=== PATIENT | male | born 1945 | race Caucasian/White ===

== ENCOUNTER 2017-06-20 10:43 | Day surgery (SDC) | payer OTHER ==
[~2017-06-20] VITALS: Ht 172.7 cm; Wt 96.3 kg
[~2017-06-20 10:43] MED LIST: ASPI81TA28 PO; B-COCAP21 PO; CALC667C PO; CEFAZOLIN 1000MG IV PUSH 5 ML IV SCH; CHOL1000 PO; CRD200 PO; D5W AND 1/4NSS 1,000 ML IV SCH; DOCU-94 PO; LPT40 PO; METO25TA56 PO; NTRGSL/4 SL; PLV75 PO; PROSTATE COMPLETE PO
[2017-06-20 12:16] VITALS: BP 164/91; PULSE 86; TEMP 36.8; O2SAT 100; Ht 172.7 cm; Wt 96.3 kg
--- NOTE | 2017-06-20 12:37 | History and Physical ---
History & Physical Date of Service Jun 20, 2017. History & Physical CC: Malfunctioning left arm av fistula HPI: Mr. Dennis had a left upper arm fistula created in the past. He is having trouble with runs. A fistulogram was recommended. He denies any significant complaints at this time including headaches, fevers, chills, dizziness, chest pain, shortness of breath, abdominal pain, nausea, vomiting, diarrhea, constipation, dysuria, hematuria, rest pain, claudication, nonhealing wounds or ulcers or other complaints. His allergies include no known allergies. His home medications are reconciled in the chart and include the following: Acetaminophen, amiodarone, artificial tears eye drops, aspirin, atorvastatin, cholecalciferol, clopidogrel, docusate sodium, metoprolol tartrate, Nephrocaps, [place] 5/325, PhosLo Gel Caps 667 mg oral capsule and tramadol 50 mg oral tablet. His past medical history is positive for hypertension, type 2 diabetes mellitus , end stage renal disease, coronary artery disease and carotid artery stenosis. His surgical history is positive for umbilical hernia repair, carotid stent in 2002, cardiac catheterizations x2, coronary artery bypass graft x4 in 1997, coronary artery bypass graft x3 in 1987, and carotid endarterectomy in 1991. His family history is positive for coronary artery disease, diabetes and hypertension in both of his parents. His social history is negative for tobacco, alcohol or drug use. 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 His review of systems is negative for fatigue, fevers, sweats, weight loss, exercise intolerance, abnormal moles or rashes, vision changes or photophobia, ear pain, sinus problems or sore throat, cough, shortness of breath, hemoptysis or wheezing, chest pain, palpitations or syncope. He admits occasional edema of his bilateral lower extremities but this is not chronic. He denies abdominal pain, nausea, vomiting, diarrhea, constipation, muscle weakness, headaches, dizziness, numbness or seizures. On physical exam, his vital signs today are as follows: Blood pressure of 110/ 60 in the left arm, 110/66 in the right arm, heart rate is 68, oxygenation 97% on room air. The patient is 69 inches tall and weighs 214 pounds. Constitutional: In general, the patient is a chronically ill-appearing elderly male in no acute distress. He ambulates slowly, but without assistance and is active, alert and oriented x4 with normal recent and remote memory. His head is normocephalic and atraumatic. His eyes are EOMI. His ENMT exam demonstrates no hearing loss, rhinorrhea or pharyngeal erythema. His neck is supple, nontender with midline trachea without masses or crepitus. Lung exam demonstrates no dyspnea, they were clear to auscultation bilaterally. Cardiovascular exam demonstrates a nondisplaced apical impulse with a regular rate and rhythm with a 2/6 systolic ejection murmur noticed. Peripheral pulses are full and equal in all extremities unless otherwise noted, specifically they are normal in his carotid, brachial, radial and femoral pulses. His bilateral posterior tibial and dorsalis pedis pulses are +2. He does not have a significant bruit in his carotid, abdominal or femoral area. His abdomen is soft, nontender with normoactive bowel sounds in all 4 quadrants without guarding or rebound. There is no flank or CVA tenderness and I am unable to appreciate any pulsatile mass. His musculoskeletal exam demonstrates normal tone and strength for age. His bilateral upper extremities demonstrate no cyanosis, edema, clubbing, varicosities or ulcers with a thrill present in the left arm fistula. The patient's bilateral lower extremities do demonstrate +1 pitting edema and some discoloration consistent with chronic venous insufficiency. There are no ulcerations, mottling, cyanosis or gangrene noted. Neurologically, he has grossly intact cranial nerves and grossly intact sensation. ASSESSMENT AN PLAN: Imp: End-stage renal disease on hemodialysis. Malfunctioning left arm fistula Plan: Patient is admitted for a fistulogram with possible intervention. I have discussed the risks options and benefits of the procedure with the patient. The patient understands the risks options and benefits and agrees to the procedure.
--- NOTE | 2017-06-20 12:38 | Procedure Note ---
Pre-Mod Sedation Assessment General Date of Moderate Sedation: Jun 20, 2017. Vital Signs: Vital Signs Past 12 Hours Date Time Temp Pulse Resp B/P (MAP) Pulse Ox O2 Delivery O2 Flow Rate FiO2 06/20/17 12:16 36.8 86 18 164/91 (115) 100 Room Air Pre-Sedation Airway Assessment Oral Cavity: Dentures Short Thick Neck: Yes Hx of Sleep Apnea: No Smoking Status: Never Smoker Mallampati Classification: Class I ASA Classification: Class III Notes The planned sedation has been discussed with the patient and consent obtained. I have identified the patient, determined the appropriateness of sedation and have assessed the patient immediately prior to the procedure. All medicine(s) and interventions are by my order.
[2017-06-20] MEDS ORDERED: CEFAZOLIN 2000MG IV PUSH 10 ML IV SCH (12:52)
[2017-06-20] MEDS ORDERED: FENTANYL CITRATE INJ 50 MCG/1 ML 2 ML VIAL ONE (13:38)
[2017-06-20] MEDS ORDERED: MIDAZOLAM HCL 1 MG/ML 2ML VIAL ONE (13:38)
[2017-06-20 13:47] VITALS: BP 164/91; PULSE 86; TEMP 36.8; O2SAT 100
--- NOTE | 2017-06-20 14:20 | [facility] Operative Report ---
Operative Report Operative Date Jun 20, 2017. Pre-Operative Diagnosis Malfunctioning Fistula Post-Operative Diagnosis None Procedure(s) Performed Fistulogram Surgeon Dr. Lauren Bat Carrier Surgeon(s) None Estimated Blood Loss 0 Findings no stenosis seen Specimens None Anesthesia Local Complication(s) None Indications This is 72-year-old gentleman left arm left upper arm AV fistula using the cephalic vein. They are having problems at dialysis with a running of the fistula. A fistulogram was recommended with possible intervention. I have discussed the risks options and benefits of the procedure with the patient. The patient understands the risks options and benefits and agrees to the procedure. Description of Procedure The patient was taken to the angiogram suite and placed in the supine position. The left arm was then prepped and draped in a sterile manner. Local anesthetic was administered and a percutaneous puncture was then made of the proximal portion of the left arm antecubital cephalic vein AV fistula using micropuncture technique. Micropuncture wire and sheath were then inserted. A fistulogram was then performed. The fistulogram showed a widely patent fistula with no evidence stenosis throughout the upper arm. Central veins were also widely patent. There are 2 large branches coming off the fistula proximally prior to the puncture sites. No intervention was needed of to the fistula at this time. The sheath was then pulled and pressure was applied. Adequate hemostasis was obtained. The patient left the angiogram suite in good condition and tolerated the procedure well. I attest to the content of the Intraoperative Record and any orders documented therein. Any exceptions are noted below.
--- NOTE | 2017-06-20 14:22 | Discharge Instructions ---
Discharge Instructions Date of Service Jun 20, 2017. Visit Reason for Visit: End Stage Renal Disease, Malfunctioning Fistula Discharge Discharge Diagnosis / Problem: Malfunctioning fistula Discharge Goals Goal(s): Diagnostic testing Activity Recommendations Activity Limitations: resume your previous activity Anesthesia . Post Anesthesia Instructions: If you have had General Anesthesia or IV Sedation: * Do not drive today. * Resume driving when surgeon permits. * Do not make important decisions or sign legal documents today. * Call surgeon for: 1. Temperature elevations greater than 101 degrees F. 2. Uncontrollable pain. 3. Excessive bleeding. 4. Persistent nausea and vomiting. 5. Medication intolerance (nausea, vomiting or rash). * For nausea and vomiting use only clear liquids such as: tea, soda, bouillon until nausea subsides, then gradually increase diet as tolerated. * If you have any concerns or questions, call your surgeon's office. If physician is unavailable and it is an emergency, call 911 or go to the nearest emergency room. . Instructions / Follow-Up Instructions / Follow-Up Call [phone] with any questions or concerns. SPECIAL CARE INSTRUCTIONS: Medications: * Continue to take your medications as directed. If you have been given a prescription for Plavix, please fill it immediately and take as directed. Incision Care: * Your puncture site may have some bruising and minor swelling for about one week. * You will have a small dressing covering your puncture site. You may remove the dressing after 24 hours and shower. You may let the warm soapy water run over it, but be sure to dry the puncture site well and keep it dry. * DO NOT IMMERSE THE INCISION IN A TUB/POOL/etc. UNTIL HEALED. * Puncture sites should be kept covered with a band-aid until it begins to heal. Restrictions: * Depending on whether you leg or arm was punctured to access the arteries, you will be required to lay flat, hold your arm still, or both, for about 4 hours after the procedure to prevent bleeding. * Limit your activity for the first 48 hours. You may walk and go up and down steps. Avoid excessive bending or movement at the puncture site. Possible Complications: * Excessive Swelling - after blood flow is improved you may notice increased swelling in the lower legs. This is a normal response. This usually depends on the amount of blockages in the leg, how long they have been there prior to your procedure and how much blood flow was restored. Elevating your legs will help to improve this. Please notify our office ([phone] ) if the swelling does not go away after lying in bed overnight. * Infection/Drainage/Bleeding - Drainage or bleeding from the puncture site should be minimal. If you have excessive bleeding or drainage, call our office ([phone]) right away. * Pain - You may experience some mild pain or soreness at your puncture site. If your pain does not improve, please contact our office ([phone]). Call your doctor and seek emergent treatment if you develop: * Temperature above 101 degrees * Any fever or chills * Any redness or purulent drainage from the puncture site * Any new dusky/blue colored toes or feet with coolness or sharp or aching pain. SKIN IRRITATION: * You may experience some redness and/or swelling in the area where radiation was administered. If any skin irritation occurs, please contact your family physician. FOLLOW UP VISIT: Keep any scheduled doctor appointments. Diet Recommendations Recommended Home Diet: resume previous diet Procedures Procedures Performed: Fistulogram Pending Studies Studies pending at discharge: no Medical Emergencies . Who to Call and When: Medical Emergencies: If at any time you feel your situation is an emergency, please call 911 immediately. . Non-Emergent Contact Non-Emergency issues call your: Surgeon . . "Provider Documentation" section prepared by Dhruv Lauren. .
[2017-06-20 14:25] VITALS: BP 159/64; PULSE 83; TEMP 37.2; O2SAT 96
[2017-06-20] MEDS ORDERED: OPTIRAY 300 IV ONE (14:25)
[2017-06-20] MEDS ORDERED: LIDOCAINE HCL 1% 20 ML VIAL INJ ONE (14:25)
[2017-06-20 14:55] VITALS: BP 125/52; PULSE 82; TEMP 36.8; O2SAT 97
== END 2017-06-20 15:25 | disposition home or self-care (01) ==
LOC: C.ACU 10:43
PROVIDERS: ATTEND Surgery Vascular Surgery
DX: T82.898A Other specified complication of vascular prosthetic devices, implants and grafts, initial encounter (principal); Y84.8 Other medical procedures as the cause of abnormal reaction of the patient, or of later complication, without mention of misadventure at the time of the procedure; N18.6 End stage renal disease; Z99.2 Dependence on renal dialysis; Z98.890 Other specified postprocedural states; Z79.899 Other long term (current) drug therapy; Z79.82 Long term (current) use of aspirin; E11.9 Type 2 diabetes mellitus without complications; I25.10 Atherosclerotic heart disease of native coronary artery without angina pectoris; Z82.49 Family history of ischemic heart disease and other diseases of the circulatory system; Z83.3 Family history of diabetes mellitus

== ENCOUNTER 2018-03-06 14:42 | Inpatient (IN) | payer OTHER ==
[~2018-03-06] VITALS: Ht 172.7 cm; Wt 102.3 kg
[~2018-03-06 14:42] MED LIST changes: -CEFAZOLIN 1000MG IV PUSH 5 ML IV SCH; -D5W AND 1/4NSS 1,000 ML IV SCH
[2018-03-06] MEDS ORDERED: CALC667C PO (15:32)
[2018-03-06] MEDS ORDERED: HYDR-4383 PO (15:32)
[2018-03-06] MEDS ORDERED: POLY335019 PO (15:32)
--- NOTE | 2018-03-06 15:45 | EMERGENCY ROOM VISIT NOTE ---
History Report prepared by Jan: Gwendolyn Nieto Under the Supervision of: Dr. No Winkler D.O. First contact with patient: 15:03 Chief Complaint: CHEST PAIN Stated Complaint: CHEST PAIN/RAPID AFIB Nursing Triage Summary: pt arrives via ALS from home per ALS patient reports chest pain with radiation down arm pt states it initially started at the grocery store and then patient decided he was going to cut the grass today pt reports over a 3 hours time span he took 4 nitro upon EMS arrival they gave him a nitro spray, 4 baby aspirin and 50ML IV bolus pt reports HX of cardiac surgery with stent placement pt also reports HX of dialysis 3 times a day with hypotensive episodes History of Present Illness The patient is a 72 year old male who presents to the Emergency Room with 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 He notes he was walking into the [employer] grocery store when he suddenly got SOB. He went home and felt worse, but he mowed some grass and still felt worse. He then took 2 nitro at 1230 which he states helped a little, but his chest pain came back. At 1330, he took 2 more nitro but he still had chest pain, back pain, lightheadedness, and tingling and numbness so he called the ambulance. He states his chest pain radiates down to his arms and legs. The patient notes his chest pain is currently resolved after receiving nitro in the ED. He reports that his episodes are usually brought on through exercise however this is worse than his prior episodes. His clinical staff anesthesiologist is Dr. Laird but the patient notes he has not seen him in years. He currently takes Plavix and aspirin and has a past history of triple bypass, quadruple bypass, 6 hearts stents, and is on dialysis. Pt states no current symptoms. 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 A total of 10 systems reviewed and were otherwise negative. Past Medical & Surgical Medical Problems: (1) A-fib (2) AC MYOCRD INFRCT,TRUE PSTERIR WALL INFRCT,INIT EPI (3) CHF (congestive heart failure) (4) Coronary artery disease (5) DIAB [place] WO COMPL, TYPE II OR UNSPEC TYPE, NOT UNCNTRLD (6) Diabetes mellitus type 2 in obese (7) ESRD (end stage renal disease) on dialysis (8) Heart disease (9) Hyperkalemia (10) Hyperlipidemia (11) Hypertension (12) Osteomyelitis of lumbar vertebra (13) Post percutaneous transluminal coronary angioplasty (14) Sepsis (15) Syncope Surgical Problems: (1) H/O hernia repair (2) Hx of CABG (3) Hx of CABG (4) S/P PTCA (percutaneous transluminal coronary angioplasty) Family History Cancer Diabetes mellitus Gallbladder disease Heart disease Hypertension Kidney disease Lung disease Social History Smoking Status: Never Smoker Alcohol Use: occasionally Drug Use: none Marital Status: Housing Status: lives with family Occupation Status: retired Current/Historical Medications Scheduled Amiodarone HCl (Amiodarone HCl), 200 MG PO BID Aspirin (Aspirin Ec), 81 MG PO QAM Atorvastatin (Lipitor), 80 MG PO HS B-Complex W/ C & Folic Acid ([place] Caps), 1 CAP PO QPM Calcium Acetate (Phosphate Bin (Phoslo 667 Mg), 667 MG PO TIDM Calcium Acetate (Phosphate Bin (Phoslo 667 Mg), 1 CAP PO HS Cholecalciferol (Vitamin D3), 1,000 INTER.UNIT PO QAM Clindamycin HCl (Clindamycin HCl), 300 MG PO TID Clopidogrel Bisulfate (Clopidogrel), 75 MG PO QAM Metoprolol Tartrate (Lopressor), 25 MG PO TID Polyethylene Glycol 3350 (Miralax), 17 GM PO DIRECTED [Prostate Complete], 1 TAB PO QAM Scheduled PRN Docusate Sodium (Colace), 100 MG PO UD PRN for Constipation Hydrocodone/Acetaminophen ([place] 10/325 Tab), 1 TAB PO DIRECTED PRN for Pain Nitroglycerin (Nitrostat), 0.4 MG SL UD PRN for Chest Pain Allergies Coded Allergies: No Known Allergies (Verified , 03/06/18) Physical Exam Vital Signs Date Time Temp Pulse Resp B/P (MAP) Pulse Ox O2 Delivery O2 Flow Rate FiO2 03/06/18 18:02 79 20 128/57 99 Room Air 03/06/18 18:02 75 03/06/18 17:32 77 21 127/63 99 Room Air 03/06/18 17:01 86 23 125/73 97 Room Air 03/06/18 16:31 78 23 112/59 97 Room Air 03/06/18 16:00 90 20 107/38 98 Room Air 03/06/18 15:30 88 20 101/62 96 Room Air 03/06/18 15:15 88 18 105/41 99 Room Air 03/06/18 15:08 91 03/06/18 14:53 97 Room Air 03/06/18 14:53 36.8 92 18 97/66 97 Room Air Physical Exam GENERAL: alert, well appearing, well nourished, no distress, non-toxic EYE EXAM: normal conjunctiva, PERRL and EOM's grossly intact OROPHARYNX: no exudate, no erythema, lips, buccal mucosa, and tongue normal and mucous membranes are moist NECK: supple, no nuchal rigidity, no adenopathy, non-tender LUNGS: Clear to auscultation. Normal chest wall mechanics HEART: no murmurs, S1 normal and S2 normal ABDOMEN: abdomen soft, non-tender, normo-active bowel sounds, no masses, no rebound or guarding. BACK: Back is symmetrical on inspection and there is no deformity, no midline tenderness, no CVA tenderness. SKIN: no rashes and no bruising UPPER EXTREMITIES: upper extremities are grossly normal. LOWER EXTREMITIES: Mild 1+ chronic LUE edema. Fistula LUE NEURO EXAM: Normal sensorium, cranial nerves II-XII grossly intact, normal speech, no gross weakness of arms, no gross weakness of legs. Medical Decision & Procedures ER Provider Diagnostic Interpretation: Radiology results have been interpreted by the radiologist and reviewed by me. CHEST ONE VIEW PORTABLE CLINICAL HISTORY: Atypical chest pain COMPARISON STUDY: March 18, 2016 FINDINGS: The heart is enlarged. There are postsurgical changes of a midline sternotomy. The right-sided central venous catheter has been removed. There is mild central vascular prominence without evidence for overt failure. There is no focal pulmonary consolidation.[ IMPRESSION: Cardiomegaly and mild central vascular prominence. No evidence of focal pulmonary consolidation Electronically signed by: Mina Chan M.D. 03/06/2018 4:18 PM Laboratory Results Test 03/06/18 17:20 Immature Granulocyte % (Auto) 1.4 % White Blood Count 9.45 K/uL (4.8-10.8) Red Blood Count 3.57 M/uL (4.7-6.1) Hemoglobin 11.5 g/dL (14.0-18.0) Hematocrit 34.6 % (42-52) Mean Corpuscular Volume 96.9 fL (80-100) Mean Corpuscular Hemoglobin 32.2 pg (25-34) Mean Corpuscular Hemoglobin Concent 33.2 g/dl (32-36) Platelet Count 178 K/uL (130-400) Mean Platelet Volume 10.2 fL (7.4-10.4) Neutrophils (%) (Auto) 67.2 % Lymphocytes (%) (Auto) 12.1 % Monocytes (%) (Auto) 18.4 % Eosinophils (%) (Auto) 0.6 % Basophils (%) (Auto) 0.3 % Neutrophils # (Auto) 6.35 K/uL (1.4-6.5) Lymphocytes # (Auto) 1.14 K/uL (1.2-3.4) Monocytes # (Auto) 1.74 K/uL (0.11-0.59) Eosinophils # (Auto) 0.06 K/uL (0-0.5) Basophils # (Auto) 0.03 K/uL (0-0.2) Immature Granulocyte # (Auto) 0.13 K/uL (0.00-0.02) Prothrombin Time 10.4 SECONDS (9.0-12.0) Prothromb Time International Ratio 1.0 (0.9-1.1) Phosphorus Level 4.0 mg/dl (2.5-4.9) Magnesium Level 2.7 mg/dl (1.8-2.4) Total Bilirubin 0.4 mg/dl (0.2-1) Aspartate Amino Transf (AST/SGOT) 26 U/L (15-37) Alanine Aminotransferase (ALT/SGPT) 26 U/L (12-78) Alkaline Phosphatase 160 U/L (45-117) Pro-B-Type Natriuretic Peptide 8468 pg/ml (0-900) Total Protein 7.4 gm/dl (6.4-8.2) Albumin 3.6 gm/dl (3.4-5.0) Globulin 3.8 gm/dl (2.5-4.0) Albumin/Globulin Ratio 0.9 (0.9-2) Laboratory results per my review. ECG Per My Interpretation Indication: chest pain Rate (beats per minute): 100 Rhythm: atrial fibrillation Findings: no acute ischemic change, other (possbile RBBB) Comparison ECG Date: 03/20/16 Change: no significant change ED Course 153: The patient was evaluated in room A12. A complete history and physical exam was performed. 1801: I checked on the patient at this time and recommended he be further evaluated in the ED. HR 90's. No current symptoms. 1822: I reviewed the patient's case with Birgit Cook. He will evaluate the patient for further management. Medical Decision Differential diagnosis: Etiologies such as cardiac ischemia, aortic dissection, pulmonary embolism, pneumonia, pneumothorax, musculoskeletal, infections, pericarditis, myocarditis , esophageal rupture, gastrointestinal, as well as others were entertained. Pt without any recurrent symptoms here. HR initially very fast for EMS but seemed to improved with pain control and resolution. By my evaluation initially , HR in low 100's. No recurrence of any symptoms during observation in the ER. Initial trop negative. Pt with hx of CKD on HD and due tomorrow. Pt with significant cardiac history. Verbalized understanding of all results and was agreeable with plan. I do not suspect PE or vascular etiology. I do not suspect occult infectious etiology. No other symptoms to suggest GI etiology of pain and no hx of significant GERD per pt report. Pt hasn't been to his clinical staff anesthesiologist in several years. Given pt's risk and noncompliance discussed with him additional evaluation and treatment by hospitalist and possibly cardiology and pt in agreement. Medication Reconcilliation Current Medication List: was personally reviewed by me Blood Pressure Screening Patient's blood pressure: Low blood pressure Blood pressure disposition: Referred to PCP Consults Time Called: 1809 Consulting Physician: Birgit Cook Returned Call: 1822 I reviewed the patient's case with Birgit Cook. He will evaluate the patient for further management. Impression Primary Impression: Chest pain Additional Impressions: Dyspnea on exertion Chronic kidney disease Afib Scribe Attestation The scribe's documentation has been prepared under my direction and personally reviewed by me in its entirety. I confirm that the note above accurately reflects all work, treatment, procedures, and medical decision making performed by me. Departure Information Dispostion Being Evaluated By Hospitalist (Birgit Cook) Prescriptions Metoprolol Tartrate (LOPRESSOR) 25 Mg Tab 25 MG PO TID for 30 Days, #90 TAB 2 Refills Prov: Chung Pena MD 03/09/18 Amiodarone HCl (Amiodarone HCl) 200 Mg Tab 200 MG PO BID for 30 Days, #60 TAB 1 Refill Prov: Chung Pena MD 03/09/18 Clindamycin HCl (Clindamycin HCl) 150 Mg Cap 300 MG PO TID for 30 Days Prov: Chung Pena MD 03/09/18 Referrals Rl Mendoza M.D. (PCP) Patient Instructions [facility] Problem Qualifiers
--- NOTE | 2018-03-06 16:19 | DIAGNOSTIC IMAGING REPORT ---
CHEST ONE VIEW PORTABLE CLINICAL HISTORY: Atypical chest pain COMPARISON STUDY: March 18, 2016 FINDINGS: The heart is enlarged. There are postsurgical changes of a midline sternotomy. The right-sided central venous catheter has been removed. There is mild central vascular prominence without evidence for overt failure. There is no focal pulmonary consolidation.[ IMPRESSION: Cardiomegaly and mild central vascular prominence. No evidence of focal pulmonary consolidation Electronically signed by: Mina Chan M.D. 03/06/2018 4:18 PM Dictated Date/Time: 03/06/2018 4:17 PM
[2018-03-06 17:30] LABS: BASO % 0.3 %; BASO ABS # 0.03 K/uL (0-0.2); EOS % 0.6 %; EOS ABS # 0.06 K/uL (0-0.5); HEMATOCRIT 34.6 % (42-52); HEMOGLOBIN 11.5 g/dL (14.0-18.0); IG# 0.13 K/uL (0.00-0.02); LYMPH % 12.1 %; LYMPH ABS # 1.14 K/uL (1.2-3.4); MEAN CELL VOLUME 96.9 fL (80-100); MEAN CORPUSCULAR HEMOGLOBIN 32.2 pg (25-34); MEAN CORPUSCULAR HGB CONC 33.2 g/dl (32-36); MEAN PLATELET VOLUME 10.2 fL (7.4-10.4); MONO % 18.4 %; MONO ABS # 1.74 K/uL (0.11-0.59); NEUT % 67.2 %; NEUT ABS # 6.35 K/uL (1.4-6.5); PLATELET COUNT 178 K/uL (130-400); RED CELL DISTRIBUTION WIDTH SD 49.4 fL (36.4-46.3); WHITE BLOOD COUNT 9.45 K/uL (4.8-10.8)
[2018-03-06 18:00] LABS: ALBUMIN 3.6 gm/dl (3.4-5.0); CALCIUM 8.5 mg/dl (8.5-10.1); CREATININE 6.21 mg/dl (0.60-1.40); POTASSIUM 5.1 mmol/L (3.5-5.1); TOTAL PROTEIN 7.4 gm/dl (6.4-8.2)
[2018-03-06] MEDS ORDERED: ONDANSETRON INJ 2 MG/ML 2 ML VIAL IV PRN (19:30)
[2018-03-06] MEDS ORDERED: NITROGLYCERIN 0.4 MG SL PER TAB CHARGE SL PRN ×2 (19:30→19:45)
--- NOTE | 2018-03-06 19:41 | History and Physical ---
History & Physical Date & Time of Service: Mar 06, 2018 at 19:33 Chief Complaint: Chest Pain/Rapid Afib Primary Care Physician: Rl Mendoza M.D. History of Present Illness Source: patient, family, clinic records, hospital records This is a 72 year old male with a past medical history of CAD s/p CABG x7 and stenting x6, hx. of atrial fibrillation, ESRD on HD - presents with some chest pain. States that he was working outside in the heat and after exerting himself and sweating, he developed some chest pain. En route, he was noted to be in A. Fib with RVR and was given some medications for rate control and fluids which helped and he felt better. On arrival, he had no chest pain. Denies any shortness of breath or palpitations. He is unsure of why he is not on any anticoagulation, but states he had bleeding from fistula site in the past. Past Medical/Surgical History Medical Problems: (1) A-fib (2) AC MYOCRD INFRCT,TRUE PSTERIR WALL INFRCT,INIT EPI (3) Acute renal failure (4) Bacteremia (5) Cellulitis of right lower extremity (6) CHF (congestive heart failure) (7) Coronary artery disease (8) DIAB L[place]ETTA WO COMPL, TYPE II OR UNSPEC TYPE, NOT UNCNTRLD (9) Diabetes mellitus type 2 in obese (10) Elevated troponin (11) ESRD (end stage renal disease) on dialysis (12) Heart disease (13) Hyperkalemia (14) Hyperlipidemia (15) Hypertension (16) Hyponatremia (17) Leukocytosis (18) Lower back pain (19) Lumbar back pain (20) Osteomyelitis of lumbar vertebra (21) Post percutaneous transluminal coronary angioplasty (22) Sepsis (23) Staphylococcus aureus sepsis (24) Syncope (25) Weakness Surgical Problems: (1) H/O hernia repair (2) Hx of CABG (3) Hx of CABG (4) S/P PTCA (percutaneous transluminal coronary angioplasty) Family History Cancer Diabetes mellitus Gallbladder disease Heart disease Hypertension Kidney disease Lung disease Social History Smoking Status: Never Smoker Drug Use: none Marital Status: Housing status: lives alone Occupational Status: retired Immunizations History of Influenza Vaccine: No History of Tetanus Vaccine?: Unknown History of Pneumococcal: No History of Hepatitis B Vaccine: Unknown Allergies Coded Allergies: No Known Allergies (Verified , 03/06/18) Home Medications Scheduled Amiodarone HCl (Amiodarone HCl), 200 MG PO QAM Aspirin (Aspirin Ec), 81 MG PO QAM Atorvastatin (Lipitor), 80 MG PO HS B-Complex W/ C & Folic Acid ([place] Caps), 1 CAP PO QPM Calcium Acetate (Phosphate Bin (Phoslo 667 Mg), 667 MG PO TIDM Calcium Acetate (Phosphate Bin (Phoslo 667 Mg), 1 CAP PO HS Cholecalciferol (Vitamin D3), 1,000 INTER.UNIT PO QAM Clopidogrel Bisulfate (Clopidogrel), 75 MG PO QAM Metoprolol Tartrate (Lopressor) (Lopressor), 12.5 MG PO BID Polyethylene Glycol 3350 (Miralax), 17 GM PO DIRECTED [Prostate Complete], 1 TAB PO QAM Scheduled PRN Docusate Sodium (Colace), 100 MG PO UD PRN for Constipation Hydrocodone/Acetaminophen ([place] 10/325 Tab), 1 TAB PO DIRECTED PRN for Pain Nitroglycerin (Nitrostat), 0.4 MG SL UD PRN for Chest Pain Review of Systems Constitutional: No fever, No chills Respiratory: + dyspnea on exertion, No cough, No sputum, No wheezing, No shortness of breath, No dyspnea at rest, No hemoptysis Cardiovascular: + chest pain, No orthopnea, No edema, No palpitations Abdomen: No pain, No nausea, No vomiting, No diarrhea, No constipation, No GI bleeding Musculoskeletal: No joint pain, No muscle pain Genitourinary - Male: No dysuria (decreased urination due to end stage renal disease) Neurologic: No weakness, No numbness/tingling, No vertigo, No balance problems Psychiatric: No depression symptoms, No anxiety, No insomnia Endocrine: No fatigue Hematologic / Lymphatic: No abnormal bleeding/bruising Integumentary: No rash Allergic / Immunologic: No environmental allergies, No seasonal allergies Physical Exam Vital Signs Date Time Temp Pulse Resp B/P (MAP) Pulse Ox O2 Delivery O2 Flow Rate FiO2 03/06/18 18:02 79 20 128/57 99 Room Air 03/06/18 18:02 75 03/06/18 17:32 77 21 127/63 99 Room Air 03/06/18 17:01 86 23 125/73 97 Room Air 03/06/18 16:31 78 23 112/59 97 Room Air 03/06/18 16:00 90 20 107/38 98 Room Air 03/06/18 15:30 88 20 101/62 96 Room Air 03/06/18 15:15 88 18 105/41 99 Room Air 03/06/18 15:08 91 03/06/18 14:53 97 Room Air 03/06/18 14:53 36.8 92 18 97/66 97 Room Air General Appearance: no apparent distress Head: normocephalic, atraumatic Eyes: normal inspection ENT: hearing grossly normal Neck: supple Respiratory/Chest: chest non-tender, lungs clear, normal breath sounds, no respiratory distress, no accessory muscle use Cardiovascular: no edema, no gallop, no JVD, no murmur, normal peripheral pulses, + irregularly irregular Abdomen/GI: normal bowel sounds, non tender, soft Back: normal inspection, no CVA tenderness, no muscle spasm, normal range of motion Extremities/Musculoskelatal: normal inspection, no calf tenderness, normal capillary refill, no pedal edema, normal range of motion, + pertinent finding (+ fistula - L arm) 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1 % Monocytes (%) (Auto) 18.4 % Eosinophils (%) (Auto) 0.6 % Basophils (%) (Auto) 0.3 % Neutrophils # (Auto) 6.35 1.4-6.5 K/uL Lymphocytes # (Auto) 1.14 1.2-3.4 K/uL Monocytes # (Auto) 1.74 0.11-0.59 K/uL Eosinophils # (Auto) 0.06 0-0.5 K/uL Basophils # (Auto) 0.03 0-0.2 K/uL RDW Standard Deviation 49.4 36.4-46.3 fL RDW Coefficient of Variation 14.0 11.5-14.5 % Immature Granulocyte % (Auto) 1.4 % Immature Granulocyte # (Auto) 0.13 0.00-0.02 K/uL Prothrombin Time 10.4 9.0-12.0 SECONDS Prothromb Time International Ratio 1.0 0.9-1.1 Sodium Level 132 136-145 mmol/L Potassium Level 5.1 3.5-5.1 mmol/L Chloride Level 97 98-107 mmol/L Carbon Dioxide Level 24 21-32 mmol/L Anion Gap 11.0 3-11 mmol/L Blood Urea Nitrogen 31 7-18 mg/dl Creatinine 6.21 0.60-1.40 mg/dl Est Creatinine Clear Calc Drug Dose 12.1 ml/min Estimated GFR () 9.4 Estimated GFR (Non- 8.1 BUN/Creatinine Ratio 5.1 10-20 Random Glucose 165 70-99 mg/dl Calcium Level 8.5 8.5-10.1 mg/dl Phosphorus Level 4.0 2.5-4.9 mg/dl Magnesium Level 2.7 1.8-2.4 mg/dl Total Bilirubin 0.4 0.2-1 mg/dl Aspartate Amino Transf (AST/SGOT) 26 15-37 U/L Alanine Aminotransferase (ALT/SGPT) 26 12-78 U/L Alkaline Phosphatase 160 45-117 U/L Troponin I 0.029 0-0.045 ng/ml Pro-B-Type Natriuretic Peptide 8468 0-900 pg/ml Total Protein 7.4 6.4-8.2 gm/dl Albumin 3.6 3.4-5.0 gm/dl Globulin 3.8 2.5-4.0 gm/dl Albumin/Globulin Ratio 0.9 0.9-2 Diagnostic Radiology CHEST ONE VIEW PORTABLE CLINICAL HISTORY: Atypical chest pain COMPARISON STUDY: March 18, 2016 FINDINGS: The heart is enlarged. There are postsurgical changes of a midline sternotomy. The right-sided central venous catheter has been removed. There is mild central vascular prominence without evidence for overt failure. There is no focal pulmonary consolidation.[ IMPRESSION: Cardiomegaly and mild central vascular prominence. No evidence of focal pulmonary consolidation EKG Atrial fibrillation Right bundle branch block Abnormal ECG Impression Assessment and Plan This is a 72 year old male with a past medical history of CAD s/p CABG x7 and stenting x6, hx. of atrial fibrillation, ESRD on HD -- - presents with some chest pain. Chest Pain, r/o ACS Significant CAD - hx. of CABG and stenting - states his pain has improved with better heart rate control - plan to observe in tele, trend cardiac enzymes - echo ordered - EKG in AM - cardiology consulted - will continue aspirin, Plavix, b-steve, and statin A. Fib - had some high HRs prior to arrival - now down in the 70s - continue b-steve - continue amiodarone - cardiology consulted - no anticoagulation - possibly due to previous fistula bleeding ESRD - nephrology consulted - dialysis -- DVT ppx - subq heparin FULL CODE Resuscitation Status VTE Prophylaxis Will order VTE Prophylaxis: Yes
[2018-03-06] MEDS ORDERED: HYDROCODONE/ACETAMI 10/325 TAB PO PRN (19:45)
[2018-03-06] MEDS ORDERED: DOCUSATE SODIUM 100 MG CAP PO PRN (19:45)
[2018-03-06] MEDS ORDERED: IV FLUIDS COMPLETED PRN (19:45)
[2018-03-06 20:04] VITALS: O2SAT 97
[2018-03-06] MEDS: METOPROLOL TARTRATE 25 MG TAB PO SCH (21:00)
[2018-03-06] MEDS ORDERED: HEPARIN SOD 5000 UNIT/0.5 ML CARP SQ SCH (21:00)
[2018-03-06] MEDS ORDERED: POLYETHYLENE (MIRALAX) 17 GM PACK PO PRN (21:15)
[2018-03-06 21:54] VITALS: Ht 172.7 cm; Wt 102.3 kg
[2018-03-06 22:30] VITALS: BP 84/39; PULSE 78; TEMP 36.8; O2SAT 96
[2018-03-06] MEDS: ATORVASTATIN 40 MG TAB PO SCH (22:43)
[2018-03-06] MEDS: NEPHROCAPS PO SCH (22:43)
[2018-03-06] MEDS: CALCIUM ACETATE 667MG GELCAP PO SCH (22:43)
[2018-03-07] VITALS (19 sets, daily range): BP systolic 77–123; BP diastolic 43–75; PULSE 73–86; TEMP 36.5–37.2; O2SAT 94–97
[2018-03-07] MEDS: CALCIUM ACETATE 667MG GELCAP PO SCH ×4 (08:16→21:00)
[2018-03-07] MEDS: AMIODARONE 200 MG TAB PO SCH (09:12)
[2018-03-07] MEDS: CLOPIDOGREL BISULFATE 75 MG TAB PO SCH (09:12)
[2018-03-07] MEDS: ASPIRIN 81 MG ECTAB PO SCH (09:12)
[2018-03-07] MEDS: CHOLECALCIFEROL 1000 INTER.UNIT TAB PO SCH (09:13)
[2018-03-07] MEDS ORDERED: HEPARIN IV LOW DOSE NO BOLUS SCH (09:15)
[2018-03-07] MEDS ORDERED: METOPROLOL TARTRATE 1 MG/ML VIAL IV PRN (09:15)
[2018-03-07 09:42] LABS: HEMATOCRIT 32.2 % (42-52); HEMOGLOBIN 10.9 g/dL (14.0-18.0); MEAN CELL VOLUME 96.1 fL (80-100); MEAN CORPUSCULAR HEMOGLOBIN 32.5 pg (25-34); MEAN CORPUSCULAR HGB CONC 33.9 g/dl (32-36); MEAN PLATELET VOLUME 9.7 fL (7.4-10.4); PLATELET COUNT 164 K/uL (130-400); RED CELL DISTRIBUTION WIDTH CV 14.2 % (11.5-14.5); RED CELL DISTRIBUTION WIDTH SD 50.2 fL (36.4-46.3)
--- NOTE | 2018-03-07 10:17 | Cardiology Consultation ---
Cardiology Consultation Date of Consultation: Mar 07, 2018 Requesting Physician: Patrice Attending Feeder Operator: Rosamaria (Rl Laird PA-C) History of Present Illness Mr. Dennis is a markedly complex 72-year-old male who is being seen at the request of Dr. Ibrahim. Reason for consultation is chest pain, rule out acute coronary syndrome. Mr. Dennis has not been seen by cardiology since July 2016. He has felt poorly for quite some time. He notes increased heart rates observed particularly during dialysis, reporting a heart rate up to 137 bpm on Saturday. morning he drove to the [employer] a little after 6 AM. While walking in to the store he developed chest pain, pain in the neck, back, and arms, and considerably lightheadedness that required him to stop and rest for approximately 10 minutes. He eventually made his way to a motorized cart and was able to get his groceries and check out. He notes unloading the groceries in his truck however he was physically exhausted and unable to take the cart back to the store so he asked the attendant for assistance. He notes sitting and resting in the truck until his head cleared and eventually driving home where he proceeded to put the groceries away. Shortly thereafter he decided to mow grass on a zero turn tractor. In the heat he began he developed worsening symptoms and decided to put the tractor away, go inside and rest however he continued to feel poorly and then summoned 911. Throughout the above course the patient took multiple sublingual nitroglycerin tablets with reported transient improvement in angina symptoms. EKG in the emergency room revealed atrial fibrillation with a right bundle branch block. Ventricular rate was 100 bpm. I do not see that he was given any rate lowering therapies in the emergency room. he was subsequently admitted by Dr. Ibrahim who has requested this consultation. The patient continues to have angina type symptoms. Review of his continuous mortgage operations manager revealed atrial fibrillation with a rapid ventricular response with intermittent periods of wide complex tachycardia that is concerning for ventricular tachycardia though may be atrial fibrillation with aberrant conduction given baseline right bundle branch block. It should be noted that the patient had similar presentation to the above back in 2011. At that time he was evaluated by Dr. Ellington. Documentation shows difficulty achieving adequate heart rate control and difficulty controlling angina, subsequently undergoing direct current cardioversion. The patient was heparinized at that time and eventually prescribed Coumadin anticoagulation. I believe the patient discontinued Coumadin back in 2013 due to hematuria as well as excessive bleeding during dialysis. (Rl Laird PA-C) Past Medical/Surgical History Problem List: Severe premature ASCVD Status post CABG x 3 in 1987 Status post CABG x 4 in 1997 Status post October 14, 2008 PCI of the left main and left circumflex with 4 bare metal stents Status post January 2009 true posterior wall OK status post PCI with 2 bare metal stents to the left main &~proximal LCX. History of paroxysmal, very poorly tolerated, atrial fibrillation with resultant NSTEMI Hospitalization in August 2015 with acute on chronic kidney injury as well as right lower extremity cellulitis, non-ST segment elevation myocardial infarction. Non-ST segment elevation myocardial infarction was treated medically at that time. Bilateral carotid occlusive disease s/p left carotid endarterectomy in 1999 and right carotid stenting in July 2010 Hypertension Hyperlipidemia Type 2 diabetes mellitus End-stage renal disease on hemodialysis via left upper extremity fistula on Mondays, Wednesdays, and Fridays. Hemodialysis is under the direction of Dr. Wilson. Osteomyelitis of lumbar vertebra Obesity. Umbilical hernia repair Cataract extraction (Rl Laird PA-C) Family History Cancer Diabetes mellitus Gallbladder disease Heart disease Hypertension Kidney disease Lung disease Father at 84 and had CAD as well as DM. Mother at 73 and also had CAD s/p CABG x 3 as well as severe diabetes mellitus requiring amputations. Sister with DM. Older brother with DM. Younger brother with Maranda Gehrig's disease. Father and brother with prostate cancer (Rl Laird PA-C) Cancer Diabetes mellitus Gallbladder disease Heart disease Hypertension Kidney disease Lung disease (Yury Blank DO) Social History Nonsmoker. Rare social alcohol only. Denies illegal drug use. . Three children. 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 Smoking Status: Never Smoker Drug Use: none Marital Status: Housing Status: lives alone Occupation: retired (Rl Laird PA-C) Review Of Systems Complete review of system is otherwise as stated above, negative, noncontributory. (Rl Laird PA-C) Allergies Coded Allergies: No Known Allergies (Verified , 03/06/18) Medications Reported Home Medications Medications Dose Route/Sig Max Daily Dose Days Date Category Dose Instructions Phoslo 667 Mg (Calcium Acetate (Phosphate Bin) 667 Mg Cap 1 Cap PO HS 03/06/18 Reported Miralax (Polyethylene Glycol 3350) 1 Pow Pow 17 Gm PO DIRECTED 03/06/18 Reported [place] 10/325 Tab (Acetaminophen/Hydrocodone Bitart) 1 Tab Tab 1 Tab PO DIRECTED PRN 03/06/18 Reported Aspirin Ec (Aspirin) 81 Mg Tab 81 Mg PO QAM 12/13/15 Reported Clopidogrel (Clopidogrel Bisulfate) 75 Mg Tab 75 Mg PO QAM 12/13/15 Reported Phoslo 667 Mg (Calcium Acetate (Phosphate Bin) 667 Mg Cap 667 Mg PO TIDM 12/13/15 Reported Lipitor (Atorvastatin Calcium) 40 Mg Tab 80 Mg PO HS 12/13/15 Reported Amiodarone HCl 200 Mg Tab 200 Mg PO QAM 12/13/15 Reported Nitrostat (Nitroglycerin) 0.4 Mg Tab 0.4 Mg SL UD PRN 12/13/[address] ONE TABLET UNDER THE TONGUE EVERY 5 MINUTES FOR UP TO 3 DOSES IF NEEDED FOR CHEST PAIN. Vitamin D3 (Cholecalciferol) 1,000 Unit Tab 1,000 Inter.unit PO QAM 11/15/15 Reported [place] Caps (B-Complex W/ C & Folic Acid) 1 Cap Cap 1 Cap PO QPM 11/15/15 Reported [Prostate Complete] 1 Tab PO QAM 11/15/15 Reported Lopressor (Metoprolol Tartrate) 25 Mg Tab 12.5 Mg PO BID 11/15/15 Reported Colace (Docusate Sodium) 100 Mg Cap 100 Mg PO UD PRN 11/15/15 Reported (Rl Laird PA-C) Physical Exam Vital Signs (Last 8hrs): Last 8 Hrs Date Time Temp Pulse Resp B/P (MAP) Pulse Ox O2 Delivery O2 Flow Rate FiO2 03/07/18 07:02 36.8 79 18 120/75 (90) 95 Room Air 03/07/18 04:53 36.5 78 18 120/73 (89) 96 Room Air General: NAD. HEENT: Normocephalic. PER. Conjunctiva pink. Sclera pale. Neck: Bilateral carotid bruits. Left carotid endarterectomy scar. +JVD. Heart: Irregularly irregular around 130 bpm. Grade II/ systolic ejection murmur in the outflow tract. Lungs: Clear. Abdomen: Surgical scar, umbilical hernia. +BS. Soft. Nontender. No masses or organomegaly. Extremities: 1+ edema. No clubbing. No cyanosis. Chronic stasis changes. No evidence of cellulitis. Chronic varocosities, left greater than right. LUE fistula. Neuro: No focal deficits. Psychiatric: Normal affect. (Rl Laird PA-C) Data Last 24 Hours Test 03/06/18 17:20 03/07/18 01:16 03/07/18 09:16 White Blood Count 9.45 K/uL 6.20 K/uL Red Blood Count 3.57 M/uL 3.35 M/uL Hemoglobin 11.5 g/dL 10.9 g/dL Hematocrit 34.6 % 32.2 % Mean Corpuscular Volume 96.9 fL 96.1 fL Mean Corpuscular Hemoglobin 32.2 pg 32.5 pg Mean Corpuscular Hemoglobin Concent 33.2 g/dl 33.9 g/dl Platelet Count 178 K/uL 164 K/uL Mean Platelet Volume 10.2 fL 9.7 fL Neutrophils (%) (Auto) 67.2 % Lymphocytes (%) (Auto) 12.1 % Monocytes (%) (Auto) 18.4 % Eosinophils (%) (Auto) 0.6 % Basophils (%) (Auto) 0.3 % Neutrophils # (Auto) 6.35 K/uL Lymphocytes # (Auto) 1.14 K/uL Monocytes # (Auto) 1.74 K/uL Eosinophils # (Auto) 0.06 K/uL Basophils # (Auto) 0.03 K/uL RDW Standard Deviation 49.4 fL 50.2 fL RDW Coefficient of Variation 14.0 % 14.2 % Immature Granulocyte % (Auto) 1.4 % Immature Granulocyte # (Auto) 0.13 K/uL Prothrombin Time 10.4 SECONDS Prothromb Time International Ratio 1.0 Sodium Level 132 mmol/L Potassium Level 5.1 mmol/L Chloride Level 97 mmol/L Carbon Dioxide Level 24 mmol/L Anion Gap 11.0 mmol/L Blood Urea Nitrogen 31 mg/dl Creatinine 6.21 mg/dl Est Creatinine Clear Calc Drug Dose 12.1 ml/min Estimated GFR () 9.4 Estimated GFR (Non- 8.1 BUN/Creatinine Ratio 5.1 Random Glucose 165 mg/dl Calcium Level 8.5 mg/dl Phosphorus Level 4.0 mg/dl Magnesium Level 2.7 mg/dl Total Bilirubin 0.4 mg/dl Aspartate Amino Transf (AST/SGOT) 26 U/L Alanine Aminotransferase (ALT/SGPT) 26 U/L Alkaline Phosphatase 160 U/L Troponin I 0.029 ng/ml 0.050 ng/ml Pro-B-Type Natriuretic Peptide 8468 pg/ml Total Protein 7.4 gm/dl Albumin 3.6 gm/dl Globulin 3.8 gm/dl Albumin/Globulin Ratio 0.9 Admission chest x-ray showed cardiomegaly with mild central vascular prominence. There was no evidence of focal pulmonary consolidation per radiological interpretation. Initial EKG is as described above. EKG this morning reveals atrial fibrillation/flutter with a rate of 77 bpm. Right bundle branch block. Lateral T-wave changes suggestive of ischemia. Continuous telemetry monitoring is as detailed above. No periods of sinus observed. No significant bradycardia or pauses. Resting echocardiography is currently pending interpretation. (Rl Laird PA-C) Assessment & Plan Markedly complex 72-year-old male admitted with significant symptoms of chest pain/pressure consistent with angina, found to be in recurrent atrial fibrillation with a rapid ventricular response resulting in non-ST segment elevation myocardial infarction. History suggests prolonged duration of atrial fibrillation in a patient who is not anticoagulated due to past hematuria, bleeding during dialysis, and his personal preference. Options discussed with patient and daughter who was present for part of the consultation. Initial goals at this time will be to provide rate control and aid symptoms. Will increase beta-steve therapy, utilizing IV Lopressor as well as increasing oral Lopressor from 12.5 mg twice per day to 25 mg 3 times per day as blood pressure permits. Subcutaneous heparin will be discontinued with patient agreeing, at least in the short-term, to anticoagulation. IV heparin initiated via weight-based protocol. TSH requested given atrial fibrillation and chronic amiodarone usage. LFTs noted to be okay on presentation. Consideration may need to be made for transesophageal echocardiographic guided direct-current cardioversion. Further recommendations pending the above, ongoing hospitalization, evaluation by Dr. Blank. (Rl Laird PA-C) CARDIOLOGY ATTENDING ADDENDUM: The patient was seen and personally examined. Agree with Rl Laird PA-C's findings and plans as documented above. Very complex patient. Agree with planned management. (Yury Blank, DO)
[2018-03-07] MEDS: METOPROLOL TARTRATE 25 MG TAB PO SCH ×3 (10:25→21:00)
[2018-03-07 10:28] LABS: CALCIUM 8.8 mg/dl (8.5-10.1); CREATININE 6.85 mg/dl (0.60-1.40); POTASSIUM 4.9 mmol/L (3.5-5.1)
--- NOTE | 2018-03-07 11:19 | NEPHROLOGY CONSULTATION ---
DATE OF CONSULTATION: 03/07/2018 NEPHROLOGY CONSULTATION NOTE REASON FOR CONSULT: Dialysis. Patient admitted with AFib, chest pain. HISTORY OF PRESENT ILLNESS: Patient is a 72-year-old male who has been on chronic maintenance hemodialysis for the last 2-1/2 years. He also has extensive cardiac problem. He presented to the hospital yesterday with acute onset of chest pressure, chest pain, palpitations and shortness of breath. He was noted to have atrial fibrillation with rapid ventricular response with intermittent periods of wide complex tachycardia. Patient has known coronary artery disease. At this time, his cardiac enzymes are slightly positive. He gets dialysis Saturday, Saturday, Saturday through an AV fistula and is very compliant with dialysis. At this time, he is symptom free. The palpitation, chest pain and chest pressure he had yesterday have all resolved. PHYSICAL EXAMINATION: VITAL SIGNS: Blood pressure 120/75, 95% on room air, pulse is 79, temperature 36.8. HEENT: Mucous membrane moist. NECK: Supple. No jugular venous distention. CHEST: Bilateral decreased breath sounds, occasional crackles. CARDIOVASCULAR: S1 and S2, regular. ABDOMEN: Soft, nontender, obese. EXTREMITIES: Show trace to 1+ edema. LABORATORY AND IMAGING: Sodium 132, potassium 5.1, BUN 31, creatinine 6.21. Troponin I mildly positive 0.050, proBNP 8468. Hemoglobin 10.9, WBC count 6.2, platelet count 164. Chest x-ray shows cardiomegaly and mild central vascular prominence. No evidence of consolidation. ASSESSMENT AND PLAN: A 72-year-old male with a known extensive cardiac problem as well as end-stage renal disease on chronic hemodialysis Saturday, Saturday, Saturday. He admitted with acute angina symptoms as well as palpitation with atrial fibrillation and rapid ventricular response. 1. End-stage renal disease. Today is his dialysis day and we will do him today. We will do him for 3 hours, take about 2-2.5 kilo off, do him on 2k bath. Hemoglobin seems reasonable and does not need Procrit. 2. Acute cardiac symptoms. Defer to cardiology. However, good to see that he is symptom free at this time.
[2018-03-07] MEDS: HEPARIN 25,000 UNIT/500ML D5W 500 ML IV SCH ×2 (11:51→19:09)
--- NOTE | 2018-03-07 17:07 | Anesthesiology Progress Note ---
Anesthesia Progress Note Date of Service Mar 07, 2018. Progress Notes Called about Mr Dennis for possible KULDEEP cardioversion in the near future. He was admitted with a fib and vent rates in the 130's, having angina symptoms. Rate better controlled today and he seems to be better symptomatically. Echo showed EF 55%, no significant valve disease. Patient is also on dialysis, which was to be done today. If it is felt that he needs to be cardioverted due to his symptoms, I do not see anything that would prevent us from doing the sedation for the procedure. It is probably not ideal to do him Saturday if he hasn't been dialyzed since Saturday but it could be done; or if he could be done the day after his dialysis this might be best.
[2018-03-07 18:38] LABS: PTT PATIENT 39.6 SECONDS (21.0-31.0)
[2018-03-07] MEDS ORDERED: HEPARIN IV BOLUS 4,500 UNIT in SYRINGE 0 ML IV ONE (19:00)
[2018-03-07] MEDS: ATORVASTATIN 40 MG TAB PO SCH (21:00)
[2018-03-07] MEDS: NEPHROCAPS PO SCH (21:00)
--- NOTE | 2018-03-07 21:35 | Progress Note ---
Medicine Progress Note Date & Time of Visit: Mar 07, 2018 at 21:33. Subjective Resting in bed, watching TV, comfortable States he feels improved today No dyspnea, no chest pain Denies any symptoms Objective Last 8 Hrs Date Time Temp Pulse Resp B/P (MAP) Pulse Ox O2 Delivery O2 Flow Rate FiO2 03/07/18 20:28 Room Air 03/07/18 19:38 36.9 79 18 95/54 (68) 97 Room Air 03/07/18 16:18 36.7 80 117/53 (74) 03/07/18 16:15 79 120/65 03/07/18 16:00 Room Air 03/07/18 16:00 79 100/61 03/07/18 15:45 79 114/58 03/07/18 15:30 79 119/64 03/07/18 15:15 81 110/56 03/07/18 15:00 79 123/62 03/07/18 14:45 79 117/59 03/07/18 14:30 79 120/59 03/07/18 14:15 77 109/54 03/07/18 14:00 85 107/44 03/07/18 13:45 77 77/47 03/07/18 13:35 77 121/54 Physical Exam: General-oriented 3, not in distress, speaking sentences with history of muscle use Head- atraumatic Eyes- PERRL, EOMI, anicteric ENT- oropharynx clear Neck- supple, no JVD, no adenopathy, no thyromegaly; carotids +2/2, no bruits appreciated Lungs- clear to auscultation bilaterally Heart-normal with irregularly irregular rhythm Abdomen- normal bowel sounds, soft, nontender Extremities- no pretibial edema, no calf tenderness Neuro- alert, oriented x 3; no gross focal neurologic deficits Skin- warm & dry Laboratory Results: Last 24 Hours Test 03/07/18 01:16 03/07/18 09:16 03/07/18 13:34 03/07/18 18:07 Troponin I 0.050 ng/ml 0.040 ng/ml 0.037 ng/ml White Blood Count 6.20 K/uL Red Blood Count 3.35 M/uL Hemoglobin 10.9 g/dL Hematocrit 32.2 % Mean Corpuscular Volume 96.1 fL Mean Corpuscular Hemoglobin 32.5 pg Mean Corpuscular Hemoglobin Concent 33.9 g/dl RDW Standard Deviation 50.2 fL RDW Coefficient of Variation 14.2 % Platelet Count 164 K/uL Mean Platelet Volume 9.7 fL Sodium Level 133 mmol/L Potassium Level 4.9 mmol/L Chloride Level 96 mmol/L Carbon Dioxide Level 26 mmol/L Anion Gap 11.0 mmol/L Blood Urea Nitrogen 40 mg/dl Creatinine 6.85 mg/dl Est Creatinine Clear Calc Drug Dose 10.8 ml/min Estimated GFR () 8.4 Estimated GFR (Non- 7.2 BUN/Creatinine Ratio 5.8 Random Glucose 184 mg/dl Calcium Level 8.8 mg/dl Triglycerides Level 76 mg/dl Cholesterol Level 122 mg/dl HDL Cholesterol 56 mg/dl LDL Cholesterol, Calculated 51 mg/dl VLDL Cholesterol, Calculated 15 mg/dl Cholesterol/HDL Ratio 2.2 Thyroid Stimulating Hormone (TSH) 1.510 uIu/ml Hepatitis B Surface Antigen NEG Hepatitis B Surface Antibody NEG Activated Partial Thromboplast Time 39.6 SECONDS Partial Thromboplastin Ratio 1.5 Test 03/07/18 19:38 Troponin I 0.038 ng/ml Assessment & Plan This is a 72 year old male with a past medical history of CAD s/p CABG x7 and stenting x6, hx. of atrial fibrillation, ESRD on HD - presents with some chest pain. Chest Pain, r/o ACS Significant CAD - hx. of CABG and stenting Chest pain-free 1 episode of mild troponin elevation Cardiology consulted - will continue aspirin, Plavix, b-steve, and statin A. Fib Metoprolol increased Heparin drip started - continue amiodarone - cardiology consulted - no anticoagulation - possibly due to previous fistula bleeding ESRD - nephrology consulted - dialysis DVT ppx - subq heparin FULL CODE Resuscitation Status VTE Prophylaxis Will order VTE Prophylaxis: Yes Current Inpatient Medications: Current Inpatient Medications Medications (Trade) Dose Ordered Sig/Norma Route Start Time Stop Time Status Last Admin Dose Admin Ondansetron HCl (Zofran Inj) 4 mg Q6H PRN IV 03/06/18 19:30 04/05/18 19:29 Amiodarone HCl (Cordarone Tab) 200 mg QAM PO 03/07/18 09:00 04/06/18 08:59 03/07/18 09:12 200 MG Aspirin (Ecotrin Tab) 81 mg QAM PO 03/07/18 09:00 04/06/18 08:59 03/07/18 09:12 81 MG Atorvastatin Calcium (Lipitor Tab) 80 mg HS PO 03/06/18 21:00 04/05/18 20:59 03/07/18 21:00 80 MG Vitamin B Complex/ Vit C/Folic Acid (Nephrocaps) 1 cap QPM PO 03/06/18 21:00 04/05/18 20:59 03/07/18 21:00 1 CAP Calcium Acetate (Phoslo Cap) 667 mg HS PO 03/06/18 21:00 04/05/18 20:59 03/07/18 21:00 667 MG Calcium Acetate (Phoslo Cap) 667 mg TIDM PO 03/07/18 08:00 04/06/18 07:59 03/07/18 17:17 667 MG Cholecalciferol (Vitamin D Tab) 1,000 inter.unit QAM PO 03/07/18 09:00 04/06/18 08:59 03/07/18 09:13 1,000 INTER.UNIT Clopidogrel Bisulfate (plAVix TAB) 75 mg QAM PO 03/07/18 09:00 04/06/18 08:59 03/07/18 09:12 75 MG Docusate Sodium (coLACE CAP) 100 mg DAILY PRN PO 03/06/18 19:45 04/05/18 19:44 Acetaminophen/ Hydrocodone Bitart ([place] 10/325 Tab) 1 tab Q4 PRN PO 03/06/18 19:45 03/20/18 19:44 Nitroglycerin (Nitrostat Tab) 0.4 mg UD PRN SL 03/06/18 19:45 04/05/18 19:44 Polyethylene (Miralax Powder Packet) 17 gm DAILY PRN PO 03/06/18 21:15 04/05/18 21:14 Miscellaneous (Iv Fluids Completed) 1 ea PRN PRN N/A 03/06/18 19:45 03/06/19 19:44 Metoprolol Tartrate (Lopressor Tab) 25 mg TID PO 03/07/18 14:00 04/05/18 20:59 Metoprolol Tartrate (Lopressor Iv) 5 mg Q4 PRN IV 03/07/18 09:15 04/06/18 09:14 Heparin Sodium/ Dextrose 500 ml @ 22 mls/hr [id number] IV 03/07/18 11:00 04/06/18 10:59 03/07/18 19:09 22 MLS/HR
[2018-03-08 02:20] LABS: PTT PATIENT 99.6 SECONDS (21.0-31.0)
[2018-03-08 04:35] VITALS: BP 113/64; PULSE 78; TEMP 36.7; O2SAT 95
[2018-03-08] MEDS: HEPARIN 25,000 UNIT/500ML D5W 500 ML IV SCH ×2 (04:53→14:32)
[2018-03-08] MEDS: CALCIUM ACETATE 667MG GELCAP PO SCH ×4 (08:20→20:39)
[2018-03-08] MEDS: ASPIRIN 81 MG ECTAB PO SCH (08:23)
[2018-03-08 08:24] VITALS: BP 116/66; PULSE 92; TEMP 37; O2SAT 94
[2018-03-08] MEDS: AMIODARONE 200 MG TAB PO SCH ×2 (08:29→20:38)
[2018-03-08] MEDS: METOPROLOL TARTRATE 25 MG TAB PO SCH ×3 (08:29→20:39)
[2018-03-08] MEDS: CHOLECALCIFEROL 1000 INTER.UNIT TAB PO SCH (08:30)
[2018-03-08] MEDS: CLOPIDOGREL BISULFATE 75 MG TAB PO SCH (08:30)
[2018-03-08] MEDS: CLINDAMYCIN HCL 150 MG CAP PO SCH ×3 (09:03→20:39)
[2018-03-08 10:04] LABS: PTT PATIENT 63.2 SECONDS (21.0-31.0)
[2018-03-08 11:56] VITALS: BP 119/69; PULSE 71; TEMP 36.8; O2SAT 98
--- NOTE | 2018-03-08 12:26 | Progress Note ---
Medicine Progress Note Date & Time of Visit: Mar 08, 2018 at 12:18. Subjective having lunch, comfortable earlier today, patient reported having central chest discomfort- mild pressure while washing up in the bathroom, went back to bed and discomfort resolved- lasted about 5 minutes no other associated symptoms has been having episodes of A fib this morning at the time of my exam, chest pain free, no dyspnea or other symptoms Objective Last 8 Hrs Date Time Temp Pulse Resp B/P (MAP) Pulse Ox O2 Delivery O2 Flow Rate FiO2 03/08/18 11:56 36.8 71 18 119/69 (86) 98 Room Air 03/08/18 08:24 37.0 92 18 116/66 (83) 94 Room Air 03/08/18 08:00 Room Air 03/08/18 04:35 36.7 78 18 113/64 (80) 95 Room Air Physical Exam: General-oriented 3, not in distress, speaking sentences with history of muscle use Head- atraumatic Eyes- anicteric Neck- supple, no JVD Lungs- clear breath sounds bilaterally Heart- normal rate, regular rhythm Abdomen- normal bowel sounds, soft, nontender Extremities- no pretibial edema, no calf tenderness Neuro- alert, oriented x 3; no gross focal neurologic deficits Skin- warm & dry Laboratory Results: Last 24 Hours Test 03/07/18 13:34 03/07/18 18:07 03/07/18 19:38 03/08/18 01:30 Troponin I 0.037 ng/ml 0.038 ng/ml Activated Partial Thromboplast Time 39.6 SECONDS 99.6 SECONDS Partial Thromboplastin Ratio 1.5 3.8 Test 03/08/18 09:36 Activated Partial Thromboplast Time 63.2 SECONDS Partial Thromboplastin Ratio 2.4 Assessment & Plan This is a 72 year old male with a past medical history of CAD s/p CABG x7 and stenting x6, hx. of atrial fibrillation, ESRD on HD -- - presents with some chest pain. Chest Pain, r/o ACS Significant CAD - hx. of CABG and stenting - had an episode of mild chest pain this morning 1 episode of mild troponin elevation - EKG essentially unchanged from yesterday - currently on heparin drip for a fib - continue aspirin, Plavix, b-steve, and statin A. Fib Metoprolol increased, Amiodarone now BID Heparin drip started - NSR today with episodes of a fib - cardiology consulted - not on anticoagulation in the past due to previous fistula bleeding ESRD - nephrology consulted - dialysis M-W-F DVT ppx - heparin drip FULL CODE Resuscitation Status VTE Prophylaxis Will order VTE Prophylaxis: Yes Current Inpatient Medications: Current Inpatient Medications Medications (Trade) Dose Ordered Sig/Norma Route Start Time Stop Time Status Last Admin Dose Admin Ondansetron HCl (Zofran Inj) 4 mg Q6H PRN IV 03/06/18 19:30 04/05/18 19:29 Aspirin (Ecotrin Tab) 81 mg QAM PO 03/07/18 09:00 04/06/18 08:59 03/08/18 08:23 81 MG Atorvastatin Calcium (Lipitor Tab) 80 mg HS PO 03/06/18 21:00 04/05/18 20:59 03/07/18 21:00 80 MG Vitamin B Complex/ Vit C/Folic Acid (Nephrocaps) 1 cap QPM PO 03/06/18 21:00 04/05/18 20:59 03/07/18 21:00 1 CAP Calcium Acetate (Phoslo Cap) 667 mg HS PO 03/06/18 21:00 04/05/18 20:59 03/07/18 21:00 667 MG Calcium Acetate (Phoslo Cap) 667 mg TIDM PO 03/07/18 08:00 04/06/18 07:59 03/08/18 08:20 667 MG Cholecalciferol (Vitamin D Tab) 1,000 inter.unit QAM PO 03/07/18 09:00 04/06/18 08:59 03/08/18 08:30 1,000 INTER.UNIT Clopidogrel Bisulfate (plAVix TAB) 75 mg QAM PO 03/07/18 09:00 04/06/18 08:59 03/08/18 08:30 75 MG Docusate Sodium (coLACE CAP) 100 mg DAILY PRN PO 03/06/18 19:45 04/05/18 19:44 Acetaminophen/ Hydrocodone Bitart ([place] 10/325 Tab) 1 tab Q4 PRN PO 03/06/18 19:45 03/20/18 19:44 Nitroglycerin (Nitrostat Tab) 0.4 mg UD PRN SL 03/06/18 19:45 04/05/18 19:44 Polyethylene (Miralax Powder Packet) 17 gm DAILY PRN PO 03/06/18 21:15 04/05/18 21:14 Miscellaneous (Iv Fluids Completed) 1 ea PRN PRN N/A 03/06/18 19:45 03/06/19 19:44 Metoprolol Tartrate (Lopressor Tab) 25 mg TID PO 03/07/18 14:00 04/05/18 20:59 03/08/18 08:29 25 MG Metoprolol Tartrate (Lopressor Iv) 5 mg Q4 PRN IV 03/07/18 09:15 04/06/18 09:14 Heparin Sodium/ Dextrose 500 ml @ 19 mls/hr Q24H IV 03/07/18 11:00 04/06/18 10:59 03/08/18 04:53 19 MLS/HR Clindamycin HCl (Cleocin Cap) 300 mg TID PO 03/08/18 09:00 03/18/18 08:59 03/08/18 09:03 300 MG Amiodarone HCl (Cordarone Tab) 200 mg BID PO 03/08/18 21:00 04/06/18 20:59
[2018-03-08 15:48] VITALS: BP 128/69; PULSE 72; TEMP 36.8; O2SAT 96
--- NOTE | 2018-03-08 16:45 | Cardiology Follow-Up ---
Subjective General Date of Service: Mar 08, 2018. Chief Complaint: Follow-up chest pain, atrial fibrillation Pt evaluation today including: conversation w/ patient, conversation w/ family , physical exam History of Present Illness The patient is a 72 year old male seen in cardiology follow-up. Patient is comfortable sitting in bed. He has 3 family members at his bedside visiting him. He is in good humor. He denies any chest discomfort or palpitations at rest, but did note some degree of shortness of breath when he was ambulated to the bathroom recently. Telemetry reveals interval conversion from atrial fibrillation to sinus rhythm with right bundle branch block and long first-degree AV block. This remained in sinus rhythm last night, and thus far today on 03/08/18 with the exception of a few very brief runs of atrial fibrillation versus frequent complex ectopy. Allergies Coded Allergies: No Known Allergies (Verified , 03/06/18) Social History Smoking Status: Never Smoker Hx Tobacco Use In Past Year?: No Hx Alcohol Use - Type And Amou: No Hx Substance Use - Type And Am: No Problem List Medical Problems: (1) Acute renal failure Status: Acute (2) Afib Status: Acute (3) Bacteremia Status: Acute (4) Cellulitis of right lower extremity Status: Acute (5) Chest pain Status: Acute (6) Chronic kidney disease Status: Acute (7) Dyspnea on exertion Status: Acute (8) Elevated troponin Status: Acute (9) Hyponatremia Status: Acute (10) Leukocytosis Status: Acute (11) Lower back pain Status: Acute (12) Lumbar back pain Status: Acute (13) Staphylococcus aureus sepsis Status: Acute (14) Weakness Status: Acute Physical Exam Vital Signs Last Vital Signs Documentation Date Time Temp Pulse Resp B/P (MAP) Pulse Ox O2 Delivery O2 Flow Rate FiO2 03/08/18 15:48 36.8 72 18 128/69 (88) 96 03/08/18 11:56 Room Air Physical Exam Neck: supple Lungs: Auscultation: no wheezing, no rales/crackles, no rhonchi Cardiovascular: Heart Auscultation: RRR, no murmurs, no rubs Abdomen: Inspection & Palpation: soft, non-distended Extremities: pertinent finding (There is ecchymosis over his forearms, no significant lower extremity edema) Neurologic: Gait & Station: pertinent finding (No focal deficits) Assessment and Plan Assessment and Plan Echocardiogram performed this admission 03/07/18: Mild concentric left ventricular hypertrophy. The septum is dyskinetic perhaps due to conduction delay, postoperative state, or ischemia/scar. Left ventricular systolic function is normal. Qualitative left ventricular ejection fraction is 55%. The valves were not well visualized however no significant regurgitation or stenosis is present on Doppler evaluation. Compared to prior echocardiogram, the septal wall motion abnormality is unchanged. Impression: 72-year-old male 1. Recurrent atrial fibrillation, now back in sinus rhythm -Underlying right bundle branch block, first-degree AV block 2. Presented with symptoms of chest discomfort mild troponin I elevation, perhaps type II non-STEMI due to supply demand mismatch Discussion/recommendations: Patient's complex underlying coronary heart disease is well described in his cardiology consultation dated 03/07/18 including 2 CABG operations, including 1997 and 1987. He has also had multiple percutaneous coronary interventions. The patient had been placed on anticoagulation with heparin as it was of concern that he was in recurrent atrial fibrillation may require direct-current cardioversion. In the meantime he has converted back to sinus rhythm and his ventricular ectopy has improved. At this time I have increased his amiodarone dose to 200 mg twice daily. Although the corrected QT interval is long, this must be interpreted with taking his right bundle branch block into account, and therefore I believe it is stable and amiodarone treatment will be continued. Continue unfractionated heparin for now. He previously not been anticoagulated on a chronic basis due to past bleeding complications. He is already on clopidogrel and aspirin. Looking forward, the guidelines are somewhat controversial regarding the use of chronic anticoagulation and dialysis patients for stroke prophylaxis in the setting of paroxysmal atrial fibrillation. Typically it is felt that there is a definite benefit toward favoring anticoagulation the patient has had past stroke, or has a mechanical aortic valve or mitral stenosis, this patient does have high risk features of course, but also has high bleeding risk, and he is maintained on dual antiplatelet therapy already due to his chronic coronary heart disease. I am going to continue his unfractionated heparin for now, but if she remains in sinus rhythm I will likely consider discontinuation of heparin without transitioning to an oral anticoagulant. Continue current dose of metoprolol tartrate 25 mg 3 times daily. Laboratory Results Last 24 Hours Test 03/07/18 18:07 03/07/18 19:38 03/08/18 01:30 03/08/18 09:36 Activated Partial Thromboplast Time 39.6 SECONDS 99.6 SECONDS 63.2 SECONDS Partial Thromboplastin Ratio 1.5 3.8 2.4 Troponin I 0.038 ng/ml
[2018-03-08 19:15] VITALS: BP_SYST 111; BP_SYST 78; BP_DIAS 52; BP_DIAS 56; PULSE 60; TEMP 36.7; O2SAT 93
[2018-03-08] MEDS: ATORVASTATIN 40 MG TAB PO SCH (20:39)
[2018-03-08] MEDS: NEPHROCAPS PO SCH (20:39)
[2018-03-08 23:07] VITALS: BP 102/54; PULSE 73; TEMP 36.7; O2SAT 97
[2018-03-09 04:20] VITALS: BP 121/66; PULSE 73; TEMP 36.8; O2SAT 94
[2018-03-09 07:14] VITALS: BP 119/64; PULSE 73; TEMP 36.9; O2SAT 94
[2018-03-09 07:19] LABS: HEMATOCRIT 31.3 % (42-52); HEMOGLOBIN 10.6 g/dL (14.0-18.0); MEAN CELL VOLUME 95.4 fL (80-100); MEAN CORPUSCULAR HEMOGLOBIN 32.3 pg (25-34); MEAN CORPUSCULAR HGB CONC 33.9 g/dl (32-36); MEAN PLATELET VOLUME 10.1 fL (7.4-10.4); PLATELET COUNT 172 K/uL (130-400); RED CELL DISTRIBUTION WIDTH CV 14.2 % (11.5-14.5); RED CELL DISTRIBUTION WIDTH SD 49.5 fL (36.4-46.3); WHITE BLOOD COUNT 8.48 K/uL (4.8-10.8)
[2018-03-09 07:23] LABS: PTT PATIENT 57.6 SECONDS (21.0-31.0)
[2018-03-09] MEDS: AMIODARONE 200 MG TAB PO SCH (08:02)
[2018-03-09] MEDS: CLOPIDOGREL BISULFATE 75 MG TAB PO SCH (08:03)
[2018-03-09] MEDS: CHOLECALCIFEROL 1000 INTER.UNIT TAB PO SCH (08:03)
[2018-03-09] MEDS: ASPIRIN 81 MG ECTAB PO SCH (08:03)
[2018-03-09] MEDS: CALCIUM ACETATE 667MG GELCAP PO SCH ×2 (08:03→11:59)
[2018-03-09] MEDS: METOPROLOL TARTRATE 25 MG TAB PO SCH (08:03)
[2018-03-09] MEDS: CLINDAMYCIN HCL 150 MG CAP PO SCH (08:04)
[2018-03-09 09:46] LABS: CALCIUM 8.7 mg/dl (8.5-10.1); CREATININE 7.2 mg/dl (0.60-1.40); POTASSIUM 4.6 mmol/L (3.5-5.1)
--- NOTE | 2018-03-09 10:06 | Cardiology Follow-Up ---
Subjective General Date of Service: Mar 09, 2018. Chief Complaint: Follow-up chest pain, atrial fibrillation Pt evaluation today including: conversation w/ patient, physical exam History of Present Illness The patient is a 72 year old male seen in cardiology follow-up. Patient is feeling well. He is very satisfied with how he feels walking to the bathroom. He remains on a heparin infusion. Overnight and so far today, telemetry reveals stable sinus rhythm with long first-degree AV block and chronic right bundle branch block pattern. Allergies Coded Allergies: No Known Allergies (Verified , 03/06/18) Social History Smoking Status: Never Smoker Hx Tobacco Use In Past Year?: No Hx Alcohol Use - Type And Amou: No Hx Substance Use - Type And Am: No Problem List Medical Problems: (1) Acute renal failure Status: Acute (2) Afib Status: Acute (3) Bacteremia Status: Acute (4) Cellulitis of right lower extremity Status: Acute (5) Chest pain Status: Acute (6) Chronic kidney disease Status: Acute (7) Dyspnea on exertion Status: Acute (8) Elevated troponin Status: Acute (9) Hyponatremia Status: Acute (10) Leukocytosis Status: Acute (11) Lower back pain Status: Acute (12) Lumbar back pain Status: Acute (13) Staphylococcus aureus sepsis Status: Acute (14) Weakness Status: Acute Physical Exam Vital Signs Last Vital Signs Documentation Date Time Temp Pulse Resp B/P (MAP) Pulse Ox O2 Delivery O2 Flow Rate FiO2 03/09/18 07:14 36.9 73 18 119/64 (82) 94 Room Air Physical Exam Neck: supple Lungs: Auscultation: no wheezing, no rales/crackles, no rhonchi Cardiovascular: Heart Auscultation: RRR, no murmurs, no rubs Abdomen: Inspection & Palpation: soft, non-distended Extremities: pertinent finding (There is ecchymosis over his forearms, no significant lower extremity edema) Neurologic: Gait & Station: pertinent finding (No focal deficits) Assessment and Plan Assessment and Plan Echocardiogram performed this admission 03/07/18: Mild concentric left ventricular hypertrophy. The septum is dyskinetic perhaps due to conduction delay, postoperative state, or ischemia/scar. Left ventricular systolic function is normal. Qualitative left ventricular ejection fraction is 55%. The valves were not well visualized however no significant regurgitation or stenosis is present on Doppler evaluation. Compared to prior echocardiogram, the septal wall motion abnormality is unchanged. Impression: 72-year-old male 1. Recurrent atrial fibrillation, now back in sinus rhythm -Underlying right bundle branch block, first-degree AV block 2. Presented with symptoms of chest discomfort mild troponin I elevation, perhaps type II non-STEMI due to supply demand mismatch Discussion/recommendations: Patient's complex underlying coronary heart disease is well described in his cardiology consultation dated 03/07/18 including 2 CABG operations, including 1997 and 1987. He has also had multiple percutaneous coronary interventions. He previously not been anticoagulated on a chronic basis due to past bleeding complications. He is already on clopidogrel and aspirin. The guidelines are somewhat controversial regarding the use of chronic anticoagulation in dialysis patients for stroke prophylaxis in the setting of paroxysmal atrial fibrillation. Typically it is felt that there is a definite benefit toward favoring anticoagulation the patient has had past stroke, or has a mechanical aortic valve or mitral stenosis.This patient does have high risk features of course, but also has high bleeding risk, and he is maintained on dual antiplatelet therapy already due to his chronic coronary heart disease. At present, I recommend discharge on aspirin and clopidogrel without oral anticoagulation. The patient's home metoprolol dose to 12.5 mg twice daily has been increased to 25 mg 3 times daily which he is tolerated well in the hospital. The patient's prior to hospital dose of amiodarone 200 mg daily has been increased to 100 mg twice daily. He is on Zofran. His QT interval is prolonged however his white right bundle branch block must be taken into account when interpreting EKG. Present, I think that the amiodarone is clinically necessary and is our best option.The patient's TSH and liver function tests were stable this admission. The patient typically holds his blood pressure medications prior to his Saturday dialysis sessions. The patient was counseled that of course his amiodarone would not alter his blood pressure and therefore he should make sure that he takes his amiodarone 200 mg 2 times per day every day without a change in pattern, irregardless of whether or not it is a dialysis today. I confirmed to him that he can certainly take his amiodarone in the morning before dialysis session. I would recommend that this is outlined well for him in his discharge instructions. As long as the patient is able to continue ambulating without recurrence of symptoms this morning. I anticipate discharge by the early afternoon today. I have placed a telephone encounter in his outpatient [facility] chart to request cardiology follow-up within approximately 2 weeks. Laboratory Results Last 24 Hours Test 03/09/18 06:45 03/09/18 07:58 03/09/18 08:48 White Blood Count 8.48 K/uL Red Blood Count 3.28 M/uL Hemoglobin 10.6 g/dL Hematocrit 31.3 % Mean Corpuscular Volume 95.4 fL Mean Corpuscular Hemoglobin 32.3 pg Mean Corpuscular Hemoglobin Concent 33.9 g/dl RDW Standard Deviation 49.5 fL RDW Coefficient of Variation 14.2 % Platelet Count 172 K/uL Mean Platelet Volume 10.1 fL Activated Partial Thromboplast Time 57.6 SECONDS Partial Thromboplastin Ratio 2.2 Sodium Level 128 mmol/L Potassium Level 4.6 mmol/L Chloride Level 92 mmol/L Carbon Dioxide Level 25 mmol/L Anion Gap 11.0 mmol/L Blood Urea Nitrogen 52 mg/dl Creatinine 7.20 mg/dl Est Creatinine Clear Calc Drug Dose 10.4 ml/min Estimated GFR () 7.9 Estimated GFR (Non- 6.8 BUN/Creatinine Ratio 7.2 Random Glucose 217 mg/dl Calcium Level 8.7 mg/dl
[2018-03-09 12:40] VITALS: BP 119/64; PULSE 73; TEMP 36.9; O2SAT 94
[2018-03-09] MEDS ORDERED: LPR25 PO (12:50)
[2018-03-09] MEDS ORDERED: CRD200 PO (12:50)
[2018-03-09] MEDS ORDERED: CLC150 PO (12:50)
--- NOTE | 2018-03-09 12:58 | Discharge Instructions ---
Discharge Instructions Date of Service Mar 09, 2018. Admission Reason for Admission: Chest Pain Discharge Discharge Diagnosis / Problem: CHEST PAIN, atrial fibrillation Discharge Goals Goal(s): Diagnostic testing, Therapeutic intervention Activity Recommendations Activity Limitations: as noted below (No heavy exertion until reevaluated by primary care physician and [employer] [facility]) Lifting Limitations: until after follow-up appointment Exercise/Sports Limitations: until after follow-up appointment Driving or Machine Use: No driving OR machine use . Instructions / Follow-Up Instructions / Follow-Up Please refer to your new medication list and follow instructions carefully. Call primary care physician or return to the ER immediately if with recurrence of symptoms. Follow-up with Dr. Brown, associate of Dr. Mendoza, on March 10:45 AM. Hemodialysis as scheduled. 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 Current Hospital Diet Patient's current hospital diet: Renal Diet, AHA Diet (Heart Healthy) Discharge Diet Recommended Diet: AHA Diet (Heart Healthy), Renal Diet Procedures Procedures Performed: Echocardiogram Pending Studies Studies pending at discharge: no Laboratory Results Lipid Panel Test 03/07/18 09:16 Range/Units Triglycerides Level 76 0-150 mg/dl Cholesterol Level 122 0-200 mg/dl HDL Cholesterol 56 mg/dl Cholesterol/HDL Ratio 2.2 LDL Cholesterol, Calculated 51 mg/dl Medical Emergencies . Who to Call and When: Medical Emergencies: If at any time you feel your situation is an emergency, please call 911 immediately. . Non-Emergent Contact Non-Emergency issues call your: Primary Care Provider, Breakfast Manager Call Non-Emergent contact if: you have a fever, your pain is not controlled, your pain is worsening, your pain is unusual for you, you have any medication questions . . "Provider Documentation" section prepared by Chung Pena. .
--- NOTE | 2018-03-09 15:56 | Progress Note ---
Medicine Progress Note Date & Time of Visit: Mar 09, 2018 at 15:45. Subjective seen resting in bed, comfortable states he feels better overall no recurrence of chest pain denies dyspnea, dizziness, palpitations no other symptoms states he is ready and would like to be discharged today Objective Last 8 Hrs Date Time Temp Pulse Resp B/P (MAP) Pulse Ox O2 Delivery O2 Flow Rate FiO2 03/09/18 12:40 36.9 73 18 94 Room Air 03/09/18 08:00 Room Air Physical Exam: General-oriented 3, not in distress, speaking sentences with history of muscle use Head- atraumatic Eyes- anicteric Neck- supple, no JVD Lungs- clear breath sounds bilaterally Heart- normal rate, regular rhythm Abdomen- normal bowel sounds, soft, nontender Extremities- no pretibial edema, no calf tenderness Neuro- alert, oriented x 3; no gross focal neurologic deficits Skin- warm & dry Laboratory Results: Last 24 Hours Test 03/09/18 06:45 03/09/18 08:48 White Blood Count 8.48 K/uL Red Blood Count 3.28 M/uL Hemoglobin 10.6 g/dL Hematocrit 31.3 % Mean Corpuscular Volume 95.4 fL Mean Corpuscular Hemoglobin 32.3 pg Mean Corpuscular Hemoglobin Concent 33.9 g/dl RDW Standard Deviation 49.5 fL RDW Coefficient of Variation 14.2 % Platelet Count 172 K/uL Mean Platelet Volume 10.1 fL Activated Partial Thromboplast Time 57.6 SECONDS Partial Thromboplastin Ratio 2.2 Sodium Level 128 mmol/L Potassium Level 4.6 mmol/L Chloride Level 92 mmol/L Carbon Dioxide Level 25 mmol/L Anion Gap 11.0 mmol/L Blood Urea Nitrogen 52 mg/dl Creatinine 7.20 mg/dl Est Creatinine Clear Calc Drug Dose 10.4 ml/min Estimated GFR () 7.9 Estimated GFR (Non- 6.8 BUN/Creatinine Ratio 7.2 Random Glucose 217 mg/dl Calcium Level 8.7 mg/dl Assessment & Plan This is a 72 year old male with a past medical history of CAD s/p CABG x7 and stenting x6, hx. of atrial fibrillation, ESRD on HD -- - presents with some chest pain. Chest Pain, ACS ruled out Significant CAD - hx. of CABG and stenting 1 episode of mild troponin elevation EKG no signs of acute ischemia - Second Floor Operator Dr. Blank/Maritza consulted - placed on heparin drip for a fib - recommend to continue aspirin, Plavix, b-steve, and statin A. Fib in RVR Metoprolol increased to 25mg TID and, Amiodarone 200mg BID Heparin drip started remained in normal sinus rhythm with episodes of a fib Dr. Salas not recommending anticoagulation at this time ff up with Cardiology in 2 weeks ESRD - nephrology consulted - dialysis -W- Disposition d/c to home ff up with PCP Dr. Brown 03/13/18 ff up with Cardio in 2 weeks
--- NOTE | 2018-03-09 15:58 | Discharge Summary ---
Discharge Summary Date of Service Mar 09, 2018. Discharge Summary Admission Date: Mar 07, 2018 at 10:37 Discharge Date: Mar 09, 2018 Discharge Disposition: Home Principal Diagnosis: Chest Pain, ACS ruled out; Significant CAD Secondary Diagnoses/Problems: Please refer to hospital course below. Procedures: Echocardiogram Consultations: Acute Care Physician, Log Loader Pending Studies/Follow-Up: Please refer to hospital course below. Medication Reconciliation New Medications: Amiodarone HCl (Amiodarone HCl) 200 Mg Tab 200 MG PO BID for 30 Days, #60 TAB 1 Refill Clindamycin HCl (Clindamycin HCl) 150 Mg Cap 300 MG PO TID for 30 Days Metoprolol Tartrate (Lopressor) 25 Mg Tab 25 MG PO TID for 30 Days, #90 TAB 2 Refills Continued Medications: Aspirin (Aspirin Ec) 81 Mg Tab 81 MG PO QAM Atorvastatin (Lipitor) 40 Mg Tab 80 MG PO HS B-Complex W/ C & Folic Acid (Raheel Caps) 1 Cap Cap 1 CAP PO QPM Calcium Acetate (Phosphate Bin (Phoslo 667 Mg) 667 Mg Cap 667 MG PO TIDM Calcium Acetate (Phosphate Bin (Phoslo 667 Mg) 667 Mg Cap 1 CAP PO HS, CAP Cholecalciferol (Vitamin D3) 1,000 Unit Tab 1000 INTER.UNIT PO QAM, TAB Clopidogrel Bisulfate (Clopidogrel) 75 Mg Tab 75 MG PO QAM Docusate Sodium (Colace) 100 Mg Cap 100 MG PO UD PRN for Constipation, CAP Hydrocodone/Acetaminophen ([place] 10/325 Tab) 1 Tab Tab 1 TAB PO DIRECTED PRN for Pain, TAB Nitroglycerin (Nitrostat) 0.4 Mg Tab 0.4 MG SL UD PRN for Chest Pain PLACE ONE TABLET UNDER THE TONGUE EVERY 5 MINUTES FOR UP TO 3 DOSES IF NEEDED FOR CHEST PAIN. Polyethylene Glycol 3350 (Miralax) 1 Pow Pow 17 GM PO DIRECTED, #527 GM [Prostate Complete] () 1 TAB PO QAM Discontinued Medications: Amiodarone HCl (Amiodarone HCl) 200 Mg Tab 200 MG PO QAM Metoprolol Tartrate (Lopressor) (Lopressor) 25 Mg Tab 12.5 MG PO BID, TAB Admission Information HPI (per Admitting provider): This is a 72 year old male with a past medical history of CAD s/p CABG x7 and stenting x6, hx. of atrial fibrillation, ESRD on HD - presents with some chest pain. States that he was working outside in the heat and after exerting himself and sweating, he developed some chest pain. En route, he was noted to be in A. Fib with RVR and was given some medications for rate control and fluids which helped and he felt better. On arrival, he had no chest pain. Denies any shortness of breath or palpitations. He is unsure of why he is not on any anticoagulation, but states he had bleeding from fistula site in the past. Physical Exam (per Admitting): General Appearance: no apparent distress Head: normocephalic, atraumatic Eyes: normal inspection ENT: hearing grossly normal Neck: supple Respiratory/Chest: chest non-tender, lungs clear, normal breath sounds, no respiratory distress, no accessory muscle use Cardiovascular: no edema, no gallop, no JVD, no murmur, normal peripheral pulses, + irregularly irregular Abdomen/GI: normal bowel sounds, non tender, soft Back: normal inspection, no CVA tenderness, no muscle spasm, normal range of motion Extremities/Musculoskelatal: normal inspection, no calf tenderness, normal capillary refill, no pedal edema, normal range of motion, + pertinent finding (+ fistula - L arm) Neurologic/Psych: apron cleaner II-XII nml as tested, no motor/sensory deficits, alert , normal mood/affect, normal reflexes, oriented x 3 Skin: normal color Lymphatic: no adenopathy Hospital Course This is a 72 year old male with a past medical history of CAD s/p CABG x7 and stenting x6, hx. of atrial fibrillation, ESRD on HD - presents with some chest pain. Chest Pain, ACS ruled out Significant CAD Hx. of CABG and stenting 1 episode of mild troponin elevation EKG no signs of acute ischemia - Acute Care Physician Dr. Blank/Maritza consulted - placed on heparin drip for a fib - recommend to continue aspirin, Plavix, b-steve, and statin A. Fib in RVR Metoprolol increased to 25mg TID and, Amiodarone 200mg BID Heparin drip started remained in normal sinus rhythm with episodes of a fib Dr. Salas not recommending anticoagulation at this time ff up with Cardiology in 2 weeks ESRD - nephrology consulted - dialysis - Disposition d/c to home ff up with PCP Dr. Brown 03/13/18 ff up with Cardio in 2 weeks Total time spent on discharge = This includes examination of the patient, discharge planning, medication reconciliation, and communication with other providers. Discharge Instructions Discharge Instructions Date of Service Mar 09, 2018. Admission Reason for Admission: Chest Pain Discharge Discharge Diagnosis / Problem: CHEST PAIN, atrial fibrillation Discharge Goals Goal(s): Diagnostic testing, Therapeutic intervention Activity Recommendations Activity Limitations: as noted below (No heavy exertion until reevaluated by primary care physician and atmospheric scientist) Lifting Limitations: until after follow-up appointment Exercise/Sports Limitations: until after follow-up appointment Driving or Machine Use: No driving OR machine use . Instructions / Follow-Up Instructions / Follow-Up Please refer to your new medication list and follow instructions carefully. Call primary care physician or return to the ER immediately if with recurrence of symptoms. Follow-up with Dr. Brown, associate of Dr. Mendoza, on March 10:45 AM. Hemodialysis as scheduled. Follow-up with your atmospheric scientist in 2 weeks. Current Hospital Diet Patient's current hospital diet: Renal Diet, AHA Diet (Heart Healthy) Discharge Diet Recommended Diet: AHA Diet (Heart Healthy), Renal Diet Procedures Procedures Performed: Echocardiogram Pending Studies Studies pending at discharge: no Laboratory Results Lipid Panel Test 03/07/18 09:16 Range/Units Triglycerides Level 76 0-150 mg/dl Cholesterol Level 122 0-200 mg/dl HDL Cholesterol 56 mg/dl Cholesterol/HDL Ratio 2.2 LDL Cholesterol, Calculated 51 mg/dl Medical Emergencies . Who to Call and When: Medical Emergencies: If at any time you feel your situation is an emergency, please call 911 immediately. . Non-Emergent Contact Non-Emergency issues call your: Primary Care Provider, Acute Care Physician Call Non-Emergent contact if: you have a fever, your pain is not controlled, your pain is worsening, your pain is unusual for you, you have any medication questions . . "Provider Documentation" section prepared by Chung Pena. .
[2018-03-10] MEDS ORDERED: PROPOFOL IV EMULSION 10 MG/ML 20 ML VIAL ONE (06:50)
--- NOTE | 2018-03-11 15:03 | ECHOCARDIOGRAM REPORT ---
*NOTICE TO RECEIVING REPUBLICAN AGENCY This information is strictly Confidential and protected under [place] law. [place] law prohibits you from making any further disclosure of this information unless further disclosure is expressly permitted by the written consent of the person to whom it pertains or is authorized by law. A general authorization for the release of medical or other information is not sufficient for this purpose. Hospital accepts no responsibility if the information is made available to any other person, INCLUDING THE PATIENT. Interpretation Summary * Name: DM BECERRIL Study Date: 03/07/2018 07:11 AM BP: 120/73 mmHg * Patient Location: [facility]\S\[id number] HR: 78 * : 1945 (M/d/yyyy) Gender: Male Height: 68 in * Age: 72 yrs Ethnicity: [place] Weight: 226 lb * Ordering Physician: Vinh Ibrahim * Performed By: Amanda Desir RDCS * * Reason For Study: CHEST PAIN * BSA: 2.2 m2 * The study was technically difficult. * The study was technically limited. * -- Conclusions -- * There is mild concentric left ventricular hypertrophy. * The septum is dyskinetic, perhaps due to conduction delay, post operative state, or ischemia/ scar. * Left ventricular systolic function is normal. * The qualitative LV ejection fraction =55% * The valves were not well visualized, however, no significant regurgitation or stenosis is present on Doppler evaluaiton. Procedure Details * A complete two-dimensional transthoracic echocardiogram was performed (2D, M-mode, Doppler and color flow Doppler). * There were technical limitations due to patient'sbody habitus * A contrast injection of Definity was performed to improve assessment of LV function. * Contrast was injected into an intravenous site in the right arm. * One vial of Definity ultrasound contrast was diluted in normal saline to a total volume of 10 ml. A total of '2.5' ml of solution was administered during imaging. * Lot # [id number] of Definity utilized for procedure. * Expiration date 02/27. Left Ventricle * The left ventricle is normal in size. * There is mild concentric left ventricular hypertrophy. * Left ventricular systolic function is normal. * The qualitative LV ejection fraction =55% * The septum is dyskinetic, perhaps due to conduction delay, post operative state, or ischemia/ scar. Right Ventricle * The right ventricle is normal size. * The right ventricular systolic function is normal as assessed by tricuspid annular plane systolic excursion (TAPSE) (normal >1.5 cm). Atria * The left atrial size is normal. * Right atrial size is normal. * There is no evidence of atrial septal defect, but resolution does not allow assessment for a patent foramen ovale. Mitral Valve * The mitral valve is not well visualized. * There is no mitral valve stenosis. * Significant mitral regurgitation is absent. Tricuspid Valve * The tricuspid valve is not well visualized. * There is no tricuspid stenosis. * Significant tricuspid regurgitation is absent. Aortic Valve * The aortic valve is trileaflet. * Aortic stenosis is absent. * There is no significant aortic regurgitation. Pulmonic Valve * The pulmonary valve is not well seen, but the Doppler examination is normal without significant regurgitation or stenosis. Great Vessels * The aortic root and proximal ascending aorta are normal sized. Pericardium/Pleural * There is no pericardial effusion. Great Vessels * Normal inferior vena cava diameter and respiratory variation suggests normal central venous pressure. Left Ventricular Diastolic Function * The LV diastolic function is abnormal. MMode 2D Measurements and Calculations IVSd 1.2 cm IVSs 1.5 cm LVIDd 5.1 cm LVIDs 3.6 cm LVPWd 1.0 cm LVPWs 1.6 cm IVS/LVPW 1.2 FS 30.1 % EDV(Teich) 126.2 ml ESV(Teich) 54.2 ml EF(Teich) 57.1 % EDV(cubed) 136.0 ml ESV(cubed) 46.4 ml EF(cubed) 65.9 % % IVS thick 23.7 % % LVPW thick 57.5 % LV mass(C)d 220.2 grams LV mass(C)dI 102.3 grams/m\S\2 LV mass(C)s 210.8 grams LV mass(C)sI 97.9 grams/m\S\2 SV(Teich) 72.0 ml SI(Teich) 33.5 ml/m\S\2 SV(cubed) 89.6 ml SI(cubed) 41.6 ml/m\S\2 ACS 1.4 cm asc Aorta Diam 2.5 cm LVOT diam 1.7 cm LVOT area 2.4 cm\S\2 LVAd ap4 26.3 cm\S\2 LVLd ap4 7.8 cm EDV(MOD-sp4) 75.4 ml EDV(sp4-el) 75.3 ml LVAs ap4 15.6 cm\S\2 LVLs ap4 6.6 cm ESV(MOD-sp4) 31.1 ml ESV(sp4-el) 31.2 ml EF(MOD-sp4) 58.7 % EF(sp4-el) 58.6 % LVAd ap2 24.2 cm\S\2 LVLd ap2 8.1 cm EDV(MOD-sp2) 57.7 ml EDV(sp2-el) 61.2 ml LVAs ap2 14.6 cm\S\2 LVLs ap2 7.0 cm ESV(MOD-sp2) 24.9 ml ESV(sp2-el) 25.7 ml EF(MOD-sp2) 56.8 % EF(sp2-el) 58.0 % LVLd %diff 3.4 % EDV(MOD-bp) 66.8 ml LVLs %diff 5.2 % ESV(MOD-bp) 28.5 ml EF(MOD-bp) 57.3 % SV(MOD-sp4) 44.3 ml SI(MOD-sp4) 20.6 ml/m\S\2 SV(MOD-sp2) 32.8 ml SI(MOD-sp2) 15.2 ml/m\S\2 SV(MOD-bp) 38.3 ml SI(MOD-bp) 17.8 ml/m\S\2 SV(sp4-el) 44.2 ml SI(sp4-el) 20.5 ml/m\S\2 SV(sp2-el) 35.5 ml SI(sp2-el) 16.5 ml/m\S\2 Doppler Measurements and Calculations MV E max froylan 121.4 cm/sec MV dec time 0.28 sec Ao V2 max 125.5 cm/sec Ao max PG 6.3 mmHg Ao max PG (full) 4.9 mmHg MARCIA(V,A) 1.1 cm\S\2 MARCIA(V,D) 1.1 cm\S\2 LV V1 max PG 1.4 mmHg LV V1 max 59.8 cm/sec MR max froylan 235.5 cm/sec MR max PG 22.2 mmHg PA V2 max 43.1 cm/sec PA max PG 0.74 mmHg TR max froylan 167.5 cm/sec
== END 2018-03-09 13:42 | disposition home health service (06) | DRG 302 ==
LOC: EDBD 14:42 → C.EDA 14:43 → C.MED 19:30 → ENRESERV 19:45 → EDBEDREQ 19:57 → OBSVTOIN 03-07 10:37
PROVIDERS: ADMIT Family Medicine; ATTEND Internal Medicine
DX: I25.119 Atherosclerotic heart disease of native coronary artery with unspecified angina pectoris (principal); N18.6 End stage renal disease; I12.0 Hypertensive chronic kidney disease with stage 5 chronic kidney disease or end stage renal disease; R06.00 Dyspnea, unspecified; R00.0 Tachycardia, unspecified; I48.91 Unspecified atrial fibrillation; I45.10 Unspecified right bundle-branch block; I44.0 Atrioventricular block, first degree; R79.89 Other specified abnormal findings of blood chemistry; E11.22 Type 2 diabetes mellitus with diabetic chronic kidney disease; E78.5 Hyperlipidemia, unspecified; I25.2 Old myocardial infarction; E66.9 Obesity, unspecified; Z68.34 Body mass index [BMI] 34.0-34.9, adult; Z99.2 Dependence on renal dialysis; Z95.1 Presence of aortocoronary bypass graft; Z95.5 Presence of coronary angioplasty implant and graft; Z86.2 Personal history of diseases of the blood and blood-forming organs and certain disorders involving the immune mechanism; Z79.82 Long term (current) use of aspirin; Z79.02 Long term (current) use of antithrombotics/antiplatelets; Z79.899 Other long term (current) drug therapy

== ENCOUNTER 2018-04-03 09:14 | Inpatient (IN) | payer OTHER ==
[2018-04-03] VITALS (33 sets, daily range): BP systolic 58–116; BP diastolic 34–79; PULSE 41–93; TEMP 36.4–37.1; O2SAT 85–100; Ht 172.7 cm; Wt 99.5 kg
[~2018-04-03] VITALS: Ht 172.7 cm; Wt 99.5 kg
[~2018-04-03 09:14] MED LIST changes: +CLC150 PO; +FENTANYL CITRATE INJ 50 MCG/1 ML 2 ML VIAL ONE; +HEPARIN SOD (PORCINE) 1000 UNIT/ML 10 ML VIAL ONE; +HYDR-4383 PO; +LPR25 PO; -METO25TA56 PO; +MIDAZOLAM HCL 1 MG/ML 2ML VIAL ONE; +NITROGLYCERIN/D5W 100MCG/ML 20ML SYR ONE; +NiCARDipine HCL INJ 2.5 MG/ML 10 ML AMP ONE; +POLY335019 PO
--- NOTE | 2018-04-03 09:33 | EMERGENCY ROOM VISIT NOTE ---
History First contact with patient: 09:15 Chief Complaint: HEART ALERT Stated Complaint: CARDIAC ALERT Nursing Triage Summary: ST elevation History of Present Illness The patient is a 72 year old male who presents to the Emergency Room with complaints of chest pain. Patient alerted for possible heart attack by EMS prior to arrival. Patient called EMS with complaints of centralized chest pain and numbness in his arms which was consistent with prior heart attack. Patient is a dialysis patient, was dialyzed yesterday, denies any issues or problems during dialysis. Patient does have a history of hyperkalemia. Patient states blood pressures at home this morning were very very low according to his home monitor and he actually called her home nurse. He did take 1 nitro at home with some relief of his pain, however after approximately 45 minutes pain started coming back and he called 911. Patient denies any other recent illness. States 1 of his blood pressure medications was recently changed. States metoprolol is now 25 mg twice daily. Patient states he does not take his morning blood pressure medication due to his low blood pressure readings. Patient does have a history of prior CABG 3, and a total of 6 stents. Patient denies any recent trauma or illness. Review of Systems See HPI for pertinent positives & negatives. A total of 10 systems reviewed and were otherwise negative. Past Medical/Surgical History Medical Problems: (1) CAD (coronary artery disease) (2) DM type 2 (diabetes mellitus, type 2) (3) ESRD (end stage renal disease) on dialysis (4) History of right common carotid artery stent placement (5) Hyperkalemia (6) Hyperlipidemia (7) Hypertension (8) Osteomyelitis of lumbar vertebra (9) Paroxysmal atrial fibrillation (10) Ventricular tachycardia Surgical Problems: (1) H/O umbilical hernia repair (2) History of left-sided carotid endarterectomy (3) S/P CABG x 3 (4) S/P CABG x 4 Family History Cancer Diabetes mellitus Gallbladder disease Heart disease Hypertension Kidney disease Lung disease Social History Smoking Status: Unknown if Ever Smoked Alcohol Use: occasionally Drug Use: none Marital Status: Housing Status: lives with family Occupation Status: retired Current/Historical Medications Scheduled Amiodarone Hcl (Cordarone), 200 MG PO BID Aspirin (Aspirin Ec), 81 MG PO QAM Atorvastatin (Lipitor), 40 MG PO DAILY B-Complex W/ C & Folic Acid (Rabun Caps), 1 CAP PO QPM Calcium Acetate (Phoslo 667 Mg), 1 CAP PO TIDM Cholecalciferol (Vitamin D3), 1,000 INTER.UNIT PO QAM Clindamycin HCl (Clindamycin HCl), 300 MG PO TID Clopidogrel Bisulfate (Clopidogrel), 75 MG PO QAM Metoprolol Tartrate (Lopressor), 25 MG PO BID Misc Natural Products (Prostate Health), 1 CAP PO DAILY Scheduled PRN Docusate Sodium (Colace), 100 MG PO UD PRN for Constipation Nitroglycerin (Nitrostat), 0.4 MG SL UD PRN for Chest Pain Polyethylene Glycol 3350 (Miralax), 17 GM PO DAILY PRN for Constipation Physical Exam Vital Signs Date Time Temp Pulse Resp B/P (MAP) Pulse Ox O2 Delivery O2 Flow Rate FiO2 04/03/18 10:50 84 20 89/54 92 Room Air 04/03/18 10:43 87 04/03/18 10:35 86 14 94/64 92 Room Air 04/03/18 10:30 86 10 94/69 92 04/03/18 10:25 94 24 83/55 93 Room Air 04/03/18 10:20 95 19 99/70 92 Room Air 04/03/18 10:15 102 21 86/53 92 Room Air 04/03/18 10:15 92 Room Air 04/03/18 10:10 114 20 104/71 90 04/03/18 10:05 122 17 80/62 97 Room Air 04/03/18 10:05 132 17 104/71 90 Room Air 04/03/18 10:00 118 20 112/70 96 04/03/18 09:55 122 95/49 94 Room Air 04/03/18 09:50 130 116/78 92 Room Air 04/03/18 09:46 126 22 85/56 96 Room Air 04/03/18 09:41 129 107/58 96 Room Air 04/03/18 09:34 120 18 90/43 96 Room Air 04/03/18 09:29 123 15 88/75 95 Room Air 04/03/18 09:28 122 17 60/ 96 Room Air 04/03/18 09:21 122 04/03/18 09:18 98 Room Air 04/03/18 09:18 121 24 97 Room Air 04/03/18 09:18 99 Room Air Physical Exam GENERAL: alert, well appearing, well nourished, no distress, non-toxic EYE EXAM: normal conjunctiva, PERRL and EOM's grossly intact OROPHARYNX: no exudate, no erythema, lips, buccal mucosa, and tongue normal and mucous membranes are moist NECK: supple, no nuchal rigidity, no adenopathy, non-tender LUNGS: Clear to auscultation. Normal chest wall mechanics, diminished breath sounds bilaterally, no wheezes, rhonchi, rales HEART: no murmurs, S1 normal and S2 normal, well-healed vertical midline incision over the sternum consistent with prior CABG ABDOMEN: abdomen soft, non-tender, normo-active bowel sounds, no masses, no rebound or guarding. BACK: Back is symmetrical on inspection and there is no deformity, no midline tenderness, no CVA tenderness. SKIN: no rashes and no bruising UPPER EXTREMITIES: upper extremities are grossly normal. Proximal left upper extremity fistula, positive thrill and bruit. Normal bilateral radial pulses. LOWER EXTREMITIES: 3+ lower extremity pitting edema which patient states is his baseline, does not feel they are worse than his usual NEURO EXAM: Normal sensorium, cranial nerves II-XII grossly intact, normal speech, no gross weakness of arms, no gross weakness of legs. Gross sensation intact. Medical Decision & Procedures ER Provider Diagnostic Interpretation: CHEST ONE VIEW PORTABLE CLINICAL HISTORY: Chest pain. Heart alert. COMPARISON STUDY: Chest radiograph March 06, 2018. FINDINGS: Lung volumes are diminished. There are median sternotomy wires and clips from bypass grafting. Moderate cardiomegaly is noted. Mild interstitial prominence is noted. There is no consolidation to suggest pneumonia. IMPRESSION: 1. Pulmonary vascular congestion with possible mild pulmonary edema. 2. Moderate cardiomegaly. Electronically signed by: Lemuel Herbert M.D. 04/03/2018 9:36 AM Dictated Date/Time: 04/03/2018 9:35 AM Laboratory Results 04/03/18 09:24 Test 04/03/18 09:24 04/03/18 09:27 04/03/18 09:59 Red Blood Count 3.80 M/uL (4.7-6.1) Mean Corpuscular Volume 98.9 fL (80-100) Mean Corpuscular Hemoglobin 32.6 pg (25-34) Mean Corpuscular Hemoglobin Concent 33.0 g/dl (32-36) RDW Standard Deviation 53.3 fL (36.4-46.3) RDW Coefficient of Variation 14.8 % (11.5-14.5) Mean Platelet Volume 10.3 fL (7.4-10.4) Magnesium Level 2.9 mg/dl (1.8-2.4) Total Creatine Kinase 66 U/L (39-308) Bedside Hemoglobin 12.9 g/dl (14.0-18.0) Bedside Hematocrit 38 % (42-52) Bedside Sodium 133 mEq/L (135-144) Bedside Potassium 6.3 mEq/L (3.3-5.0) Bedside Chloride 94 mEq/L (101-112) Bedside Total CO2 30 mEq/l (24-31) Bedside Blood Urea Nitrogen 30 mg/dl (7-18) Bedside Creatinine 6.0 mg/dl (0.6-1.3) Bedside Glucose (other) 155 mg/dl (70-99) Bedside Ionized Calcium (Kristyn) 1.06 mmol/l (1.12-1.32) Prothrombin Time 10.7 SECONDS (9.0-12.0) Prothromb Time International Ratio 1.0 (0.9-1.1) Activated Partial Thromboplast Time 24.2 SECONDS (21.0-31.0) Partial Thromboplastin Ratio 0.9 Medications Administered Medications (Trade) Dose Ordered Sig/Norma Route Start Time Stop Time Status Last Admin Dose Admin Sodium Bicarbonate (Sodium Bicarbonate 8.4% Inj) 50 ml STK-MED ONCE IV 04/03/18 09:35 04/03/18 09:36 DC 04/03/18 09:35 50 ML Calcium Chloride (Calcium Chloride 10%) 1,000 mg STK-MED ONCE .ROUTE 04/03/18 09:35 04/03/18 09:36 DC 04/03/18 09:35 1,000 MG Amiodarone HCL/ Dextrose (Nexterone / D5w) 150 mg STK-MED ONCE .ROUTE 04/03/18 09:48 04/03/18 09:49 DC 04/03/18 09:48 150 MG Ondansetron HCl (Zofran Inj) 4 mg STK-MED ONCE .ROUTE 04/03/18 09:50 04/03/18 09:51 DC 04/03/18 09:50 4 MG Insulin Human Regular (novoLIN-R U-100 PER UNIT) 10 units STK-MED ONCE .ROUTE 04/03/18 10:01 04/03/18 10:02 DC 04/03/18 10:01 10 UNITS Dextrose (Dextrose 50% 50ML Syringe) 50 ml STK-MED ONCE .ROUTE 04/03/18 10:02 04/03/18 10:03 DC 04/03/18 10:02 50 ML Amiodarone HCL/ Dextrose (Nexterone / D5w) 360 mg STK-MED ONCE .ROUTE 04/03/18 10:12 04/03/18 10:13 DC 04/03/18 10:12 360 MG Amiodarone HCL/ Dextrose 200 ml @ 33.3 mls/hr Q6H1M IV 04/03/18 10:30 04/03/18 16:29 DC 04/03/18 11:57 33.3 MLS/HR ED Course 0927: Dr. Keen, cardiology, at bedside to evaluate the patient. 0935: Dr. Torres now bedside as well, discussing case with Dr. Keen. Patient given calcium chloride and 1 amp of bicarb as a precaution given hyperkalemia noted on i-STAT of 6.3. Patient still awake and talking, systolic blood pressure of 97, well-appearing. Complains of chest pain as 2 out of 10. 0955: Discussed the case with Dr. Keen. Patient will not be taken to the cardiac Stone Operator at this time. He has called Dr. Suazo who will take over for patient's cardiology care at this time. They feel patients abnormal EKG most likely secondary to dysrhythmia and hyperkalemia combined. 1000: Discussed with Dr. Suazo at bedside. 1035: Case discussed with Ian Grant. Medical Decision The patient's history was concerning for chest pain. Differential diagnosis: Etiologies such as cardiac ischemia, aortic dissection, pulmonary embolism, pneumonia, pneumothorax, musculoskeletal, infections, pericarditis, myocarditis , esophageal rupture, gastrointestinal, as well as others were entertained. Initial report and prehospital EKG concerning for code heart which was called. Upon arrival in the emergency room patient well-appearing, hemo-dynamically stable, chest pain down to 2/10. Patient with significant prior cardiac history and stated the symptoms felt similar to his prior MO. Dr. Keen initially at bedside and evaluating comparing prehospital and ER EKGs to prior interviewing patient's significant cardiac history. He then contacted Dr. Torres to come down and help evaluate the patient and the abnormal EKG rhythm seen. Patient with variable tachycardia while here in the appearance of a possible wide complex QRS versus ST segment changes. Hyperkalemia was noted on i-STAT. Treatment started as agreed upon by cardiology. Initial thought was that perhaps patient's tachycardia was related to him not taking his usual medications this morning which include metoprolol and amiodarone due to his home finding of low blood pressure. Patient then stated he has had an elevated heart rate previously. They then also contacted Dr. Suazo given the patient' s primary roof cement and paint maker helper is Dr. Wilson. It was eventually determined that patient had an underlying dysrhythmia, most likely ventricular as well as superimposed hyperkalemia which seem to account for the EKG changes. Dr. Keen informing the patient would not be going to the Stone Operator emergently at this time but they were going to medically treat. Dr. Suazo requested the patient be placed in the ICU and the barrel polisher was contacted. I also contacted nephrology given patient's history and hyperkalemia which he has chronically. They will make arrangements for short-term inpatient hemodialysis. Patient with slightly low blood pressures here, however he stated these were normal for him and that his blood pressure has been low chronically likely secondary to dialysis. Pressures in the emergency room were better than patient's reported home blood pressure readings. I do not suspect occult bacteremia/sepsis, I do not suspect dissection or leaking aneurysm. Patient here awake and talking, appearing well perfused, mentating appropriately throughout. Due to concerns of her blood pressure, additional pain medications and nitroglycerin were avoided. Patient is already taking aspirin and Plavix, no additional anticoagulation was added. Patient kept aware of all results and was agreeable with plan. Medication Reconcilliation Current Medication List: was personally reviewed by me Blood Pressure Screening Patient's blood pressure: Low blood pressure Consults Time Called: 1000 Consulting Physician: Dr. Alcaraz Returned Call: [phone] Discussed pt's presentation and current treatment. Will evaluate in the ICU. Additional Consults: Time Called: 1000 Consulted Physician: Dr. wilson Returned Call: [phone] Additional Comments: Discussed with Dr. Wilson, they will plan on dialysis today. No additional orders at this time in the ER. Impression Primary Impression: Chest pain Additional Impressions: Hyperkalemia Abnormal EKG Chronic kidney disease Dysrhythmia Critical Care I have personally spent greater than 45 minutes of critical care time in the direct management of this patient. This includes bedside care, interpretation of diagnostic studies, and testing, discussion with consultants, patient, and family members, and other required patient management activities. This 45 minutes is in excess of all separately billable procedures. Departure Information Prescriptions Metoprolol Tartrate (LOPRESSOR) 25 Mg Tab 25 MG PO BID for 30 Days, #60 TAB 2 Refills Prov: Mary Patel .IRVING 04/03/18 Referrals Rl Mendoza M.D. (PCP) Patient Instructions My [facility] Problem Qualifiers Primary Impression: Chest pain Chest pain type: unspecified Qualified Codes: R07.9 - Chest pain, unspecified Additional Impressions: Chronic kidney disease Chronic kidney disease stage: on chronic dialysis Qualified Codes: N18.6 - End stage renal disease; Z99.2 - Dependence on renal dialysis Dysrhythmia Arrhythmia type: unspecified cardiac arrhythmia Qualified Codes: I49.9 - Cardiac arrhythmia, unspecified
[2018-04-03] MEDS ORDERED: SODIUM BICARB 8.4% INJ 50 MEQ/50 ML SYR IV ONE (09:35)
[2018-04-03] MEDS ORDERED: CALCIUM CHLORIDE 10% 10 ML SYR ONE (09:35)
[2018-04-03 09:37] LABS: HEMATOCRIT 37.6 % (42-52); HEMOGLOBIN 12.4 g/dL (14.0-18.0); MEAN CELL VOLUME 98.9 fL (80-100); MEAN CORPUSCULAR HEMOGLOBIN 32.6 pg (25-34); MEAN PLATELET VOLUME 10.3 fL (7.4-10.4); PLATELET COUNT 174 K/uL (130-400); RED CELL DISTRIBUTION WIDTH CV 14.8 % (11.5-14.5); RED CELL DISTRIBUTION WIDTH SD 53.3 fL (36.4-46.3); WHITE BLOOD COUNT 8.99 K/uL (4.8-10.8)
--- NOTE | 2018-04-03 09:38 | DIAGNOSTIC IMAGING REPORT ---
CHEST ONE VIEW PORTABLE CLINICAL HISTORY: Chest pain. Heart alert. COMPARISON STUDY: Chest radiograph March 06, 2018. FINDINGS: Lung volumes are diminished. There are median sternotomy wires and clips from bypass grafting. Moderate cardiomegaly is noted. Mild interstitial prominence is noted. There is no consolidation to suggest pneumonia. IMPRESSION: 1. Pulmonary vascular congestion with possible mild pulmonary edema. 2. Moderate cardiomegaly. Electronically signed by: Lemuel Herbert M.D. 04/03/2018 9:36 AM Dictated Date/Time: 04/03/2018 9:35 AM
[2018-04-03] MEDS ORDERED: ADENOSINE IV SOLN 3 MG/ML 2 ML VIAL ONE (09:39)
[2018-04-03 09:41] LABS: ISTAT IONIZED CALCIUM 1.06 mmol/l (1.12-1.32); ISTAT POTASSIUM 6.3 mEq/L (3.3-5.0)
[2018-04-03] MEDS ORDERED: AMIODARONE 150MG / 100ML D5W ONE (09:48)
[2018-04-03] MEDS ORDERED: ONDANSETRON INJ 2 MG/ML 2 ML VIAL ONE (09:50)
[2018-04-03] MEDS ORDERED: CHLO-244 PO (10:00)
[2018-04-03] MEDS ORDERED: AMIODARONE IV BOLUS / DRIP IV STA (10:00)
[2018-04-03] MEDS ORDERED: DEXTROSE 50% 50 ML SYR IV ONE (10:00)
[2018-04-03] MEDS ORDERED: MISCCAP63 PO (10:00)
[2018-04-03] MEDS ORDERED: [UNRECOGNIZED DRUG - OTHER] IV ONE (10:00)
[2018-04-03] MEDS ORDERED: NovoLIN-R INSULIN PER UNIT CHARGE ONE (10:01)
[2018-04-03] MEDS ORDERED: AMIO200T4 PO (10:01)
[2018-04-03] MEDS ORDERED: DEXTROSE 50% 50 ML SYR ONE (10:02)
[2018-04-03 10:09] LABS: BLOOD UREA NITROGEN 28 mg/dl (7-18); CALCIUM 9.4 mg/dl (8.5-10.1); CARBON DIOXIDE 30 mmol/L (21-32); CREATININE 6.38 mg/dl (0.60-1.40); GLUCOSE 157 mg/dl (70-99); SODIUM 131 mmol/L (136-145)
[2018-04-03] MEDS ORDERED: AMIODARONE 360MG / 200ML D5W ONE (10:12)
[2018-04-03 10:24] LABS: PTT PATIENT 24.2 SECONDS (21.0-31.0)
[2018-04-03] MEDS ORDERED: 0.2 MICRON FILTER SET 1 EA IV SCH (10:30)
[2018-04-03] MEDS ORDERED: AMIODARONE / D5W 200 ML IV SCH ×2 (10:30→16:31)
[2018-04-03] MEDS ORDERED: HEPARIN SOD (PORCINE) 1000 UNIT/ML 10 ML VIAL IV ONE (10:45)
[2018-04-03] MEDS ORDERED: ICU PROTOCOL FOR HYPERGLYCEMIA PRN (11:00)
[2018-04-03] MEDS ORDERED: CALC667C4 PO (11:30)
[2018-04-03] MEDS ORDERED: ATOR-24 PO (11:30)
[2018-04-03] MEDS ORDERED: LPR25 PO (11:30)
--- NOTE | 2018-04-03 12:49 | CARDIOLOGY CONSULTATION ---
DATE OF CONSULTATION: 04/03/2018 CONSULTATION REQUESTED BY: Dr. Winkler REASON FOR CONSULTATION: Wide complex tachycardia in the setting of chest pain. HISTORY OF PRESENT ILLNESS: Mr. Dennis is a very pleasant and very cardiovascularly complex 72-year-old gentleman who presented to [facility] in the a.m. of 04/03/2018 with a complaint of chest discomfort. The patient states he went to bed in his normal state of health yesterday after undergoing a full dialysis treatment that day, but then woke up at approximately 3 in the morning not feeling well. He states that he was having some slight chest discomfort along with the sensation of nausea and fatigue. He did try taking some sublingual nitroglycerin, which helped transiently and he also notes that it seemed like his heart rate was increasing. When he checked his pulse, he states his heart rate is very fast, so things progressed to the point where he is feeling significantly not well this morning and finally called 911. When ventilated rib fitter arrived, they found a wide complex tachycardia and he was urgently transported to [facility]. Upon arrival, a heart alert was initially called. The patient was seen immediately at the bedside by the dairy and food laboratory assistant team. I was called to evaluate him as well and came to the bedside. The patient was in a wide complex tachycardia, which appeared to be ventricular tachycardia. He is having bursts of narrow complex rhythm, which appeared to be sinus and with sinus rhythm, there was not any significant ST segment abnormalities, so decided to treat the patient for ventricular tachycardia. He was also found to be hyperkalemic and appropriate treatment was given as well for insulin with insulin, glucose, calcium gluconate, and bicarbonate. With the initiation of amiodarone, the patient became completely symptom free and no longer had any chest discomfort or nausea. PAST SURGICAL HISTORY: 1. Coronary artery bypass grafting surgery x3 in 1987, unknown grafts. 2. Coronary artery bypass grafting surgery x4 in 1997. 3. PCI to the left main and circumflex with 4 bare-metal stents 10/2008. 4. Repeated bare-metal stent placement to the left main and circumflex, 01/2009. 5. Carotid endarterectomy. 6. Right-sided carotid stent. MEDICAL ILLNESSES: 1. Complex coronary artery disease. 2. Diastolic dysfunction with normal LV systolic function. 3. History of poorly tolerated paroxysmal atrial fibrillation. 4. Carotid occlusive disease. 5. Hypertension. 6. Diabetes. 7. Hyperlipidemia. 8. End-stage renal disease with left upper extremity fistula undergoing dialysis Saturday, Saturday, Fridays. 9. Anemia of chronic disease. 10. History of MRSA bacteremia. FAMILY HISTORY: Noncontributory. SOCIAL HISTORY: The patient denies any alcohol, tobacco, or recreational drug use. REVIEW OF SYSTEMS: As per HPI, all other review of systems reviewed and negative at this time. ALLERGIES: No known drug allergies. MEDICATIONS AN OUTPATIENT: 1. Amiodarone 200 mg b.i.d. 2. Metoprolol succinate 25 mg b.i.d. 3. Plavix 75 mg daily. 4. Aspirin 81 mg daily. 5. Atorvastatin 40 mg daily. PHYSICAL EXAMINATION: VITAL SIGNS: Temperature is afebrile, pulse of 132, respiratory rate 12, blood pressure 99/70. GENERAL: Awake, alert, oriented x3 in no acute distress, mildly nauseous at times. HEENT: Normocephalic, atraumatic. Pupils equal, round, reactive to light and accommodation. Extraocular muscles intact. Anicteric sclerae. Moist mucous membranes. NECK: Bilateral carotid bruits. No rubs. CARDIOVASCULAR: Regular, but tachycardic. Unable to appreciate any murmurs, rubs, or gallops. PULMONARY: Scattered rhonchi, but otherwise clear. No rales or wheezing. ABDOMEN: Bowel sounds x4, soft. No rebound, guarding, or tenderness. No organomegaly. EXTREMITIES: No clubbing, cyanosis or edema. +1 pedal pulses bilaterally. SKIN: Warm and dry. TEST RESULTS: A 12-lead EKG performed in the Emergency Department independently reviewed at this time appears to show a wide complex tachycardia, likely ventricular tachycardia. LABORATORY STUDIES OF SIGNIFICANCE: Sodium 133, potassium 6.3, BUN 30, creatinine of 6. INR is pending at this time. IMPRESSION: 1. Stable ventricular tachycardia. 2. Hyperkalemia. 3. Complex coronary artery disease. 4. End-stage renal disease, on hemodialysis. 5. Paroxysmal atrial fibrillation, deemed not a Coumadin candidate with a history of life-threatening bleeding complications. RECOMMENDATIONS: It is my pleasure to see Mr. Dennis emergently in the Emergency Room. At this time, the patient has already received potassium correcting medications and he will be started on amiodarone bolus and load with the hope of breaking his tachycardia and restoring normal sinus rhythm. He will be followed very closely in intensive care unit. He will be rebolused as necessary. Consideration may also be given to IV beta-steve based on his response to the amiodarone. Once he is stabilized, we will resume his outpatient oral medications, obtain an echocardiogram and possibly an ischemic evaluation as well depending on his clinical course, but again for now, the patient will be admitted to the intensive care unit. H[place]
[2018-04-03] MEDS ORDERED: DOCUSATE SODIUM 100 MG CAP PO PRN (13:00)
[2018-04-03] MEDS: HEPARIN SOD (PORCINE) 1000 UNIT/ML 10 ML VIAL IV SCH ×3 (13:00→16:10)
[2018-04-03] MEDS ORDERED: POLYETHYLENE (MIRALAX) 17 GM PACK PO PRN (13:00)
--- NOTE | 2018-04-03 13:37 | History and Physical ---
History & Physical Date & Time of Service: Apr 03, 2018 ~ 1030 Chief Complaint: Chest pain Primary Care Physician: Rl Mendoza M.D. History of Present Illness 72-year-old male who presents the ED with a chief complaint of chest pain. Patient reports that around 3:00 this morning, he was drinking his coffee when he had an onset of midsternal chest pain with associated palpitations and nausea. Patient rates the pain a number 6 out of 10 at its worse. He also had associated bilateral arm numbness and tingling. He called 911 and was transported to the ED for further evaluation. When EMS arrived, he was found to be in a wide complex tachycardia with a somewhat stable BP and he was awake and alert. Patient reports he has chronic issues with hypotension associated with dialysis. His metoprolol was recently decreased due to this. Otherwise he reports he has been feeling well recently. He denies abdominal pain, vomiting, diarrhea. No fevers or chills. Of note, patient underwent a normal dialysis treatment yesterday. In the ED, patient was found to be in a stable wide-complex ventricular tachycardia. A heart alert was called and patient was evaluated at the bedside by Dr. Keen with interventional cardiology as well as Dr. Suazo. He was also found to be having short bursts of a narrow complex rhythm without acute ST abnormalities so therefore he was not taken to the Mri Supervisor at this time. He was also found to be hyperkalemic with potassium of 6.3. Hyperkalemia was treated with insulin, D50, calcium, and sodium bicarbonate. He was also given an amiodarone bolus and started on a drip. Patient has subsequently converted to atrial fibrillation. Past Medical/Surgical History Medical Problems: (1) CAD (coronary artery disease) Permanent Comment: Per cardiology note: S/P CABG x 3 in 1987 S/P CABG x 4 in 1997 S/P October 14, 2008 PCI of the left main and left circumflex with 4 bare metal stents S/P January 2009 true posterior wall ND s/p PCI with 2 bare metal stents to the left main & proximal LCX. Status: Chronic (2) DM type 2 (diabetes mellitus, type 2) Status: Chronic (3) ESRD (end stage renal disease) on dialysis Status: Chronic (4) History of right common carotid artery stent placement Status: Chronic (5) Hyperlipidemia Status: Chronic (6) Hypertension Status: Chronic (7) Osteomyelitis of lumbar vertebra Status: Chronic (8) Paroxysmal atrial fibrillation Status: Chronic Surgical Problems: (1) H/O umbilical hernia repair Status: Chronic (2) History of left-sided carotid endarterectomy Status: Chronic (3) S/P CABG x 3 Permanent Comment: 1987 Status: Chronic (4) S/P CABG x 4 Permanent Comment: 1997 Status: Chronic Family History Diabetes mellitus MOTHER FH: pancreatic cancer FATHER FH: prostate cancer FATHER BROTHER Social History Smoking Status: Never Smoker Alcohol Use: none Immunizations History of Influenza Vaccine: Yes Influenza Vaccine Date: May 10, 2017 History of Tetanus Vaccine?: Yes Tetanus Immunization Date: Mar 27, 2018 History of Pneumococcal: Yes Pneumococcal Date: December 13, 2016 Allergies Coded Allergies: No Known Allergies (Verified , 04/03/18) Home Medications Scheduled Amiodarone Hcl (Cordarone), 200 MG PO BID Aspirin (Aspirin Ec), 81 MG PO QAM Atorvastatin (Lipitor), 40 MG PO DAILY B-Complex W/ C & Folic Acid ([place] Caps), 1 CAP PO QPM Calcium Acetate (Phoslo 667 Mg), 1 CAP PO TIDM Cholecalciferol (Vitamin D3), 1,000 INTER.UNIT PO QAM Clindamycin HCl (Clindamycin HCl), 300 MG PO TID Clopidogrel Bisulfate (Clopidogrel), 75 MG PO QAM Metoprolol Tartrate (Lopressor), 25 MG PO BID Misc Natural Products (Prostate Health), 1 CAP PO DAILY Scheduled PRN Docusate Sodium (Colace), 100 MG PO UD PRN for Constipation Nitroglycerin (Nitrostat), 0.4 MG SL UD PRN for Chest Pain Polyethylene Glycol 3350 (Miralax), 17 GM PO DAILY PRN for Constipation Review of Systems ROS per HPI, all other systems reviewed and negative Physical Exam Vital Signs Date Time Temp Pulse Resp B/P (MAP) Pulse Ox O2 Delivery O2 Flow Rate FiO2 04/03/18 12:00 95 Room Air 04/03/18 12:00 36.6 86 16 97/34 (55) 95 Room Air 04/03/18 11:48 86 16 /53 (36) 97 04/03/18 11:45 93 15 63/47 (52) 94 04/03/18 11:36 92 15 90/56 (67) 95 Room Air 04/03/18 11:17 37.2 04/03/18 11:10 86 26 89/58 97 Room Air 04/03/18 11:06 86 16 82/43 97 Room Air 04/03/18 11:00 96 20 119/35 95 Room Air 04/03/18 10:50 84 20 89/54 92 Room Air 04/03/18 10:43 87 04/03/18 10:35 86 14 94/64 92 Room Air 04/03/18 10:30 86 10 94/69 92 04/03/18 10:25 94 24 83/55 93 Room Air 04/03/18 10:20 95 19 99/70 92 Room Air 04/03/18 10:15 102 21 86/53 92 Room Air 04/03/18 10:15 92 Room Air 04/03/18 10:10 114 20 104/71 90 04/03/18 10:05 122 17 80/62 97 Room Air 04/03/18 10:05 132 17 104/71 90 Room Air 04/03/18 10:00 118 20 112/70 96 04/03/18 09:55 122 95/49 94 Room Air 04/03/18 09:50 130 116/78 92 Room Air 04/03/18 09:46 126 22 85/56 96 Room Air 04/03/18 09:41 129 107/58 96 Room Air 04/03/18 09:34 120 18 90/43 96 Room Air 04/03/18 09:29 123 15 88/75 95 Room Air 04/03/18 09:28 122 17 60/ 96 Room Air 04/03/18 09:21 122 04/03/18 09:18 98 Room Air 04/03/18 09:18 121 24 97 Room Air 04/03/18 09:18 99 Room Air General Appearance: WD/WN, no apparent distress Head: normocephalic, atraumatic Eyes: normal inspection, EOMI, sclerae normal ENT: hearing grossly normal, + pertinent finding (Mucous membranes moist) Neck: supple, no JVD, trachea midline Respiratory/Chest: no respiratory distress, + decreased breath sounds Cardiovascular: normal peripheral pulses, + irregularly irregular (Rate controlled), + pertinent finding (+2 pitting edema BLE) Abdomen/GI: normal bowel sounds, non tender, soft, no organomegaly Extremities/Musculoskelatal: normal inspection, no calf tenderness, normal capillary refill Neurologic/Psych: no motor/sensory deficits, alert, normal mood/affect, oriented x 3 Skin: warm/dry, + pertinent finding (Chronic venous changes BLE) Diagnostics Laboratory Results Results Past 24 Hours Test 04/03/18 09:24 04/03/18 09:27 04/03/18 09:59 04/03/18 10:59 Range/Units White Blood Count 8.99 4.8-10.8 K/uL Red Blood Count 3.80 4.7-6.1 M/uL Hemoglobin 12.4 14.0-18.0 g/dL Hematocrit 37.6 42-52 % Mean Corpuscular Volume 98.9 80-100 fL Mean Corpuscular Hemoglobin 32.6 25-34 pg Mean Corpuscular Hemoglobin Concent 33.0 32-36 g/dl RDW Standard Deviation 53.3 36.4-46.3 fL RDW Coefficient of Variation 14.8 11.5-14.5 % Platelet Count 174 130-400 K/uL Mean Platelet Volume 10.3 7.4-10.4 fL Sodium Level 131 136-145 mmol/L Potassium Level 6.0 3.5-5.1 mmol/L Chloride Level 96 98-107 mmol/L Carbon Dioxide Level 30 21-32 mmol/L Anion Gap 5.0 16.0 16-25 mmol/L Blood Urea Nitrogen 28 7-18 mg/dl Creatinine 6.38 0.60-1.40 mg/dl Estimated GFR () 9.1 Estimated GFR (Non- 7.9 BUN/Creatinine Ratio 4.3 10-20 Random Glucose 157 70-99 mg/dl Calcium Level 9.4 8.5-10.1 mg/dl Magnesium Level 2.9 1.8-2.4 mg/dl Total Creatine Kinase 66 39-308 U/L Troponin I 0.027 0-0.045 ng/ml Bedside Hemoglobin 12.9 14.0-18.0 g/dl Bedside Hematocrit 38 42-52 % Bedside Sodium 133 135-144 mEq/L Bedside Potassium 6.3 3.3-5.0 mEq/L Bedside Chloride 94 101-112 mEq/L Bedside Total CO2 30 24-31 mEq/l Bedside Blood Urea Nitrogen 30 7-18 mg/dl Bedside Creatinine 6.0 0.6-1.3 mg/dl Bedside Glucose (other) 155 70-99 mg/dl Bedside Ionized Calcium (Kristyn) 1.06 1.12-1.32 mmol/l Prothrombin Time 10.7 9.0-12.0 SECONDS Prothromb Time International Ratio 1.0 0.9-1.1 Activated Partial Thromboplast Time 24.2 21.0-31.0 SECONDS Partial Thromboplastin Ratio 0.9 Bedside Glucose 213 70-99 mg/dl Test 04/03/18 11:22 04/03/18 11:42 04/03/18 12:27 04/03/18 12:53 Range/Units Bedside Glucose 159 70-99 mg/dl Microbiology Results 04/03/18 MRSA DNA Surveillance Screen, [place] Batch Pending Diagnostic Radiology CXR IMPRESSION: 1. Pulmonary vascular congestion with possible mild pulmonary edema. 2. Moderate cardiomegaly. Impression Assessment and Plan STABLE WIDE-COMPLEX VENTRICULAR TACHYCARDIA ATRIAL FIBRILLATION HISTORY OF COMPLEX CAD -Admit to ICU -Patient presenting from home with reports of chest pain, found to be in a stable wide-complex ventricular tachycardia -Heart alert was initially called and patient was evaluated at the bedside by Dr. Keen of interventional cardiology; patient was found to be having short bursts of narrow complex tachycardia without acute ST changes so therefore patient was not taken to the Mri Supervisor -Patient was also found to be hyperkalemic with potassium of 6.3 and received sodium bicarb, IV insulin, D5, and calcium; will recheck potassium level now -Patient was also evaluated by Dr. Suazo at the bedside who ordered amiodarone bolus and drip, patient subsequently converted to atrial fibrillation -Patient with history of paroxysmal atrial fibrillation, on metoprolol and amiodarone at home; not anticoagulated secondary to bleeding complications in the past -Initial troponin negative, will continue to cycle cardiac enzymes -Continue aspirin and Plavix -Check resting echocardiogram -Case discussed with Dr. Suazo -Case discussed with Leland Pretty PA-C ESRD ON DIALYSIS -Nephrology consult -Continue routine renal medications -On dialysis Saturday at home; received a full treatment yesterday DM TYPE II -Hgb A1c 6.9 05/2017 -Currently not on therapy -ICU hypoglycemic protocol HISTORY OF LUMBAR OSTEOMYELITIS -On chronic clindamycin, will continue DVT PROPHYLAXIS -SQ heparin CODE STATUS -Patient is a full code as per my discussion with him. DISPOSITION -In my clinical judgment this beneficiary meets acute admission criteria, established by [facility], that includes being hospitalized through two midnights. Attending addendum: The patient was seen and examined in ICU Admitted with the episodes of weakness, dizziness, chest pain with numbness involving left upper extremity Noted to to be due to controlled V. tach Was evaluated by auto parts salesperson and administered intravenous amiodarone Reverted to his baseline rhythm and denies any symptoms during the examination On examination Hemodynamically stable in ICU Chest-decreased breath sounds both sites but no significant wheezing and/or crackles Heart-irregular Abdomen-soft, benign, nontende Extremities-trace to 1+ edema bilaterally SENIOR UI UX DESIGNER-alert, awake and oriented 3 Admission labs, EKG and imaging studies reviewed Agree with assessment and plan as outlined above Cardiology and nephrology services consulted Dr. Ag Taylor Advanced Directives Existing Living Will: Yes Existing Power of Claim Processing Specialist: Yes Resuscitation Status VTE Prophylaxis Will order VTE Prophylaxis: Yes
[2018-04-03 14:20] LABS: CALCIUM 9.8 mg/dl (8.5-10.1); CREATININE 6.65 mg/dl (0.60-1.40); POTASSIUM 5.6 mmol/L (3.5-5.1)
--- NOTE | 2018-04-03 14:25 | Critical Care Consultation ---
Critical Care Consultation Date of Consultation: Apr 03, 2018. Attending Physician: Pinky Taylor M.D. Reason for Consultation: ICU evaluation and management History of Present Illness Patient is a 72-year-old man with complex cardiac history and end-stage renal disease on chronic hemodialysis who presented to the emergency room this morning after developing chest pain at home at approximately 3 AM today. Sublingual nitrogen helped some with pain waxed and waned and he began to notice a racing heart rate and he called 911. childhood development teacher found him to be in a wide complex tachycardia and took him to the emergency department. He was promptly evaluated by cardiology who felt that he was in ventricular tachycardia and he was treated with amiodarone and reverted to a narrow complex tachycardia, felt to be atrial fibrillation. He was also found to be significantly hyperkalemic with potassium of 6.3 despite having had dialysis yesterday. He admits to some dietary indiscretion recently. Hyperkalemia was treated with insulin glucose calcium and bicarbonate. Nephrology consultation has been requested for consideration of additional dialysis today. Presently he is feeling better and has had complete resolution of his chest pain and denies dyspnea. Past Medical/Surgical History CABG in 1987 with subsequent redo CABG in 1997 and subsequent PCI to left main and circumflex in 2008 Cerebrovascular disease with previous carotid endarterectomy and right-sided carotid stent History of diastolic dysfunction History of PAF Hypertension Diabetes Hyperlipidemia End-stage renal disease on Saturday via left arm AV fistula Family History Diabetes mellitus MOTHER FH: pancreatic cancer FATHER FH: prostate cancer FATHER BROTHER Social History Smoking Status: Never Smoker Alcohol Use: none Housing Status: lives with family Allergies Coded Allergies: No Known Allergies (Verified , 04/03/18) Home Medications Scheduled Amiodarone Hcl (Cordarone), 200 MG PO BID Aspirin (Aspirin Ec), 81 MG PO QAM Atorvastatin (Lipitor), 40 MG PO DAILY B-Complex W/ C & Folic Acid ([place] Caps), 1 CAP PO QPM Calcium Acetate (Phoslo 667 Mg), 1 CAP PO TIDM Cholecalciferol (Vitamin D3), 1,000 INTER.UNIT PO QAM Clindamycin HCl (Clindamycin HCl), 300 MG PO TID Clopidogrel Bisulfate (Clopidogrel), 75 MG PO QAM Metoprolol Tartrate (Lopressor), 25 MG PO BID [place] Natural Products (Prostate Health), 1 CAP PO DAILY Scheduled PRN Docusate Sodium (Colace), 100 MG PO UD PRN for Constipation Nitroglycerin (Nitrostat), 0.4 MG SL UD PRN for Chest Pain Polyethylene Glycol 3350 (Miralax), 17 GM PO DAILY PRN for Constipation Current Inpatient Medications Current Inpatient Medications Medications (Trade) Dose Ordered Sig/Norma Route Start Time Stop Time Status Last Admin Dose Admin Amiodarone HCL/ Dextrose 200 ml @ 33.3 mls/hr Q6H1M IV 04/03/18 10:30 04/03/18 16:30 04/03/18 11:57 33.3 MLS/HR Amiodarone HCL/ Dextrose 200 ml @ 16.7 mls/hr [id number] IV 04/03/18 16:31 05/03/18 16:30 Miscellaneous Information (Icu Protocol For Hyperglycemia) 1 ea PRN PRN N/A 04/03/18 11:00 04/05/18 10:59 Aspirin (Ecotrin Tab) 81 mg QAM PO 04/04/18 09:00 05/04/18 08:59 Vitamin B Complex/ Vit C/Folic Acid (Nephrocaps) 1 cap QPM PO 04/03/18 21:00 05/03/18 20:59 Calcium Acetate (Phoslo Cap) 667 mg TIDM PO 04/03/18 16:30 05/03/18 16:29 Cholecalciferol (Vitamin D Tab) 1,000 inter.unit QAM PO 04/04/18 09:00 05/04/18 08:59 Clindamycin HCl (Cleocin Cap) 300 mg TID PO 04/03/18 14:00 05/03/18 13:59 Clopidogrel Bisulfate (plAVix TAB) 75 mg QAM PO 04/04/18 09:00 05/04/18 08:59 Docusate Sodium (coLACE CAP) 100 mg UD PRN PO 04/03/18 13:00 05/03/18 12:59 Polyethylene (Miralax Powder Packet) 17 gm DAILY PRN PO 04/03/18 13:00 05/03/18 12:59 Heparin Sodium (Porcine) (Heparin Sq 5000 Unit/0.5ml) 5,000 unit Q8 SQ 04/03/18 14:00 05/03/18 13:59 Review of Systems Constitutional: No fever, No chills Eyes: No worsening of vision Respiratory: No cough, No sputum Cardiovascular: No chest pain Physical Exam Date Time Temp Pulse Resp B/P (MAP) Pulse Ox O2 Delivery O2 Flow Rate FiO2 04/03/18 12:00 95 Room Air 04/03/18 12:00 36.6 86 16 97/34 (55) 95 Room Air 04/03/18 11:48 86 16 /53 (36) 97 04/03/18 11:45 93 15 63/47 (52) 94 04/03/18 11:36 92 15 90/56 (67) 95 Room Air 04/03/18 11:17 37.2 04/03/18 11:10 86 26 89/58 97 Room Air 04/03/18 11:06 86 16 82/43 97 Room Air 04/03/18 11:00 96 20 119/35 95 Room Air 04/03/18 10:50 84 20 89/54 92 Room Air 04/03/18 10:43 87 04/03/18 10:35 86 14 94/64 92 Room Air 04/03/18 10:30 86 10 94/69 92 04/03/18 10:25 94 24 83/55 93 Room Air 04/03/18 10:20 95 19 99/70 92 Room Air 04/03/18 10:15 102 21 86/53 92 Room Air 04/03/18 10:15 92 Room Air 04/03/18 10:10 114 20 104/71 90 04/03/18 10:05 122 17 80/62 97 Room Air 04/03/18 10:05 132 17 104/71 90 Room Air 04/03/18 10:00 118 20 112/70 96 04/03/18 09:55 122 95/49 94 Room Air 04/03/18 09:50 130 116/78 92 Room Air 04/03/18 09:46 126 22 85/56 96 Room Air 04/03/18 09:41 129 107/58 96 Room Air 04/03/18 09:34 120 18 90/43 96 Room Air 04/03/18 09:29 123 15 88/75 95 Room Air 04/03/18 09:28 122 17 60/ 96 Room Air 04/03/18 09:21 122 04/03/18 09:18 98 Room Air 04/03/18 09:18 121 24 97 Room Air 04/03/18 09:18 99 Room Air General Appearance: WD/WN, no apparent distress Head: normocephalic Eyes: PERRLA, sclerae normal Neck: no tenderness, supple Respiratory: breath sounds normal, clear to auscultation Cardiovasular: regular rate/rhythm, no M/G/R Abdomen: non tender, no rebound Upper Extremities: no edema, no deformity Neuro: alert, oriented x 3 Laboratory Results Last 24 Hours Test 04/03/18 09:24 04/03/18 09:27 04/03/18 09:59 04/03/18 10:59 White Blood Count 8.99 K/uL Red Blood Count 3.80 M/uL Hemoglobin 12.4 g/dL Hematocrit 37.6 % Mean Corpuscular Volume 98.9 fL Mean Corpuscular Hemoglobin 32.6 pg Mean Corpuscular Hemoglobin Concent 33.0 g/dl RDW Standard Deviation 53.3 fL RDW Coefficient of Variation 14.8 % Platelet Count 174 K/uL Mean Platelet Volume 10.3 fL Sodium Level 131 mmol/L Potassium Level 6.0 mmol/L Chloride Level 96 mmol/L Carbon Dioxide Level 30 mmol/L Anion Gap 5.0 mmol/L 16.0 mmol/L Blood Urea Nitrogen 28 mg/dl Creatinine 6.38 mg/dl Estimated GFR () 9.1 Estimated GFR (Non- 7.9 BUN/Creatinine Ratio 4.3 Random Glucose 157 mg/dl Calcium Level 9.4 mg/dl Magnesium Level 2.9 mg/dl Total Creatine Kinase 66 U/L Troponin I 0.027 ng/ml Bedside Hemoglobin 12.9 g/dl Bedside Hematocrit 38 % Bedside Sodium 133 mEq/L Bedside Potassium 6.3 mEq/L Bedside Chloride 94 mEq/L Bedside Total CO2 30 mEq/l Bedside Blood Urea Nitrogen 30 mg/dl Bedside Creatinine 6.0 mg/dl Bedside Glucose (other) 155 mg/dl Bedside Ionized Calcium (Kristyn) 1.06 mmol/l Prothrombin Time 10.7 SECONDS Prothromb Time International Ratio 1.0 Activated Partial Thromboplast Time 24.2 SECONDS Partial Thromboplastin Ratio 0.9 Bedside Glucose 213 mg/dl Test 04/03/18 12:27 04/03/18 13:23 Bedside Glucose 159 mg/dl Assessment & Plan (1) Ventricular tachycardia Stable, now resolved with amiodarone. Cardiology following (2) Paroxysmal atrial fibrillation Duration unknown. Patient felt not to be a Coumadin candidate due to previous history of life-threatening bleeding. Cardiology recommends rate control with beta-steve (3) CAD (coronary artery disease) Cardiology feels no current indication for cardiac catheterization (4) ESRD (end stage renal disease) on dialysis Patient currently has severe hyperkalemia. Await cardiology evaluation
[2018-04-03] MEDS: CLINDAMYCIN HCL 150 MG CAP PO SCH ×3 (14:29→20:12)
[2018-04-03] MEDS: CALCIUM ACETATE 667MG GELCAP PO SCH (14:36)
[2018-04-03] MEDS: HEPARIN SOD 5000 UNIT/0.5 ML CARP SQ SCH ×2 (14:37→21:18)
[2018-04-03] MEDS: LIDOCAINE/PRILOCAINE 2.5% EA CRM EXT SCH (15:15)
--- NOTE | 2018-04-03 15:56 | ECHOCARDIOGRAM REPORT ---
*NOTICE TO RECEIVING REPUBLICAN AGENCY This information is strictly Confidential and protected under [place] law. [place] law prohibits you from making any further disclosure of this information unless further disclosure is expressly permitted by the written consent of the person to whom it pertains or is authorized by law. A general authorization for the release of medical or other information is not sufficient for this purpose. Hospital accepts no responsibility if the information is made available to any other person, INCLUDING THE PATIENT. Interpretation Summary * Name: DM BECERRIL Study Date: 04/03/2018 01:09 PM BP: 108/78 mmHg * Patient Location: .[facility]\S\E106\S\1 HR: 82 * : 1945 (M/d/yyyy) Gender: Male Height: 68 in * Age: 72 yrs Ethnicity: CA Weight: 231 lb * Ordering Physician: Mary Patel * Referring Physician: Self, Referred * Performed By: Cecile Mednez RCS * * Reason For Study: CHEST PAIN * BSA: 2.2 m2 * -- Conclusions -- * No significant change compared to previous study of 03/07/18. * Normal LV chamber size and wall thickness. * Normal LV systolic function, EF 55-60%. Dyskinetic septal wall motion consistent with post-operative state. * Poorly visualized valvular structures without significant stenosis or regurgitation by Doppler. Procedure Details * A complete two-dimensional transthoracic echocardiogram was performed (2D, M-mode, Doppler and color flow Doppler). * The study was technically difficult. * A contrast injection of Definity was performed to improve assessment of LV function. * Contrast was injected into an intravenous site in the right arm. * One vial of Definity ultrasound contrast was diluted in normal saline to a total volume of 10 ml. A total of '4' ml of solution was administered during imaging. * Lot # [id number] of Definity utilized for procedure. * Expiration date FEB 27. * The attending nurse who injected the contrast agent was ANN MARIE NAVARRETE, RN. Left Ventricle * The left ventricle is normal in size. * There is normal left ventricular wall thickness. * Left ventricular systolic function is normal. * Ejection Fraction = 55-60%. * Septal motion is consistent with post-operative state. Right Ventricle * The right ventricle is not well visualized. Atria * The left atrium is not well visualized. * Right atrium not well visualized. Mitral Valve * The mitral valve is not well visualized. * There is no mitral valve stenosis. * There is no mitral regurgitation noted. Tricuspid Valve * The tricuspid valve is not well visualized. * There is no tricuspid stenosis. * No tricuspid regurgitation. Aortic Valve * The aortic valve is not well visualized. * No hemodynamically significant valvular aortic stenosis. * There is no significant aortic regurgitation. Pulmonic Valve * The pulmonary valve is not well seen, but the Doppler examination is normal without significant regurgitation or stenosis. Great Vessels * The aortic root is not well visualized. Pericardium/Pleural * There is no pericardial effusion. MMode 2D Measurements and Calculations IVSd 0.99 cm IVSs 1.4 cm LVIDd 4.2 cm LVIDs 3.1 cm LVPWd 1.2 cm LVPWs 1.7 cm IVS/LVPW 0.80 FS 26.4 % EDV(Teich) 76.7 ml ESV(Teich) 36.7 ml EF(Teich) 52.1 % EDV(cubed) 71.9 ml ESV(cubed) 28.7 ml EF(cubed) 60.1 % % IVS thick 37.1 % % LVPW thick 34.6 % LV mass(C)d 159.0 grams LV mass(C)dI 73.2 grams/m\S\2 LV mass(C)s 166.0 grams LV mass(C)sI 76.4 grams/m\S\2 SV(Teich) 40.0 ml SI(Teich) 18.4 ml/m\S\2 SV(cubed) 43.2 ml SI(cubed) 19.9 ml/m\S\2 LVOT diam 1.7 cm LVOT area 2.4 cm\S\2
--- NOTE | 2018-04-03 17:22 | Nephrology Consultation ---
Nephrology Consultation Date of Consultation: Apr 03, 2018. Attending Physician: Dr Taylor Requesting Physician: Dr Taylor Reason for Consultation: ESRD on HD History of Present Illness 72 year old male admitted to ICU today after presenting with for evaluation of nausea, malaise, chest pain and tachycardia and found to have stable wide complex ventricular tachycardia w/ paroxysmal a fib. He had a full HD tx yesterday and is generally adherent w/ treatments. His last K as outpt at dialysis was from 03/03 w/ value 5.5; he generally runs 5.5-6.0 despite warnings about dietary indiscretions in particular. He as admitted here late last month w/ chest pain and RVR >> his beta steve was increased at that time. He has had more symptomatic hypotension since then; this has been a challenge b/c he is chronically volume overloaded. Cardiology recently adjusted betablocker so the he did not take it on am of HD, though the pt gives a discrepant history here, stating he had recently realized he was taking 50 mg po tid metoprolol which was changed in the past week. In the ER late this AM, he received calcium chloride, 10units IV insulin, and sodium bicarbonate. After evaluating pt chart/hx, I arranged for urgent dialysis today. Amiodarone was infused in the ER and his v tach w/ HR in 130s rapidly settled to HR in 70s. He has no N, sob, or chest discomfort at time of my evaluation. at the time of my eval in icu, amio infusion is off. he does acknowledge dietary indiscretions. Past Medical/Surgical History Medical Problems: (1) Acute renal failure Status: Acute (2) Afib Status: Acute (3) Bacteremia Status: Acute (4) Cellulitis of right lower extremity Status: Acute (5) Chest pain Status: Acute (6) Chronic kidney disease Status: Acute (7) Dyspnea on exertion Status: Acute (8) Elevated troponin Status: Acute (9) Hyponatremia Status: Acute (10) Leukocytosis Status: Acute (11) Lower back pain Status: Acute (12) Lumbar back pain Status: Acute (13) Staphylococcus aureus sepsis Status: Acute (14) Weakness Status: Acute -severe premature cad s/p 3V CABG 1987, 4V CABG 1997, stents 2008 and january -48 hr admission here late February 2018 for chest pain, afib w/ RVR -paroxysmal a fib poorly tolerated w/ hx of nstemi -esrd on mwf HD under my care at [facility] -BL occlusive carotid disease s/p L CEA 1999, R stenting 2009 -DM -HTN -HL -lumbar spina osteomyelitis Family History Diabetes mellitus MOTHER FH: pancreatic cancer FATHER FH: prostate cancer FATHER BROTHER Social History Smoking Status: Never Smoker Alcohol Use: occasionally Housing Status: lives with family Allergies Coded Allergies: No Known Allergies (Verified , 04/03/18) Medications Current Inpatient Medications Medications (Trade) Dose Ordered Sig/Norma Route Start Time Stop Time Status Last Admin Dose Admin Miscellaneous Information (Icu Protocol For Hyperglycemia) 1 ea PRN PRN N/A 04/03/18 11:00 04/05/18 10:59 Aspirin (Ecotrin Tab) 81 mg QAM PO 04/04/18 09:00 05/04/18 08:59 Vitamin B Complex/ Vit C/Folic Acid (Nephrocaps) 1 cap QPM PO 04/03/18 21:00 05/03/18 20:59 Calcium Acetate (Phoslo Cap) 667 mg TIDM PO 04/03/18 16:30 05/03/18 16:29 04/03/18 14:36 667 MG Cholecalciferol (Vitamin D Tab) 1,000 inter.unit QAM PO 04/04/18 09:00 05/04/18 08:59 Clindamycin HCl (Cleocin Cap) 300 mg TID PO 04/03/18 14:00 05/03/18 13:59 04/03/18 14:29 300 MG Clopidogrel Bisulfate (plAVix TAB) 75 mg QAM PO 04/04/18 09:00 05/04/18 08:59 Docusate Sodium (coLACE CAP) 100 mg UD PRN PO 04/03/18 13:00 05/03/18 12:59 Polyethylene (Miralax Powder Packet) 17 gm DAILY PRN PO 04/03/18 13:00 05/03/18 12:59 Heparin Sodium (Porcine) (Heparin Sq 5000 Unit/0.5ml) 5,000 unit Q8 SQ 04/03/18 14:00 05/03/18 13:59 04/03/18 14:37 5,000 UNIT Lidocaine/ Prilocaine (Emla 2.5% Crm) 1 ea MoWeFr EXT 04/03/18 15:45 05/03/18 15:44 Amiodarone HCl (Cordarone Tab) 200 mg BID PO 04/03/18 21:00 05/03/18 20:59 Home Meds and Scripts Medications Dose Route/Sig Max Daily Dose Days Date Category Dose Instructions Lipitor (Atorvastatin Calcium) 40 Mg Tab 40 Mg PO DAILY 04/03/18 Reported Phoslo 667 Mg (Calcium Acetate) 667 Mg Cap 1 Cap PO TIDM 04/03/18 Reported Lopressor (Metoprolol Tartrate) 25 Mg Tab 25 Mg PO BID 30 04/03/18 Rx Cordarone (Amiodarone Hcl) 200 Mg Tab 200 Mg PO BID 04/03/18 Reported Prostate Health ([place]) 1 Cap Cap 1 Cap PO DAILY 04/03/18 Reported Clindamycin HCl 150 Mg Cap 300 Mg PO TID 30 03/09/18 Rx Miralax (Polyethylene Glycol 3350) 1 Pow Pow 17 Gm PO DAILY PRN 03/06/18 Reported Aspirin Ec (Aspirin) 81 Mg Tab 81 Mg PO QAM 12/13/15 Reported Clopidogrel (Clopidogrel Bisulfate) 75 Mg Tab 75 Mg PO QAM 12/13/15 Reported Nitrostat (Nitroglycerin) 0.4 Mg Tab 0.4 Mg SL UD PRN 12/13/[address] ONE TABLET UNDER THE TONGUE EVERY 5 MINUTES FOR UP TO 3 DOSES IF NEEDED FOR CHEST PAIN. Vitamin D3 (Cholecalciferol) 1,000 Unit Tab 1,000 Inter.unit PO QAM 11/15/15 Reported Raheel Caps (B-Complex W/ C & Folic Acid) 1 Cap Cap 1 Cap PO QPM 11/15/15 Reported Colace (Docusate Sodium) 100 Mg Cap 100 Mg PO UD PRN 11/15/15 Reported Review of Systems Constitutional: + weakness, + fatigue, No chills Eyes: No worsening of vision ENT: No hearing loss Respiratory: No cough, No shortness of breath Cardiac: + chest pain, + edema Abdomen: + see HPI, No pain, No nausea, No vomiting, No diarrhea, No constipation Musculoskeletal: No joint pain, No muscle pain Male : + problem reported (no change in chronic voiding habits) Neuro: No memory loss, No numbness/tingling Psych: No depression symptoms, No anxiety Heme: No abnormal bleeding/bruising Endo: No fatigue Skin: No rash Physical Exam Date Time Temp Pulse Resp B/P (MAP) Pulse Ox O2 Delivery O2 Flow Rate FiO2 04/03/18 14:00 87 15 108/78 (88) 95 Room Air 04/03/18 13:00 41 19 87/63 (71) 93 Room Air 04/03/18 12:00 95 Room Air 04/03/18 12:00 36.6 86 16 97/34 (55) 95 Room Air 04/03/18 11:48 86 16 /53 (36) 97 04/03/18 11:45 93 15 63/47 (52) 94 04/03/18 11:36 92 15 90/56 (67) 95 Room Air 04/03/18 11:17 37.2 04/03/18 11:10 86 26 89/58 97 Room Air 04/03/18 11:06 86 16 82/43 97 Room Air 04/03/18 11:00 96 20 119/35 95 Room Air 04/03/18 10:50 84 20 89/54 92 Room Air 04/03/18 10:43 87 04/03/18 10:35 86 14 94/64 92 Room Air 04/03/18 10:30 86 10 94/69 92 04/03/18 10:25 94 24 83/55 93 Room Air 04/03/18 10:20 95 19 99/70 92 Room Air 04/03/18 10:15 102 21 86/53 92 Room Air 04/03/18 10:15 92 Room Air 04/03/18 10:10 114 20 104/71 90 04/03/18 10:05 122 17 80/62 97 Room Air 04/03/18 10:05 132 17 104/71 90 Room Air 04/03/18 10:00 118 20 112/70 96 04/03/18 09:55 122 95/49 94 Room Air 04/03/18 09:50 130 116/78 92 Room Air 04/03/18 09:46 126 22 85/56 96 Room Air 04/03/18 09:41 129 107/58 96 Room Air 04/03/18 09:34 120 18 90/43 96 Room Air 04/03/18 09:29 123 15 88/75 95 Room Air 04/03/18 09:28 122 17 60/ 96 Room Air 04/03/18 09:21 122 04/03/18 09:18 98 Room Air 04/03/18 09:18 121 24 97 Room Air 04/03/18 09:18 99 Room Air 24-Hour Column 04/04/18 08:00 Intake Total 81 ml Output Total 0 ml Balance 81 ml General Appearance: WD/WN, no apparent distress, + obese, + pertinent finding ( on RA) Eyes: EOMI ENT: normal ENT inspection Neck: supple Respiratory/Chest: no respiratory distress, + decreased breath sounds, + rhonchi Cardiovascular: regular rate, rhythm, + pertinent finding (2-+ BLE edema) Abdomen: normal bowel sounds, non tender, soft (no jeffery) Extremities: + pedal edema, + swelling, + pertinent finding (LUE AVF + T/b) Neurologic/Psych: alert, normal mood/affect, oriented x 3 Diagnostics Last 24 Hours Test 04/03/18 09:24 04/03/18 09:27 04/03/18 09:59 04/03/18 10:59 White Blood Count 8.99 K/uL Red Blood Count 3.80 M/uL Hemoglobin 12.4 g/dL Hematocrit 37.6 % Mean Corpuscular Volume 98.9 fL Mean Corpuscular Hemoglobin 32.6 pg Mean Corpuscular Hemoglobin Concent 33.0 g/dl RDW Standard Deviation 53.3 fL RDW Coefficient of Variation 14.8 % Platelet Count 174 K/uL Mean Platelet Volume 10.3 fL Sodium Level 131 mmol/L Potassium Level 6.0 mmol/L Chloride Level 96 mmol/L Carbon Dioxide Level 30 mmol/L Anion Gap 5.0 mmol/L 16.0 mmol/L Blood Urea Nitrogen 28 mg/dl Creatinine 6.38 mg/dl Estimated GFR () 9.1 Estimated GFR (Non- 7.9 BUN/Creatinine Ratio 4.3 Random Glucose 157 mg/dl Calcium Level 9.4 mg/dl Magnesium Level 2.9 mg/dl Total Creatine Kinase 66 U/L Troponin I 0.027 ng/ml Bedside Hemoglobin 12.9 g/dl Bedside Hematocrit 38 % Bedside Sodium 133 mEq/L Bedside Potassium 6.3 mEq/L Bedside Chloride 94 mEq/L Bedside Total CO2 30 mEq/l Bedside Blood Urea Nitrogen 30 mg/dl Bedside Creatinine 6.0 mg/dl Bedside Glucose (other) 155 mg/dl Bedside Ionized Calcium (Kristyn) 1.06 mmol/l Prothrombin Time 10.7 SECONDS Prothromb Time International Ratio 1.0 Activated Partial Thromboplast Time 24.2 SECONDS Partial Thromboplastin Ratio 0.9 Bedside Glucose 213 mg/dl Test 04/03/18 12:27 04/03/18 13:23 Bedside Glucose 159 mg/dl Sodium Level 132 mmol/L Potassium Level 5.6 mmol/L Chloride Level 95 mmol/L Carbon Dioxide Level 31 mmol/L Anion Gap 6.0 mmol/L Blood Urea Nitrogen 30 mg/dl Creatinine 6.65 mg/dl Est Creatinine Clear Calc Drug Dose 11.4 ml/min Estimated GFR () 8.7 Estimated GFR (Non- 7.5 BUN/Creatinine Ratio 4.6 Random Glucose 155 mg/dl Calcium Level 9.8 mg/dl Troponin I 0.028 ng/ml Hepatitis B Surface Antigen NEG Diagnostic Radiology: cxr 1. Pulmonary vascular congestion with possible mild pulmonary edema. 2. Moderate cardiomegaly. EKG: per line installer repairer review wide complex tachycardia Assessment & Plan 72 y/o M w/ severe CAD, pAFib, hypotension, chronic volume overload, ESRD on HD admitted today with K 6.3 and wide complex tachycardia which has responded to amiodarone therapy. HD today urgent to lower K / treat hyperkalemia definitively w/ no UF d/t bp, HR / arrhythmias today. Eval for HD again in am to help better manage volume status -- likely to need it at that time -ordered 1.2 L fluid limit -continue icu monitoring -albumin prn sbp < 80 in hd -will consider patiromer -ensure nephrocaps given hs -continue outpt binders -anemia status acceptable currently Appreciate consult; will follow with you.
--- NOTE | 2018-04-03 17:26 | Dialysis Progress Note ---
Nephrology Dialysis Note Date of Service: Apr 03, 2018. Subjective seen on HD; tolerating tx; no chest pain or sob; stable chronic edema Objective Date Time Temp Pulse Resp B/P (MAP) Pulse Ox O2 Delivery O2 Flow Rate FiO2 04/03/18 17:00 70 104/55 04/03/18 16:45 69 93/43 04/03/18 16:30 68 101/40 04/03/18 16:13 87 101/37 04/03/18 16:02 37.1 74 96/55 (69) 04/03/18 16:00 36.5 85 19 96/55 (69) 95 Room Air 04/03/18 15:00 83 14 90/43 (59) 95 Room Air 04/03/18 14:00 87 15 108/78 (88) 95 Room Air 04/03/18 13:00 41 19 87/63 (71) 93 Room Air 04/03/18 12:00 95 Room Air 04/03/18 12:00 36.6 86 16 97/34 (55) 95 Room Air 04/03/18 11:48 86 16 /53 (36) 97 04/03/18 11:45 93 15 63/47 (52) 94 04/03/18 11:36 92 15 90/56 (67) 95 Room Air 04/03/18 11:17 37.2 04/03/18 11:10 86 26 89/58 97 Room Air 04/03/18 11:06 86 16 82/43 97 Room Air 04/03/18 11:00 96 20 119/35 95 Room Air 04/03/18 10:50 84 20 89/54 92 Room Air 04/03/18 10:43 87 04/03/18 10:35 86 14 94/64 92 Room Air 04/03/18 10:30 86 10 94/69 92 04/03/18 10:25 94 24 83/55 93 Room Air 04/03/18 10:20 95 19 99/70 92 Room Air 04/03/18 10:15 102 21 86/53 92 Room Air 04/03/18 10:15 92 Room Air 04/03/18 10:10 114 20 104/71 90 04/03/18 10:05 122 17 80/62 97 Room Air 04/03/18 10:05 132 17 104/71 90 Room Air 04/03/18 10:00 118 20 112/70 96 04/03/18 09:55 122 95/49 94 Room Air 04/03/18 09:50 130 116/78 92 Room Air 04/03/18 09:46 126 22 85/56 96 Room Air 04/03/18 09:41 129 107/58 96 Room Air 04/03/18 09:34 120 18 90/43 96 Room Air 04/03/18 09:29 123 15 88/75 95 Room Air 04/03/18 09:28 122 17 60/ 96 Room Air 04/03/18 09:21 122 04/03/18 09:18 98 Room Air 04/03/18 09:18 121 24 97 Room Air 04/03/18 09:18 99 Room Air Physical Exam: General Appearance: WD/WN, no apparent distress, + obese, + pertinent finding ( on RA, A& 0 x 3) Eyes: EOMI ENT: normal ENT inspection Neck: supple Respiratory/Chest: no respiratory distress, + decreased breath sounds, + rhonchi Cardiovascular: regular rate, rhythm, + pertinent finding (2-+ BLE edema) Abdomen: normal bowel sounds, non tender, soft (no jeffery) Extremities: + pedal edema, + swelling 2+ ble, + pertinent finding (LUE AVF + T /b) Neurologic/Psych: piper, fluent speech Current Inpatient Medications Medications (Trade) Dose Ordered Sig/Norma Route Start Time Stop Time Status Last Admin Dose Admin Miscellaneous Information (Icu Protocol For Hyperglycemia) 1 ea PRN PRN N/A 04/03/18 11:00 04/05/18 10:59 Aspirin (Ecotrin Tab) 81 mg QAM PO 04/04/18 09:00 05/04/18 08:59 Vitamin B Complex/ Vit C/Folic Acid (Nephrocaps) 1 cap QPM PO 04/03/18 21:00 05/03/18 20:59 Calcium Acetate (Phoslo Cap) 667 mg TIDM PO 04/03/18 16:30 05/03/18 16:29 04/03/18 14:36 667 MG Cholecalciferol (Vitamin D Tab) 1,000 inter.unit QAM PO 04/04/18 09:00 05/04/18 08:59 Clindamycin HCl (Cleocin Cap) 300 mg TID PO 04/03/18 14:00 05/03/18 13:59 04/03/18 14:29 300 MG Clopidogrel Bisulfate (plAVix TAB) 75 mg QAM PO 04/04/18 09:00 05/04/18 08:59 Docusate Sodium (coLACE CAP) 100 mg UD PRN PO 04/03/18 13:00 05/03/18 12:59 Polyethylene (Miralax Powder Packet) 17 gm DAILY PRN PO 04/03/18 13:00 05/03/18 12:59 Heparin Sodium (Porcine) (Heparin Sq 5000 Unit/0.5ml) 5,000 unit Q8 SQ 04/03/18 14:00 05/03/18 13:59 04/03/18 14:37 5,000 UNIT Lidocaine/ Prilocaine (Emla 2.5% Crm) 1 ea MoWeFr EXT 04/03/18 15:45 05/03/18 15:44 Amiodarone HCl (Cordarone Tab) 200 mg BID PO 04/03/18 21:00 05/03/18 20:59 Last 24 Hours Test 04/03/18 09:24 04/03/18 09:27 04/03/18 09:59 04/03/18 10:59 White Blood Count 8.99 K/uL Red Blood Count 3.80 M/uL Hemoglobin 12.4 g/dL Hematocrit 37.6 % Mean Corpuscular Volume 98.9 fL Mean Corpuscular Hemoglobin 32.6 pg Mean Corpuscular Hemoglobin Concent 33.0 g/dl RDW Standard Deviation 53.3 fL RDW Coefficient of Variation 14.8 % Platelet Count 174 K/uL Mean Platelet Volume 10.3 fL Sodium Level 131 mmol/L Potassium Level 6.0 mmol/L Chloride Level 96 mmol/L Carbon Dioxide Level 30 mmol/L Anion Gap 5.0 mmol/L 16.0 mmol/L Blood Urea Nitrogen 28 mg/dl Creatinine 6.38 mg/dl Estimated GFR () 9.1 Estimated GFR (Non- 7.9 BUN/Creatinine Ratio 4.3 Random Glucose 157 mg/dl Calcium Level 9.4 mg/dl Magnesium Level 2.9 mg/dl Total Creatine Kinase 66 U/L Troponin I 0.027 ng/ml Bedside Hemoglobin 12.9 g/dl Bedside Hematocrit 38 % Bedside Sodium 133 mEq/L Bedside Potassium 6.3 mEq/L Bedside Chloride 94 mEq/L Bedside Total CO2 30 mEq/l Bedside Blood Urea Nitrogen 30 mg/dl Bedside Creatinine 6.0 mg/dl Bedside Glucose (other) 155 mg/dl Bedside Ionized Calcium (Kristyn) 1.06 mmol/l Prothrombin Time 10.7 SECONDS Prothromb Time International Ratio 1.0 Activated Partial Thromboplast Time 24.2 SECONDS Partial Thromboplastin Ratio 0.9 Bedside Glucose 213 mg/dl Test 04/03/18 12:27 04/03/18 13:23 04/03/18 16:45 Bedside Glucose 159 mg/dl 105 mg/dl Sodium Level 132 mmol/L Potassium Level 5.6 mmol/L Chloride Level 95 mmol/L Carbon Dioxide Level 31 mmol/L Anion Gap 6.0 mmol/L Blood Urea Nitrogen 30 mg/dl Creatinine 6.65 mg/dl Est Creatinine Clear Calc Drug Dose 11.4 ml/min Estimated GFR () 8.7 Estimated GFR (Non- 7.5 BUN/Creatinine Ratio 4.6 Random Glucose 155 mg/dl Calcium Level 9.8 mg/dl Troponin I 0.028 ng/ml Hepatitis B Surface Antigen NEG Date/Time Source Procedure Growth Status 04/03/18 11:45 Nasal MRSA DNA Surveillance Screen - Final Specimen Negative for MRSA by DNA Probe Complete Assessment & Plan 72 y/o M w/ severe CAD, pAFib, hypotension, chronic volume overload, ESRD on HD admitted today with K 6.3 and wide complex tachycardia which has responded to amiodarone therapy. Getting emergent dialysis to manage K and tolerating so far HD today urgent to lower K / treat hyperkalemia definitively w/ no UF d/t bp, HR / arrhythmias today. Plan for HD again in am to help better manage volume status -ordered 1.2 L fluid limit -continue icu monitoring -albumin prn sbp < 80 in hd -will consider patiromer -agree that nephrocaps given hs -continue outpt binders -anemia status acceptable currently Appreciate consult; will follow with you.
[2018-04-03] MEDS: AMIODARONE 200 MG TAB PO SCH (19:52)
[2018-04-03] MEDS: NEPHROCAPS PO SCH (19:52)
[2018-04-04] VITALS (33 sets, daily range): BP systolic 59–110; BP diastolic 26–95; PULSE 45–118; TEMP 36.4–37; O2SAT 91–99
[2018-04-04 04:39] LABS: HEMATOCRIT 35.1 % (42-52); HEMOGLOBIN 11.3 g/dL (14.0-18.0); MEAN CORPUSCULAR HEMOGLOBIN 31.6 pg (25-34); MEAN CORPUSCULAR HGB CONC 32.2 g/dl (32-36); MEAN PLATELET VOLUME 10.3 fL (7.4-10.4); PLATELET COUNT 154 K/uL (130-400); RED CELL DISTRIBUTION WIDTH CV 14.9 % (11.5-14.5); RED CELL DISTRIBUTION WIDTH SD 53.7 fL (36.4-46.3); WHITE BLOOD COUNT 6.87 K/uL (4.8-10.8)
[2018-04-04 05:11] LABS: CALCIUM 8.5 mg/dl (8.5-10.1); CREATININE 5.14 mg/dl (0.60-1.40); PHOSPHORUS 3.2 mg/dl (2.5-4.9); POTASSIUM 5.4 mmol/L (3.5-5.1)
[2018-04-04] MEDS: HEPARIN SOD 5000 UNIT/0.5 ML CARP SQ SCH ×3 (06:34→21:29)
[2018-04-04] MEDS: CALCIUM ACETATE 667MG GELCAP PO SCH ×3 (07:19→16:43)
[2018-04-04] MEDS ORDERED: HEPARIN SOD (PORCINE) 1000 UNIT/ML 10 ML VIAL IV SCH (08:00)
[2018-04-04] MEDS ORDERED: ALBUMIN HUMAN 25% 12.5 GM/50 ML VIAL IV ONE (08:00)
[2018-04-04] MEDS: LIDOCAINE/PRILOCAINE 2.5% EA CRM EXT SCH (08:07)
[2018-04-04] MEDS: AMIODARONE 200 MG TAB PO SCH ×2 (08:47→20:22)
[2018-04-04] MEDS ORDERED: ATORVASTATIN 20 MG TAB PO SCH (09:00)
[2018-04-04] MEDS ORDERED: METOPROLOL SUCC 25MG EXT REL TAB PO ONE (09:03)
[2018-04-04] MEDS ORDERED: DILTIAZEM HCL 30 MG TAB PO ONE (09:15)
--- NOTE | 2018-04-04 09:18 | Cardiology Follow-Up ---
Subjective Subjective Date of Service: Apr 04, 2018. Pt evaluation today including: conversation w/ patient, physical exam, chart review, lab review, review of studies, review of inpatient medication list Additional Details: Pt seen and examined on HD, states that he feels well. No recurrence of chest discomfort. Denies sob, palpitations, lightheadedness or dizziness. Pt concerned about length of HD treatment today. Tele reviewed: atrial fibrillation with rvr while on HD, no recurrence of ventricular tachycardia Problem List Medical Problems: (1) Acute renal failure Status: Acute (2) Afib Status: Acute (3) Bacteremia Status: Acute (4) Cellulitis of right lower extremity Status: Acute (5) Chest pain Status: Acute (6) Chronic kidney disease Status: Acute (7) Dyspnea on exertion Status: Acute (8) Elevated troponin Status: Acute (9) Hyponatremia Status: Acute (10) Leukocytosis Status: Acute (11) Lower back pain Status: Acute (12) Lumbar back pain Status: Acute (13) Staphylococcus aureus sepsis Status: Acute (14) Weakness Status: Acute Review of Systems Constitutional: + weakness, + fatigue, No chills Eyes: No worsening of vision Respiratory: No cough, No shortness of breath Cardiac: + chest pain, + edema Musculoskeletal: No joint pain, No muscle pain Male : + problem reported (no change in chronic voiding habits) Neurologic: No memory loss, No numbness/tingling Psychiatric: No depression symptoms, No anxiety Heme: No abnormal bleeding/bruising Endo: No fatigue Objective Vital Signs Last Vital Signs Documentation Date Time Temp Pulse Resp B/P (MAP) Pulse Ox O2 Delivery O2 Flow Rate FiO2 04/04/18 04:01 36.5 98 18 108/95 (99) 93 Room Air Physical Exam: General Appearance: WD/WN, no apparent distress Eyes: bilateral eyes normal inspection, bilateral eyes PERRL, bilateral eyes EOMI ENT: normal ENT inspection, hearing grossly normal, pharynx normal Neck: supple, no adenopathy, thyroid normal, no JVD, no carotid bruits, trachea midline Respiratory/Chest: chest non-tender, normal breath sounds, no respiratory distress, no accessory muscle use, + rhonchi Cardiovascular: no JVD, no murmur, + irregularly irregular Abdomen: normal bowel sounds, non tender, soft, no organomegaly Extremities: no calf tenderness, + swelling Neurologic/Psychiatric: manager internet II-XII nml as tested, no motor/sensory deficits, alert, normal mood/affect, oriented x 3 Skin: normal color, warm/dry, no rash Lymphatic: no adenopathy Assessment and Plan 1. Ventricular tachycardia symptomatic with chest discomfort but tolerated well hemodynamically patient converted to afib amio gtt d/c'ed last PM for concern of converted afib (concern was to convert to sinus with unknown duration and possible LYNDSEY thrombus) amio level pending, will help to determine dose going forward episode was monomorphic will ask EP to evaluate for further treatment: EPS vs. ICD placement 2. PAF was in sinus at most recent outpatient visit 03/21 deemed not an anticoagulation candidate given hx of life threatening hemorrhage previously unknown duration, likely a few days based on symptoms concern would be for LYNDSEY thrombus rates now elevated chronic hypotension, beta steve currently on hold with need for recurrent HD will give a trial of cardizem after HD for rate control ideally would prefer beta steve with v-tach but limited by hypotension 3. CAD stable no new wall motion abnormalities on echo and preserved LV systolic function cont aspirin beta steve currently held due to hypotension especially with HD cont to monitor in ICU
[2018-04-04] MEDS: HEPARIN SOD (PORCINE) 1000 UNIT/ML 10 ML VIAL IV SCH ×2 (10:00→11:00)
[2018-04-04] MEDS ORDERED: NURSING VERBAL MED ORDER ONE (11:00)
[2018-04-04] MEDS: ALBUMIN HUMAN 25% 12.5 GM/50 ML VIAL IV PRN (11:26)
--- NOTE | 2018-04-04 11:57 | Cardiology Consultation ---
Cardiology Consultation Date of Consultation: Apr 04, 2018. Requesting Physician: Dr. Suazo Reason for Consultation: WCT Pt evaluation today including: conversation w/ patient, physical exam, lab review, review of studies, conversation w/ men's custom hair piece consultant, review of inpatient medication list History of Present Illness This is a 72-year-old gentleman with a history of end-stage renal disease on dialysis, as well as known coronary artery disease with bypass surgery in 1987, 1997 and subsequent interventions in 2008. He also has cerebrovascular disease. He has diabetes, hypertension, hyperlipidemia. He presented to [facility] emergency room on April 03, 2018 with chest discomfort. He has noticed that his heart rate had been increasing and he noted that his heart rate was quite fast that day. In the emergency room he was found to have a wide-complex tachycardia but he was also hyperkalemic and somewhat hypotensive. He was treated with medications to reduce his hyperkalemia and he was also given intravenous amiodarone. His wide complex tachycardia for the most part resolved though there were intermittent episodes subsequently. He has an underlying atrial arrhythmia, this was identified March 06, 2018 when he presented with chest discomfort. He was hospitalized until March 09 2018 and his rhythm was felt to be sinus rhythm alternating with paroxysmal atrial fibrillation. Review of the electrocardiograms from that admission I believe show a regular atrial tachycardia at about 140-150 bpm with variable AV conduction, sometimes 2-1 giving the appearance of sinus rhythm and at other times variable conduction giving the appearance of atrial fibrillation. His current atrial rhythm appears to be the same. He has not been on anticoagulation. His wide-complex tachycardia is at a rate of about 120 bpm and has a right bundle branch block superior axis morphology suggesting a left ventricular focus. The tachycardia was monomorphic and typically nonsustained although would restart frequently and was present for long periods of time. Following admission he has been feeling much better, his cardiac enzymes were negative for ischemia Today at the time of my evaluation he is undergoing hemodialysis, he is having no chest discomfort, no shortness of breath and remains unaware of his heart rhythm. Past Medical/Surgical History (1) S/P CABG x 3 (2) S/P CABG x 4 (3) History of left-sided carotid endarterectomy (4) DM type 2 (diabetes mellitus, type 2) (5) CAD (coronary artery disease) (6) ESRD (end stage renal disease) on dialysis Family History Diabetes mellitus MOTHER FH: pancreatic cancer FATHER FH: prostate cancer FATHER BROTHER Social History Smoking Status: Never Smoker History of Alcohol Use: No Review of Systems Constitutional: No fever, No weight loss, No weakness Respiratory: No cough, No shortness of breath Cardiac: + chest pain, + edema Abdomen: No pain, No nausea, No vomiting, No diarrhea, No GI bleeding Male : No urinary frequency, No nocturia more than once/night, No slowing stream, No sexual dysfunction Neurologic: No paralysis, No weakness, No numbness/tingling, No balance problems Heme: No abnormal bleeding/bruising, No clotting problems Endo: No fatigue Skin: No problem reported All Other Systems: Reviewed and Negative Allergies Coded Allergies: No Known Allergies (Verified , 04/03/18) Medications Current Inpatient Medications Medications (Trade) Dose Ordered Sig/Norma Route Start Time Stop Time Status Last Admin Dose Admin Miscellaneous Information (Icu Protocol For Hyperglycemia) 1 ea PRN PRN N/A 04/03/18 11:00 04/05/18 10:59 Aspirin (Ecotrin Tab) 81 mg QAM PO 04/04/18 09:00 05/04/18 08:59 Vitamin B Complex/ Vit C/Folic Acid (Nephrocaps) 1 cap QPM PO 04/03/18 21:00 05/03/18 20:59 04/03/18 19:52 1 CAP Calcium Acetate (Phoslo Cap) 667 mg TIDM PO 04/03/18 16:30 05/03/18 16:29 04/04/18 07:19 667 MG Cholecalciferol (Vitamin D Tab) 1,000 inter.unit QAM PO 04/04/18 09:00 05/04/18 08:59 Clindamycin HCl (Cleocin Cap) 300 mg TID PO 04/03/18 14:00 05/03/18 13:59 04/03/18 14:29 300 MG Clopidogrel Bisulfate (plAVix TAB) 75 mg QAM PO 04/04/18 09:00 05/04/18 08:59 Docusate Sodium (coLACE CAP) 100 mg UD PRN PO 04/03/18 13:00 05/03/18 12:59 Polyethylene (Miralax Powder Packet) 17 gm DAILY PRN PO 04/03/18 13:00 05/03/18 12:59 Heparin Sodium (Porcine) (Heparin Sq 5000 Unit/0.5ml) 5,000 unit Q8 SQ 04/03/18 14:00 05/03/18 13:59 04/04/18 06:34 5,000 UNIT Lidocaine/ Prilocaine (Emla 2.5% Crm) 1 ea MoWeFr EXT 04/03/18 15:45 05/03/18 15:44 04/04/18 08:07 1 EA Amiodarone HCl (Cordarone Tab) 200 mg BID PO 04/03/18 21:00 05/03/18 20:59 04/04/18 08:47 200 MG Albumin Human (Albumin 25%) 12.5 gm UD PRN IV 04/04/18 11:15 04/07/18 11:14 Physical Exam Vital Signs Past 12 Hours Date Time Temp Pulse Resp B/P (MAP) Pulse Ox O2 Delivery O2 Flow Rate FiO2 04/04/18 10:30 76 74/45 04/04/18 10:15 75 104/51 04/04/18 10:00 75 18 98/45 (62) 93 04/04/18 10:00 79 98/45 04/04/18 09:45 96 110/33 04/04/18 09:30 85 92/53 04/04/18 09:15 90 104/47 04/04/18 09:00 36.9 103 103/52 (69) 04/04/18 09:00 118 18 103/85 (91) 94 04/04/18 08:00 94 26 59/39 (46) Room Air 04/04/18 08:00 Room Air 04/04/18 07:00 36.5 45 13 98/47 (64) 95 Room Air 04/04/18 04:01 36.5 98 18 108/95 (99) 93 Room Air 04/04/18 03:00 82 17 98/48 (65) 91 Room Air 04/04/18 02:23 69 22 86/57 (67) 94 Room Air 04/04/18 01:00 74 27 80/58 (65) 91 Room Air 04/04/18 00:00 93 Room Air 04/04/18 00:00 36.5 71 17 97/65 (76) 94 Room Air Constitutional: General Apperance: heathly-appearing Level of Distress: NAD Psychiatric: Mental Status: active & alert Head: normocephalic Eyes: EOM: EOMI ENMT: normal ENT inspection, hearing grossly normal Neck: supple, no masses Lungs: Respiratory effort: no dyspnea, good air movement Auscultation: breath sounds normal, no wheezing Cardiovascular: Heart Auscultation: no rubs, no gallops, irregular rate rhythm Peripheral Pulses: Bruits: none appreciated Abdomen: Bowel Sounds: normal Inspection & Palpation: soft, no tenderness, guarding & rebound, no masses Musculoskeletal: normal strength (5/5 throughout) Extremities: no edema Neurologic: Cranial Nerves: grossly intact Sensation: grossly intact Data Laboratory Results: Last 24 Hours Test 04/03/18 12:27 04/03/18 13:23 04/03/18 16:45 04/03/18 19:54 Bedside Glucose 159 mg/dl 105 mg/dl 144 mg/dl Sodium Level 132 mmol/L Potassium Level 5.6 mmol/L Chloride Level 95 mmol/L Carbon Dioxide Level 31 mmol/L Anion Gap 6.0 mmol/L Blood Urea Nitrogen 30 mg/dl Creatinine 6.65 mg/dl Est Creatinine Clear Calc Drug Dose 11.4 ml/min Estimated GFR () 8.7 Estimated GFR (Non- 7.5 BUN/Creatinine Ratio 4.6 Random Glucose 155 mg/dl Calcium Level 9.8 mg/dl Troponin I 0.028 ng/ml Hepatitis B Surface Antigen NEG Test 04/03/18 21:45 04/04/18 03:59 04/04/18 07:05 04/04/18 10:41 Troponin I 0.032 ng/ml White Blood Count 6.87 K/uL Red Blood Count 3.58 M/uL Hemoglobin 11.3 g/dL Hematocrit 35.1 % Mean Corpuscular Volume 98.0 fL Mean Corpuscular Hemoglobin 31.6 pg Mean Corpuscular Hemoglobin Concent 32.2 g/dl RDW Standard Deviation 53.7 fL RDW Coefficient of Variation 14.9 % Platelet Count 154 K/uL Mean Platelet Volume 10.3 fL Sodium Level 133 mmol/L Potassium Level 5.4 mmol/L Chloride Level 94 mmol/L Carbon Dioxide Level 29 mmol/L Anion Gap 9.0 mmol/L Blood Urea Nitrogen 21 mg/dl Creatinine 5.14 mg/dl Est Creatinine Clear Calc Drug Dose 14.8 ml/min Estimated GFR () 11.8 Estimated GFR (Non- 10.2 BUN/Creatinine Ratio 4.1 Random Glucose 117 mg/dl Calcium Level 8.5 mg/dl Phosphorus Level 3.2 mg/dl Magnesium Level 2.4 mg/dl Bedside Glucose 128 mg/dl 147 mg/dl Assessment & Plan 1. Atrial arrhythmia: As noted in the HPI he presented in February 2018 with chest pain and a rapid heart rate that was felt to be paroxysmal atrial fibrillation. On review of available records however this appears to be an atrial tachycardia at a rate of about 140-150 bpm with variable AV conduction, sometimes 2-1 giving the appearance of sinus rhythm. I believe he is in the same rhythm now. That may have contributed to his chest discomfort, he does not have palpitations but is aware sometimes that his heart rate is rapid. It may be reasonable to consider converting this rhythm to sinus, he is not anticoagulated but I do not see convincing evidence of atrial fibrillation and therefore he may not be at high risk of a stroke. It might be prudent to consider KULDEEP guided cardioversion however. If this becomes recurrent and problematic ablation of the slow atrial rhythm like this is often quite successful. He probably will need to remain on amiodarone. 2. Wide-complex tachycardia: His wide complex tachycardia appears to be ventricular in origin. The rate is different enough from his atrial tachycardia that it does not seem to be due to one-to-one conduction of his atrial arrhythmia with aberrancy. I think it is a ventricular rate, it is however slow enough that he is for the most part not terribly symptomatic with it. I do not know that he has a lot of it either but we do not know the frequency other than this admission. This admission he was hyperkalemic which may certainly have contributed to this arrhythmia. It is certainly conceivably he has had at other times and not been aware of it since he does not really feel it. It is at a rate which would be difficult to separate from supraventricular conduction, even sinus. One option would be to consider loop recorder implantation, I do not think a loop recorder could differentiate his current atrial arrhythmia with intermittent rapid conduction versus this wide- complex tachycardia so may not be worthwhile as long as he remains in this atrial arrhythmia. If his atrial arrhythmia were converted and he remained in sinus for some period of time the loop recorder may be a reasonable option. Specific treatment of his ventricular tachycardia might require ablation, with a slow relatively asymptomatic and probably not very frequent ventricular arrhythmia this may not be indicated. An amiodarone level is pending, I would make sure that he has therapeutic levels of amiodarone for this and his atrial arrhythmia. That probably will be back until next week. Thank you for allowing me to participate in his care.
[2018-04-04] MEDS: CHOLECALCIFEROL 1000 INTER.UNIT TAB PO SCH (12:41)
[2018-04-04] MEDS: CLOPIDOGREL BISULFATE 75 MG TAB PO SCH (12:41)
[2018-04-04] MEDS: ASPIRIN 81 MG ECTAB PO SCH (12:42)
[2018-04-04] MEDS: CLINDAMYCIN HCL 150 MG CAP PO SCH ×3 (12:42→20:22)
--- NOTE | 2018-04-04 16:05 | Progress Note ---
Internal Med Progress Note Date of Service: Apr 04, 2018. Provider Documentation: SUBJECTIVE: The patient was seen and examined in ICU He was admitted yesterday with them possible slow ventricular tachycardia with them chest discomfort He received IV amiodarone and he is rhythm is at baseline now Denies any symptoms since admission and has been feeling a lot better Continues to have dialysis in ICU OBJECTIVE: Vital Signs-as noted below Exam: General-no apparent distress at rest Eyes-normal ENT-normal Neck-supple Lungs-decreased breath sounds bilaterally, no wheezing and/or crackles Heart-regular, 2/6 systolic murmur over precordium Abdomen-benign, soft, nontender, no organomegaly, bowel sounds present Extremities-trace edema bilaterally Neuro-alert, awake and oriented 3 No focal sensory and/or motor deficit Lab data as noted below. Her labs and imaging studies and monitor reviewed ASSESSMENT & PLAN: STABLE WIDE-COMPLEX VENTRICULAR TACHYCARDIA ATRIAL FIBRILLATION/Atrial Tachycardia HISTORY OF COMPLEX CAD -Patient presenting from home with reports of chest pain, found to be in a stable wide-complex ventricular tachycardia -Heart alert was initially called and patient was evaluated at the bedside by Dr. Keen of interventional cardiology; -Patient was found to be having short bursts of narrow complex tachycardia without acute ST changes so therefore patient was not taken to the [facility] -Patient was also found to be hyperkalemic with potassium of 6.3 and received sodium bicarb, IV insulin, D5, and calcium; will recheck potassium level now -Patient was also evaluated by Dr. Suazo at the bedside who ordered amiodarone bolus and drip, patient subsequently converted to atrial fibrillation /Atrial Tachycardia -Patient with history of paroxysmal atrial fibrillation/Atrial Tachycardia, -Not anticoagulated secondary to bleeding complications in the past -Initial troponin and Sets are negative for any ACS -ECHO::No significant change compared to previous study of 03/07/18. * Normal LV chamber size and wall thickness. * Normal LV systolic function, EF 55-60%. Dyskinetic septal wall motion consistent with post-operative state. * Poorly visualized valvular structures without significant stenosis or regurgitation by Doppler. -Continue aspirin and Plavix -Appreciate Cardiology and solution specialist evaluation -Plan to start CCB and continue Amiodarone -Check Amiodarone level -Possible KULDEEP but no plan for EP studies now( as per solution specialist) ESRD ON DIALYSIS -Nephrology consult -Continue routine renal medications -On dialysis Saturday at home; received a full treatment yesterday DM TYPE II -Hgb A1c 6.9 05/2017 -Currently not on therapy -ICU hypoglycemic protocol HISTORY OF LUMBAR OSTEOMYELITIS -On chronic clindamycin, will continue DVT PROPHYLAXIS -SQ heparin CODE STATUS -Patient is a full code as per my discussion with him. DISPOSITION Can be transferred to Tele Awaited Vital Signs: Date Time Temp Pulse Resp B/P (MAP) Pulse Ox O2 Delivery O2 Flow Rate FiO2 04/04/18 15:00 79 15 85/59 (68) 95 Room Air 04/04/18 14:00 74 14 83/43 (56) 97 Room Air 04/04/18 13:00 84 18 90/45 (60) Room Air 04/04/18 12:40 36.4 82 85/43 (57) 04/04/18 12:00 76 15 87/52 (64) 99 Room Air 04/04/18 12:00 76 87/52 04/04/18 11:45 82 81/42 04/04/18 11:30 72 85/43 04/04/18 11:15 72 70/42 04/04/18 11:00 72 74/38 04/04/18 11:00 72 17 74/38 (50) 96 Room Air 04/04/18 10:45 79 68/48 04/04/18 10:30 76 74/45 04/04/18 10:15 75 104/51 04/04/18 10:00 75 18 98/45 (62) 93 04/04/18 10:00 79 98/45 04/04/18 09:45 96 110/33 04/04/18 09:30 85 92/53 04/04/18 09:15 90 104/47 04/04/18 09:00 36.9 103 103/52 (69) 04/04/18 09:00 118 18 103/85 (91) 94 04/04/18 08:00 Room Air 04/04/18 08:00 94 26 59/39 (46) Room Air 04/04/18 08:00 Room Air 04/04/18 07:00 36.5 45 13 98/47 (64) 95 Room Air 04/04/18 04:01 36.5 98 18 108/95 (99) 93 Room Air 04/04/18 03:00 82 17 98/48 (65) 91 Room Air 04/04/18 02:23 69 22 86/57 (67) 94 Room Air 04/04/18 01:00 74 27 80/58 (65) 91 Room Air 04/04/18 00:00 93 Room Air 04/04/18 00:00 36.5 71 17 97/65 (76) 94 Room Air 04/03/18 23:01 75 15 86/50 (62) 85 Room Air 04/03/18 22:15 70 15 98/53 (68) 91 Room Air 04/03/18 22:00 70 19 79/56 (64) 92 Room Air 04/03/18 21:30 70 17 89/49 (62) 92 Room Air 04/03/18 21:00 70 13 78/45 (56) 93 Room Air 04/03/18 20:00 36.4 70 17 97/38 (57) 94 Room Air 04/03/18 20:00 Room Air 04/03/18 19:30 73 19 86/43 (57) 94 Room Air 04/03/18 19:00 71 20 71/35 (47) 100 Room Air 04/03/18 18:48 37.1 71 88/37 (54) 18 18:33 72 83/34 18 18:30 73 58/41 18 18:20 72 90/79 18 18:15 73 87/45 18 18:00 73 87/45 18 18:00 73 17 87/45 (59) 100 Room Air 04/03/18 17:45 85 90/41 18 17:35 76 116/48 18 17:30 87 79/43 18 17:22 70 107/46 18 17:15 72 81/39 18 17:00 70 104/55 18 17:00 70 15 104/55 (71) 98 Room Air 18 16:45 69 93/43 18 16:30 68 101/40 8/18 16:13 87 101/37 18 16:02 37.1 74 96/55 (69) 18 16:00 36.5 85 19 96/55 (69) 95 Room Air Lab Results: Results Past 24 Hours Test 04/03/18 16:45 04/03/18 19:54 04/03/18 21:45 04/04/18 03:59 Range/Units Bedside Glucose 105 144 70-99 mg/dl Troponin I 0.032 0-0.045 ng/ml White Blood Count 6.87 4.8-10.8 K/uL Red Blood Count 3.58 4.7-6.1 M/uL Hemoglobin 11.3 14.0-18.0 g/dL Hematocrit 35.1 42-52 % Mean Corpuscular Volume 98.0 80-100 fL Mean Corpuscular Hemoglobin 31.6 25-34 pg Mean Corpuscular Hemoglobin Concent 32.2 32-36 g/dl RDW Standard Deviation 53.7 36.4-46.3 fL RDW Coefficient of Variation 14.9 11.5-14.5 % Platelet Count 154 130-400 K/uL Mean Platelet Volume 10.3 7.4-10.4 fL Sodium Level 133 136-145 mmol/L Potassium Level 5.4 3.5-5.1 mmol/L Chloride Level 94 98-107 mmol/L Carbon Dioxide Level 29 21-32 mmol/L Anion Gap 9.0 3-11 mmol/L Blood Urea Nitrogen 21 7-18 mg/dl Creatinine 5.14 0.60-1.40 mg/dl Est Creatinine Clear Calc Drug Dose 14.8 ml/min Estimated GFR () 11.8 Estimated GFR (Non- 10.2 BUN/Creatinine Ratio 4.1 10-20 Random Glucose 117 70-99 mg/dl Calcium Level 8.5 8.5-10.1 mg/dl Phosphorus Level 3.2 2.5-4.9 mg/dl Magnesium Level 2.4 1.8-2.4 mg/dl Test 04/04/18 07:05 04/04/18 10:41 Range/Units Bedside Glucose 128 147 70-99 mg/dl
--- NOTE | 2018-04-04 17:26 | Nephrology Progress Note ---
Nephrology Progress Note Date of Service: Apr 04, 2018. Subjective c/o poor sleep d/t being in hospital; no chest pain or sob; stable chronic edema ; heart rhythm remains controlled; seen on rounds this am at 0720 approx Objective Date Time Temp Pulse Resp B/P (MAP) Pulse Ox O2 Delivery O2 Flow Rate FiO2 04/04/18 16:00 36.9 72 22 80/47 (58) 96 Room Air 04/04/18 15:00 79 15 85/59 (68) 95 Room Air 04/04/18 14:00 74 14 83/43 (56) 97 Room Air 04/04/18 13:00 84 18 90/45 (60) Room Air 04/04/18 12:40 36.4 82 85/43 (57) 04/04/18 12:00 76 15 87/52 (64) 99 Room Air 04/04/18 12:00 76 87/52 04/04/18 11:45 82 81/42 04/04/18 11:30 72 85/43 04/04/18 11:15 72 70/42 04/04/18 11:00 72 74/38 04/04/18 11:00 72 17 74/38 (50) 96 Room Air 04/04/18 10:45 79 68/48 04/04/18 10:30 76 74/45 04/04/18 10:15 75 104/51 04/04/18 10:00 75 18 98/45 (62) 93 04/04/18 10:00 79 98/45 04/04/18 09:45 96 110/33 04/04/18 09:30 85 92/53 04/04/18 09:15 90 104/47 04/04/18 09:00 36.9 103 103/52 (69) 04/04/18 09:00 118 18 103/85 (91) 94 04/04/18 08:00 Room Air 04/04/18 08:00 94 26 59/39 (46) Room Air 04/04/18 08:00 Room Air 04/04/18 07:00 36.5 45 13 98/47 (64) 95 Room Air 04/04/18 04:01 36.5 98 18 108/95 (99) 93 Room Air 04/04/18 03:00 82 17 98/48 (65) 91 Room Air 04/04/18 02:23 69 22 86/57 (67) 94 Room Air 04/04/18 01:00 74 27 80/58 (65) 91 Room Air 04/04/18 00:00 93 Room Air 04/04/18 00:00 36.5 71 17 97/65 (76) 94 Room Air 04/03/18 23:01 75 15 86/50 (62) 85 Room Air 04/03/18 22:15 70 15 98/53 (68) 91 Room Air 04/03/18 22:00 70 19 79/56 (64) 92 Room Air 04/03/18 21:30 70 17 89/49 (62) 92 Room Air 04/03/18 21:00 70 13 78/45 (56) 93 Room Air 04/03/18 20:00 36.4 70 17 97/38 (57) 94 Room Air 04/03/18 20:00 Room Air 04/03/18 19:30 73 19 86/43 (57) 94 Room Air 04/03/18 19:00 71 20 71/35 (47) 100 Room Air 04/03/18 18:48 37.1 71 88/37 (54) 04/03/18 18:33 72 83/34 04/03/18 18:30 73 58/41 04/03/18 18:20 72 90/79 04/03/18 18:15 73 87/45 04/03/18 18:00 73 87/45 04/03/18 18:00 73 17 87/45 (59) 100 Room Air 04/03/18 17:45 85 90/41 04/03/18 17:35 76 116/48 04/03/18 17:30 87 79/43 Physical Exam: General Appearance: WD/WN, no apparent distress, + obese, + pertinent finding ( on RA, A& 0 x 3) Eyes: EOMI ENT: normal ENT inspection Neck: supple Respiratory/Chest: no respiratory distress, + decreased breath sounds, + rhonchi Cardiovascular: regular rate, rhythm, + pertinent finding (2-+ BLE edema) Abdomen: normal bowel sounds, non tender, soft (no jeffery) Extremities: + pedal edema, + swelling 2+ ble, + pertinent finding (LUE AVF + T /b) Neurologic/Psych: piper, fluent speech Current Inpatient Medications Medications (Trade) Dose Ordered Sig/Norma Route Start Time Stop Time Status Last Admin Dose Admin Miscellaneous Information (Icu Protocol For Hyperglycemia) 1 ea PRN PRN N/A 04/03/18 11:00 04/05/18 10:59 Aspirin (Ecotrin Tab) 81 mg QAM PO 04/04/18 09:00 05/04/18 08:59 04/04/18 12:42 81 MG Vitamin B Complex/ Vit C/Folic Acid (Nephrocaps) 1 cap QPM PO 04/03/18 21:00 05/03/18 20:59 04/03/18 19:52 1 CAP Calcium Acetate (Phoslo Cap) 667 mg TIDM PO 04/03/18 16:30 05/03/18 16:29 04/04/18 16:43 667 MG Cholecalciferol (Vitamin D Tab) 1,000 inter.unit QAM PO 04/04/18 09:00 05/04/18 08:59 04/04/18 12:41 1,000 INTER.UNIT Clindamycin HCl (Cleocin Cap) 300 mg TID PO 04/03/18 14:00 05/03/18 13:59 04/04/18 14:02 300 MG Clopidogrel Bisulfate (plAVix TAB) 75 mg QAM PO 04/04/18 09:00 05/04/18 08:59 04/04/18 12:41 75 MG Docusate Sodium (coLACE CAP) 100 mg UD PRN PO 04/03/18 13:00 05/03/18 12:59 Polyethylene (Miralax Powder Packet) 17 gm DAILY PRN PO 04/03/18 13:00 05/03/18 12:59 Heparin Sodium (Porcine) (Heparin Sq 5000 Unit/0.5ml) 5,000 unit Q8 SQ 04/03/18 14:00 05/03/18 13:59 04/04/18 14:04 5,000 UNIT Lidocaine/ Prilocaine (Emla 2.5% Crm) 1 ea MoWeFr EXT 04/03/18 15:45 05/03/18 15:44 04/04/18 08:07 1 EA Amiodarone HCl (Cordarone Tab) 200 mg BID PO 04/03/18 21:00 05/03/18 20:59 04/04/18 08:47 200 MG Albumin Human (Albumin 25%) 12.5 gm UD PRN IV 04/04/18 11:15 04/07/18 11:14 04/04/18 11:26 12.5 GM Last 24 Hours Test 04/03/18 19:54 04/03/18 21:45 04/04/18 03:59 04/04/18 07:05 Bedside Glucose 144 mg/dl 128 mg/dl Troponin I 0.032 ng/ml White Blood Count 6.87 K/uL Red Blood Count 3.58 M/uL Hemoglobin 11.3 g/dL Hematocrit 35.1 % Mean Corpuscular Volume 98.0 fL Mean Corpuscular Hemoglobin 31.6 pg Mean Corpuscular Hemoglobin Concent 32.2 g/dl RDW Standard Deviation 53.7 fL RDW Coefficient of Variation 14.9 % Platelet Count 154 K/uL Mean Platelet Volume 10.3 fL Sodium Level 133 mmol/L Potassium Level 5.4 mmol/L Chloride Level 94 mmol/L Carbon Dioxide Level 29 mmol/L Anion Gap 9.0 mmol/L Blood Urea Nitrogen 21 mg/dl Creatinine 5.14 mg/dl Est Creatinine Clear Calc Drug Dose 14.8 ml/min Estimated GFR () 11.8 Estimated GFR (Non- 10.2 BUN/Creatinine Ratio 4.1 Random Glucose 117 mg/dl Calcium Level 8.5 mg/dl Phosphorus Level 3.2 mg/dl Magnesium Level 2.4 mg/dl Test 04/04/18 10:41 04/04/18 16:30 Bedside Glucose 147 mg/dl 129 mg/dl Assessment & Plan 72 y/o M w/ severe CAD, pAFib, hypotension, chronic volume overload, ESRD on HD admitted 04/03 with K 6.3 and wide complex tachycardia which has responded to amiodarone therapy. He had emergent HD on admission to manage K. HD today per routine; will attempt 1L uf w/ albumin to maintain bp Plan for HD again in am to help better manage volume status -ordered 1.2 L fluid limit -albumin prn sbp < 80 in hd -will consider patiromer -continue outpt binders and hs nephrocaps -anemia status acceptable currently Appreciate consult; will follow with you.
[2018-04-04] MEDS: NEPHROCAPS PO SCH (20:23)
[2018-04-04] MEDS ORDERED: METOPROLOL SUCC 25MG EXT REL TAB PO SCH (21:00)
[2018-04-05] VITALS (22 sets, daily range): BP systolic 80–135; BP diastolic 32–95; PULSE 46–102; TEMP 36.5–37.1; O2SAT 92–94
[2018-04-05] MEDS: HEPARIN SOD 5000 UNIT/0.5 ML CARP SQ SCH ×3 (05:58→21:00)
[2018-04-05] MEDS ORDERED: HEPARIN SOD (PORCINE) 1000 UNIT/ML 10 ML VIAL IV SCH (08:00)
[2018-04-05] MEDS ORDERED: ALBUMIN HUMAN 25% 12.5 GM/50 ML VIAL IV PRN (08:00)
[2018-04-05] MEDS: CALCIUM ACETATE 667MG GELCAP PO SCH ×3 (08:17→19:35)
[2018-04-05] MEDS: CLINDAMYCIN HCL 150 MG CAP PO SCH ×3 (08:18→21:00)
[2018-04-05] MEDS: CLOPIDOGREL BISULFATE 75 MG TAB PO SCH (08:18)
[2018-04-05] MEDS: ASPIRIN 81 MG ECTAB PO SCH (08:18)
[2018-04-05] MEDS: AMIODARONE 200 MG TAB PO SCH ×3 (08:18→21:00)
[2018-04-05] MEDS: CHOLECALCIFEROL 1000 INTER.UNIT TAB PO SCH (08:18)
--- NOTE | 2018-04-05 08:30 | Cardiology Follow-Up ---
Subjective Subjective Date of Service: Apr 05, 2018. Pt evaluation today including: conversation w/ patient, physical exam, chart review, lab review, review of studies, review of inpatient medication list Additional Details: The patient had an uneventful night. Review of his telemetry indicates that he is in a rate controlled atrial fibrillation with a bundle branch block. I believe the patient is also intermittently in sinus rhythm. He has had no additional monomorphic wide complex tachycardia for over 24 hours. His potassium has been corrected with dialysis. I am sure the combination of correcting his potassium with the addition of amiodarone has improved his arrhythmias. Problem List Medical Problems: (1) Acute renal failure Status: Acute (2) Afib Status: Acute (3) Bacteremia Status: Acute (4) Cellulitis of right lower extremity Status: Acute (5) Chest pain Status: Acute (6) Chronic kidney disease Status: Acute (7) Dyspnea on exertion Status: Acute (8) Elevated troponin Status: Acute (9) Hyponatremia Status: Acute (10) Leukocytosis Status: Acute (11) Lower back pain Status: Acute (12) Lumbar back pain Status: Acute (13) Staphylococcus aureus sepsis Status: Acute (14) Weakness Status: Acute Review of Systems Constitutional: No fever, No weight loss, No weakness Eyes: No worsening of vision Respiratory: No cough, No shortness of breath Cardiac: + chest pain, + edema Abdomen: No pain, No nausea, No vomiting, No diarrhea, No GI bleeding Musculoskeletal: No joint pain, No muscle pain Male : No urinary frequency, No nocturia more than once/night, No slowing stream, No sexual dysfunction Neurologic: No paralysis, No weakness, No numbness/tingling, No balance problems Psychiatric: No depression symptoms, No anxiety Heme: No abnormal bleeding/bruising, No clotting problems Endo: No fatigue Skin: No problem reported Objective Vital Signs Last Vital Signs Documentation Date Time Temp Pulse Resp B/P (MAP) Pulse Ox O2 Delivery O2 Flow Rate FiO2 04/05/18 06:58 37.0 92 17 135/95 (108) 92 Room Air Physical Exam: General Appearance: WD/WN, no apparent distress Eyes: bilateral eyes normal inspection, bilateral eyes PERRL, bilateral eyes EOMI ENT: normal ENT inspection, hearing grossly normal, pharynx normal Neck: supple, no adenopathy, thyroid normal, no JVD, no carotid bruits, trachea midline Respiratory/Chest: chest non-tender, normal breath sounds, no respiratory distress, no accessory muscle use, + rhonchi Cardiovascular: no JVD, no murmur, + irregularly irregular Abdomen: normal bowel sounds, non tender, soft, no organomegaly Extremities: no calf tenderness, + swelling Neurologic/Psychiatric: 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 Acute on chronic renal failure 2. Hyperkalemia 3. Hemodialysis patient 4. Wide complex tachycardia due to hyperkalemia 5. Paroxysmal atrial fibrillation Recommendations: As outlined above the patient's arrhythmias have improved with the treatment of his acute renal failure and hyperkalemia. I would continue the amiodarone at 200 mg twice daily. As stated above I believe that he is intermittently in sinus rhythm and hopefully with continued correction of his renal failure with dialysis and amiodarone he will maintain sinus mechanism. He is not a candidate for long-term anticoagulation. Addendum: The patient is having wide complex tachycardia with rates of 110-130 bpm. I believe that this is most likely atrial fibrillation with aberrancy as the patient is tolerating it well and the QRS morphology is the same. I would recommend increasing his amiodarone to 400 mg twice daily and continue the patient on telemetry. Medications: Current Inpatient Medications Medications (Trade) Dose Ordered Sig/Norma Route Start Time Stop Time Status Last Admin Dose Admin Miscellaneous Information (Icu Protocol For Hyperglycemia) 1 ea PRN PRN N/A 04/03/18 11:00 04/05/18 10:59 Aspirin (Ecotrin Tab) 81 mg QAM PO 04/04/18 09:00 05/04/18 08:59 04/05/18 08:18 81 MG Vitamin B Complex/ Vit C/Folic Acid (Nephrocaps) 1 cap QPM PO 04/03/18 21:00 05/03/18 20:59 04/04/18 20:23 1 CAP Calcium Acetate (Phoslo Cap) 667 mg TIDM PO 04/03/18 16:30 05/03/18 16:29 04/05/18 08:17 667 MG Cholecalciferol (Vitamin D Tab) 1,000 inter.unit QAM PO 04/04/18 09:00 05/04/18 08:59 04/05/18 08:18 1,000 INTER.UNIT Clindamycin HCl (Cleocin Cap) 300 mg TID PO 04/03/18 14:00 05/03/18 13:59 04/05/18 08:18 300 MG Clopidogrel Bisulfate (plAVix TAB) 75 mg QAM PO 04/04/18 09:00 05/04/18 08:59 04/05/18 08:18 75 MG Docusate Sodium (coLACE CAP) 100 mg UD PRN PO 04/03/18 13:00 05/03/18 12:59 Polyethylene (Miralax Powder Packet) 17 gm DAILY PRN PO 04/03/18 13:00 05/03/18 12:59 Heparin Sodium (Porcine) (Heparin Sq 5000 Unit/0.5ml) 5,000 unit Q8 SQ 04/03/18 14:00 05/03/18 13:59 04/05/18 05:58 5,000 UNIT Lidocaine/ Prilocaine (Emla 2.5% Crm) 1 ea MoWeFr EXT 04/03/18 15:45 05/03/18 15:44 04/04/18 08:07 1 EA Amiodarone HCl (Cordarone Tab) 200 mg BID PO 04/03/18 21:00 05/03/18 20:59 04/05/18 08:18 200 MG Albumin Human (Albumin 25%) 12.5 gm UD PRN IV 04/04/18 11:15 04/07/18 11:14 04/04/18 11:26 12.5 GM Heparin Sodium (Porcine) (Heparin Iv Bolus) 1,000 unit ONE IV 04/05/18 08:00 04/05/18 16:00 Heparin Sodium (Porcine) (Heparin Iv Bolus) 400 unit Q1H IV 04/05/18 08:00 04/05/18 10:01 Albumin Human (Albumin 25%) 12.5 gm UD PRN IV 04/05/18 08:00 04/05/18 18:00 Lab Results: Last 24 Hours Test 04/04/18 10:41 04/04/18 16:30 04/05/18 07:32 Bedside Glucose 147 mg/dl 129 mg/dl 186 mg/dl
[2018-04-05] MEDS ORDERED: AMIODARONE 360MG / 200ML D5W ONE (09:11)
[2018-04-05 09:53] LABS: BASO % 0.2 %; BASO ABS # 0.01 K/uL (0-0.2); EOS % 1.1 %; EOS ABS # 0.07 K/uL (0-0.5); HEMATOCRIT 33.1 % (42-52); HEMOGLOBIN 10.9 g/dL (14.0-18.0); IG# 0.12 K/uL (0.00-0.02); LYMPH % 16.1 %; LYMPH ABS # 1.06 K/uL (1.2-3.4); MEAN CELL VOLUME 97.6 fL (80-100); MEAN CORPUSCULAR HEMOGLOBIN 32.2 pg (25-34); MEAN CORPUSCULAR HGB CONC 32.9 g/dl (32-36); MEAN PLATELET VOLUME 10.6 fL (7.4-10.4); MONO ABS # 0.92 K/uL (0.11-0.59); NEUT % 66.8 %; PLATELET COUNT 143 K/uL (130-400); RED CELL DISTRIBUTION WIDTH CV 14.9 % (11.5-14.5); RED CELL DISTRIBUTION WIDTH SD 52.8 fL (36.4-46.3); WHITE BLOOD COUNT 6.58 K/uL (4.8-10.8)
[2018-04-05 10:36] LABS: CALCIUM 8.7 mg/dl (8.5-10.1); CREATININE 5.07 mg/dl (0.60-1.40); POTASSIUM 4.7 mmol/L (3.5-5.1)
--- NOTE | 2018-04-05 10:53 | Progress Note ---
Internal Med Progress Note Date of Service: Apr 05, 2018. Provider Documentation: SUBJECTIVE: The patient was seen and examined in ICU He was admitted yesterday with them possible slow ventricular tachycardia with them chest discomfort He received IV amiodarone and he is rhythm is at baseline now Denies any symptoms since admission and has been feeling a lot better Continues to have dialysis in ICU 04/05: Denies any symptoms at rest Has had weakness and felt unwell while in chair this morning Noted to have wide complex VT at around 120-1 30/min Denies any chest pain associated with it OBJECTIVE: Vital Signs-as noted below Exam: General-no apparent distress at rest Eyes-normal ENT-normal Neck-supple Lungs-decreased breath sounds bilaterally, no wheezing and/or crackles Heart-regular, 2/6 systolic murmur over precordium Abdomen-benign, soft, nontender, no organomegaly, bowel sounds present Extremities-trace edema bilaterally Neuro-alert, awake and oriented 3 No focal sensory and/or motor deficit Lab data as noted below. Her labs and imaging studies and monitor reviewed ASSESSMENT & PLAN: STABLE WIDE-COMPLEX VENTRICULAR TACHYCARDIA----recurrent ATRIAL FIBRILLATION/Atrial Tachycardia HISTORY OF COMPLEX CAD -Patient presenting from home with reports of chest pain, found to be in a stable wide-complex ventricular tachycardia -Heart alert was initially called and patient was evaluated at the bedside by Dr. Keen of interventional cardiology; -Patient was found to be having short bursts of narrow complex tachycardia without acute ST changes so therefore patient was not taken to the [facility] -Patient was also found to be hyperkalemic with potassium of 6.3 and received sodium bicarb, IV insulin, D5, and calcium; will recheck potassium level now -Patient was also evaluated by Dr. Suazo at the bedside who ordered amiodarone bolus and drip, patient subsequently converted to atrial fibrillation /Atrial Tachycardia -Patient with history of paroxysmal atrial fibrillation/Atrial Tachycardia, -Not anticoagulated secondary to bleeding complications in the past -Initial troponin and Sets are negative for any ACS -ECHO::No significant change compared to previous study of 03/07/18. * Normal LV chamber size and wall thickness. * Normal LV systolic function, EF 55-60%. Dyskinetic septal wall motion consistent with post-operative state. * Poorly visualized valvular structures without significant stenosis or regurgitation by Doppler. -Continue aspirin and Plavix -Appreciate Cardiology and regional telecommunications specialist evaluation -Plan to start CCB and continue Amiodarone -Check Amiodarone level-we will take a few days to come back -Possible KULDEEP but no plan for EP studies now( as per regional telecommunications specialist) -Amiodarone has been increased to 400 mg twice daily- 04/05 -We will observe him in telemetry unit for now ESRD ON DIALYSIS -Nephrology consult -Continue routine renal medications -On dialysis Saturday at home; received a full treatment yesterday -Continue dialysis DM TYPE II -Hgb A1c 6.9 05/2017 -Currently not on therapy -ICU hypoglycemic protocol HISTORY OF LUMBAR OSTEOMYELITIS -On chronic clindamycin, will continue DVT PROPHYLAXIS -SQ heparin CODE STATUS -Patient is a full code as per my discussion with him. DISPOSITION We will take a few days before the heart rate is controlled Vital Signs: Date Time Temp Pulse Resp B/P (MAP) Pulse Ox O2 Delivery O2 Flow Rate FiO2 04/05/18 09:10 80/ (26) 04/05/18 06:58 37.0 92 17 135/95 (108) 92 Room Air 04/05/18 02:58 36.9 87 18 107/71 (83) 94 Room Air 04/04/18 23:59 95 Room Air 04/04/18 23:10 37.0 92 17 108/59 (75) 95 Room Air 04/04/18 21:57 36.6 91 12 98 04/04/18 20:05 89 20 97/29 (51) 04/04/18 20:00 94 Room Air 04/04/18 20:00 99 17 04/04/18 19:00 36.6 77 14 88/45 (59) 04/04/18 18:00 82 16 93/42 (59) 94 04/04/18 17:00 84 19 04/04/18 16:00 36.9 72 22 80/47 (58) 96 Room Air 04/04/18 15:00 79 15 85/59 (68) 95 Room Air 04/04/18 14:00 74 14 83/43 (56) 97 Room Air 04/04/18 13:00 84 18 90/45 (60) Room Air 04/04/18 12:40 36.4 82 85/43 (57) 04/04/18 12:00 76 15 87/52 (64) 99 Room Air 04/04/18 12:00 76 87/52 04/04/18 11:45 82 81/42 04/04/18 11:30 72 85/43 04/04/18 11:15 72 70/42 04/04/18 11:00 72 74/38 04/04/18 11:00 72 17 74/38 (50) 96 Room Air Lab Results: Results Past 24 Hours Test 04/04/18 16:30 04/05/18 07:32 04/05/18 09:35 Range/Units Bedside Glucose 129 186 70-99 mg/dl White Blood Count 6.58 4.8-10.8 K/uL Red Blood Count 3.39 4.7-6.1 M/uL Hemoglobin 10.9 14.0-18.0 g/dL Hematocrit 33.1 42-52 % Mean Corpuscular Volume 97.6 80-100 fL Mean Corpuscular Hemoglobin 32.2 25-34 pg Mean Corpuscular Hemoglobin Concent 32.9 32-36 g/dl Platelet Count 143 130-400 K/uL Mean Platelet Volume 10.6 7.4-10.4 fL Neutrophils (%) (Auto) 66.8 % Lymphocytes (%) (Auto) 16.1 % Monocytes (%) (Auto) 14.0 % Eosinophils (%) (Auto) 1.1 % Basophils (%) (Auto) 0.2 % Neutrophils # (Auto) 4.40 1.4-6.5 K/uL Lymphocytes # (Auto) 1.06 1.2-3.4 K/uL Monocytes # (Auto) 0.92 0.11-0.59 K/uL Eosinophils # (Auto) 0.07 0-0.5 K/uL Basophils # (Auto) 0.01 0-0.2 K/uL RDW Standard Deviation 52.8 36.4-46.3 fL RDW Coefficient of Variation 14.9 11.5-14.5 % Immature Granulocyte % (Auto) 1.8 % Immature Granulocyte # (Auto) 0.12 0.00-0.02 K/uL Sodium Level 130 136-145 mmol/L Potassium Level 4.7 3.5-5.1 mmol/L Chloride Level 93 98-107 mmol/L Carbon Dioxide Level 26 21-32 mmol/L Anion Gap 11.0 3-11 mmol/L Blood Urea Nitrogen 27 7-18 mg/dl Creatinine 5.07 0.60-1.40 mg/dl Est Creatinine Clear Calc Drug Dose 14.8 ml/min Estimated GFR () 12.0 Estimated GFR (Non- 10.4 BUN/Creatinine Ratio 5.3 10-20 Random Glucose 219 70-99 mg/dl Calcium Level 8.7 8.5-10.1 mg/dl Magnesium Level 2.3 1.8-2.4 mg/dl Chemistry Specimen Hemolysis
--- NOTE | 2018-04-05 12:05 | Progress Note ---
Progress Note Date of Service Apr 05, 2018. Progress Note The patient early this morning developed wide-complex tachycardia which we believe is ventricular in origin. During that time he did feel uncomfortable, became diaphoretic and was hypotensive. The patient was able to mentate. The patient eventually converted back to his atrial rhythm with aberrancy. I spoke with Dr. Argueta by phone who has seen this patient from the EP service. Not much room to work with due to the patient's chronic low blood pressure. His potassium is still slightly elevated and he will receive dialysis today with the hope of decreasing his potassium further. We have increased his amiodarone to 400 mg p.o. twice daily. If the patient continues to have unstable arrhythmias then we could consider adding mexiletine. Hopefully he will stabilize. Ultimately however, he may have to be transferred to [facility] [place] of [place]lative therapy.
--- NOTE | 2018-04-05 13:05 | Nephrology Progress Note ---
Nephrology Progress Note Date of Service: Apr 05, 2018. Subjective no chest pain or sob; stable chronic edema; heart rhythm/rate did cause concern again while pt up to bathroom-wide complex V tach recurred w/ lower bp, diaphoresis, discomfort>> amiodarone increased Objective Date Time Temp Pulse Resp B/P (MAP) Pulse Ox O2 Delivery O2 Flow Rate FiO2 04/05/18 11:24 36.7 46 17 112/64 (80) 92 Room Air 04/05/18 09:10 80/ (26) 04/05/18 08:00 Room Air 04/05/18 06:58 37.0 92 17 135/95 (108) 92 Room Air 04/05/18 02:58 36.9 87 18 107/71 (83) 94 Room Air 04/04/18 23:59 95 Room Air 04/04/18 23:10 37.0 92 17 108/59 (75) 95 Room Air 04/04/18 21:57 36.6 91 12 98 04/04/18 20:05 89 20 97/29 (51) 04/04/18 20:00 94 Room Air 04/04/18 20:00 99 17 04/04/18 19:00 36.6 77 14 88/45 (59) 04/04/18 18:00 82 16 93/42 (59) 94 04/04/18 17:00 84 19 04/04/18 16:00 36.9 72 22 80/47 (58) 96 Room Air 04/04/18 15:00 79 15 85/59 (68) 95 Room Air 04/04/18 14:00 74 14 83/43 (56) 97 Room Air Physical Exam: General Appearance: WD/WN, no apparent distress, + obese, + pertinent finding ( on RA, A& 0 x 3) Eyes: EOMI ENT: normal ENT inspection Neck: supple Respiratory/Chest: no respiratory distress, + decreased breath sounds, + rhonchi Cardiovascular: irregular rate, rhythm, + pertinent finding (2-+ BLE edema) Abdomen: normal bowel sounds, non tender, soft (no jeffery) Extremities: + pedal edema, + swelling 2+ ble, + pertinent finding (LUE AVF + T /b) Neurologic/Psych: piper, fluent speech Current Inpatient Medications Medications (Trade) Dose Ordered Sig/Norma Route Start Time Stop Time Status Last Admin Dose Admin Aspirin (Ecotrin Tab) 81 mg QAM PO 04/04/18 09:00 05/04/18 08:59 04/05/18 08:18 81 MG Vitamin B Complex/ Vit C/Folic Acid (Nephrocaps) 1 cap QPM PO 04/03/18 21:00 05/03/18 20:59 04/04/18 20:23 1 CAP Calcium Acetate (Phoslo Cap) 667 mg TIDM PO 04/03/18 16:30 05/03/18 16:29 04/05/18 11:17 667 MG Cholecalciferol (Vitamin D Tab) 1,000 inter.unit QAM PO 04/04/18 09:00 05/04/18 08:59 04/05/18 08:18 1,000 INTER.UNIT Clindamycin HCl (Cleocin Cap) 300 mg TID PO 04/03/18 14:00 05/03/18 13:59 04/05/18 08:18 300 MG Clopidogrel Bisulfate (plAVix TAB) 75 mg QAM PO 04/04/18 09:00 05/04/18 08:59 04/05/18 08:18 75 MG Docusate Sodium (coLACE CAP) 100 mg UD PRN PO 04/03/18 13:00 05/03/18 12:59 Polyethylene (Miralax Powder Packet) 17 gm DAILY PRN PO 04/03/18 13:00 05/03/18 12:59 Heparin Sodium (Porcine) (Heparin Sq 5000 Unit/0.5ml) 5,000 unit Q8 SQ 04/03/18 14:00 05/03/18 13:59 04/05/18 05:58 5,000 UNIT Lidocaine/ Prilocaine (Emla 2.5% Crm) 1 ea MoWeFr EXT 04/03/18 15:45 05/03/18 15:44 04/04/18 08:07 1 EA Albumin Human (Albumin 25%) 12.5 gm UD PRN IV 04/04/18 11:15 04/07/18 11:14 04/04/18 11:26 12.5 GM Heparin Sodium (Porcine) (Heparin Iv Bolus) 1,000 unit ONE IV 04/05/18 08:00 04/05/18 16:00 Albumin Human (Albumin 25%) 12.5 gm UD PRN IV 04/05/18 08:00 04/05/18 18:00 Amiodarone HCl (Cordarone Tab) 400 mg BID PO 04/05/18 09:00 05/03/18 20:59 04/05/18 11:18 200 MG Last 24 Hours Test 04/04/18 16:30 04/05/18 07:32 04/05/18 09:35 Bedside Glucose 129 mg/dl 186 mg/dl White Blood Count 6.58 K/uL Red Blood Count 3.39 M/uL Hemoglobin 10.9 g/dL Hematocrit 33.1 % Mean Corpuscular Volume 97.6 fL Mean Corpuscular Hemoglobin 32.2 pg Mean Corpuscular Hemoglobin Concent 32.9 g/dl Platelet Count 143 K/uL Mean Platelet Volume 10.6 fL Neutrophils (%) (Auto) 66.8 % Lymphocytes (%) (Auto) 16.1 % Monocytes (%) (Auto) 14.0 % Eosinophils (%) (Auto) 1.1 % Basophils (%) (Auto) 0.2 % Neutrophils # (Auto) 4.40 K/uL Lymphocytes # (Auto) 1.06 K/uL Monocytes # (Auto) 0.92 K/uL Eosinophils # (Auto) 0.07 K/uL Basophils # (Auto) 0.01 K/uL RDW Standard Deviation 52.8 fL RDW Coefficient of Variation 14.9 % Immature Granulocyte % (Auto) 1.8 % Immature Granulocyte # (Auto) 0.12 K/uL Sodium Level 130 mmol/L Potassium Level 4.7 mmol/L Chloride Level 93 mmol/L Carbon Dioxide Level 26 mmol/L Anion Gap 11.0 mmol/L Blood Urea Nitrogen 27 mg/dl Creatinine 5.07 mg/dl Est Creatinine Clear Calc Drug Dose 14.8 ml/min Estimated GFR () 12.0 Estimated GFR (Non- 10.4 BUN/Creatinine Ratio 5.3 Random Glucose 219 mg/dl Calcium Level 8.7 mg/dl Magnesium Level 2.3 mg/dl Chemistry Specimen Hemolysis Assessment & Plan 72 y/o M w/ severe CAD, pAFib, hypotension, chronic volume overload, ESRD on HD admitted 04/03 with K 6.3 and wide complex tachycardia which has responded to amiodarone therapy but recurred on am of 04/05 w/ some sx. He had emergent HD on admission to manage K. HD again today per routine; will attempt 1L uf w/ albumin to maintain bp >> to improve volume status and maintain eukalemia -cont 1.2 L fluid limit -albumin prn sbp < 80 in hd -continue outpt binders and hs nephrocaps -anemia status acceptable currently -cont close cardiology f/u Appreciate consult; will follow with you. care coordinated w/ dr rouse
[2018-04-05] MEDS: HEPARIN SOD (PORCINE) 1000 UNIT/ML 10 ML VIAL IV SCH ×3 (15:35→17:05)
[2018-04-05] MEDS: ALBUMIN HUMAN 25% 12.5 GM/50 ML VIAL IV PRN (17:17)
[2018-04-05] MEDS: NEPHROCAPS PO SCH (20:59)
[2018-04-06] VITALS (9 sets, daily range): BP systolic 96–135; BP diastolic 55–78; PULSE 46–97; TEMP 36.6–37.3; O2SAT 93–96
[2018-04-06] MEDS: HEPARIN SOD 5000 UNIT/0.5 ML CARP SQ SCH ×3 (06:26→21:58)
[2018-04-06 06:39] LABS: BASO % 0.3 %; BASO ABS # 0.02 K/uL (0-0.2); EOS % 1.7 %; EOS ABS # 0.12 K/uL (0-0.5); HEMATOCRIT 33.9 % (42-52); HEMOGLOBIN 11.2 g/dL (14.0-18.0); IG# 0.13 K/uL (0.00-0.02); LYMPH % 19.6 %; LYMPH ABS # 1.42 K/uL (1.2-3.4); MEAN CELL VOLUME 96.9 fL (80-100); MEAN PLATELET VOLUME 11.4 fL (7.4-10.4); MONO % 19.7 %; MONO ABS # 1.43 K/uL (0.11-0.59); NEUT % 56.9 %; NEUT ABS # 4.14 K/uL (1.4-6.5); PLATELET COUNT 118 K/uL (130-400); RED CELL DISTRIBUTION WIDTH CV 14.8 % (11.5-14.5); RED CELL DISTRIBUTION WIDTH SD 52.1 fL (36.4-46.3); WHITE BLOOD COUNT 7.26 K/uL (4.8-10.8)
[2018-04-06 07:15] LABS: CALCIUM 8.4 mg/dl (8.5-10.1); CREATININE 4.38 mg/dl (0.60-1.40); PHOSPHORUS 2.7 mg/dl (2.5-4.9); POTASSIUM 4.6 mmol/L (3.5-5.1)
[2018-04-06] MEDS: CHOLECALCIFEROL 1000 INTER.UNIT TAB PO SCH (08:14)
[2018-04-06] MEDS: CALCIUM ACETATE 667MG GELCAP PO SCH ×3 (08:15→16:55)
[2018-04-06] MEDS: CLINDAMYCIN HCL 150 MG CAP PO SCH ×3 (08:15→19:51)
[2018-04-06] MEDS: CLOPIDOGREL BISULFATE 75 MG TAB PO SCH (08:15)
[2018-04-06] MEDS: AMIODARONE 200 MG TAB PO SCH ×2 (08:15→19:52)
[2018-04-06] MEDS: ASPIRIN 81 MG ECTAB PO SCH (08:16)
--- NOTE | 2018-04-06 08:24 | Cardiology Follow-Up ---
Subjective Subjective Date of Service: Apr 06, 2018. Pt evaluation today including: conversation w/ patient, conversation w/ family , physical exam, chart review, lab review, review of studies, review of inpatient medication list Additional Details: The patient had an uneventful night following dialysis yesterday his potassium is now 4.7. He has had no additional wide complex arrhythmias that would suggest V. tach. It appears that he is in a persistent atrial fibrillation with apparent conduction. His blood pressure has also improved. Problem List Medical Problems: (1) Acute renal failure Status: Acute (2) Afib Status: Acute (3) Bacteremia Status: Acute (4) Cellulitis of right lower extremity Status: Acute (5) Chest pain Status: Acute (6) Chronic kidney disease Status: Acute (7) Dyspnea on exertion Status: Acute (8) Elevated troponin Status: Acute (9) Hyponatremia Status: Acute (10) Leukocytosis Status: Acute (11) Lower back pain Status: Acute (12) Lumbar back pain Status: Acute (13) Staphylococcus aureus sepsis Status: Acute (14) Weakness Status: Acute Review of Systems Constitutional: No fever, No weight loss, No weakness Eyes: No worsening of vision Respiratory: No cough, No shortness of breath Cardiac: + chest pain, + edema Abdomen: No pain, No nausea, No vomiting, No diarrhea, No GI bleeding Musculoskeletal: No joint pain, No muscle pain Male : No urinary frequency, No nocturia more than once/night, No slowing stream, No sexual dysfunction Neurologic: No paralysis, No weakness, No numbness/tingling, No balance problems Psychiatric: No depression symptoms, No anxiety Heme: No abnormal bleeding/bruising, No clotting problems Endo: No fatigue Skin: No problem reported Objective Vital Signs Last Vital Signs Documentation Date Time Temp Pulse Resp B/P (MAP) Pulse Ox O2 Delivery O2 Flow Rate FiO2 04/06/18 07:04 36.8 91 19 106/55 (72) 93 Room Air Physical Exam: General Appearance: WD/WN, no apparent distress Eyes: bilateral eyes normal inspection, bilateral eyes PERRL, bilateral eyes EOMI ENT: normal ENT inspection, hearing grossly normal, pharynx normal Neck: supple, no adenopathy, thyroid normal, no JVD, no carotid bruits, trachea midline Respiratory/Chest: chest non-tender, normal breath sounds, no respiratory distress, no accessory muscle use, + rhonchi Cardiovascular: no JVD, no murmur, + irregularly irregular Abdomen: normal bowel sounds, non tender, soft, no organomegaly Extremities: no calf tenderness, + swelling 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 Acute on chronic renal failure 2. Hyperkalemia 3. Hemodialysis patient 4. Wide complex tachycardia due to hyperkalemia 5. Persistent atrial fibrillation Recommendations: We will continue the amiodarone at 400 mg twice daily for now. Continue to monitor his heart rhythm today. I am hopeful now that his potassium is corrected that we will see less ventricular arrhythmias. Medications: Current Inpatient Medications Medications (Trade) Dose Ordered Sig/Norma Route Start Time Stop Time Status Last Admin Dose Admin Aspirin (Ecotrin Tab) 81 mg QAM PO 04/04/18 09:00 05/04/18 08:59 04/06/18 08:16 81 MG Vitamin B Complex/ Vit C/Folic Acid (Nephrocaps) 1 cap QPM PO 04/03/18 21:00 05/03/18 20:59 04/05/18 20:59 1 CAP Calcium Acetate (Phoslo Cap) 667 mg TIDM PO 04/03/18 16:30 05/03/18 16:29 04/06/18 08:15 667 MG Cholecalciferol (Vitamin D Tab) 1,000 inter.unit QAM PO 04/04/18 09:00 05/04/18 08:59 04/06/18 08:14 1,000 INTER.UNIT Clindamycin HCl (Cleocin Cap) 300 mg TID PO 04/03/18 14:00 05/03/18 13:59 04/06/18 08:15 300 MG Clopidogrel Bisulfate (plAVix TAB) 75 mg QAM PO 04/04/18 09:00 05/04/18 08:59 04/06/18 08:15 75 MG Docusate Sodium (coLACE CAP) 100 mg UD PRN PO 04/03/18 13:00 05/03/18 12:59 Polyethylene (Miralax Powder Packet) 17 gm DAILY PRN PO 04/03/18 13:00 05/03/18 12:59 Heparin Sodium (Porcine) (Heparin Sq 5000 Unit/0.5ml) 5,000 unit Q8 SQ 04/03/18 14:00 05/03/18 13:59 04/06/18 06:26 5,000 UNIT Lidocaine/ Prilocaine (Emla 2.5% Crm) 1 ea MoWeFr EXT 04/03/18 15:45 05/03/18 15:44 04/04/18 08:07 1 EA Albumin Human (Albumin 25%) 12.5 gm UD PRN IV 04/04/18 11:15 04/07/18 11:14 04/05/18 17:17 12.5 GM Amiodarone HCl (Cordarone Tab) 400 mg BID PO 04/05/18 09:00 05/03/18 20:59 04/06/18 08:15 400 MG Lab Results: Last 24 Hours Test 04/05/18 09:35 04/06/18 06:05 White Blood Count 6.58 K/uL 7.26 K/uL Red Blood Count 3.39 M/uL 3.50 M/uL Hemoglobin 10.9 g/dL 11.2 g/dL Hematocrit 33.1 % 33.9 % Mean Corpuscular Volume 97.6 fL 96.9 fL Mean Corpuscular Hemoglobin 32.2 pg 32.0 pg Mean Corpuscular Hemoglobin Concent 32.9 g/dl 33.0 g/dl Platelet Count 143 K/uL 118 K/uL Mean Platelet Volume 10.6 fL 11.4 fL Neutrophils (%) (Auto) 66.8 % 56.9 % Lymphocytes (%) (Auto) 16.1 % 19.6 % Monocytes (%) (Auto) 14.0 % 19.7 % Eosinophils (%) (Auto) 1.1 % 1.7 % Basophils (%) (Auto) 0.2 % 0.3 % Neutrophils # (Auto) 4.40 K/uL 4.14 K/uL Lymphocytes # (Auto) 1.06 K/uL 1.42 K/uL Monocytes # (Auto) 0.92 K/uL 1.43 K/uL Eosinophils # (Auto) 0.07 K/uL 0.12 K/uL Basophils # (Auto) 0.01 K/uL 0.02 K/uL RDW Standard Deviation 52.8 fL 52.1 fL RDW Coefficient of Variation 14.9 % 14.8 % Immature Granulocyte % (Auto) 1.8 % 1.8 % Immature Granulocyte # (Auto) 0.12 K/uL 0.13 K/uL Sodium Level 130 mmol/L 131 mmol/L Potassium Level 4.7 mmol/L 4.6 mmol/L Chloride Level 93 mmol/L 94 mmol/L Carbon Dioxide Level 26 mmol/L 27 mmol/L Anion Gap 11.0 mmol/L 10.0 mmol/L Blood Urea Nitrogen 27 mg/dl 21 mg/dl Creatinine 5.07 mg/dl 4.38 mg/dl Est Creatinine Clear Calc Drug Dose 14.8 ml/min 17.0 ml/min Estimated GFR () 12.0 14.3 Estimated GFR (Non- 10.4 12.4 BUN/Creatinine Ratio 5.3 4.7 Random Glucose 219 mg/dl 130 mg/dl Calcium Level 8.7 mg/dl 8.4 mg/dl Magnesium Level 2.3 mg/dl 2.4 mg/dl Chemistry Specimen Hemolysis Phosphorus Level 2.7 mg/dl
--- NOTE | 2018-04-06 10:46 | Progress Note ---
Internal Med Progress Note Date of Service: Apr 06, 2018. Provider Documentation: SUBJECTIVE: The patient was seen and examined in ICU He was admitted yesterday with them possible slow ventricular tachycardia with them chest discomfort He received IV amiodarone and he is rhythm is at baseline now Denies any symptoms since admission and has been feeling a lot better Continues to have dialysis in ICU 04/05: Denies any symptoms at rest Has had weakness and felt unwell while in chair this morning Noted to have wide complex VT at around 120-1 30/min Denies any chest pain associated with it 04/06: The patient was seen and examined in telemetry unit He did not have any more symptoms of V. tach The monitor did not show any recurrence of V. tach Heart rate seems to be under control Denies any symptoms as of today We will get PT OT evaluation and probable discharge tomorrow OBJECTIVE: Vital Signs-as noted below Exam: General-no apparent distress at rest Eyes-normal ENT-normal Neck-supple Lungs-decreased breath sounds bilaterally, no wheezing and/or crackles Heart-regular, 2/6 systolic murmur over precordium Abdomen-benign, soft, nontender, no organomegaly, bowel sounds present Extremities-trace edema bilaterally Neuro-alert, awake and oriented 3 No focal sensory and/or motor deficit Lab data as noted below. Her labs and imaging studies and monitor reviewed ASSESSMENT & PLAN: STABLE WIDE-COMPLEX VENTRICULAR TACHYCARDIA----recurrent ATRIAL FIBRILLATION/Atrial Tachycardia HISTORY OF COMPLEX CAD -Patient presenting from home with reports of chest pain, found to be in a stable wide-complex ventricular tachycardia -Heart alert was initially called and patient was evaluated at the bedside by Dr. Keen of interventional cardiology; -Patient was found to be having short bursts of narrow complex tachycardia without acute ST changes so therefore patient was not taken to the [facility] [employer] -Patient was also found to be hyperkalemic with potassium of 6.3 and received sodium bicarb, IV insulin, D5, and calcium; will recheck potassium level now -Patient was also evaluated by Dr. Suazo at the bedside who ordered amiodarone bolus and drip, patient subsequently converted to atrial fibrillation /Atrial Tachycardia -Patient with history of paroxysmal atrial fibrillation/Atrial Tachycardia, -Not anticoagulated secondary to bleeding complications in the past -Initial troponin and Sets are negative for any ACS -ECHO::No significant change compared to previous study of 03/07/18. * Normal LV chamber size and wall thickness. * Normal LV systolic function, EF 55-60%. Dyskinetic septal wall motion consistent with post-operative state. * Poorly visualized valvular structures without significant stenosis or regurgitation by Doppler. -Continue aspirin and Plavix -Appreciate Cardiology and email deployment specialist evaluation -Plan to start CCB and continue Amiodarone -Check Amiodarone level-we will take a few days to come back -Possible KULDEEP but no plan for EP studies now( as per email deployment specialist) -Amiodarone has been increased to 400 mg twice daily- 04/05 -We will observe him in telemetry unit for now -No more attack of V. tach and the patient remains asymptomatic -We will continue amiodarone for now and likely discharged tomorrow ESRD ON DIALYSIS -Nephrology consult -Continue routine renal medications -On dialysis Saturday at home; received a full treatment yesterday -We will have dialysis tomorrow as an outpatient -The patient prefers to have dialysis in outpatient to avoid difficult placement of line DM TYPE II -Hgb A1c 6.9 05/2017 -Currently not on therapy -ICU hypoglycemic protocol HISTORY OF LUMBAR OSTEOMYELITIS -On chronic clindamycin, will continue DVT PROPHYLAXIS -SQ heparin CODE STATUS -Patient is a full code as per my discussion with him. DISPOSITION Discharge tomorrow Vital Signs: Date Time Temp Pulse Resp B/P (MAP) Pulse Ox O2 Delivery O2 Flow Rate FiO2 04/06/18 07:04 36.8 91 19 106/55 (72) 93 Room Air 04/06/18 06:45 97 135/78 (97) 04/06/18 03:26 37.0 92 20 106/71 (83) 94 Room Air 04/06/18 00:01 Room Air 04/05/18 23:35 37.1 93 20 121/73 (89) 93 Room Air 04/05/18 19:40 36.8 86 18 134/65 (88) 93 Room Air 04/05/18 18:33 36.8 66 110/49 (69) 04/05/18 18:05 72 102/44 04/05/18 17:50 71 94/32 04/05/18 17:35 75 94/48 04/05/18 17:20 75 103/45 04/05/18 17:05 76 92/41 04/05/18 17:00 Room Air 04/05/18 16:50 69 91/34 04/05/18 16:35 75 93/36 04/05/18 16:19 65 87/34 04/05/18 16:05 72 108/36 04/05/18 15:50 69 99/51 04/05/18 15:35 74 85/45 04/05/18 15:20 73 97/42 04/05/18 15:05 90 86/36 04/05/18 14:50 90 93/41 04/05/18 14:20 36.5 102 122/36 (64) 04/05/18 11:24 36.7 46 17 112/64 (80) 92 Room Air Lab Results: Results Past 24 Hours Test 04/06/18 06:05 Range/Units White Blood Count 7.26 4.8-10.8 K/uL Red Blood Count 3.50 4.7-6.1 M/uL Hemoglobin 11.2 14.0-18.0 g/dL Hematocrit 33.9 42-52 % Mean Corpuscular Volume 96.9 80-100 fL Mean Corpuscular Hemoglobin 32.0 25-34 pg Mean Corpuscular Hemoglobin Concent 33.0 32-36 g/dl Platelet Count 118 130-400 K/uL Mean Platelet Volume 11.4 7.4-10.4 fL Neutrophils (%) (Auto) 56.9 % Lymphocytes (%) (Auto) 19.6 % Monocytes (%) (Auto) 19.7 % Eosinophils (%) (Auto) 1.7 % Basophils (%) (Auto) 0.3 % Neutrophils # (Auto) 4.14 1.4-6.5 K/uL Lymphocytes # (Auto) 1.42 1.2-3.4 K/uL Monocytes # (Auto) 1.43 0.11-0.59 K/uL Eosinophils # (Auto) 0.12 0-0.5 K/uL Basophils # (Auto) 0.02 0-0.2 K/uL RDW Standard Deviation 52.1 36.4-46.3 fL RDW Coefficient of Variation 14.8 11.5-14.5 % Immature Granulocyte % (Auto) 1.8 % Immature Granulocyte # (Auto) 0.13 0.00-0.02 K/uL Sodium Level 131 136-145 mmol/L Potassium Level 4.6 3.5-5.1 mmol/L Chloride Level 94 98-107 mmol/L Carbon Dioxide Level 27 21-32 mmol/L Anion Gap 10.0 3-11 mmol/L Blood Urea Nitrogen 21 7-18 mg/dl Creatinine 4.38 0.60-1.40 mg/dl Est Creatinine Clear Calc Drug Dose 17.0 ml/min Estimated GFR () 14.3 Estimated GFR (Non- 12.4 BUN/Creatinine Ratio 4.7 10-20 Random Glucose 130 70-99 mg/dl Calcium Level 8.4 8.5-10.1 mg/dl Phosphorus Level 2.7 2.5-4.9 mg/dl Magnesium Level 2.4 1.8-2.4 mg/dl Chemistry Specimen Hemolysis
[2018-04-06] MEDS: NEPHROCAPS PO SCH (19:51)
[2018-04-07] VITALS (20 sets, daily range): BP systolic 93–126; BP diastolic 40–84; PULSE 67–89; TEMP 36.3–36.8; O2SAT 94–98
[2018-04-07] MEDS: HEPARIN SOD 5000 UNIT/0.5 ML CARP SQ SCH ×3 (05:36→21:42)
[2018-04-07] MEDS: CLINDAMYCIN HCL 150 MG CAP PO SCH ×3 (07:23→19:27)
[2018-04-07] MEDS: ASPIRIN 81 MG ECTAB PO SCH (07:23)
[2018-04-07] MEDS: CLOPIDOGREL BISULFATE 75 MG TAB PO SCH (07:23)
[2018-04-07] MEDS: CHOLECALCIFEROL 1000 INTER.UNIT TAB PO SCH (07:23)
[2018-04-07] MEDS: CALCIUM ACETATE 667MG GELCAP PO SCH ×3 (07:23→17:10)
[2018-04-07 07:37] LABS: CALCIUM 8.5 mg/dl (8.5-10.1); CREATININE 6.19 mg/dl (0.60-1.40); POTASSIUM 4.5 mmol/L (3.5-5.1)
[2018-04-07] MEDS: AMIODARONE 200 MG TAB PO SCH ×2 (07:52→19:27)
[2018-04-07] MEDS ORDERED: METOPROLOL TARTRATE 25 MG TAB PO STA (10:05)
--- NOTE | 2018-04-07 10:18 | Cardiology Follow-Up ---
Subjective Subjective Date of Service: Apr 07, 2018. Additional Details: The patient wants to leave the hospital today. He is not satisfied with the dialysis he receives here. He wants to go to his outpatient facility. Unfortunately he still has high heart rates especially with minimal activities such as walking around his room. I would like to start him on metoprolol today and keep him on a monitor additional 24 hours while we titrate her beta- steve. He has had low blood pressures before in the past. Problem List Medical Problems: (1) Acute renal failure Status: Acute (2) Afib Status: Acute (3) Bacteremia Status: Acute (4) Cellulitis of right lower extremity Status: Acute (5) Chest pain Status: Acute (6) Chronic kidney disease Status: Acute (7) Dyspnea on exertion Status: Acute (8) Elevated troponin Status: Acute (9) Hyponatremia Status: Acute (10) Leukocytosis Status: Acute (11) Lower back pain Status: Acute (12) Lumbar back pain Status: Acute (13) Staphylococcus aureus sepsis Status: Acute (14) Weakness Status: Acute Review of Systems Constitutional: No fever, No weight loss, No weakness Eyes: No worsening of vision Respiratory: No cough, No shortness of breath Cardiac: + chest pain, + edema Abdomen: No pain, No nausea, No vomiting, No diarrhea, No GI bleeding Musculoskeletal: No joint pain, No muscle pain Male : No urinary frequency, No nocturia more than once/night, No slowing stream, No sexual dysfunction Neurologic: No paralysis, No weakness, No numbness/tingling, No balance problems Psychiatric: No depression symptoms, No anxiety Heme: No abnormal bleeding/bruising, No clotting problems Endo: No fatigue Skin: No problem reported Objective Vital Signs Last Vital Signs Documentation Date Time Temp Pulse Resp B/P (MAP) Pulse Ox O2 Delivery O2 Flow Rate FiO2 04/07/18 08:00 Room Air 04/07/18 07:20 36.8 77 20 126/66 (86) 94 Physical Exam: General Appearance: WD/WN, no apparent distress Eyes: bilateral eyes normal inspection, bilateral eyes PERRL, bilateral eyes EOMI ENT: normal ENT inspection, hearing grossly normal, pharynx normal Neck: supple, no adenopathy, thyroid normal, no JVD, no carotid bruits, trachea midline Respiratory/Chest: chest non-tender, normal breath sounds, no respiratory distress, no accessory muscle use, + rhonchi Cardiovascular: no JVD, no murmur, + irregularly irregular Abdomen: normal bowel sounds, non tender, soft, no organomegaly Extremities: no calf tenderness, + swelling Neurologic/Psychiatric: glass unloading equipment tender II-XII nml as tested, no motor/sensory deficits, alert, normal mood/affect, oriented x 3 Skin: normal color, warm/dry, no rash Lymphatic: no adenopathy Assessment and Plan Impression: 1. Acute on chronic renal failure 2. Hyperkalemia 3. Hemodialysis patient 4. Wide complex tachycardia due to hyperkalemia 5. Persistent atrial fibrillation Recommendations: The patient has had no additional wide complex tachycardia since his potassium has been corrected with dialysis. This is encouraging. He still is in atrial fibrillation with aberrancy and high heart rates. I will continue the amiodarone at 400 mg twice daily. 1 of the problems he had on admission was low blood pressure which could preclude him from undergoing dialysis. I will start him on metoprolol to slow his heart rate down a little more and I would like him to stay 1 more day in the hospital. The solar sales advisor feels that it would be safe for him to skip a day dialysis here at the hospital and then if he can be discharged tomorrow he can go to his outpatient facility. I will start him on metoprolol 12.5 mg twice daily with room to titrate if necessary. Medications: Current Inpatient Medications Medications (Trade) Dose Ordered Sig/Norma Route Start Time Stop Time Status Last Admin Dose Admin Aspirin (Ecotrin Tab) 81 mg QAM PO 04/04/18 09:00 05/04/18 08:59 04/07/18 07:23 81 MG Vitamin B Complex/ Vit C/Folic Acid (Nephrocaps) 1 cap QPM PO 04/03/18 21:00 05/03/18 20:59 04/06/18 19:51 1 CAP Calcium Acetate (Phoslo Cap) 667 mg TIDM PO 04/03/18 16:30 05/03/18 16:29 04/07/18 07:23 667 MG Cholecalciferol (Vitamin D Tab) 1,000 inter.unit QAM PO 04/04/18 09:00 05/04/18 08:59 04/07/18 07:23 1,000 INTER.UNIT Clindamycin HCl (Cleocin Cap) 300 mg TID PO 04/03/18 14:00 05/03/18 13:59 04/07/18 07:23 300 MG Clopidogrel Bisulfate (plAVix TAB) 75 mg QAM PO 04/04/18 09:00 05/04/18 08:59 04/07/18 07:23 75 MG Docusate Sodium (coLACE CAP) 100 mg UD PRN PO 04/03/18 13:00 05/03/18 12:59 Polyethylene (Miralax Powder Packet) 17 gm DAILY PRN PO 04/03/18 13:00 05/03/18 12:59 Heparin Sodium (Porcine) (Heparin Sq 5000 Unit/0.5ml) 5,000 unit Q8 SQ 04/03/18 14:00 05/03/18 13:59 04/07/18 05:36 5,000 UNIT Lidocaine/ Prilocaine (Emla 2.5% Crm) 1 ea MoWeFr EXT 04/03/18 15:45 05/03/18 15:44 04/04/18 08:07 1 EA Albumin Human (Albumin 25%) 12.5 gm UD PRN IV 04/04/18 11:15 04/07/18 11:14 04/05/18 17:17 12.5 GM Amiodarone HCl (Cordarone Tab) 400 mg BID PO 04/05/18 09:00 05/03/18 20:59 04/07/18 07:52 400 MG Metoprolol Tartrate (Lopressor Tab) 12.5 mg NOW STAT PO 04/07/18 10:05 04/07/18 10:06 UNV Metoprolol Tartrate (Lopressor Tab) 12.5 mg BID PO 04/07/18 21:00 05/07/18 20:59 UNV Lab Results: Last 24 Hours Test 04/07/18 06:32 Sodium Level 130 mmol/L Potassium Level 4.5 mmol/L Chloride Level 94 mmol/L Carbon Dioxide Level 26 mmol/L Anion Gap 10.0 mmol/L Blood Urea Nitrogen 33 mg/dl Creatinine 6.19 mg/dl Est Creatinine Clear Calc Drug Dose 12.0 ml/min Estimated GFR () 9.4 Estimated GFR (Non- 8.1 BUN/Creatinine Ratio 5.4 Random Glucose 126 mg/dl Calcium Level 8.5 mg/dl Magnesium Level 2.4 mg/dl
--- NOTE | 2018-04-07 10:19 | Nephrology Progress Note ---
Nephrology Progress Note Date of Service: Apr 07, 2018. Subjective Patient feels well, denies any shortness of breath. He would like to be discharged and go to his outpatient dialysis center. Objective Date Time Temp Pulse Resp B/P (MAP) Pulse Ox O2 Delivery O2 Flow Rate FiO2 04/07/18 08:00 Room Air 04/07/18 07:20 36.8 77 20 126/66 (86) 94 Room Air 04/07/18 03:06 36.7 76 18 119/84 (96) 97 Room Air 04/06/18 22:59 36.8 77 19 96/58 (71) 96 Room Air 04/06/18 20:00 94 Room Air 04/06/18 19:44 36.6 46 16 108/68 (81) 94 Room Air 04/06/18 16:00 94 Room Air 04/06/18 14:54 36.9 95 20 96/65 (75) 94 Room Air 04/06/18 11:43 37.3 95 20 127/73 (91) 95 Room Air Physical Exam: [id number], comfortable sitting up in the chair Eyes-pupils equal and reactive to light ENT-normal on inspection Neck-supple trachea is midline no JVD Lungs-clear to auscultation bilaterally Heart-heart sounds S1 and 2 had irregularly irregular Abdomen-soft nondistended bowel sounds are present Extremities-1+ edema Neuro-oriented 3, no focal neurological deficits Current Inpatient Medications Medications (Trade) Dose Ordered Sig/Norma Route Start Time Stop Time Status Last Admin Dose Admin Aspirin (Ecotrin Tab) 81 mg QAM PO 04/04/18 09:00 05/04/18 08:59 04/07/18 07:23 81 MG Vitamin B Complex/ Vit C/Folic Acid (Nephrocaps) 1 cap QPM PO 04/03/18 21:00 05/03/18 20:59 04/06/18 19:51 1 CAP Calcium Acetate (Phoslo Cap) 667 mg TIDM PO 04/03/18 16:30 05/03/18 16:29 04/07/18 07:23 667 MG Cholecalciferol (Vitamin D Tab) 1,000 inter.unit QAM PO 04/04/18 09:00 05/04/18 08:59 04/07/18 07:23 1,000 INTER.UNIT Clindamycin HCl (Cleocin Cap) 300 mg TID PO 04/03/18 14:00 05/03/18 13:59 04/07/18 07:23 300 MG Clopidogrel Bisulfate (plAVix TAB) 75 mg QAM PO 04/04/18 09:00 05/04/18 08:59 04/07/18 07:23 75 MG Docusate Sodium (coLACE CAP) 100 mg UD PRN PO 04/03/18 13:00 05/03/18 12:59 Polyethylene (Miralax Powder Packet) 17 gm DAILY PRN PO 04/03/18 13:00 05/03/18 12:59 Heparin Sodium (Porcine) (Heparin Sq 5000 Unit/0.5ml) 5,000 unit Q8 SQ 04/03/18 14:00 05/03/18 13:59 04/07/18 05:36 5,000 UNIT Lidocaine/ Prilocaine (Emla 2.5% Crm) 1 ea MoWeFr EXT 04/03/18 15:45 05/03/18 15:44 04/04/18 08:07 1 EA Albumin Human (Albumin 25%) 12.5 gm UD PRN IV 04/04/18 11:15 04/07/18 11:14 04/05/18 17:17 12.5 GM Amiodarone HCl (Cordarone Tab) 400 mg BID PO 04/05/18 09:00 05/03/18 20:59 04/07/18 07:52 400 MG Last 24 Hours Test 04/07/18 06:32 Sodium Level 130 mmol/L Potassium Level 4.5 mmol/L Chloride Level 94 mmol/L Carbon Dioxide Level 26 mmol/L Anion Gap 10.0 mmol/L Blood Urea Nitrogen 33 mg/dl Creatinine 6.19 mg/dl Est Creatinine Clear Calc Drug Dose 12.0 ml/min Estimated GFR () 9.4 Estimated GFR (Non- 8.1 BUN/Creatinine Ratio 5.4 Random Glucose 126 mg/dl Calcium Level 8.5 mg/dl Magnesium Level 2.4 mg/dl Assessment & Plan 72 y/o M w/ severe CAD, pAFib, hypotension, chronic volume overload, ESRD on HD admitted 04/03 with K 6.3 and wide complex tachycardia which has responded to amiodarone therapy but recurred on am of 04/05 w/ some sx. He had emergent HD on admission to manage K. 1. ESRD on dialysis Saturday. Patient was admitted with hyperkalemia and had emergent dialysis. Today was his regular dialysis day but patient had a bad experience with the cannulation the last time he had dialysis and does not want to be dialyzed in the hospital anymore. I counseled him about risks and benefits of missing dialysis and patient insists on being discharged to continue dialysis in the outpatient center. His electrolytes are stable and does not have signs of volume overload. Cardiology would like to observe him 1 more day on metoprolol for rate control. Will hold off on dialysis today. Will arrange for outpatient dialysis tomorrow after discharge. 2. Wide complex tachycardia. Unclear likely atrial fibrillation with aberrant conduction. Cardiology is starting him on metoprolol. Will monitor heart rate. There is potential for hypotension with dialysis. Recommend holding metoprolol dose on the morning of dialysis. 3. Secondary hyperparathyroidism -continue outpt binders and hs nephrocaps
--- NOTE | 2018-04-07 10:21 | Progress Note ---
Internal Med Progress Note Date of Service: Apr 07, 2018. Provider Documentation: SUBJECTIVE: The patient was seen and examined in ICU He was admitted yesterday with them possible slow ventricular tachycardia with them chest discomfort He received IV amiodarone and he is rhythm is at baseline now Denies any symptoms since admission and has been feeling a lot better Continues to have dialysis in ICU 04/05: Denies any symptoms at rest Has had weakness and felt unwell while in chair this morning Noted to have wide complex VT at around 120-1 30/min Denies any chest pain associated with it 04/06: The patient was seen and examined in telemetry unit He did not have any more symptoms of V. tach The monitor did not show any recurrence of V. tach Heart rate seems to be under control Denies any symptoms as of today We will get PT OT evaluation and probable discharge tomorrow 04/07: Wants to go home before lunch and wants to have dialysis as an outpatient He does not like the dialysis nurse over here His heart rate goes up to 100 -130 in the range with minimal activity, without any symptoms Heart monitor is showing the rate going up around 120 to 130 -does not look like VT OBJECTIVE: Vital Signs-as noted below Exam: General-no apparent distress at rest Eyes-normal ENT-normal Neck-supple Lungs-decreased breath sounds bilaterally, no wheezing and/or crackles Heart-regular, 2/6 systolic murmur over precordium Abdomen-benign, soft, nontender, no organomegaly, bowel sounds present Extremities-trace edema bilaterally Neuro-alert, awake and oriented 3 No focal sensory and/or motor deficit Lab data as noted below. Her labs and imaging studies and monitor reviewed ASSESSMENT & PLAN: STABLE WIDE-COMPLEX VENTRICULAR TACHYCARDIA----recurrent ATRIAL FIBRILLATION/Atrial Tachycardia HISTORY OF COMPLEX CAD -Patient presenting from home with reports of chest pain, found to be in a stable wide-complex ventricular tachycardia -Heart alert was initially called and patient was evaluated at the bedside by Dr. Keen of interventional cardiology; -Patient was found to be having short bursts of narrow complex tachycardia without acute ST changes so therefore patient was not taken to the Instrumentation Instructor -Patient was also found to be hyperkalemic with potassium of 6.3 and received sodium bicarb, IV insulin, D5, and calcium; will recheck potassium level now -Patient was also evaluated by Dr. Suazo at the bedside who ordered amiodarone bolus and drip, patient subsequently converted to atrial fibrillation /Atrial Tachycardia -Patient with history of paroxysmal atrial fibrillation/Atrial Tachycardia, -Not anticoagulated secondary to bleeding complications in the past -Initial troponin and Sets are negative for any ACS -ECHO::No significant change compared to previous study of 03/07/18. * Normal LV chamber size and wall thickness. * Normal LV systolic function, EF 55-60%. Dyskinetic septal wall motion consistent with post-operative state. * Poorly visualized valvular structures without significant stenosis or regurgitation by Doppler. -Continue aspirin and Plavix -Appreciate Cardiology and artificial intelligence specialist evaluation -Plan to start CCB and continue Amiodarone -Check Amiodarone level-we will take a few days to come back -Possible KULDEEP but no plan for EP studies now( as per artificial intelligence specialist) -Amiodarone has been increased to 400 mg twice daily- 04/05 -We will observe him in telemetry unit for now -No more attack of V. tach and the patient remains asymptomatic -We will continue amiodarone for now and likely discharged tomorrow -Denies any symptoms of palpitation, chest pain and shortness of breath even with increased heart rate on activity -Discussed with Dr. Blank and he will evaluate the patient this morning -If cleared from cardiology,he will be going home ESRD ON DIALYSIS -Nephrology consult -Continue routine renal medications -On dialysis Saturday at home; received a full treatment yesterday -We will have dialysis tomorrow as an outpatient -The patient prefers to have dialysis in outpatient to avoid difficult placement of line -Discussed with he french translator-he will try to have the dialysis today in this hospital DM TYPE II -Hgb A1c 6.9 05/2017 -Currently not on therapy -ICU hypoglycemic protocol HISTORY OF LUMBAR OSTEOMYELITIS -On chronic clindamycin, will continue DVT PROPHYLAXIS -SQ heparin CODE STATUS -Patient is a full code as per my discussion with him. DISPOSITION Likely discharge today Vital Signs: Date Time Temp Pulse Resp B/P (MAP) Pulse Ox O2 Delivery O2 Flow Rate FiO2 04/07/18 08:00 Room Air 04/07/18 07:20 36.8 77 20 126/66 (86) 94 Room Air 04/07/18 03:06 36.7 76 18 119/84 (96) 97 Room Air 04/06/18 22:59 36.8 77 19 96/58 (71) 96 Room Air 04/06/18 20:00 94 Room Air 04/06/18 19:44 36.6 46 16 108/68 (81) 94 Room Air 04/06/18 16:00 94 Room Air 04/06/18 14:54 36.9 95 20 96/65 (75) 94 Room Air 04/06/18 11:43 37.3 95 20 127/73 (91) 95 Room Air Lab Results: Results Past 24 Hours Test 04/07/18 06:32 Range/Units Sodium Level 130 136-145 mmol/L Potassium Level 4.5 3.5-5.1 mmol/L Chloride Level 94 98-107 mmol/L Carbon Dioxide Level 26 21-32 mmol/L Anion Gap 10.0 3-11 mmol/L Blood Urea Nitrogen 33 7-18 mg/dl Creatinine 6.19 0.60-1.40 mg/dl Est Creatinine Clear Calc Drug Dose 12.0 ml/min Estimated GFR () 9.4 Estimated GFR (Non- 8.1 BUN/Creatinine Ratio 5.4 10-20 Random Glucose 126 70-99 mg/dl Calcium Level 8.5 8.5-10.1 mg/dl Magnesium Level 2.4 1.8-2.4 mg/dl
[2018-04-07] MEDS ORDERED: HEPARIN SOD (PORCINE) 1000 UNIT/ML 10 ML VIAL IV SCH ×2 (14:00)
[2018-04-07] MEDS: LIDOCAINE/PRILOCAINE 2.5% EA CRM EXT SCH (19:22)
[2018-04-07] MEDS: NEPHROCAPS PO SCH (19:27)
[2018-04-07] MEDS: METOPROLOL TARTRATE 25 MG TAB PO SCH (19:30)
[2018-04-08] VITALS (7 sets, daily range): BP systolic 88–124; BP diastolic 52–65; PULSE 69–99; TEMP 36.7–37; O2SAT 95–99
[2018-04-08] MEDS: HEPARIN SOD 5000 UNIT/0.5 ML CARP SQ SCH ×2 (05:29→14:00)
[2018-04-08] MEDS: CLOPIDOGREL BISULFATE 75 MG TAB PO SCH (07:52)
[2018-04-08] MEDS: CALCIUM ACETATE 667MG GELCAP PO SCH ×2 (07:53→12:00)
[2018-04-08] MEDS: AMIODARONE 200 MG TAB PO SCH (07:53)
[2018-04-08] MEDS: CHOLECALCIFEROL 1000 INTER.UNIT TAB PO SCH (07:53)
[2018-04-08] MEDS: CLINDAMYCIN HCL 150 MG CAP PO SCH ×2 (07:53→14:00)
[2018-04-08] MEDS: ASPIRIN 81 MG ECTAB PO SCH (07:54)
[2018-04-08] MEDS: METOPROLOL TARTRATE 25 MG TAB PO SCH (07:54)
--- NOTE | 2018-04-08 12:10 | Cardiology Follow-Up ---
Subjective Subjective Date of Service: Apr 08, 2018. Pt evaluation today including: conversation w/ patient, physical exam, chart review, lab review, review of studies, review of inpatient medication list Additional Details: The patient had an uneventful night. He actually had dialysis last evening which was successfully completed. He has had no more wide complex tachycardia. His heart rates have markedly improved with the addition of a beta-steve. He continues to tolerate the amiodarone. Problem List Medical Problems: (1) Acute renal failure Status: Acute (2) Afib Status: Acute (3) Bacteremia Status: Acute (4) Cellulitis of right lower extremity Status: Acute (5) Chest pain Status: Acute (6) Chronic kidney disease Status: Acute (7) Dyspnea on exertion Status: Acute (8) Elevated troponin Status: Acute (9) Hyponatremia Status: Acute (10) Leukocytosis Status: Acute (11) Lower back pain Status: Acute (12) Lumbar back pain Status: Acute (13) Staphylococcus aureus sepsis Status: Acute (14) Weakness Status: Acute Review of Systems Constitutional: No fever, No weight loss, No weakness Eyes: No worsening of vision Respiratory: No cough, No shortness of breath Cardiac: + chest pain, + edema Abdomen: No pain, No nausea, No vomiting, No diarrhea, No GI bleeding Musculoskeletal: No joint pain, No muscle pain Male : No urinary frequency, No nocturia more than once/night, No slowing stream, No sexual dysfunction Neurologic: No paralysis, No weakness, No numbness/tingling, No balance problems Psychiatric: No depression symptoms, No anxiety Heme: No abnormal bleeding/bruising, No clotting problems Endo: No fatigue Skin: No problem reported Objective Vital Signs Last Vital Signs Documentation Date Time Temp Pulse Resp B/P (MAP) Pulse Ox O2 Delivery O2 Flow Rate FiO2 04/08/18 11:25 37.0 69 15 102/60 (74) 95 Room Air Physical Exam: General Appearance: WD/WN, no apparent distress Eyes: bilateral eyes normal inspection, bilateral eyes PERRL, bilateral eyes EOMI ENT: normal ENT inspection, hearing grossly normal, pharynx normal Neck: supple, no adenopathy, thyroid normal, no JVD, no carotid bruits, trachea midline Respiratory/Chest: chest non-tender, normal breath sounds, no respiratory distress, no accessory muscle use, + rhonchi Cardiovascular: no JVD, no murmur, + irregularly irregular Abdomen: normal bowel sounds, non tender, soft, no organomegaly Extremities: no calf tenderness, + swelling 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 Acute on chronic renal failure 2. Hyperkalemia 3. Hemodialysis patient 4. Wide complex tachycardia due to hyperkalemia 5. Persistent atrial fibrillation Recommendations: At this point I believe the patient may be discharged home on his current medications including metoprolol at 12.5 mg twice daily and amiodarone at 400 mg twice daily. He will have follow-up with us in 2-3 weeks. At that time, consideration will be given for dropping the amiodarone dosage. Medications: Current Inpatient Medications Medications (Trade) Dose Ordered Sig/Norma Route Start Time Stop Time Status Last Admin Dose Admin Aspirin (Ecotrin Tab) 81 mg QAM PO 04/04/18 09:00 05/04/18 08:59 04/08/18 07:54 81 MG Vitamin B Complex/ Vit C/Folic Acid (Nephrocaps) 1 cap QPM PO 04/03/18 21:00 05/03/18 20:59 04/07/18 19:27 1 CAP Calcium Acetate (Phoslo Cap) 667 mg TIDM PO 04/03/18 16:30 05/03/18 16:29 04/08/18 12:00 667 MG Cholecalciferol (Vitamin D Tab) 1,000 inter.unit QAM PO 04/04/18 09:00 05/04/18 08:59 04/08/18 07:53 1,000 INTER.UNIT Clindamycin HCl (Cleocin Cap) 300 mg TID PO 04/03/18 14:00 05/03/18 13:59 04/08/18 07:53 300 MG Clopidogrel Bisulfate (plAVix TAB) 75 mg QAM PO 04/04/18 09:00 05/04/18 08:59 04/08/18 07:52 75 MG Docusate Sodium (coLACE CAP) 100 mg UD PRN PO 04/03/18 13:00 05/03/18 12:59 Polyethylene (Miralax Powder Packet) 17 gm DAILY PRN PO 04/03/18 13:00 05/03/18 12:59 Heparin Sodium (Porcine) (Heparin Sq 5000 Unit/0.5ml) 5,000 unit Q8 SQ 04/03/18 14:00 05/03/18 13:59 04/08/18 05:29 5,000 UNIT Lidocaine/ Prilocaine (Emla 2.5% Crm) 1 ea MoWeFr EXT 04/03/18 15:45 05/03/18 15:44 04/07/18 19:22 1 EA Amiodarone HCl (Cordarone Tab) 400 mg BID PO 04/05/18 09:00 05/03/18 20:59 04/08/18 07:53 400 MG Metoprolol Tartrate (Lopressor Tab) 12.5 mg BID PO 04/07/18 21:00 05/07/18 20:59 04/08/18 07:54 12.5 MG
--- NOTE | 2018-04-08 12:59 | Progress Note ---
Medicine Progress Note Date & Time of Visit: Apr 08, 2018 at 12:27. Subjective Pt was seen and examined Sitting in chair with no distress Pt said that he feels fine He would like to go home today He had HD done yesterday He said that he will get HD done tomorrow Pt said denies any chest pain, palpitation, dizziness and SOB Objective Last 8 Hrs Date Time Temp Pulse Resp B/P (MAP) Pulse Ox O2 Delivery O2 Flow Rate FiO2 04/08/18 11:25 37.0 69 15 102/60 (74) 95 Room Air 04/08/18 08:00 Room Air 04/08/18 07:49 36.9 99 18 112/65 (81) 96 Room Air Physical Exam: General- No acute distress Head- atraumatic Eyes- PERRL, EOMI ENT- oropharynx clear Neck- supple, no JVD Lungs- clear to auscultation and percussion Heart- regular rhythm Abdomen- normal bowel sounds, soft Extremities- no calf tenderness, LE Edema Neuro- alert, oriented, PERRL, EOMI Skin- warm & dry Assessment & Plan CHEST PAIN STABLE WIDE-COMPLEX VENTRICULAR TACHYCARDIA ATRIAL FIBRILLATION/Atrial Tachycardia HISTORY OF COMPLEX CAD Presenting on admission with chest pain Stable wide-complex ventricular tachycardia on monitor Was starting on amiodarone drip Troponin was negativex3 set K was elevated at 6 No arrhythmia on tele monitor today Cardiology on board Case discussed with Dr. Blank Recommended to continue amiodarone 400mg BID and metoprolol 12.5 mg BID Plan to titrate amiodarone in the next visit if needed amiodarone level pending Continue Plavix and aspirin Follow up with cardiology in 2 to 3 weeks OK from cardiology to discharge today ECHO done * No significant change compared to previous study of 03/07/18. * Normal LV chamber size and wall thickness. * Normal LV systolic function, EF 55-60%. Dyskinetic septal wall motion consistent with post-operative state. * Poorly visualized valvular structures without significant stenosis or regurgitation by Doppler. HYPERKALEMIA K on admission 6 Received Insulin, calcium, sodium bicarb, D5 Stable ESRD ON DIALYSIS Nephrology consult On dialysis Saturday at home Received a full treatment yesterday Next HD tomorrow Pt was advised not to miss HD DM TYPE II Currently not on therapy Stable HISTORY OF LUMBAR OSTEOMYELITIS On chronic clindamycin, will continue DVT PROPHYLAXIS SQ heparin CODE STATUS FULL CODE DISPOSITION Likely discharge home today Current Inpatient Medications: Current Inpatient Medications Medications (Trade) Dose Ordered Sig/Norma Route Start Time Stop Time Status Last Admin Dose Admin Aspirin (Ecotrin Tab) 81 mg QAM PO 04/04/18 09:00 05/04/18 08:59 04/08/18 07:54 81 MG Vitamin B Complex/ Vit C/Folic Acid (Nephrocaps) 1 cap QPM PO 04/03/18 21:00 05/03/18 20:59 04/07/18 19:27 1 CAP Calcium Acetate (Phoslo Cap) 667 mg TIDM PO 04/03/18 16:30 05/03/18 16:29 04/08/18 12:00 667 MG Cholecalciferol (Vitamin D Tab) 1,000 inter.unit QAM PO 04/04/18 09:00 05/04/18 08:59 04/08/18 07:53 1,000 INTER.UNIT Clindamycin HCl (Cleocin Cap) 300 mg TID PO 04/03/18 14:00 05/03/18 13:59 04/08/18 07:53 300 MG Clopidogrel Bisulfate (plAVix TAB) 75 mg QAM PO 04/04/18 09:00 05/04/18 08:59 04/08/18 07:52 75 MG Docusate Sodium (coLACE CAP) 100 mg UD PRN PO 04/03/18 13:00 05/03/18 12:59 Polyethylene (Miralax Powder Packet) 17 gm DAILY PRN PO 04/03/18 13:00 05/03/18 12:59 Heparin Sodium (Porcine) (Heparin Sq 5000 Unit/0.5ml) 5,000 unit Q8 SQ 04/03/18 14:00 05/03/18 13:59 04/08/18 05:29 5,000 UNIT Lidocaine/ Prilocaine (Emla 2.5% Crm) 1 ea MoWeFr EXT 04/03/18 15:45 05/03/18 15:44 04/07/18 19:22 1 EA Amiodarone HCl (Cordarone Tab) 400 mg BID PO 04/05/18 09:00 05/03/18 20:59 04/08/18 07:53 400 MG Metoprolol Tartrate (Lopressor Tab) 12.5 mg BID PO 04/07/18 21:00 05/07/18 20:59 04/08/18 07:54 12.5 MG
[2018-04-08] MEDS ORDERED: LPR25 PO (13:02)
[2018-04-08] MEDS ORDERED: AMIO200T4 PO (13:02)
--- NOTE | 2018-04-08 13:07 | Discharge Instructions ---
Discharge Instructions Date of Service Apr 08, 2018. Admission Reason for Admission: V Tach Discharge Discharge Diagnosis / Problem: STABLE WIDE-COMPLEX VENTRICULAR TACHYCARDIA, CHEST PAIN Discharge Goals Goal(s): Decrease discomfort, Improve function, Improve disease control Activity Recommendations Activity Limitations: resume your previous activity ( TOLERATED) . Instructions / Follow-Up Instructions / Follow-Up Follow up with your primary care provider Dr. Mendoza on 04/15 @ 11:05 AM Follow up with cardiology Dr. Blank ( cardio office will contact you for the appointment) Next dialysis is tomorrow ( At [facility] center) Current Hospital Diet Patient's current hospital diet: Renal Diet, AHA Diet (Heart Healthy) Discharge Diet Recommended Diet: AHA Diet (Heart Healthy), Renal Diet Pending Studies Studies pending at discharge: no Laboratory Results Lipid Panel Test 03/07/18 09:16 Range/Units Triglycerides Level 76 0-150 mg/dl Cholesterol Level 122 0-200 mg/dl HDL Cholesterol 56 mg/dl Cholesterol/HDL Ratio 2.2 LDL Cholesterol, Calculated 51 mg/dl Medical Emergencies . Who to Call and When: Medical Emergencies: If at any time you feel your situation is an emergency, please call 911 immediately. . Non-Emergent Contact Non-Emergency issues call your: Primary Care Provider Call Non-Emergent contact if: you have any medication questions . . "Provider Documentation" section prepared by Wendy Waterman. .
--- NOTE | 2018-04-08 16:14 | Nephrology Progress Note ---
Nephrology Progress Note Date of Service: Apr 08, 2018. Subjective Patient feels well, denies any shortness of breath. He tolerated dialysis well last night. Objective Date Time Temp Pulse Resp B/P (MAP) Pulse Ox O2 Delivery O2 Flow Rate FiO2 04/08/18 13:08 37.0 69 15 95 Room Air 04/08/18 11:25 37.0 69 15 102/60 (74) 95 Room Air 04/08/18 08:00 Room Air 04/08/18 07:49 36.9 99 18 112/65 (81) 96 Room Air 04/08/18 03:40 36.8 72 18 99/61 (74) 99 Room Air 04/08/18 00:36 36.7 70 18 88/57 (67) 95 Room Air 04/08/18 00:35 36.8 71 124/54 (77) 04/08/18 00:00 72 110/52 04/07/18 23:45 73 102/42 04/07/18 23:30 73 97/47 04/07/18 23:15 67 120/48 04/07/18 23:00 71 94/50 04/07/18 22:45 76 112/52 04/07/18 22:30 70 124/54 04/07/18 22:15 69 111/53 04/07/18 22:00 70 113/46 04/07/18 21:45 70 121/55 04/07/18 21:30 69 112/54 04/07/18 21:15 74 103/56 04/07/18 21:00 68 103/50 04/07/18 20:45 71 94/51 04/07/18 20:35 71 99/53 04/07/18 20:18 36.6 87 93/40 (57) 04/07/18 20:00 Room Air 04/07/18 19:32 36.6 83 18 103/67 (79) 97 Physical Exam: [id number], comfortable sitting up in the chair Eyes-pupils equal and reactive to light ENT-normal on inspection Neck-supple trachea is midline no JVD Lungs-clear to auscultation bilaterally Heart-heart sounds S1 and 2 had irregularly irregular Abdomen-soft nondistended bowel sounds are present Extremities-1+ edema Neuro-oriented 3, no focal neurological deficits Amiodarone, PhosLo, metoprolol Assessment & Plan 72 y/o M w/ severe CAD, pAFib, hypotension, chronic volume overload, ESRD on HD admitted 04/03 with K 6.3 and wide complex tachycardia which has responded to amiodarone therapy but recurred on am of 04/05 w/ some sx. He had emergent HD on admission to manage K. 1. ESRD on dialysis Saturday. Patient was admitted with hyperkalemia and had emergent dialysis. He tolerated dialysis well last night for 3-1/2 hours and UF of 2.5 L. No hypotension. Patient will continue dialysis as an outpatient tomorrow. 2. Wide complex tachycardia. Unclear likely atrial fibrillation with aberrant conduction. Heart rate is controlled on metoprolol. There is potential for hypotension with dialysis. Recommend holding metoprolol dose on the morning of dialysis. 3. Secondary hyperparathyroidism -continue PhosLo with meals and hs nephrocaps
--- NOTE | 2018-04-08 17:06 | Discharge Summary ---
Discharge Summary Date of Service Apr 08, 2018. Discharge Summary Admission Date: Apr 03, 2018 at 10:53 Discharge Date: Apr 08, 2018 Discharge Disposition: Home Principal Diagnosis: CHEST PAIN Secondary Diagnoses/Problems: WIDE-COMPLEX VENTRICULAR TACHYCARDIA ATRIAL FIBRILLATION/ATRIAL TACHYCARDIA HYPERKALEMIA ESRD ON DIALYSIS DM TYPE II HISTORY OF LUMBAR OSTEOMYELITIS Procedures: CHEST ONE VIEW PORTABLE CLINICAL HISTORY: Chest pain. Heart alert. COMPARISON STUDY: Chest radiograph March 06, 2018. FINDINGS: Lung volumes are diminished. There are median sternotomy wires and clips from bypass grafting. Moderate cardiomegaly is noted. Mild interstitial prominence is noted. There is no consolidation to suggest pneumonia. IMPRESSION: 1. Pulmonary vascular congestion with possible mild pulmonary edema. 2. Moderate cardiomegaly. Electronically signed by: Lemuel Herbert M.D. 04/03/2018 9:36 AM Dictated Date/Time: 04/03/2018 9:35 AM ECHO Interpretation Summary * Name: DM BECERRIL Study Date: 04/03/2018 01:09 PM BP: 108/78 mmHg * Patient Location: [facility] [place]S\\[facility]\\S\\1 HR: 82 * : 1945 (M/d/yyyy) Gender: Male Height: 68 in * Age: 72 yrs Ethnicity: [place] Weight: 231 lb * Ordering Physician: Mary Patel * Referring Physician: Self, Referred * Performed By: Cecile Mendez RCS * * Reason For Study: CHEST PAIN * BSA: 2.2 m2 * -- Conclusions -- * No significant change compared to previous study of 03/07/18. * Normal LV chamber size and wall thickness. * Normal LV systolic function, EF 55-60%. Dyskinetic septal wall motion consistent with post-operative state. * Poorly visualized valvular structures without significant stenosis or regurgitation by Doppler. Procedure Details * A complete two-dimensional transthoracic echocardiogram was performed (2D, M- mode, Doppler and color flow Doppler). * The study was technically difficult. * A contrast injection of Definity was performed to improve assessment of LV function. * Contrast was injected into an intravenous site in the right arm. * One vial of Definity ultrasound contrast was diluted in normal saline to a total volume of 10 ml. A total of '4' ml of solution was administered during imaging. * Lot # [id number] of Definity utilized for procedure. * Expiration date FEB 27. * The attending nurse who injected the contrast agent was [facility], RN. Left Ventricle * The left ventricle is normal in size. * There is normal left ventricular wall thickness. * Left ventricular systolic function is normal. * Ejection Fraction = 55-60%. * Septal motion is consistent with post-operative state. Right Ventricle * The right ventricle is not well visualized. Atria * The left atrium is not well visualized. * Right atrium not well visualized. Mitral Valve * The mitral valve is not well visualized. * There is no mitral valve stenosis. * There is no mitral regurgitation noted. Tricuspid Valve * The tricuspid valve is not well visualized. * There is no tricuspid stenosis. * No tricuspid regurgitation. Aortic Valve * The aortic valve is not well visualized. * No hemodynamically significant valvular aortic stenosis. * There is no significant aortic regurgitation. Pulmonic Valve * The pulmonary valve is not well seen, but the Doppler examination is normal without significant regurgitation or stenosis. Great Vessels * The aortic root is not well visualized. Pericardium/Pleural * There is no pericardial effusion. Consultations: CARDIO CRITICAL CARE Medication Reconciliation Changed Medications: Amiodarone Hcl (Cordarone) 200 Mg Tab 400 MG PO BID for 30 Days (Changed from: 200 MG) Metoprolol Tartrate (Lopressor) 25 Mg Tab 12.5 MG PO BID for 30 Days, #30 TAB 2 Refills (Changed from: 25 MG; 60) Continued Medications: Aspirin (Aspirin Ec) 81 Mg Tab 81 MG PO QAM Atorvastatin (Lipitor) 40 Mg Tab 40 MG PO DAILY, TAB B-Complex W/ C & Folic Acid ([place] Caps) 1 Cap Cap 1 CAP PO QPM Calcium Acetate (Phoslo 667 Mg) 667 Mg Cap 1 CAP PO TIDM, CAP Cholecalciferol (Vitamin D3) 1,000 Unit Tab 1000 INTER.UNIT PO QAM, TAB Clindamycin HCl (Clindamycin HCl) 150 Mg Cap 300 MG PO TID for 30 Days Clopidogrel Bisulfate (Clopidogrel) 75 Mg Tab 75 MG PO QAM Docusate Sodium (Colace) 100 Mg Cap 100 MG PO UD PRN for Constipation, CAP Misc Natural Products (Prostate Health) 1 Cap Cap 1 CAP PO DAILY Nitroglycerin (Nitrostat) 0.4 Mg Tab 0.4 MG SL UD PRN for Chest Pain PLACE ONE TABLET UNDER THE TONGUE EVERY 5 MINUTES FOR UP TO 3 DOSES IF NEEDED FOR CHEST PAIN. Polyethylene Glycol 3350 (Miralax) 1 Pow Pow 17 GM PO DAILY PRN for Constipation Admission Information HPI (per Admitting provider): 72-year-old male who presents the ED with a chief complaint of chest pain. Patient reports that around 3:00 this morning, he was drinking his coffee when he had an onset of midsternal chest pain with associated palpitations and nausea. Patient rates the pain a number 6 out of 10 at its worse. He also had associated bilateral arm numbness and tingling. He called 911 and was transported to the ED for further evaluation. When EMS arrived, he was found to be in a wide complex tachycardia with a somewhat stable BP and he was awake and alert. Patient reports he has chronic issues with hypotension associated with dialysis. His metoprolol was recently decreased due to this. Otherwise he reports he has been feeling well recently. He denies abdominal pain, vomiting, diarrhea. No fevers or chills. Of note, patient underwent a normal dialysis treatment yesterday. In the ED, patient was found to be in a stable wide-complex ventricular tachycardia. A heart alert was called and patient was evaluated at the bedside by Dr. Keen with interventional cardiology as well as Dr. Suazo. He was also found to be having short bursts of a narrow complex rhythm without acute ST abnormalities so therefore he was not taken to the Trip Motor Operator at this time. He was also found to be hyperkalemic with potassium of 6.3. Hyperkalemia was treated with insulin, D50, calcium, and sodium bicarbonate. He was also given an amiodarone bolus and started on a drip. Patient has subsequently converted to atrial fibrillation. Physical Exam (per Admitting): General Appearance: WD/WN, no apparent distress Head: normocephalic, atraumatic Eyes: normal inspection, EOMI, sclerae normal ENT: hearing grossly normal, + pertinent finding (Mucous membranes moist) Neck: supple, no JVD, trachea midline Respiratory/Chest: no respiratory distress, + decreased breath sounds Cardiovascular: normal peripheral pulses, + irregularly irregular (Rate controlled), + pertinent finding (+2 pitting edema BLE) Abdomen/GI: normal bowel sounds, non tender, soft, no organomegaly Extremities/Musculoskelatal: normal inspection, no calf tenderness, normal capillary refill Neurologic/Psych: no motor/sensory deficits, alert, normal mood/affect, oriented x 3 Skin: warm/dry, + pertinent finding (Chronic venous changes BLE) Hospital Course CHEST PAIN WIDE-COMPLEX VENTRICULAR TACHYCARDIA ATRIAL FIBRILLATION/ATRIAL TACHYCARDIA HISTORY OF COMPLEX CAD Presenting on admission with chest pain Stable wide-complex ventricular tachycardia on monitor Was starting on amiodarone drip Troponin was negativex3 set K was elevated at 6 No arrhythmia on tele monitor today Cardiology on board Case discussed with Dr. Blank Recommended to continue amiodarone 400mg BID and metoprolol 12.5 mg BID Plan to titrate amiodarone in the next visit if needed amiodarone level pending Continue Plavix and aspirin Follow up with cardiology in 2 to 3 weeks OK from cardiology to discharge today ECHO done * No significant change compared to previous study of 03/07/18. * Normal LV chamber size and wall thickness. * Normal LV systolic function, EF 55-60%. Dyskinetic septal wall motion consistent with post-operative state. * Poorly visualized valvular structures without significant stenosis or regurgitation by Doppler. HYPERKALEMIA K on admission 6 Received Insulin, calcium, sodium bicarb, D5 Stable ESRD ON DIALYSIS Nephrology consult On dialysis Saturday at home Received a full treatment yesterday Next HD tomorrow Pt was advised not to miss HD DM TYPE II Currently not on therapy Stable HISTORY OF LUMBAR OSTEOMYELITIS On chronic clindamycin, will continue DVT PROPHYLAXIS SQ heparin CODE STATUS FULL CODE DISPOSITION Likely discharge home today Total time spent on discharge = 35 MINUTES This includes examination of the patient, discharge planning, medication reconciliation, and communication with other providers. Discharge Instructions Discharge Instructions Date of Service Apr 08, 2018. Admission Reason for Admission: V Tach Discharge Discharge Diagnosis / Problem: STABLE WIDE-COMPLEX VENTRICULAR TACHYCARDIA, CHEST PAIN Discharge Goals Goal(s): Decrease discomfort, Improve function, Improve disease control Activity Recommendations Activity Limitations: resume your previous activity ( TOLERATED) . Instructions / Follow-Up Instructions / Follow-Up Follow up with your primary care provider Dr. Mendoza on 04/15 @ 11:05 AM Follow up with cardiology Dr. Blank ( cardio office will contact you for the appointment) Next dialysis is tomorrow ( At [facility] center) Current Hospital Diet Patient's current hospital diet: Renal Diet, AHA Diet (Heart Healthy) Discharge Diet Recommended Diet: AHA Diet (Heart Healthy), Renal Diet Pending Studies Studies pending at discharge: no Laboratory Results Lipid Panel Test 03/07/18 09:16 Range/Units Triglycerides Level 76 0-150 mg/dl Cholesterol Level 122 0-200 mg/dl HDL Cholesterol 56 mg/dl Cholesterol/HDL Ratio 2.2 LDL Cholesterol, Calculated 51 mg/dl Medical Emergencies . Who to Call and When: Medical Emergencies: If at any time you feel your situation is an emergency, please call 911 immediately. . Non-Emergent Contact Non-Emergency issues call your: Primary Care Provider Call Non-Emergent contact if: you have any medication questions . . "Provider Documentation" section prepared by Wendy Waterman. . Additional Copies To Rl Mendoza M.D.
== END 2018-04-08 14:00 | disposition home or self-care (01) | DRG 308 ==
LOC: C.EDA 09:17 → C.MSICU 10:53 → EDBEDREQ 11:03 → ENRESERV 11:05 → C.2T 04-04 21:06
PROVIDERS: ADMIT Internal Medicine; ATTEND Internal Medicine
PROC: 5A1D70Z Performance of Urinary Filtration, Intermittent, Less than 6 Hours Per Day (ICD-10-PCS; principal; 2018-04-03)
DX: I47.2 Ventricular tachycardia (principal); N17.9 Acute kidney failure, unspecified; I25.10 Atherosclerotic heart disease of native coronary artery without angina pectoris; E11.21 Type 2 diabetes mellitus with diabetic nephropathy; N18.6 End stage renal disease; I12.0 Hypertensive chronic kidney disease with stage 5 chronic kidney disease or end stage renal disease; I48.0 Paroxysmal atrial fibrillation; Z95.1 Presence of aortocoronary bypass graft; Z83.3 Family history of diabetes mellitus; Z82.49 Family history of ischemic heart disease and other diseases of the circulatory system; E87.5 Hyperkalemia; Z99.2 Dependence on renal dialysis; E78.5 Hyperlipidemia, unspecified; I48.1 Persistent atrial fibrillation

== ENCOUNTER 2019-09-21 20:23 | Inpatient (IN) ==
--- OUTSIDE RECORDS SUMMARY | 2019-09-21 20:26 | External Medical Summary | Continuity of Care Document ---
:1945 Author Name Erin Phelps, Provider Address Unavailable Unavailable , Care Team Providers Name Role Phone Marcia Moore DO Unavailable [email or web address] RITA PETERSON Unavailable Unavailable Unavailable Unavailable Unavailable Problems Infection associated with catheter ESRD (end stage renal disease) on dialysis (585.6) (N18.6) Osteomyelitis of lumbar spine (730.28) (M46.26) Staphylococcus aureus bacteremia (790.7) (R78.81) MRSA infection (041.12) (A49.02) Lumbar discitis (722.93) (M46.46) Allergies and Adverse Reactions No Known Drug Allergies (Allergy) Medications Clindamycin HCl - 300 MG Oral Capsule; TAKE 1 CAP BY M OUT 3 TIMES A DAY. DO Marcia Moore Start: 28-Jul-2018 Quantity: 90 Refills: 5 Vitamin D3 TABS Refills: 0 [place] Caps CAPS Refills: 0 Prostate CAPS Refills: 0 PhosLo 667 MG TABS Refills: 0 Ondansetron HCl - 4 MG Oral Tablet Refills: 0 Nitrostat 0.4 MG Sublingual Tablet Sublingual Refills: 0 MiraLax PACK Refills: 0 Lidocaine-Prilocaine CREA Refills: 0 HYDROcodone-Acetaminophen 10-325 MG Oral Tablet Refills: 0 Colace 100 MG Oral Capsule Refills: 0 Clopidogrel Bisulfate 75 MG Oral Tablet Refills: 0 [place] Aspirin EC Low Dose 81 MG Oral Tablet Delayed Release Refills: 0 Lipitor 80 MG Oral Tablet Refills: 0 Amiodarone HCl - 200 MG Oral Tablet Refills: 0 Allergy TABS Refills: 0 Procedures Procedures not documented Immunizations Immunizations not documented Family History Mother No pertinent family history (V49.89) (Z78.9) Status: Active Social History - Smoking Status Former smoker Plan of Treatment Planned Observations Planned Goals not documented Results No Known Results Results not documented Encounters Appointment; Marcia Moore DO 24-Oct-2017 11:15 Encounter Diagnosis: Problem not documented
[2019-09-21] MEDS ORDERED: SODIUM CHLORIDE 0.9% 500 ML IV SCH (21:00)
[2019-09-21 21:13] LABS: Basophils # (auto) 0.05 K/uL (0-0.2); Basophils % (auto) 0.6 %; Eosinophils # (auto) 0.16 K/uL (0-0.5); Eosinophils % (auto) 1.8 %; Hematocrit (blood only) 36.1 % (42-52); Hemoglobin 12.5 g/dL (14.0-18.0); Immature Granulocytes % (auto) 4.5 %; Lymphocytes # (auto) 1.74 K/uL (1.2-3.4); Lymphocytes % (auto) 19.5 %; Mean Corpuscular Hgb Conc 34.6 g/dL (32-36); Mean Corpuscular Volume 101.1 fL (80-100); Mean Platelet Volume 10.2 fL (7.4-10.4); Monocytes # (auto) 1.61 K/uL (0.11-0.59); Neutrophils # (auto) 4.98 K/uL (1.4-6.5); Neutrophils % (auto) 55.6 %; Platelet Count 223 K/uL (130-400); RDW Coefficient of Variation 16.7 % (11.5-14.5); RDW Standard Deviation 61.6 fL (36.4-46.3); Red Blood Count 3.57 M/uL (4.7-6.1); White Blood Count 8.94 K/uL (4.8-10.8)
--- NOTE | 2019-09-21 21:18 | XRay Report ---
XR chest 1V portable HISTORY: 74 years-old Male weakness acute weakness COMPARISON: Chest radiograph 04/03/2018 TECHNIQUE: Portable AP view of the chest FINDINGS: Cardiac silhouette is enlarged. Prior median sternotomy and CABG. Mild pulmonary vascular congestion. Mild right hemidiaphragm elevation with minimal linear bibasilar densities. No pneumothorax, or larg e pleural effusion. Coronary arterial stent grafts are noted. Degenerative changes of the shoulders a nd spine. IMPRESSION: 1. Cardiomegaly with pulmonary vascular congestion. 2. Bibasilar densities are suggestive of atelectasis. ACT 112: Negative or not required by law. The above report was generated using voice recognition software. It may contain grammatical, syntax o r spelling errors. Electronically signed by: Mauro Maradiaga M.D. 09/21/2019 9:16 PM
[2019-09-21 21:19] LABS: Prothrombin Time 10.3 Seconds (9.0-12.0)
[2019-09-21 21:36] LABS: Albumin Globulin Ratio 0.6 (0.9-2); Albumin Level 2.7 gm/dl (3.4-5.0); Bilirubin,Total 0.6 mg/dl (0.2-1); Calcium 9.1 mg/dl (8.5-10.1); Creatinine Clr Calc Pharmacy 13.2 ml/min; Est GFR (African American) 11.5; Est GFR (Non-African American) 9.9; Globulin 4.2 gm/dl (2.5-4.0); Magnesium 2.2 mg/dl (1.8-2.4); Thyroid Stimulating Hormone 5.14 uIu/ml (0.300-4.500); Total Protein 6.9 gm/dl (6.4-8.2); Troponin I 0.039 ng/ml (0-0.045)
[2019-09-21 21:53] LABS: T4 Free Thyroxine 1.27 ng/dl (0.8-1.6)
[2019-09-21] MEDS ORDERED: SODIUM CHLORIDE 0.9% 1000ML 250 ML IV ONE (23:17)
--- NOTE | 2019-09-22 00:22 | Emergency Department Note ---
Entered by Charlee Roland acting as a scribe for History of Present Illness General Chief complaint: Chest Pain Stated complaint: weakness; CP Source: patient History of Present Illness Onset (ago): hour(s) greater than 10 (12) Location: upper extremity (weakness) and lower extremity (weakness) Pain Consistency: + other (worsening) Exacerbated By: + other (dialysis treatment) Associated symptoms: + denies other symptoms (diarrhea), + shortness of breath, + weakness and + other (dizziness); no chest pain and no nausea/vomiting The patient is a 74 year old M who presents to the Emergency Room with complaints of worsening weakness that started 12 hours ago. The patient states that he receives dialysis every Saturday, Saturday and Saturday. He adds that he has been receiving dialysis for the patient 3 years. He notes that he started dialysis at 5 am today and finished at 9 am. He states that when dialysis was done, he was experiencing dizziness, weakness, and shortness of breath. He adds that he typically experiences these symptoms with dialysis but states that it was worse today. He notes that his last full course of dialysis was last Saturday. He denies currently experiencing nausea, vomiting, diarrhea, and chest pain. He states that he has a history of bypass surgery and stent placement in his heart. Home Medications Home Medications Medication Instructions Recorded Confirmed Type B complex with C 20-folic acid 1 cap PO QPM 09/21/19 09/21/19 History [Tracy Caps] amiodarone 200 mg PO BID 09/21/19 09/21/19 History aspirin [Malvin Chewable Aspirin] 81 mg PO QAM 09/21/19 09/21/19 History atorvastatin 40 mg PO PM 09/21/19 09/21/19 History cholecalciferol (vitamin D3) 1,000 unit PO QAM 09/21/19 09/21/19 History [Vitamin D3] clindamycin HCl 300 mg PO BID 09/21/19 09/21/19 History clopidogrel 75 mg PO QAM 09/21/19 09/21/19 History lidocaine-prilocaine 1 applic TOPICAL .PREDIALYSIS 09/21/19 09/21/19 History metoprolol tartrate 25 mg PO 4XWK 09/21/19 09/21/19 History nitroglycerin 0.4 mg SUBLINGUAL .PRN/UD PRN 09/21/19 09/21/19 History patiromer calcium sorbitex 8.4 g PO DAILY 09/21/19 09/21/19 History [Veltassa] sevelamer carbonate 800 mg PO TID 09/21/19 09/21/19 History Allergies Allergy/AdvReac Type Severity Reaction Status Date / Time No Known Allergies Allergy Verified 09/21/19 23:33 Past Med/Surg History Medical History (Updated 09/22/19 @ 00:18 by Charlee Roland) CAD (coronary artery disease) (Chronic) "Per cardiology note: S/P CABG x 3 in 1987 S/P CABG x 4 in 1997 S/P October 14, 2008 PCI of the left main and left circumflex with 4 bare metal stents S/P January 2009 true posterior wall [place] s/p PCI with 2 bare metal stents to the left main & proximal LCX. " DM type 2 (diabetes mellitus, type 2) (Chronic) ESRD (end stage renal disease) on dialysis (Chronic) History of right common carotid artery stent placement (Chronic) Hypertension (Chronic) Osteomyelitis of lumbar vertebra (Chronic) Paroxysmal atrial fibrillation (Chronic) Ventricular tachycardia Surgical History (Updated 09/22/19 @ 00:07 by Charlee Roland) H/O umbilical hernia repair (Chronic) History of left-sided carotid endarterectomy (Chronic) S/P CABG x 3 (Chronic) "1987" S/P CABG x 4 (Chronic) "1997" Social History (Updated 09/22/19 @ 00:08 by Charlee Roland) Preferred Language: [place] Feels Safe at Home: Yes Smoking Status: Former smoker Review of Systems See HPI for pertinent positives & negatives. and A total of 10 systems reviewed and were otherwise negative Physical Exam Vital Signs Vital Signs - 24 hr 09/21/19 20:33 09/21/19 20:38 09/21/19 20:40 Temperature 36.9 C Temperature Source Oral Pulse Rate 113 H 95 H 97 H Pulse Rate [Finger] 113 H Pulse Rate from SpO2 Sensor 95 H 92 H Pulse Rhythm [Finger] Respiratory Rate 21 13 16 Respiratory Effort / Characteristics Respiratory Depth Blood Pressure [Right Arm] Blood Pressure Mean [Right Arm] Pulse Oximetry 96 95 98 Oxygen Delivery Method Room Air Room Air Room Air Sepsis Recent Fever Within 48 Hours No Sepsis New/Unexplained Change in Mental Status No Sepsis Action Taken by Nursing No Action Required 09/21/19 20:50 09/21/19 21:00 09/21/19 21:03 Temperature Temperature Source Pulse Rate 96 H 110 H Pulse Rate [Finger] Pulse Rate from SpO2 Sensor 94 H 92 H Pulse Rhythm [Finger] Respiratory Rate 13 18 Respiratory Effort / Characteristics Respiratory Depth Blood Pressure [Right Arm] Blood Pressure Mean [Right Arm] Pulse Oximetry 98 93 94 Oxygen Delivery Method Room Air Room Air Room Air Sepsis Recent Fever Within 48 Hours Sepsis New/Unexplained Change in Mental Status Sepsis Action Taken by Nursing 09/21/19 21:10 09/21/19 21:20 09/21/19 21:30 Temperature Temperature Source Pulse Rate 126 H 86 79 Pulse Rate [Finger] Pulse Rate from SpO2 Sensor 92 H 85 85 Pulse Rhythm [Finger] Respiratory Rate 21 15 21 Respiratory Effort / Characteristics Respiratory Depth Blood Pressure [Right Arm] Blood Pressure Mean [Right Arm] Pulse Oximetry 96 98 Oxygen Delivery Method Room Air Room Air Room Air Sepsis Recent Fever Within 48 Hours Sepsis New/Unexplained Change in Mental Status Sepsis Action Taken by Nursing 09/21/19 21:40 09/21/19 21:41 09/21/19 21:50 Temperature Temperature Source Pulse Rate 61 60 Pulse Rate [Finger] Pulse Rate from SpO2 Sensor 61 59 L Pulse Rhythm [Finger] Respiratory Rate 18 18 Respiratory Effort / Characteristics Respiratory Depth Blood Pressure [Right Arm] 85/50 L Blood Pressure Mean [Right Arm] 61 Pulse Oximetry 96 97 Oxygen Delivery Method Room Air Room Air Sepsis Recent Fever Within 48 Hours Sepsis New/Unexplained Change in Mental Status Sepsis Action Taken by Nursing 09/21/19 22:00 09/21/19 22:10 09/21/19 22:20 Temperature Temperature Source Pulse Rate 63 58 L 58 L Pulse Rate [Finger] Pulse Rate from SpO2 Sensor 60 58 L 58 L Pulse Rhythm [Finger] Respiratory Rate 20 17 17 Respiratory Effort / Characteristics Respiratory Depth Blood Pressure [Right Arm] Blood Pressure Mean [Right Arm] Pulse Oximetry 96 95 95 Oxygen Delivery Method Room Air Room Air Room Air Sepsis Recent Fever Within 48 Hours Sepsis New/Unexplained Change in Mental Status Sepsis Action Taken by Nursing 09/21/19 23:54 Temperature Temperature Source Pulse Rate Pulse Rate [Finger] 62 Pulse Rate from SpO2 Sensor Pulse Rhythm [Finger] Regular Respiratory Rate 18 Respiratory Effort / Characteristics Non-Labored Respiratory Depth Normal Blood Pressure [Right Arm] 104/37 L Blood Pressure Mean [Right Arm] 59 Pulse Oximetry 99 Oxygen Delivery Method Room Air Sepsis Recent Fever Within 48 Hours Sepsis New/Unexplained Change in Mental Status Sepsis Action Taken by Nursing GENERAL: chronically ill appearing, disheveled, laying in bed EYE EXAM: normal conjunctiva OROPHARYNX: no exudate, no erythema, lips, buccal mucosa, and tongue normal and mucous membranes are moist NECK: supple, no nuchal rigidity, no adenopathy, non-tender LUNGS: Clear to auscultation. Normal chest wall mechanics HEART: no murmurs, S1 normal and S2 normal ABDOMEN: abdomen soft, non-tender, normo-active bowel sounds, no masses, no rebound or guarding. BACK: Back is symmetrical on inspection and there is no deformity, no midline tenderness, no CVA tenderness. SKIN: no rashes and no bruising UPPER EXTREMITIES: upper extremities are grossly normal. Positive thrill in left distal humerus. LOWER EXTREMITIES: No pitting edema. NEURO EXAM: Normal sensorium, cranial nerves II-XII grossly intact, normal speech, barely able to lift his arms and legs but equal bilateral Course Course ED COURSE: Vital signs were reviewed and showed hypotension. The patients medical record was reviewed The above diagnostic studies were performed and reviewed. ED treatments and interventions as stated above. 2051: The patient was evaluated in room C1B. A complete history and physical examination was performed. 2199: I reviewed the patient's case with Dr. Braydon Avilez, [facility]. He will evaluate the patient for further management. 2206: Upon reevaluation, the patient is him. I discussed my findings with the patient and he understands and agrees with the treatment plan. Based on the patients age, coexisting illnesses, exam and lab findings the decision to treat as an inpatient was made. The patient remained stable while under my care. The patient will be evaluated for further management. Administered Medications Discontinued Medications Sodium Chloride (Nss) 500 mls @ 999 mls/hr IV .Q31M TRAVIS Stop: 09/21/19 21:30 Last Infusion: 09/21/19 21:42 Dose: 0 mls/hr Documented by: [id number] Admin: 09/21/19 21:06 Dose: 999 mls/hr Documented by: [id number] Sodium Chloride (Nss 1000ml) 250 mls @ 999 mls/hr IV .Q16M ONE Stop: 09/21/19 23:32 Last Admin: 09/22/19 00:05 Dose: 999 mls/hr Documented by: [id number] Medical Decision Making Differential Diagnosis Differential Diagnosis includes but is not limited to dehydration, stroke, anemia, hypoglycemia, hyponatremia, hypernatremia, urinary tract infection, pneumonia, bronchitis, sepsis, gastroenteritis, additional abdominal pathology, metabolic abnormalities and infections. Medical Records Attestation: I reviewed the patient's medical records. Home Medications Current Medication List: was personally reviewed by me Laboratory Data Attestation: I reviewed the patient's lab results. Result diagrams: 09/21/19 20:49 09/21/19 20:49 Lab Results 09/21/19 09/21/19 09/21/19 Range/Units 20:49 20:49 20:49 WBC 8.94 (4.8-10.8) K/uL RBC 3.57 L (4.7-6.1) M/uL Hgb 12.5 L (14.0-18.0) g/dL Hct 36.1 L (42-52) % MCV 101.1 H (80-100) fL MCH 35.0 H (25-34) pg MCHC 34.6 (32-36) g/dL RDW Std Deviation 61.6 H (36.4-46.3) fL RDW Coeff of Suad 16.7 H (11.5-14.5) % Plt Count 223 (130-400) K/uL MPV 10.2 (7.4-10.4) fL Immature Gran % (Auto) 4.5 % Neut % (Auto) 55.6 % Lymph % (Auto) 19.5 % Evangeline % (Auto) 18.0 % Eos % (Auto) 1.8 % Baso % (Auto) 0.6 % Immature Gran # (Auto) 0.40 H (0.00-0.02) K/uL Neut # (Auto) 4.98 (1.4-6.5) K/uL Lymph # (Auto) 1.74 (1.2-3.4) K/uL Evangeline # (Auto) 1.61 H (0.11-0.59) K/uL Eos # (Auto) 0.16 (0-0.5) K/uL Baso # (Auto) 0.05 (0-0.2) K/uL PT 10.3 (9.0-12.0) Seconds INR 1.0 (0.9-1.1) Sodium 135 L (136-145) mmol/L Potassium 4.0 (3.5-5.1) mmol/L Chloride 100 (98-107) mmol/L Carbon Dioxide 28 (21-32) mmol/L Anion Gap 7.0 (3-11) BUN 21 H (7-18) mg/dl Creatinine 5.20 H* (0.6-1.4) mg/dl Est Cr Clr Drug Dosing 13.2 ml/min Est GFR ( Amer) 11.5 Est GFR (Non-Af Amer) 9.9 BUN/Creatinine Ratio 4.0 L (10-20) Glucose 155 H (70-99) mg/dl Calcium 9.1 (8.5-10.1) mg/dl Magnesium 2.2 (1.8-2.4) mg/dl Total Bilirubin 0.6 (0.2-1) mg/dl AST 54 H (15-37) U/L ALT 74 (12-78) U/L Alkaline Phosphatase 148 H (45-117) U/L Troponin I 0.039 (0-0.045) ng/ml Total Protein 6.9 (6.4-8.2) gm/dl Albumin 2.7 L (3.4-5.0) gm/dl Globulin 4.2 H (2.5-4.0) gm/dl Albumin/Globulin Ratio 0.6 L (0.9-2) TSH 5.140 H (0.300-4.500) uIu/ml Free T4 1.27 (0.8-1.6) ng/dl Imaging Data Radiologist's Impression: Radiology results as stated below per my review and the radiologist's interpretation: XR chest 1V portable HISTORY: 74 years-old Male weakness acute weakness COMPARISON: Chest radiograph 04/03/2018 TECHNIQUE: Portable AP view of the chest FINDINGS: Cardiac silhouette is enlarged. Prior median sternotomy and CABG. Mild pulmonary vascular congestion. Mild right hemidiaphragm elevation with minimal linear bibasilar densities. No pneumothorax, or large pleural effusion. Coronary arterial stent grafts are noted. Degenerative changes of the shoulders and spine. IMPRESSION: 1. Cardiomegaly with pulmonary vascular congestion. 2. Bibasilar densities are suggestive of atelectasis. ACT 112: Negative or not required by law. The above report was generated using voice recognition software. It may contain grammatical, syntax or spelling errors. Electronically signed by: Mauro Maradiaga M.D. 09/21/2019 9:16 PM ECG Data Attestation: I personally reviewed and interpreted this ECG as follows: Indication: + chest pain Rate (beats per minute): 95 Rhythm: + other (wide complex) ECG Intervals/blocks: + Right Bundle branch block and + Prolonged QT ECG [place]: + Left axis deviation ECG ST segments: + ST depression (Septal) ECG Findings: + Other (tachycardia) Additional Comments: Additional EKnd EKG: Sinus rhythm with 1st degree AV block, rate of 60, RBBB, septal TWI, inferior Q waves, ST depression in high lateral 3rd EKG: sinus rhythm, rate of 89, normal axis, J point elevation in the anterior and lateral leads, normal QRS, normal QTc, TWI in aVR Blood Pressure Blood Pressure Findings: Low blood pressure Blood Pressure Disposition: further management by hospitalist JOANN Narrative Patient is a 74-year-old male who presents the ER for weakness. He gets dialysis Saturday and got a full course of dialysis earlier today. Initial EKG showed a wide complex tachycardia with a rate in the high 90s. They had to stop multiple times due to his blood pressure being low. He has felt lightheaded and dizzy since then. IV was established blood work was obtained after he was brought in by EMS. Labs show no significant leukocytosis or anemia. INR was normal. BMP with a creatinine of 5.2 consistent with him being on dialysis. LFTs bilirubin was unremarkable. Troponin was detectable but not positive. TSH was elevated. Chest x-ray with some mild vascular congestion. Initially difficult to obtain a blood pressure and consequently we obtained a pressure by palpation and did use the ultrasound to help at one point. Patient was given a 500 cc bolus. Following this he was given a 250 cc bolus. Blood pressure did respond as we did get a pressure of 103. Patient was discussed with the hospitalist. Patient notes his blood pressures normally in the 80s. Upon presentation he was found to be on 1 complex tachycardia which she has been before in the past. His potassium was fine. After the first fluid bolus he converted to a sinus rhythm. Following this his symptoms completely resolved. He has been off amiodarone for prolonged period of time. Do favor that the wide-complex tachycardia was likely the cause of his symptoms. Impression & Plan Hypotension, Abnormal EKG, Wide-complex tachycardia, Weakness Discharge Plan Visit Data Chief Complaint: Chest Pain Stated Complaint: weakness; CP ED Provider: Gray Chapa Discharge Problem: Hypotension, Abnormal EKG, Wide-complex tachycardia, Weakness Patient Disposition: Admitted As Inpatient Forms Stand Alone Forms: Call Back Authorization, [facility] Prescriptions Prescriptions: No Action amiodarone 200 mg Tablet 200 mg PO BID RF: 0 atorvastatin 40 mg Tablet 40 mg PO PM RF: 0 aspirin [Malvin Chewable Aspirin] 81 mg Tablet,Chewable 81 mg PO QAM RF: 0 clindamycin HCl 300 mg capsule 300 mg PO BID RF: 0 clopidogrel 75 mg tablet 75 mg PO QAM RF: 0 lidocaine-prilocaine 2.5-2.5 % cream 1 applic topical .PREDIALYSIS RF: 0 metoprolol tartrate 25 mg tablet 25 mg PO 4XWK RF: 0 nitroglycerin 0.4 mg tablet, sublingual 0.4 mg sublingual .PRN/UD PRN (Reason: Chest Pain) RF: 0 Tracy Caps 1 mg Capsule 1 cap PO QPM RF: 0 sevelamer carbonate 800 mg Tablet 800 mg PO TID RF: 0 Veltassa 8.4 gram Powder In Packet 8.4 g PO DAILY RF: 0 cholecalciferol (vitamin D3) [Vitamin D3] 2,000 unit Tablet 1,000 unit PO QAM RF: 0 Referrals Referrals: Rl Mendoza MD [Primary Care Provider] - Discharge Problem: Hypotension Qualifiers: Hypotension type: unspecified hypotension type Qualified Code(s): I95.9 - Hypotension, unspecified The scribe's documentation has been prepared under my direction and personally reviewed by me in its entirety. I confirm that the note above accurately reflects all work, treatment, procedures, and medical decision making performed by me.
[2019-09-22] MEDS ORDERED: NITROGLYCERIN SL 0.4 MG/TAB TAB SL PRN ×2 (00:35)
[2019-09-22] MEDS ORDERED: AMIODARONE 200 MG TAB PO SCH (00:35)
[2019-09-22] MEDS ORDERED: LIDOCAINE/PRILOCAINE 2.5% EA CRM EXT PRN (00:35)
[2019-09-22] MEDS ORDERED: PNEUMOCOCCAL ADMINISTRATION CHARGE ONE (01:23)
[2019-09-22] MEDS ORDERED: PNEUMOCOCCAL POLYSACCHARIDES 25 MCG/0.5 ML VIAL/SYR IM ONE (01:23)
[2019-09-22] MEDS ORDERED: SODIUM CHLORIDE 0.9% 500 ML IV SCH (02:00)
--- NOTE | 2019-09-22 02:32 | History and Physical Report ---
DATE OF ADMISSION: 09/21/2019 CHIEF COMPLAINT: Severe dizziness and hypotension. HISTORY OF PRESENT ILLNESS: This is a 74-year-old male with past medical history significant for type 2 diabetes, not on any medications, hyperlipidemia, history of hyperkalemia, end-stage renal disease on hemodialysis, history of atrial fibrillation, not on anticoagulation secondary to bleeding complications on aspirin and Plavix, history of diastolic heart failure, history of paroxysmal atrial tachycardia, history of nonsustained ventricular tachycardia, on amiodarone, obesity, history of stage II sacral pressure ulcers, ascites, history of coronary artery disease status post coronary artery bypass graft in 1987 and also in 1997, status post angioplasty with stent placement, bare metal stent to left main and circumflex in January 2009 and also in October 2008. Lives alone at home. On wheelchair. Daughter and son helps him. Lately he is having issues with hypotension. He is on amiodarone and Toprol-XL. He does not take Toprol-XL on dialysis days and whenever he gets dialysis, his blood pressure drops and he feels dizziness. Today during the dialysis, he had some headache then later he started to have severe dizziness, he did not pass out. Has some blurred visions, nausea and he was transferred to the ER where his blood pressure was low and was found his EKG shows some wide complex rhythm with a rate of 95, after fluid bolus, blood pressure improved and repeat EKG shows normal sinus rhythm with prolonged QT. Currently resting comfortably and he says his symptoms are much better, now . Currently, denies any chest pain. He always has some shortness of breath, no cough, no fever, no chills, no headache, no blurred vision. Somewhat hard of hearing. No runny nose, no sore throat. He has some dysphagia and he has to carefully chew for long time and drinks water so he would not aspirate. No abdominal pain, no diarrhea or constipation, no blood in stools or black stools. Has chronic swelling in the lower extremities. ALLERGIES: No known drug allergies. PAST MEDICAL HISTORY: As mentioned above. PAST SURGICAL HISTORY: CABG 2 times, left heart catheterization, status post stents, right internal carotid stent placement, umbilical herniorrhaphy. MEDICATIONS: The patient is on amiodarone 200 mg p.o. b.i.d., metoprolol succinate 25 mg p.o. daily, to hold them on dialysis days, Renvela 800 mg p.o. t.i.d. with meals, Veltassa 8.4 grams 1 daily, lidocaine, apply 1 hour prior to dialysis, B complex vitamins 1 capsule daily at bedtime, nitroglycerin 0.4 mg sublingual p.r.n., Lipitor 40 mg p.o. daily, Plavix 75 mg p.o. daily, vitamin D 1000 units p.o. daily, aspirin 81 mg p.o. daily, MiraLax 17 g p.o. b.i.d. p.r.n. FAMILY HISTORY: Significant for brother had prostate cancer. Father had prostate cancer, pancreatic cancer, at age of 84. Mother has diabetes, heart disorder, stroke, at the age of 73. SOCIAL HISTORY: . No smoking, no alcohol, no drug use. Lives alone. On wheelchair. Daughter and son helps him. REVIEW OF SYMPTOMS: As per HPI. Rest of review of symptoms negative. PHYSICAL EXAMINATION: GENERAL: The patient is of moderate build, currently not in acute distress. VITAL SIGNS: Temperature 36.9, pulse 62, respiratory rate 17, blood pressure 85/50, oxygen 95% room air. HEENT: No pallor, no icterus. Pupils equal, round, and reactive to light. NECK: No JVD, no neck masses, no carotid bruits. CARDIOVASCULAR: S1, S2 heard, regular rate and rhythm, no murmur, no gallop. RESPIRATORY SYSTEM: Normal AP diameter. No accessory muscle use. No wheezing, no crackles. ABDOMEN: Soft, bowel sounds present, nontender. No distention. CENTRAL NERVOUS SYSTEM: Alert and oriented. Obeys commands. Moves extremities. EXTREMITIES: Lower extremity edema present, on stockings. Slight open wound present on the left lower extremity below the knee. No drainage seen. LABORATORIES DATA: WBC 8.9, hemoglobin 12.5, hematocrit 36.1, platelets 223. PT 10.3, INR 1. Sodium 135, potassium 4, chloride 100, bicarbonate 28, BUN 21, creatinine 5.2, serum glucose 155, calcium 9.1, magnesium 2.2, total bilirubin 0.6, AST 54, ALT 74, alkaline phosphatase 148. Troponin I 0.039. TSH 5.4. Free T4 1.27. Chest x-ray, cardiomegaly with pulmonary vascular congestion. Initial EKG was like a wide complex and undetermined rhythm at rate of 95. Repeat EKG shows sinus rhythm with short OR at a rate of 60, right ventricular hypertrophy, nonspecific intraventricular conduction block with QTC of 540. ASSESSMENT AND PLAN: This is a 74-year-old male who presents with hypotension, dizziness. 1. Hypotension and dizziness. Dizziness secondary to hypotension. He has issues with the hypotension and dizziness during dialysis. He does not take Toprol-XL on dialysis days,. In Er with fluid symptoms improved currently. We will monitor in the tele floor. Monitor blood pressure and consult cardiology for any help with the medications to help with his hypotension. 2. History of atrial fibrillation, history of paroxysmal atrial tachycardia, history of nonsustained ventricular tachycardia, history of wide complex tachycardia in the past thought to be from ventricular tachycardia. Initially when he came in the had wide complex rhythm on the EKG. He is not taking amiodarone for last 2 weeks because [facility] has not sent the refill yet. We will restart his amiodarone in the hospital. Currently in sinus rhythm. Follow serial cardiac enzymes. Monitor in the tele floor. We will hold Toprol XL for now. For hypotension, consult cardiology for further recommendations to help with the medications. 3. End-stage renal disease on hemodialysis, history of hyperkalemia on dialysis, on Veltassa he is not taking since last 1 month because [facility]. 4. Type 2 diabetes, not on any medications, follow his HBA1c, follow his blood sugars. 5. History of coronary artery disease status post coronary artery bypass graft x2 and status post stent to left main and circumflex, on Toprol-XL, aspirin, Plavix and statin. 6. Hyperlipidemia: On statin. 7. Deep vein thrombosis prophylaxis: Sequential compression devices for now. 8. Disposition: Admit to tele floor. PT and OT prior to discharge. Expect to discharge back home with close followup with family doctor and pupil personnel services director. Level 1 full code as per my discussion with the patient. Addendum: Will Hold Toprol xl and amiodarone for now as still hypotensive. MTDD
[2019-09-22 07:24] LABS: Basophils # (auto) 0.04 K/uL (0-0.2); Basophils % (auto) 0.4 %; Eosinophils # (auto) 0.13 K/uL (0-0.5); Eosinophils % (auto) 1.5 %; Hematocrit (blood only) 35.3 % (42-52); Hemoglobin 11.7 g/dL (14.0-18.0); Immature Granulocytes # (auto) 0.39 K/uL (0.00-0.02); Immature Granulocytes % (auto) 4.4 %; Lymphocytes # (auto) 2.01 K/uL (1.2-3.4); Lymphocytes % (auto) 22.6 %; Mean Corpuscular Hemoglobin 34.4 pg (25-34); Mean Corpuscular Hgb Conc 33.1 g/dL (32-36); Mean Corpuscular Volume 103.8 fL (80-100); Mean Platelet Volume 10.3 fL (7.4-10.4); Monocytes # (auto) 1.63 K/uL (0.11-0.59); Monocytes % (auto) 18.3 %; Neutrophils # (auto) 4.71 K/uL (1.4-6.5); Neutrophils % (auto) 52.8 %; Platelet Count 195 K/uL (130-400); RDW Coefficient of Variation 16.9 % (11.5-14.5); RDW Standard Deviation 62.6 fL (36.4-46.3); White Blood Count 8.91 K/uL (4.8-10.8)
[2019-09-22 08:18] LABS: BUN Creatinine Ratio 4.4 (10-20); Calcium 8.6 mg/dl (8.5-10.1); Creatinine Clr Calc Pharmacy 12.3 ml/min; Est GFR (African American) 10.6; Est GFR (Non-African American) 9.1; Magnesium 2.2 mg/dl (1.8-2.4); Potassium 4.2 mmol/L (3.5-5.1); Troponin I 0.038 ng/ml (0-0.045)
--- NOTE | 2019-09-22 08:57 | Hospitalist Progress Note ---
Date of Service September 22, 2019 Assessment & Plan (1) Hypotension: as per admitting notes: --"This is a 74-year-old male with past medical history significant for type 2 diabetes, not on any medications, hyperlipidemia, history of hyperkalemia, end- stage renal disease on hemodialysis, history of atrial fibrillation, not on anticoagulation secondary to bleeding complications on aspirin and Plavix, history of diastolic heart failure, history of paroxysmal atrial tachycardia, history of nonsustained ventricular tachycardia, on amiodarone, obesity, history of stage II sacral pressure ulcers, ascites, history of coronary artery disease status post coronary artery bypass graft in 1987 and also in 1997, status post angioplasty with stent placement, bare metal stent to left main and circumflex in January 2009 and also in October 2008." -admitting doctor reported that during outpatient dialysis on 09/21/2019, "he had some headache then later he started to have severe dizziness, he did not pass out. Has some blurred visions, nausea and he was transferred to the ER where his blood pressure was low and was found his EKG shows some wide complex rhythm with a rate of 95, after fluid bolus, blood pressure improved and repeat EKG shows normal sinus rhythm with prolonged QT. " admitting hospitalist also noted on sign out that patient not taking amiodarone at home for 2 weeks. -09/22/2019: Patient is asymptomatic this AM. HOWEVER, nurse could not find a normotensive blood pressure with manual of automatic blood pressure cuff. Blood pressure recorded as 51/30. Telemetry of heart rate around 60 beats per minute without acute arrhythmias. Patient Is awake and alert and answers questions appropriately. no chest pain. no dizziness. no headache. no nausea. no vomiting. Patient has AV fistula and reports that prior to coming to hospital on 09/21/2019 with low blood pressure after dialysis that he received a full dialysis session on 09/21/2019. Discussed with ICU physician to transfer to ICU for close monitoring and since patient is dialysis patient Saturday/Saturday/Saturday that there needs to be coordination between nephrology and ICU physician on when blood pressures optimal for next planned dialysis session. Patient reports that he has been on dialysis for 3 years and absolutely makes no urine. Patient affirms to be full code status History of atrial fibrillation, history of paroxysmal atrial tachycardia, history of nonsustained ventricular tachycardia, history of wide complex tachycardia in the past thought to be from ventricular tachycardia. History of coronary artery disease status (post coronary artery bypass graft x2 and status post stent to left main and circumflex in the past Dyslipidemia -Initially when he came in the had wide complex rhythm on the EKG. He is not taking amiodarone for last 2 weeks because [facility]. amiodarone was restarted inpatient. metoprolol has been held upon admission for now -on aspirin and plavix and statin -await cardiology evaluation (2) ESRD (end stage renal disease) on dialysis: -nephrology Dr. Iqbal was discussed about patient's current condition Type 2 diabetes - not on any medications -follow his HBA1c - follow his blood sugars. Deep vein thrombosis prophylaxis: Sequential compression devices for now Full Code Admission and Anticipated Discharge Date Admission Date: admission date: September 21, 2019, discharge date undetermined at this time Subjective Patient is asymptomatic this AM. HOWEVER, nurse could not find a normotensive blood pressure with manual of automatic blood pressure cuff. Blood pressure recorded as 51/30. Telemetry of heart rate around 60 beats per minute without acute arrhythmias. Patient Is awake and alert and answers questions appropriately. no chest pain. no dizziness. no headache. no nausea. no vomiting. Patient has AV fistula and reports that prior to coming to hospital on 09/21/2019 with low blood pressure after dialysis that he received a full dialysis session on 09/21/2019. Discussed with ICU physician to transfer to ICU for close monitoring and since patient is dialysis patient Saturday/Saturday/Saturday that there needs to be coordination between nephrology and ICU physician on when blood pressures optimal for next planned dialysis session. Patient reports that he has been on dialysis for 3 years and absolutely makes no urine. Patient affirms to be full code status Review of Systems Review of Systems: All systems reviewed & are unremarkable except as noted in HPI & below Physical Exam Constitutional: comfortable Eyes: PERRL, conjunctivae normal, anicteric sclerae EOM intact bilaterally ENMT: external ear and nose normal, oropharynx normal Neck: normal visual inspection Respiratory: normal respiratory effort, lungs clear to auscultation Cardiovascular: Rate/Rhythm: regular rate and regular rhythm Gastrointestinal (Abdomen): normal bowel sounds, soft, nontender, no hepatosplenomegaly Musculoskeletal: Head/Neck/Chest: normocephalic and head atraumatic Neurologic: PERRL, EOMI, accommodation nl, no face palsy, no dysarthria CN's II-XI intact bilaterally Psychiatric: A+Ox3, euthymic affect Results & Data ([facility]) Vital Signs (Past 12 Hours) Vital Signs Temp Pulse Pulse Resp BP BP BP 09/22/19 07:48 36.7 C 62 20 51/30 L 09/22/19 03:50 36.6 C 60 17 71/57 L 09/22/19 00:45 36.3 C L 64 18 09/22/19 00:39 58 L 18 09/21/19 23:54 62 18 104/37 L 09/21/19 22:20 58 L 17 09/21/19 22:10 58 L 17 09/21/19 22:00 63 20 09/21/19 21:50 60 18 09/21/19 21:41 85/50 L 09/21/19 21:40 61 18 09/21/19 21:30 79 21 09/21/19 21:20 86 15 09/21/19 21:10 126 H 21 09/21/19 21:03 09/21/19 21:00 110 H 18 Pulse Ox 09/22/19 07:48 93 09/22/19 03:50 96 09/22/19 00:45 97 09/22/19 00:39 98 09/21/19 23:54 99 09/21/19 22:20 95 09/21/19 22:10 95 09/21/19 22:00 96 09/21/19 21:50 97 09/21/19 21:41 09/21/19 21:40 96 09/21/19 21:30 09/21/19 21:20 98 09/21/19 21:10 96 09/21/19 21:03 94 09/21/19 21:00 93 (1) Hypotension Hypotension type: unspecified hypotension type Qualified Code(s): I95.9 - Hypotension, unspecified
--- NOTE | 2019-09-22 09:08 | Critical Care Consultation ---
Date of Consultation September 22, 2019 Assessment & Plan (1) Admitted to intensive care unit: Reason Critically Ill: Mr. Dennis is a 74 year old male with a past medical history of ESRD on HD, history of multiple arrhythmias, including atrial fibrillation, paroxysmal atrial tachycardia, nonsustained ventricular tachycardia, and wide complex tachycardia, CAD s/p CABG and stent placement, R carotid endarterectomy, type 2 DM, CHF and hyperlipidemia who was transferred to the ICU due to profound hypotension. Neuro: Alert and oriented x3 s/p right carotid endarterectomy - continue secondary preventative medications Cardiac: CAD s/p CABG & DONNA placement -no chest pain reported currently -continue aspirin and plavix -ECHO in 2018 showed an EF of 55-60% Hx of atrial fibrillation/tachycardia, and nonsustained vtach -Hold metoprolol in the setting of hypotension -cardiology input appreciated - amiodarone dose decreased from BID to daily -ECHO ordered given prior ECHO was in 2018 Hypotension -severe, worsened with dialysis -lactic acid 1.9, indicating adequate tissue perfusion -trial of midodrine, as below Respiratory: Saturating well on room air. GI: Heart healthy, renal diet ordered RENAL/LYTES: ESRD on HD MWF -nephrology consulted, recommendations appreciated -trial of midodrine 2.5mg TID, assess response -continue home veltassa : Patient oliguric - urine output has trended downwards. ENDO: Diabetes Mellitus Type 2 -patient reports he is no longer on medications for this -ICU hyperglycemic protocol ordered Secondary hyperparathyroidism -continue home sevelamer Elevated TSH -TSH 5.14, with a T4 of 1.27 -no hx of thyroid disease, recheck in outpatient setting HEME: H&H stable, no signs or symptoms of bleeding. ID: Continue home clindamycin for treatment of lumbar osteomyelitis LINES/IV ACCESS: Fistula in L arm, PIV x 1 CODE STATUS: FULL DVT PROPHYLAXIS: SCDs Thank you for allowing us to participate in the care of this patient. Please refer to my attending physician's documentation for any further recommendations. (2) Abnormal EKG: (3) Wide-complex tachycardia: (4) Hypotension: (5) Weakness: (6) History of left-sided carotid endarterectomy: (7) S/P CABG x 4: (8) S/P CABG x 3: (9) DM type 2 (diabetes mellitus, type 2): (10) CAD (coronary artery disease): (11) History of right common carotid artery stent placement: (12) ESRD (end stage renal disease) on dialysis: (13) Paroxysmal atrial fibrillation: Supervising Physician Co-Signing Physician Notes Dr. Mendoza was resident physician during care of patient. I separately evaluated patient for combs portions of the history and the exam. I was present during the critical portion of medical decision making, and I discussed the case with the resident. I generally agree with the findings and plan. Patient critically ill due to hypotension: I have personally spent 35 minutes of critical care time in the direct management of this patient. This is a life/limb threatening event. This includes time spent evaluating patient, direct bedside care, chart review, placing orders, interpretation of diagnostic studies, discussion with consultants, patient, and/or family members regarding treatment decisions, as well as other required patient management activities. This time is exclusive of all separately billable procedures, and teaching time and separate from and in addition to any other critical care service time. Patient hypotensive, known peripheral vascular disease and end-stage renal disease secondary to diabetes mellitus. Checking lactic acid to confirm whether patient is hypoperfused or not. Patient mentating clinically appears to be at baseline. Reviewed cardiology recommendations. Will keep patient here to run course of dialysis to ensure there is not additional hypotension and continued cardiac monitoring. Initial lactic acid negative this is reassuring. History of Present Illness Reason for Consultation: Hypotension Requesting Physician: Dr. Rojas Attending Physician: Kole Rojas MD History of Present Illness Mr. Dennis is a 74 year old male with a past medical history of ESRD on HD, history of multiple arrhythmias, including atrial fibrillation, paroxysmal atrial tachycardia, nonsustained ventricular tachycardia, and wide complex tachycardia, CAD s/p CABG and stent placement, R carotid endarterectomy, type 2 DM, CHF and hyperlipidemia who was transferred to the ICU due to profound hypotension. Mr. Dennis states that he has been receiving hemodialysis for 3 years. He attributes his renal disease to longstanding diabetes mellitus. He notes that he has had low blood pressure in the past, with dialysis. He states he receives his care through the [place], and follows with [facility] for his nephrology and cardiac needs. He states that he has not received his amiodarone for the past two weeks, and therefore has not been taking it. He has been taking his metoprolol as prescribed, and reports that he had been instructed to hold this medication on his dialysis days. He reports he went for dialysis yesterday, and notes that they were not able to pull as much fluid off of him as usual due to hypotension. He states he felt dizzy and lightheaded during this time. He denies any recent illness, including fever, chills, vomiting or diarrhea. He has not had chest pain or shortness of breath. He does endorse increased swelling in his lower extremities. He was referred to the ER from dialysis due to his symptomatic hypotension. Allergies Allergy/AdvReac Type Severity Reaction Status Date / Time No Known Allergies Allergy Verified 09/21/19 23:33 Home Medications Home Medications Medication Instructions Recorded Confirmed Type B complex with C 20-folic acid 1 cap PO QPM 09/21/19 09/21/19 History [Raheel Caps] amiodarone 200 mg PO BID 09/21/19 09/21/19 History aspirin [Malvin Chewable Aspirin] 81 mg PO QAM 09/21/19 09/21/19 History atorvastatin 40 mg PO PM 09/21/19 09/21/19 History cholecalciferol (vitamin D3) 1,000 unit PO QAM 09/21/19 09/21/19 History [Vitamin D3] clindamycin HCl 300 mg PO BID 09/21/19 09/21/19 History clopidogrel 75 mg PO QAM 09/21/19 09/21/19 History lidocaine-prilocaine 1 applic TOPICAL .PREDIALYSIS 09/21/19 09/21/19 History metoprolol tartrate 25 mg PO [id number] 09/21/19 09/21/19 History nitroglycerin 0.4 mg SUBLINGUAL .PRN/UD PRN 09/21/19 09/21/19 History patiromer calcium sorbitex 8.4 g PO DAILY 09/21/19 09/21/19 History [Veltassa] sevelamer carbonate 800 mg PO TID 09/21/19 09/21/19 History Patient History Medical History CAD (coronary artery disease) (Chronic) "Per cardiology note: S/P CABG x 3 in 1987 S/P CABG x 4 in 1997 S/P October 14, 2008 PCI of the left main and left circumflex with 4 bare metal stents S/P January [address] s/p PCI with 2 bare metal stents to the left main & proximal LCX. 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: No Beliefs That Will Affect Care: None Current Living Situation: Alone Current Living Situation Comment: concerned about getting around the house as his condition worsens Other Information That Helps Us Care for You: No Feels Safe at Home: No Is there a partner from a previous relationship who is making you feel unsafe now?: No Any Concerns about Your Family Situation: No Would You Like to Speak to Someone About Your Situation: No Smoking Status: Never smoker Hx Alcohol Use: No Hx Substance Use: No Review of Systems Constitutional: + fatigue; no fever and no chills Respiratory: no cough and no dyspnea Cardiovascular: + edema; no chest pain, no palpitations and no syncope Gastrointestinal: no abdominal pain, no nausea, no vomiting and no change in bowel habits Genitourinary: + decreased urination (oliguric) Integumentary: no rash Physical Exam Constitutional: WD/WN, vitals as above Eyes: PERRL, conjunctivae normal, anicteric sclerae ENMT: external ear and nose normal, oropharynx normal Respiratory: normal respiratory effort, lungs clear to auscultation Cardiovascular: Rate/Rhythm: regular rate; + abnormal rhythm (irregularly irregular rhythm) 2+ bilateral pedal edema Gastrointestinal (Abdomen): normal bowel sounds, soft, nontender, no hepatosplenomegaly Skin: no rashes, warm and dry multiple bandages noted over b/l LE, clean, dry and intact AV fistula in left arm Results & Data Vital Signs (Past 12 Hours) Vital Signs Temp Pulse Pulse Resp BP BP BP 09/22/19 07:48 36.7 C 62 20 51/30 L 09/22/19 03:50 36.6 C 60 17 71/57 L 09/22/19 00:45 36.3 C L 64 18 09/22/19 00:39 58 L 18 09/21/19 23:54 62 18 104/37 L 09/21/19 22:20 58 L 17 09/21/19 22:10 58 L 17 09/21/19 22:00 63 20 09/21/19 21:50 60 18 09/21/19 21:41 85/50 L 09/21/19 21:40 61 18 09/21/19 21:30 79 21 09/21/19 21:20 86 15 09/21/19 21:10 126 H 21 Pulse Ox 09/22/19 07:48 93 09/22/19 03:50 96 09/22/19 00:45 97 09/22/19 00:39 98 09/21/19 23:54 99 09/21/19 22:20 95 09/21/19 22:10 95 09/21/19 22:00 96 09/21/19 21:50 97 09/21/19 21:41 09/21/19 21:40 96 09/21/19 21:30 09/21/19 21:20 98 09/21/19 21:10 96 Resident Activity Tracking Resident Involvement: Resident Care Provided Care Provided: Adult Hospital Medicine (1) Hypotension Hypotension type: unspecified hypotension type Qualified Code(s): I95.9 - Hypotension, unspecified
[2019-09-22] MEDS ORDERED: ICU PROTOCOL FOR HYPERGLYCEMIA PRN (09:42)
[2019-09-22] MEDS: CLINDAMYCIN HCL 150 MG CAP PO SCH ×2 (09:45→21:22)
[2019-09-22] MEDS: PATIROMER CALCIUM SORBITEX 8.4 GM PACK PO SCH (09:45)
[2019-09-22] MEDS: SEVELAMER HCL 800 MG TABLET PO SCH ×3 (09:45→16:45)
[2019-09-22] MEDS: CHOLECALCIFEROL 1,000 UNITS 25 MCG TAB PO SCH (09:45)
[2019-09-22] MEDS: CLOPIDOGREL BISULFATE 75 MG TAB PO SCH (09:46)
[2019-09-22] MEDS: ASPIRIN 81 MG ECTAB PO SCH (09:46)
--- NOTE | 2019-09-22 10:36 | Cardiology Consultation ---
Date of Consultation September 22, 2019 Assessment & Plan (1) Hypotension: (2) Abnormal EKG: Patient with longstanding history of episodic symptomatic hypotension noted during hemodialysis sessions, his blood pressures are often times down to the range of 50 mmHg during dialysis, with noted history of coronary heart disease and likely diffuse atherosclerosis otherwise. The patient's transient hypotension which is been especially worse during and post dialysis is been a chronic issue for him. Telemetry reveals sinus rhythm with wide QRS complexes, I do not see any suggestion of VT, but he did have r a transient lower heart rate in the 60 bpm range earlier this morning. As noted he has a history of paroxysmal atrial fibrillation and past nonsustained ventricular tachycardia versus aberrant conduction and has been maintained on amiodarone therapy. When I had seen him in July, we discontinued his previous treatment with metoprolol tartrate 25 mg 3 times per day due to concerns of hypotension with dialysis, and transitioned him to metoprolol succinate 25 mg 1 time per day on nondialysis days only. At this time, although he does have significant conduction system disease with noted wide-complex right bundle branch block morphology and first-degree AV block, I am not convinced that pacemaker support would help with his blood pressure. At this time recommend the introduction of midodrine. As previously noted he is not on anticoagulation due to his need for chronic dual antiplatelet therapy due to left main stenting, and bleeding risk. We will update his echocardiogram since is been approximately 2 years since his last study. His diet can be advanced from my standpoint. History of Present Illness Attending Physician: Kole Rojas MD History of Present Illness Oli Dennis is a 74 year old male seen in cardiology consultation per the request of Dr. Avilez for the evaluation of symptomatic hypotension. The patient had been admitted via the emergency room overnight last night, and had initially been transferred to room 241 from the emergency room, but due to concerns of low blood pressure, he had recently been moved to the first floor ICU, room 103. The patient is well-known to the undersigned. As I have followed him as an outpatient. He receives hemodialysis at [facility] on Mondays, Wednesdays, and Fridays, under the supervision of Dr. Jesenia Iqbal. The patient had been receiving dialysis yesterday, with noted low blood pressure documented during dialysis as is been his typical findings. He went home and felt lightheaded and dizzy, and ultimately his legs felt "rubbery "and he collapsed. His son found him, and he was brought to the emergency room for further assessment. Initial blood pressure on arrival was 85/50 which is his typical baseline. This morning at 748 with his vital signs, blood pressure of 51/30 was noted. I discussed this with his telemetry nurse and he was relatively asymptomatic. He was transferred to the intensive care unit for further assessment, and repeat blood pressure at that time was 86/45. As described in my outpatient note dated 08/06/2019, he has a long-standing history of paroxysmal atrial fibrillation and had been on amiodarone 200 milligrams daily for rhythm control strategy which had been effective for years. In February, he presented to [facility] with chest pressure and tachycardia. EKG and telemetry revealed short episodes of what I interpreted to be nonsustained ventricular tachycardia as well as atrial fibrillation with mildly elevated ve ntricular response. The patient was placed on amiodarone infusion and converted to sinus rhythm. He was then discharged on an increased dose of amiodarone 200 milligrams twice daily. Dual anti-platelet therapy with aspirin and clopidogrel was continued given his history of complex left main coronary artery rotational atherectomy and stenting, rather than anticoagulation due to his history of li fe-threatening bleeding complications. He had been readmitted to [facility] in March 2018 for chest discomfort and palpitations and was found to have a wide complex tachycardia and hyperkalemia with initial level of 6.3 millimole per liter. He was seen in general cardiology consultation as well as by electrophysiology and was felt this was very likely a ventricular tachycardia. His arrhythmia improved with amiodarone treatment and normalization of his electrolytes. His history is otherwise notable for early-onset aggressive atherosclerotic coronary heart disease with previous CABG x3 in 1987 (in his mid 40s) and then repeat CABG surgery with CABG x4 in 1997. He has had multiple percutaneous coronary interventions including left main and circumflex stenting in 2008. He has a history of carotid endarterectomy and right sided carotid stent that took place in 2009. He has a history of end-stage renal disease with hemodialysis 3 days per week on Mondays, Wednesdays and Fridays. Has recorded in my progress note in April 29, hypotension had been observed with dialysis at that time with blood pressures in the range of 70/40. Allergies Allergy/AdvReac Type Severity Reaction Status Date / Time No Known Allergies Allergy Verified 09/21/19 23:33 Home Medications Home Medications Medication Instructions Recorded Confirmed Type B complex with C 20-folic acid 1 cap PO QPM 09/21/19 09/21/19 History [[place] Caps] amiodarone 200 mg PO BID 09/21/19 09/21/19 History aspirin [Malvin Chewable Aspirin] 81 mg PO QAM 09/21/19 09/21/19 History atorvastatin 40 mg PO PM 09/21/19 09/21/19 History cholecalciferol (vitamin D3) 1,000 unit PO QAM 09/21/19 09/21/19 History [Vitamin D3] clindamycin HCl 300 mg PO BID 09/21/19 09/21/19 History clopidogrel 75 mg PO QAM 09/21/19 09/21/19 History lidocaine-prilocaine 1 applic TOPICAL .PREDIALYSIS 09/21/19 09/21/19 History metoprolol tartrate 25 mg PO 4XWK 09/21/19 09/21/19 History nitroglycerin 0.4 mg SUBLINGUAL .PRN/UD PRN 09/21/19 09/21/19 History patiromer calcium sorbitex 8.4 g PO DAILY 09/21/19 09/21/19 History [Veltassa] sevelamer carbonate 800 mg PO TID 09/21/19 09/21/19 History Patient History Medical History CAD (coronary artery disease) (Chronic) "Per cardiology note: S/P CABG x 3 in 1987 S/P CABG x 4 in 1997 S/P October 14, 2008 PCI of the left main and left circumflex with 4 bare metal stents S/P January 2009 true posterior wall DE s/p PCI with 2 bare metal stents to the left main & proximal LCX. " DM type 2 (diabetes mellitus, type 2) (Chronic) ESRD (end stage renal disease) on dialysis (Chronic) History of right common carotid artery stent placement (Chronic) Hypertension (Chronic) Osteomyelitis of lumbar vertebra (Chronic) Paroxysmal atrial fibrillation (Chronic) Ventricular tachycardia Surgical History H/O umbilical hernia repair (Chronic) History of left-sided carotid endarterectomy (Chronic) S/P CABG x 3 (Chronic) "1987" S/P CABG x 4 (Chronic) "1997" Social History Preferred Language: Azeri Communication Ability: Effective Compressor House Operator Required: No Beliefs That Will Affect Care: None Current Living Situation: Alone Current Living Situation Comment: concerned about getting around the house as his condition worsens Other Information That Helps Us Care for You: No Feels Safe at Home: No Is there a partner from a previous relationship who is making you feel unsafe now?: No Any Concerns about Your Family Situation: No Would You Like to Speak to Someone About Your Situation: No Smoking Status: Never smoker Hx Alcohol Use: No Hx Substance Use: No Review of Systems Review of Systems: All systems reviewed & are unremarkable except as noted in HPI & below Physical Exam Physical Exam: Temp Pulse Resp BP Pulse Ox 37.2 C 68 18 86/45 L 95 09/22/19 09:25 09/22/19 09:25 09/22/19 09:25 09/22/19 09:25 09/22/19 09:25 Constitutional: WD/WN, vitals as above Respiratory: normal respiratory effort, lungs clear to auscultation Cardiovascular: RRR, no murmur, no edema Gastrointestinal (Abdomen): normal bowel sounds, soft, nontender, no hepatosplenomegaly Skin: Superficial ecchymosis Neurologic: PERRL, EOMI, accommodation nl, no face palsy, no dysarthria Results & Data ([facility]) Vital Signs (Past 12 Hours) Vital Signs Temp Pulse Pulse Resp BP BP BP 09/22/19 09:25 37.2 C 68 18 86/45 L 09/22/19 07:48 36.7 C 62 20 51/30 L 09/22/19 03:50 36.6 C 60 17 71/57 L 09/22/19 00:45 36.3 C L 64 18 09/22/19 00:39 58 L 18 09/21/19 23:54 62 18 104/37 L Pulse Ox 09/22/19 09:25 95 09/22/19 07:48 93 09/22/19 03:50 96 09/22/19 00:45 97 09/22/19 00:39 98 09/21/19 23:54 99 Laboratory Results Cardiac Enzymes 09/21/19 09/22/19 09/22/19 Range/Units 20:49 00:58 06:24 AST 54 H (15-37) U/L Troponin I 0.039 0.032 0.038 (0-0.045) ng/ml Coagulation 09/21/19 Range/Units 20:49 PT 10.3 (9.0-12.0) Seconds CBC 09/21/19 09/22/19 Range/Units 20:49 06:24 WBC 8.94 8.91 (4.8-10.8) K/uL RBC 3.57 L 3.40 L (4.7-6.1) M/uL Hgb 12.5 L 11.7 L (14.0-18.0) g/dL Hct 36.1 L 35.3 L (42-52) % Plt Count 223 195 (130-400) K/uL Neut # (Auto) 4.98 4.71 (1.4-6.5) K/uL Lymph # (Auto) 1.74 2.01 (1.2-3.4) K/uL [place] # (Auto) 1.61 H 1.63 H (0.11-0.59) K/uL Eos # (Auto) 0.16 0.13 (0-0.5) K/uL Baso # (Auto) 0.05 0.04 (0-0.2) K/uL Comprehensive Metabolic Panel 09/21/19 09/22/19 Range/Units 20:49 06:24 Sodium 135 L 135 L (136-145) mmol/L Potassium 4.0 4.2 (3.5-5.1) mmol/L Chloride 100 102 (98-107) mmol/L Carbon Dioxide 28 26 (21-32) mmol/L BUN 21 H 25 H (7-18) mg/dl Creatinine 5.20 H* 5.58 H* D (0.6-1.4) mg/dl Glucose 155 H 116 H (70-99) mg/dl Calcium 9.1 8.6 (8.5-10.1) mg/dl AST 54 H (15-37) U/L ALT 74 (12-78) U/L Alkaline Phosphatase 148 H (45-117) U/L Total Protein 6.9 (6.4-8.2) gm/dl Albumin 2.7 L (3.4-5.0) gm/dl Intake and Output 09/21/19 09/22/19 09/22/19 22:59 06:59 14:59 Intake Total 500 / 1250 750 / 1250 Balance 500 / 1250 750 / 1250 Intake: IV 500 / 1250 750 / 1250 Nss 1000ML 250 ml @ 999 mls/hr 250 / 250 IV .Q16M ONE Rx#:[id number] Nss 500 ml @ 500 mls/hr IV .Q1H 500 / 1000 500 / 1000 TRAVIS Rx#:[id number] Other: Other Intake Source NPO/SIPS Weight 90 kg 91.1 kg Diagnostic Findings Outpatient EKG performed 04/29/2018 at [facility]: Ectopic atrial rhythm at 82 bpm, right bundle branch block, QRS duration 184 ms. EKG performed 09/21/2019 at 2029 hrs. reveals sinus rhythm with right bundle branch block morphology, QRS duration 174 ms. EKG 09/21/2019 2139 hrs. sinus rhythm 60 bpm, with wide complex right bundle branch block morphology Repeat performed today 09/22/2019 revealed sinus rhythm with first-degree AV block, right bundle branch block, first-degree AV block, QRS duration improved 148 ms. Most recent transthoracic echocardiogram performed 03/11/2019 at [facility] was technically limited, with normal left ventricular systolic function LVEF 55%. The valves are somewhat poorly visualized. (1) Hypotension Hypotension type: unspecified hypotension type Qualified Code(s): I95.9 - Hypotension, unspecified
[2019-09-22] MEDS: ACETAMINOPHEN 325 MG TAB PO PRN ×2 (12:18→21:22)
[2019-09-22] MEDS: AMIODARONE 200 MG TAB PO SCH (12:18)
[2019-09-22] MEDS: MIDODRINE HCL 2.5 MG TAB PO SCH ×2 (12:18→16:45)
[2019-09-22] MEDS ORDERED: PERFLUTREN LIPID MICROSPHERE (DEFINITY) IV ONE (13:29)
--- NOTE | 2019-09-22 13:56 | Nephrology Consultation ---
Date of Consultation September 22, 2019 Assessment & Plan (1) ESRD (end stage renal disease) on dialysis: ESRD on MWF HD; had routine HD yesterday. He has chronic hypotension and chronic volume overload. -next HD tentatively on 09/23 bedside -ensure midodrine 5 mg dose 30 min before tx -continue patiromer and sevelamer and nephrocaps as rx'd Present on Admission?: Yes (2) Hypotension: SBP chronically in 70-80s as outpatient; generally however w/o sx. this in the setting of chronic volume overload. no evidence of change in cardiac status though TTE pending; no evidence of sepsis or decreased tissue perfusion -midodrine 2.5 mg tid for now and titrate up as tolerated -metoprolol currently on hold; on only daily amiodarone -- per cardiology Present on Admission?: Yes (3) Weakness: complicated by hypotension, chronic vol OL, and s/p fall at home --concerning that over time it has become harder and harder to maintain sbp in current ranges but still get some fluid off -d/w Dr Rojas > recommend R shoulder XRay -PT eval; he lives alone w/ family nearby Present on Admission?: Yes History of Present Illness Reason for Consultation: ESRD on HD Requesting Physician: Dr Avilez Attending Physician: Kole Rojas MD History of Present Illness 74 y/o M whom I'm asked to see for dialysis needs after he was admitted overnight to ICU for dizziness and chronic hypotension with a fall at home. He dialyzes under my care MWF via AVF at [facility]; he has chronic hypotension w/ sbp often in 70s or even 60s on treatment generally with no symptoms, including no dizziness, MS changes, chest pain. Other PMH includes atrial fibrillation on no AC d/t bleeding complications, hx nonsustained ventricular tachycardia on amiodarone and metoprolol, CAD s/p CABG x 2 both prior to 1999 and s/p BMS x 2 in 2008, carotid stenosis s/p CEA adn R carotid stent, DM not on meds, obesity, chronic lymphedema, chronic ambulatory dysfunction/scooter dependent. He tells me that he had about 1L of fluid removed at HD yesterday (clinic closed and records not available). Also tells me he's been having dizziness after treatment lasting hours for past several wee ks. Apparently yesterday after HD at home last evening he collapsed t feeling weaker than usual in the legs. SBP was 80s on presentation to ER, 50s this am prompting ICU transfer. Pt was asymptomatic with sbp in 50s and states that by the time he arrived to floor at about midnight, dizziness resolved. cardiology is following > recommends midodrine; amiodarone lowered from bid to daily and metorpolol stopped; no indication at this point of change in his arrhythmia or other cardiac hx but they plan to update TTE. midodrine started at 2.5 mg tid. Allergies Allergy/AdvReac Type Severity Reaction Status Date / Time No Known Allergies Allergy Verified 09/21/19 23:33 Home Medications Home Medications Medication Instructions Recorded Confirmed Type B complex with C 20-folic acid 1 cap PO QPM 09/21/19 09/21/19 History [[place] Caps] amiodarone 200 mg PO BID 09/21/19 09/21/19 History aspirin [[place] Chewable Aspirin] 81 mg PO QAM 09/21/19 09/21/19 History atorvastatin 40 mg PO PM 09/21/19 09/21/19 History cholecalciferol (vitamin D3) 1,000 unit PO QAM 09/21/19 09/21/19 History [Vitamin D3] clindamycin HCl 300 mg PO BID 09/21/19 09/21/19 History clopidogrel 75 mg PO QAM 09/21/19 09/21/19 History lidocaine-prilocaine 1 applic TOPICAL .PREDIALYSIS 09/21/19 09/21/19 History metoprolol tartrate 25 mg PO 4XWK 09/21/19 09/21/19 History nitroglycerin 0.4 mg SUBLINGUAL .PRN/UD PRN 09/21/19 09/21/19 History patiromer calcium sorbitex 8.4 g PO DAILY 09/21/19 09/21/19 History [[place]elt[place]] sevelamer carbonate 800 mg PO TID 09/21/19 09/21/19 History Patient History Medical History CAD (coronary artery disease) (Chronic) "Per cardiology note: S/P CABG x 3 in 1987 S/P CABG x 4 in 1997 S/P October 14, 2008 PCI of the left main and left circumflex with 4 bare metal stents S/P January 2009 true posterior wall ID s/p PCI with 2 bare metal stents to the left main & proximal LCX. 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 Beliefs That Will Affect Care: None Current Living Situation: Alone Current Living Situation Comment: concerned about getting around the house as his condition worsens Other Information That Helps Us Care for You: No Feels Safe at Home: No Is there a partner from a previous relationship who is making you feel unsafe now?: No Any Concerns about Your Family Situation: No Would You Like to Speak to Someone About Your Situation: No Smoking Status: Never smoker Hx Alcohol Use: No Hx Substance Use: No Review of Systems Review of Systems: All systems reviewed & are unremarkable except as noted in HPI & below Cardiovascular: + edema (stable chronic); no chest pain and no palpitations Genitourinary: + problem reported (anuric; no change in chronic voiding habits) Musculoskeletal: + joint pain (c/o R shoulder pain after fall) Physical Exam Constitutional: well developed, well nourished and cooperative; no acute di stress (sitting in bed on RA w/ SBP 66-73) Eyes: EOM intact bilaterally ENMT: Ears: no external ear abnormality Nose: no external nose abnormality Mouth: + dry oral mucous membranes Neck: no nuchal rigidity Respiratory: normal respiratory effort Auscultation: + diminished lung sounds and + crackles (R base; else clear) Cardiovascular: Rate/Rhythm: regular rate and regular rhythm Extremities: + edema (2-3+ BLE to hips) and + AV fistula (+ t/b) Gastrointestinal (Abdomen): Inspection/Auscultation: normal bowel sounds Percussion/Palpation: abdomen soft; abdomen nontender Musculoskeletal: Extremities: strength 5/5 throughout Skin: no rashes, warm and dry Neurologic: piper, fluent speech, no tremor Psychiatric: A+Ox3, euthymic affect Results & Data Vital Signs (Past 12 Hours) Vital Signs Temp Pulse Pulse Resp BP BP BP 09/22/19 12:17 64 18 73/36 L 09/22/19 12:00 66 18 09/22/19 10:56 36.7 C 67 17 81/39 L 09/22/19 10:18 66 16 63/38 L 09/22/19 10:00 67 17 09/22/19 09:25 37.2 C 68 18 86/45 L 09/22/19 07:48 36.7 C 62 20 51/30 L 09/22/19 03:50 36.6 C 60 17 71/57 L Pulse Ox 09/22/19 12:17 92 09/22/19 12:00 92 09/22/19 10:56 93 09/22/19 10:18 93 09/22/19 10:00 94 09/22/19 09:25 95 09/22/19 07:48 93 09/22/19 03:50 96 Laboratory Results 09/22/19 06:24 09/22/19 06:24 Diagnostic Findings cxr 1. Cardiomegaly with pulmonary vascular congestion. 2. Bibasilar densities are suggestive of atelectasis. ecg this am reviewed (1) Hypotension Hypotension type: unspecified hypotension type Qualified Code(s): I95.9 - Hyp otension, unspecified
--- NOTE | 2019-09-22 15:01 | Electrocardiogram Report ---
Test Reason : Blood Pressure : / mmHG Vent. Rate : 063 BPM Atrial Rate : 063 BPM P-R Int : 206 ms QRS Dur : 148 ms QT Int : 528 ms P-R-T Axes : 000 250 145 degrees QTc Int : 540 ms Normal sinus rhythm Right bundle branch block Left anterior fascicular block Abnormal ECG When compared with ECG of 21-SEP-2019 21:39, (unconfirmed) QRS duration has decreased Confirmed by Alexey Argueta ([id number]) on 09/22/2019 3:00:50 PM Referred By: REFERRED SELF Confirmed By:Alexey Argueta
--- NOTE | 2019-09-22 15:09 | Electrocardiogram Report ---
Test Reason : Blood Pressure : / mmHG Vent. Rate : 095 BPM Atrial Rate : 078 BPM P-R Int : 000 ms QRS Dur : 174 ms QT Int : 486 ms P-R-T Axes : 000 244 105 degrees QTc Int : 610 ms Wide QRS rhythm , suspect supraventricular origin Right bundle branch block Left anterior fascicular block Very wide complex, may represent a metabolic abnormalitiy Abnormal ECG When compared with ECG of 05-APR-2018 09:03, HR has decreased Confirmed by Alexey Argueta ([id number]) on 09/22/2019 3:09:38 PM Referred By: REFERRED SELF Confirmed By:Alexey Argueta
--- NOTE | 2019-09-22 15:48 | XRay Report ---
XR shoulder RT min 2V routine CLINICAL HISTORY: 74 years-old Male presenting with Right shoulder pain post fall . TECHNIQUE: Internal rotation, external rotation, and transscapular Y views of the right shoulder were obtained. COMPARISON: Correlation made to chest x-ray performed yesterday. FINDINGS: Glenohumeral and acromioclavicular joints congruent. No deformity or subluxation of the humeral head. Moderate hypertrophic degenerative changes of the acromioclavicular joint. No acute fracture or emely lignment. Osteophytosis may be present at the inferior aspect of the humeral head. Chondrocalcinosis may also be present at the glenohumeral joint. Median sternotomy wires and mediastinal surgical clips as well as coronary artery bypass graft rings noted. Coronary artery stents in place. IMPRESSION: 1. No acute osseous injury. 2. Degenerative changes of the glenohumeral and acromioclavicular joints. ACT 112: Negative or not required by law. Electronically signed by: Anderw Case M.D. 09/22/2019 3:47 PM
--- NOTE | 2019-09-22 16:20 | Billing Data ---
Date of Service September 22, 2019 Coding Level of Care Code Critical Care 1st - mins
[2019-09-22] MEDS: ATORVASTATIN 40 MG TAB PO SCH (21:22)
[2019-09-22] MEDS: NEPHROCAPS PO SCH (21:22)
[2019-09-23 04:53] LABS: Basophils # (auto) 0.05 K/uL (0-0.2); Basophils % (auto) 0.3 %; Eosinophils # (auto) 0.15 K/uL (0-0.5); Eosinophils % (auto) 0.9 %; Hematocrit (blood only) 35.2 % (42-52); Hemoglobin 11.8 g/dL (14.0-18.0); Immature Granulocytes # (auto) 0.32 K/uL (0.00-0.02); Immature Granulocytes % (auto) 1.9 %; Lymphocytes # (auto) 2.12 K/uL (1.2-3.4); Lymphocytes % (auto) 12.7 %; Mean Corpuscular Hemoglobin 34.4 pg (25-34); Mean Corpuscular Hgb Conc 33.5 g/dL (32-36); Mean Corpuscular Volume 102.6 fL (80-100); Mean Platelet Volume 10.4 fL (7.4-10.4); Monocytes # (auto) 1.85 K/uL (0.11-0.59); Monocytes % (auto) 11.1 %; Neutrophils # (auto) 12.21 K/uL (1.4-6.5); Neutrophils % (auto) 73.1 %; Platelet Count 195 K/uL (130-400); RDW Coefficient of Variation 16.8 % (11.5-14.5); Red Blood Count 3.43 M/uL (4.7-6.1)
[2019-09-23 04:58] LABS: Albumin Level 2.6 gm/dl (3.4-5.0); BUN Creatinine Ratio 4.8 (10-20); Calcium 8.5 mg/dl (8.5-10.1); Creatinine Clr Calc Pharmacy 9.7 ml/min; Est GFR (African American) 7.9; Est GFR (Non-African American) 6.8; Magnesium 2.3 mg/dl (1.8-2.4); Potassium 4.7 mmol/L (3.5-5.1)
[2019-09-23 05:00] LABS: Albumin Globulin Ratio 0.7 (0.9-2); Bilirubin,Total 0.6 mg/dl (0.2-1); Globulin 3.9 gm/dl (2.5-4.0); Phosphorus 3.3 mg/dl (2.5-4.9); Total Protein 6.5 gm/dl (6.4-8.2)
[2019-09-23] MEDS ORDERED: SODIUM CHLORIDE 0.9% 1000ML 1,000 ML IV PRN (07:00)
[2019-09-23] MEDS ORDERED: HEPARIN SOD (PORCINE) 1000 UNIT/ML 10 ML VIAL IV ONE (07:00)
--- NOTE | 2019-09-23 07:16 | Critical Care Progress Note ---
Date of Service September 23, 2019 Assessment & Plan (1) Admitted to intensive care unit: Reason Critically Ill: Mr. Dennis is a 74 year old male with a past medical history of ESRD on HD, history of multiple arrhythmias, including atrial fibrillation, paroxysmal atrial tachycardia, nonsustained ventricular tachycardia, and wide complex tachycardia, CAD s/p CABG and stent placement, R carotid endarterectomy, type 2 DM, CHF and hyperlipidemia who was transferred to the ICU due to profound hypotension. Neuro: Alert and oriented x3 s/p right carotid endarterectomy - continue secondary preventative medications Cardiac: CAD s/p CABG & DONNA placement -no chest pain reported currently -continue aspirin and plavix -ECHO in 2018 showed an EF of 55-60% Hx of atrial fibrillation/tachycardia, and nonsustained vtach -Hold metoprolol in the setting of hypotension -cardiology input appreciated - continue amiodarone daily -ECHO ordered - dyskinetic septum, grade 2 diastolic dysfunction, LVEF = 55- 60% Hypotension -improving with addition of midodrine -HD scheduled for today, monitor BP throughout Respiratory: Saturating well on room air. GI: Heart healthy, renal diet ordered RENAL/LYTES: ESRD on HD MWF -nephrology consulted, recommendations appreciated -continue midodrine 2.5mg TID, assess response -of note, there has been difficulty with accessing his fistula -> patient may require a fistulogram in the future. Will discuss with nephrology -HD planned for today - provided patient tolerates this and BP remains acceptable, patient can be downgraded from ICU later today -continue home veltassa : Patient oliguric - urine output has trended downwards. ENDO: Diabetes Mellitus Type 2 -patient reports he is no longer on medications for this -ICU hyperglycemic protocol ordered Secondary hyperparathyroidism -continue home sevelamer Elevated TSH -TSH 5.14, with a T4 of 1.27 -no hx of thyroid disease, recheck in outpatient setting HEME: H&H stable, no signs or symptoms of bleeding. ID: Continue home clindamycin for treatment of lumbar osteomyelitis WCC elevated to 16 this AM, but afebrile, and no other signs or symptoms of infection LINES/IV ACCESS: Fistula in L arm, PIV x 1 CODE STATUS: FULL DVT PROPHYLAXIS: SCDs, heparin 5,000 units q8h Thank you for allowing us to participate in the care of this patient. Please refer to my attending physician's documentation for any further recommendations. (2) Abnormal EKG: (3) Wide-complex tachycardia: (4) Hypotension: (5) Weakness: (6) History of left-sided carotid endarterectomy: (7) S/P CABG x 4: (8) S/P CABG x 3: (9) DM type 2 (diabetes mellitus, type 2): (10) CAD (coronary artery disease): (11) History of right common carotid artery stent placement: (12) ESRD (end stage renal disease) on dialysis: (13) Paroxysmal atrial fibrillation: Admission and Anticipated Discharge Date Admission Date: September 21, 2019 Supervising Physician Co-Signing Physician Notes Dr. Mendoza was resident physician during care of patient. I separately evaluated patient for combs portions of the history and the exam. I was present during the critical portion of medical decision making, and I discussed the case with the resident. I generally agree with the findings and plan. Patient's blood pressure improved after medication changes. Tolerated dialysis well stable for downgrade out of ICU. Subjective Mr. Dennis reports he feels well this morning. He has not had any further episodes of dizziness or lightheadedness. He has been tolerating his diet without difficulty. He states his blood pressure improved yesterday and he is hopeful they will be able to pull off more fluid during dialysis today. Review of Systems Constitutional: no fever and no chills Respiratory: no cough and no dyspnea Cardiovascular: + edema; no chest pain Gastrointestinal: no abdominal pain, no nausea and no vomiting Physical Exam Constitutional: WD/WN, vitals as above Eyes: PERRL, conjunctivae normal, anicteric sclerae Respiratory: normal respiratory effort, lungs clear to auscultation Cardiovascular: Rate/Rhythm: regular rate; + abnormal rhythm (irregularly irregular rhythm) Extremities: + pedal edema (2-3+ pedal edema b/l) Gastrointestinal (Abdomen): normal bowel sounds, soft, nontender, no hepatosplenomegaly Skin: no rashes, warm and dry Results & Data ([facility]) Vital Signs (Past 12 Hours) Vital Signs Temp Pulse Resp BP Pulse Ox 09/23/19 06:00 73 16 99/60 L 93 09/23/19 05:00 71 16 84/52 L 92 09/23/19 04:00 65 09/23/19 03:00 69 16 104/44 L 94 09/23/19 02:00 66 16 87/40 L 95 09/23/19 01:00 63 16 87/40 L 93 09/23/19 00:00 63 16 85/42 L 93 09/22/19 23:00 62 16 85/42 L 93 09/22/19 22:00 62 16 95/43 L 90 09/22/19 21:00 61 20 92/53 L 92 09/22/19 20:00 37 C 65 20 96/42 L 93 Resident Activity Tracking Resident Involvement: Resident Care Provided Care Provided: Adult Hospital Medicine (1) Hypotension Hypotension type: unspecified hypotension type Qualified Code(s): I95.9 - Hypotension, unspecified
[2019-09-23] MEDS: CHOLECALCIFEROL 1,000 UNITS 25 MCG TAB PO SCH (07:52)
[2019-09-23] MEDS: ASPIRIN 81 MG ECTAB PO SCH (07:52)
[2019-09-23] MEDS: MIDODRINE HCL 2.5 MG TAB PO SCH ×3 (07:52→16:41)
[2019-09-23] MEDS: CLOPIDOGREL BISULFATE 75 MG TAB PO SCH (07:52)
[2019-09-23] MEDS: CLINDAMYCIN HCL 150 MG CAP PO SCH (07:52)
[2019-09-23] MEDS: AMIODARONE 200 MG TAB PO SCH (07:53)
[2019-09-23] MEDS: SEVELAMER HCL 800 MG TABLET PO SCH ×3 (07:53→16:41)
[2019-09-23] MEDS: PATIROMER CALCIUM SORBITEX 8.4 GM PACK PO SCH (07:54)
[2019-09-23] MEDS ORDERED: MIDODRINE HCL 2.5 MG TAB PO STA (09:49)
[2019-09-23] MEDS: ACETAMINOPHEN 325 MG TAB PO PRN (10:00)
--- NOTE | 2019-09-23 10:58 | Cardiology Progress Note ---
Date of Service September 23, 2019 Assessment & Plan (1) Abnormal EKG: History of atrial flutter, with past history of wide-complex rhythm due to apparent conduction versus VT. At present, QRS duration is come back to his previous baseline with bifascicular block pattern. Amiodarone reintroduced at lower dose 20 mg daily Prior to hospital dose of metoprolol on hold with telemetry revealing sinus rhythm in the 50 bpm range. (2) Hypotension: Has a longstanding history of hypotension especially with dialysis. Has tolerated addition of midodrine 2.5 mg 3 times daily, and will increase to 5 mg 3 times daily as per my previous discussion with nephrology yesterday. DVT prophylaxis: Subcutaneous heparin 3 times daily. Subjective Patient feels well this am. Systolic blood pressure was 99 during my assessment, and on repeat vital signs in the meantime, has come up to 102 mmHg. Dialysis planned today. No arrhythmias noted overnight. EKG this a.m. Review of Systems Review of Systems: All systems reviewed & are unremarkable except as noted in HPI & below Gastrointestinal: Transient nauseousness noted at breakfast this morning Physical Exam Physical Exam: Temp Pulse Resp BP Pulse Ox 37.0 C 75 17 102/52 L 92 09/23/19 10:10 09/23/19 10:09 09/23/19 10:09 09/23/19 10:09 09/23/19 10:09 Constitutional: WD/WN, vitals as above Cardiovascular: RRR, no murmur, no edema Gastrointestinal (Abdomen): normal bowel sounds, soft, nontender, no hepatosplenomegaly Neurologic: PERRL, EOMI, accommodation nl, no face palsy, no dysarthria Results & Data Vital Signs (Past 12 Hours) Vital Signs Temp Pulse Resp BP Pulse Ox 09/23/19 10:10 37.0 C 09/23/19 10:09 37.0 C 75 17 102/52 L 92 09/23/19 09:20 75 20 89/39 L 93 09/23/19 08:20 84 20 92 09/23/19 08:19 36.6 C 77 20 99/29 L 93 09/23/19 08:00 82 24 94 09/23/19 07:19 74 21 100/37 L 94 09/23/19 07:00 71 16 92 09/23/19 06:00 73 16 99/60 L 93 09/23/19 05:00 71 16 84/52 L 92 09/23/19 04:00 65 09/23/19 03:00 69 16 104/44 L 94 09/23/19 02:00 66 16 87/40 L 95 09/23/19 01:00 63 16 87/40 L 93 09/23/19 00:00 63 16 85/42 L 93 09/22/19 23:00 62 16 85/42 L 93 (1) Hypotension Hypotension type: unspecified hypotension type Qualified Code(s): I95.9 - Hypotension, unspecified
[2019-09-23] MEDS: HEPARIN SOD (PORCINE) 1000 UNIT/ML 10 ML VIAL IV SCH ×3 (11:45→17:10)
--- NOTE | 2019-09-23 12:09 | Electrocardiogram Report ---
Test Reason : Blood Pressure : / mmHG Vent. Rate : 072 BPM Atrial Rate : 072 BPM P-R Int : 246 ms QRS Dur : 152 ms QT Int : 452 ms P-R-T Axes : -17 241 114 degrees QTc Int : 494 ms Poor data quality, interpretation may be adversely affected Sinus rhythm with 1st degree A-V block Left anterior fascicular block Inferior infarct (cited on or before 23-SEP-2019) Anterolateral infarct (cited on or before 23-SEP-2019) Abnormal ECG When compared with ECG of 22-SEP-2019 06:37, No significant change Confirmed by Alexey Argueta ([id number]) on 09/23/2019 12:08:51 PM Referred By: REFERRED SELF Confirmed By:Alexey Argueta
[2019-09-23] MEDS ORDERED: MIDODRINE HCL 10 MG TAB PO ONE (13:15)
--- NOTE | 2019-09-23 15:10 | Nephrology Progress Note ---
Date of Service September 23, 2019 Assessment & Plan (1) ESRD (end stage renal disease) on dialysis: ESRD on MWF HD; had routine HD Saturday. He has chronic hypotension and chronic volume overload. -plan for HD today 09/23 bedside -ensure midodrine 10 mg dose 30 min before tx -continue patiromer and sevelamer and nephrocaps as rx'd (2) Hypotension: SBP chronically in 70-80s as outpatient; generally however w/o sx. this in the setting of chronic volume overload. no evidence of change in cardiac status though TTE pending; no evidence of sepsis or decreased tissue perfusion -midodrine 2.5 mg tid for now and titrate up as tolerated -metoprolol currently on hold; on only daily amiodarone -- per cardiology (3) Weakness: complicated by hypotension, chronic vol OL, and s/p fall at home --concerning that over time it has become harder and harder to maintain sbp in current ranges but still get some fluid off -PT eval; he lives alone w/ family nearby Admission and Anticipated Discharge Date Admission Date: September 21, 2019 Subjective Patient is complaining of nausea and vomiting. No dizziness. No shortness of breath. Review of Systems Review of Systems: All systems reviewed & are unremarkable except as noted in HPI & below Physical Exam Physical Exam: General exam: Appears comfortable, no acute distress HEENT: Pupils are equal and reactive to light Neck: No JVD, neck is supple trachea is midline Respiratory system: Clear breath sounds bilaterally. Gastrointestinal: Abdomen is soft, non distended, non tender, bowel sounds are present CVS: Regular rate and rhythm. No murmurs, rubs or gallops Musculoskeletal: No joint or muscle tenderness Extremities: Non tender, no edema, peripheral pulses are present Neuro: Oriented, no tremors, no focal neurological deficits Skin: No rashes Access: Left upper arm AV fistula with good bruit Results & Data ([facility]) Vital Signs (Past 12 Hours) Vital Signs Temp Pulse Pulse Resp BP BP Pulse Ox 09/23/19 14:45 36.5 C 68 90/39 L 09/23/19 14:30 68 14 94 09/23/19 14:00 72 80/33 L 09/23/19 13:45 70 69/39 L 09/23/19 13:30 71 101/55 L 02/12/20 13:15 71 71/35 L 09/23/19 13:00 71 87/36 L 09/23/19 12:45 68 118/31 L 09/23/19 12:30 68 102/29 L 09/23/19 12:15 66 106/52 L 09/23/19 12:04 70 77/33 L 09/23/19 11:45 66 95/34 L 09/23/19 11:35 67 15 101/30 L 92 09/23/19 11:30 65 101/30 L 09/23/19 11:15 67 77/37 L 09/23/19 11:00 70 112/45 L 09/23/19 10:10 37.0 C 09/23/19 10:09 37.0 C 75 17 102/52 L 92 09/23/19 09:20 75 20 89/39 L 93 09/23/19 08:20 84 20 92 09/23/19 08:19 36.6 C 77 20 99/29 L 93 09/23/19 08:00 82 24 94 09/23/19 07:19 74 21 100/37 L 94 09/23/19 07:00 71 16 92 09/23/19 06:00 73 16 99/60 L 93 09/23/19 05:00 71 16 84/52 L 92 09/23/19 04:00 65 Laboratory Results 09/23/19 04:19 09/23/19 09/23/19 04:19 04:19 WBC 16.70 H RBC 3.43 L MCV 102.6 H MCH 34.4 H MCHC 33.5 RDW Std Deviation 62.0 H RDW Coeff of Suad 16.8 H Plt Count 195 MPV 10.4 Phosphorus 3.3 Albumin 2.6 L (1) Hypotension Hypotension type: unspecified hypotension type Qualified Code(s): I95.9 - Hypotension, unspecified
[2019-09-23] MEDS: HEPARIN SOD 5,000 UNIT/0.5 ML VIAL SC SCH ×2 (16:40→20:42)
--- NOTE | 2019-09-23 16:53 | Hospitalist Progress Note ---
Date of Service September 23, 2019 Assessment & Plan (1) Hypotension: --Midodrine 2.5 mg p.o. 3 times daily started, blood pressure improving, plan to increase to 5 mg 3 times daily today --Monitor closely while on HD History of atrial fibrillation, history of paroxysmal atrial tachycardia, history of nonsustained ventricular tachycardia, history of wide complex tachycardia in the past thought to be from ventricular tachycardia. History of coronary artery disease status (post coronary artery bypass graft x2 and status post stent to left main and circumflex in the past Dyslipidemia -Per previous attending Dr. Kole Rojas's notes: Initially when he came in the had wide complex rhythm on the EKG. He is not taking amiodarone for last 2 weeks because [facility] has not sent the refill yet. amiodarone was restarted inpatient. metoprolol has been held upon admission for now --Usual amiodarone restarted Back to sinus rhythm Usual metoprolol on hold for now secondary to bradycardia --Appreciate cardiology service recommendations (2) ESRD (end stage renal disease) on dialysis: --HD per nephrology service Type 2 diabetes - not on any medications -Check A1c -BSG's within acceptable range, continue to monitor Deep vein thrombosis prophylaxis: Sequential compression devices for now Full Code Admission and Anticipated Discharge Date Admission Date: September 21, 2019 Subjective Follow-up for hypotension, end-stage renal disease, etc. Seen sitting up in bed, comfortable, watching TV States he feels improved compared to yesterday, denies dizziness today Patient's hemodialysis is about to commence on exam Denies chest pain, shortness of breath, palpitations, dizziness Does report some dysphagia No other symptoms Review of Systems Review of Systems: All systems reviewed & are unremarkable except as noted in HPI & below Physical Exam Physical Exam: General- oriented x 3, not in distress, speaks in sentences with no effort or accessory muscle use Head- atraumatic Eyes- PERRL, EOMI, anicteric ENT- oropharynx clear Neck- supple, no JVD, no adenopathy, no thyromegaly; carotids +2/2, no bruits appreciated Lungs- clear to auscultation bilaterally, no rales/wheezes Heart- normal rate, regular rhythm; no murmur, no gallop, no rub appreciated Abdomen- normal bowel sounds, nondistended, soft, nontender, no masses or hepatosplenomegaly Extremities- (+) pedal edema, no calf tenderness; peripheral pulses intact AV fistula left arm Neuro- alert, oriented x 3; CN 2-12 grossly intact; motor 5/5 bilaterally;sensation 100% on all extremities; no other gross focal neurologic deficits Skin- warm & dry Results & Data ([facility]) Vital Signs (Past 12 Hours) Vital Signs Temp Pulse Pulse Resp BP BP Pulse Ox 09/23/19 16:22 36.6 C 72 17 93/41 L 93 09/23/19 16:00 70 15 91 09/23/19 15:22 71 19 77/31 L 95 09/23/19 14:45 36.5 C 68 90/39 L 09/23/19 14:30 68 14 94 09/23/19 14:00 72 80/33 L 09/23/19 13:45 70 69/39 L 09/23/19 13:30 71 101/55 L 09/23/19 13:15 71 71/35 L 09/23/19 13:00 71 87/36 L 09/23/19 12:45 68 118/31 L 09/23/19 12:30 68 102/29 L 09/23/19 12:15 66 106/52 L 09/23/19 12:04 70 77/33 L 09/23/19 11:45 66 95/34 L 09/23/19 11:35 67 15 101/30 L 92 09/23/19 11:30 65 101/30 L 09/23/19 11:15 67 77/37 L 09/23/19 11:00 70 112/45 L 09/23/19 10:10 37.0 C 09/23/19 10:09 37.0 C 75 17 102/52 L 92 09/23/19 09:20 75 20 89/39 L 93 09/23/19 08:20 84 20 92 09/23/19 08:19 36.6 C 77 20 99/29 L 93 09/23/19 08:00 82 24 94 09/23/19 07:19 74 21 100/37 L 94 09/23/19 07:00 71 16 92 09/23/19 06:00 73 16 99/60 L 93 09/23/19 05:00 71 16 84/52 L 92 Laboratory Results Laboratory Results - last 24 hr 09/23/19 09/23/19 04:19 04:19 WBC 16.70 H RBC 3.43 L Hgb 11.8 L Hct 35.2 L MCV 102.6 H MCH 34.4 H MCHC 33.5 RDW Std Deviation 62.0 H RDW Coeff of Suad 16.8 H Plt Count 195 MPV 10.4 Immature Gran % (Auto) 1.9 Neut % (Auto) 73.1 Lymph % (Auto) 12.7 [place] % (Auto) 11.1 Eos % (Auto) 0.9 Baso % (Auto) 0.3 Immature Gran # (Auto) 0.32 H Neut # (Auto) 12.21 H Lymph # (Auto) 2.12 [place] # (Auto) 1.85 H Eos # (Auto) 0.15 Baso # (Auto) 0.05 Sodium 134 L Potassium 4.7 Chloride 102 Carbon Dioxide 24 Anion Gap 8.0 BUN 34 H Creatinine 7.08 H* D Est Cr Clr Drug Dosing 9.7 Est GFR ( Amer) 7.9 Est GFR (Non-Af Amer) 6.8 BUN/Creatinine Ratio 4.8 L Glucose 130 H Calcium 8.5 Phosphorus 3.3 Magnesium 2.3 Total Bilirubin 0.6 AST 48 H ALT 66 Alkaline Phosphatase 114 Total Protein 6.5 Albumin 2.6 L Globulin 3.9 Albumin/Globulin Ratio 0.7 L (1) Hypotension Hypotension type: unspecified hypotension type Qualified Code(s): I95.9 - Hypotension, unspecified
--- NOTE | 2019-09-23 17:54 | Billing Data ---
Date of Service September 23, 2019 Coding Level of Care Code 89655 Subseq Hosp Care Lvl 2
[2019-09-23] MEDS: ATORVASTATIN 40 MG TAB PO SCH (20:41)
[2019-09-23] MEDS: NEPHROCAPS PO SCH (20:42)
[2019-09-24] MEDS: HEPARIN SOD 5,000 UNIT/0.5 ML VIAL SC SCH ×3 (05:59→22:01)
[2019-09-24 07:24] LABS: Estimated Average Glucose 120 mg/dl; Hemoglobin A1C 5.8 % (4.5-5.6)
[2019-09-24 08:07] LABS: BUN Creatinine Ratio 4.1 (10-20); Calcium 8.3 mg/dl (8.5-10.1); Creatinine Clr Calc Pharmacy 13.3 ml/min; Est GFR (African American) 11.3; Est GFR (Non-African American) 9.7; Potassium 3.8 mmol/L (3.5-5.1)
[2019-09-24] MEDS: MIDODRINE HCL 2.5 MG TAB PO SCH ×3 (08:16→17:43)
[2019-09-24] MEDS: SEVELAMER HCL 800 MG TABLET PO SCH ×3 (08:16→17:42)
[2019-09-24] MEDS: AMIODARONE 200 MG TAB PO SCH (08:17)
[2019-09-24] MEDS: ASPIRIN 81 MG ECTAB PO SCH (08:17)
[2019-09-24] MEDS: CHOLECALCIFEROL 1,000 UNITS 25 MCG TAB PO SCH (08:17)
[2019-09-24] MEDS: CLOPIDOGREL BISULFATE 75 MG TAB PO SCH (08:17)
[2019-09-24] MEDS: PATIROMER CALCIUM SORBITEX 8.4 GM PACK PO SCH (08:18)
--- NOTE | 2019-09-24 10:05 | Nephrology Progress Note ---
Date of Service September 24, 2019 Assessment & Plan (1) ESRD (end stage renal disease) on dialysis: ESRD on MWF HD; He has chronic hypotension and chronic volume overload. Patient tolerated dialysis well yesterday with net UF of 2 L. Next dialysis will be tomorrow -ensure midodrine 10 mg dose 30 min before tx -continue patiromer and sevelamer and nephrocaps as rx'd (2) Hypotension: SBP chronically in 70-80s as outpatient; generally however w/o sx. this in the setting of chronic volume overload. no evidence of change in cardiac status though TTE pending; no evidence of sepsis or decreased tissue perfusion -midodrine 2.5 mg tid for now and titrate up as tolerated -metoprolol currently on hold; on only daily amiodarone -- per cardiology (3) Weakness: complicated by hypotension, chronic vol OL, and s/p fall at home --concerning that over time it has become harder and harder to maintain sbp in current ranges but still get some fluid off -PT eval; he lives alone w/ family nearby -Rehab being considered. Admission and Anticipated Discharge Date Admission Date: September 21, 2019 Subjective Patient tolerated dialysis well yesterday with net UF of 2 L. He feels better today. No shortness of breath. He has leg swelling and leg pain. He is eager to go home. He is planned for physical therapy today. Review of Systems Review of Systems: All systems reviewed & are unremarkable except as noted in HPI & below Physical Exam Physical Exam: General exam: Appears comfortable, no acute distress HEENT: Pupils are equal and reactive to light Neck: No JVD, neck is supple trachea is midline Respiratory system: Clear breath sounds bilaterally. Gastrointestinal: Abdomen is soft, non distended, non tender, bowel sounds are present CVS: Regular rate and rhythm. No murmurs, rubs or gallops Musculoskeletal: No joint or muscle tenderness Extremities: Non tender, 1+ edema, peripheral pulses are present Neuro: Oriented, no tremors, no focal neurological deficits Skin: No rashes Access: Left upper arm AV fistula with good bruit Results & Data ([facility]) Vital Signs (Past 12 Hours) Vital Signs Temp Pulse Pulse Pulse Resp BP BP 09/24/19 08:06 37.3 C 80 16 90/50 L 09/24/19 08:00 77 09/24/19 03:11 37.1 C 75 18 81/46 L 09/24/19 00:00 70 09/23/19 23:09 37.5 C 66 18 75/46 L Pulse Ox 09/24/19 08:06 91 09/24/19 08:00 09/24/19 03:11 93 09/24/19 00:00 09/23/19 23:09 92 Laboratory Results 09/24/19 06:02 (1) Hypotension Hypotension type: unspecified hypotension type Qualified Code(s): I95.9 - Hypotension, unspecified
--- NOTE | 2019-09-24 11:14 | Cardiology Progress Note ---
Date of Service September 24, 2019 Assessment & Plan (1) Hypotension: Metoprolol discontinued. Currently on midodrine 5 mg 3 times daily which is tolerating well. Metoprolol discontinued. Amiodarone dose reduced to 200 mg daily, and he does not have any evidence of breakthrough atrial flutter/atrial fibrillation. (2) CAD (coronary artery disease): Has history of remote CABG dating back to 1987, complex percutaneous coronary interventions including left main stenting and that is why he is on dual antiplatelet therapy with aspirin and clopidogrel on a chronic basis. Patient is feeling better today with stable blood pressures close to his baseline, discharge can be considered with medication changes as outlined above. He is to have hemodialysis at [facility] tomorrow. Subjective Chief complaint: Follow-up dizziness, lightheadedness Subjective: Patient states he is feeling well. He tolerated dialysis well yesterday and he was very pleased with his blood pressures having received bryan tment with midodrine. Most recent systolic blood pressure was 90 mmHg this morning at 8:06 AM. He did have low blood pressure last night with a reading of 75/46 at 2309, particularly different from his previous baseline. Telemetry reveals sinus rhythm for the most part in the range of 50 to 60 bpm with first- degree AV block, right bundle branch block morphology. No prolonged tachycardia or profound bradycardia. Review of Systems Review of Systems: All systems reviewed & are unremarkable except as noted in HPI & below Physical Exam Physical Exam: Temp Pulse Resp BP Pulse Ox 37.3 C 80 16 90/50 L 91 09/24/19 08:06 09/24/19 08:06 09/24/19 08:06 09/24/19 08:06 09/24/19 08:06 Constitutional: WD/WN, vitals as above Respiratory: normal respiratory effort, lungs clear to auscultation Cardiovascular: RRR, no murmur, no edema Gastrointestinal (Abdomen): normal bowel sounds, soft, nontender, no hepatosplenomegaly Neurologic: PERRL, EOMI, accommodation nl, no face palsy, no dysarthria Results & Data Vital Signs (Past 12 Hours) Vital Signs Temp Pulse Pulse Pulse Resp BP BP 09/24/19 08:06 37.3 C 80 16 90/50 L 09/24/19 08:00 77 09/24/19 03:11 37.1 C 75 18 81/46 L 09/24/19 00:00 70 Pulse Ox 09/24/19 08:06 91 09/24/19 08:00 09/24/19 03:11 93 09/24/19 00:00 (1) Hypotension Hypotension type: unspecified hypotension type Qualified Code(s): I95.9 - Hypotension, unspecified
--- NOTE | 2019-09-24 18:06 | Hospitalist Progress Note ---
Date of Service September 24, 2019 Assessment & Plan (1) Hypotension: -- Midodrine uptitrated to 5 mg 3 times daily, blood pressure improved No dizziness --Monitor blood pressure on hemodialysis tomorrow History of atrial fibrillation, history of paroxysmal atrial tachycardia, history of nonsustained ventricular tachycardia, history of wide complex tachycardia in the past thought to be from ventricular tachycardia. History of coronary artery disease status (post coronary artery bypass graft x2 and status post stent to left main and circumflex in the past Dyslipidemia -Per previous attending Dr. Kole Rojas's notes: Initially when he came in the had wide complex rhythm on the EKG. He is not taking amiodarone for last 2 weeks because [facility] has not sent the refill yet. amiodarone was restarted inpatient. metoprolol has been held upon admission for now --Usual amiodarone restarted Back to sinus rhythm Usual metoprolol on hold for now secondary to bradycardia --Remains in sinus rhythm, normal rate --Appreciate cardiology service recommendations (2) ESRD (end stage renal disease) on dialysis: --HD per nephrology service Type 2 diabetes - not on any medications -A1c 5.8 -BSG's within acceptable range, continue to monitor Deep vein thrombosis prophylaxis: Sequential compression devices for now Full Code Disposition Anticipate discharge to home tomorrow after dialysis with home health services Admission and Anticipated Discharge Date Admission Date: September 21, 2019 Anticipated date of discharge: 09/25/19 Subjective Follow-up for hypotension Seen resting in wheelchair, comfortable, not in distress States he feels improved again today Denies dizziness, weakness, shortness of breath, palpitations, chest pain No other symptoms Review of Systems Review of Systems: All systems reviewed & are unremarkable except as noted in HPI & below Physical Exam Physical Exam: General- oriented x 3, not in distress, speaks in sentences with no effort or accessory muscle use Eyes- anicteric Neck- no JVD Lungs- clear breath sounds bilaterally, no rales/wheezes Heart- normal rate, regular rhythm; no murmurs Abdomen- normal bowel sounds, nondistended, soft, nontender Extremities-right hand and forearm with moderate edema, no warmth/tenderness/erythema Mild lower leg edema bilaterally, no calf tenderness Neuro- alert, oriented x 3; no gross focal neurologic deficits Skin- warm & dry Results & Data ([facility]) Vital Signs (Past 12 Hours) Vital Signs Temp Pulse Pulse Pulse Resp BP BP 09/24/19 15:27 36.7 C 76 18 93/42 L 09/24/19 11:00 36.8 C 72 16 79/43 L 09/24/19 08:06 37.3 C 80 16 90/50 L 09/24/19 08:00 77 Pulse Ox 09/24/19 15:27 94 09/24/19 11:00 93 09/24/19 08:06 91 09/24/19 08:00 Laboratory Results Laboratory Results - last 24 hr 09/23/19 09/24/19 09/24/19 20:23 06:02 06:02 Sodium 135 L Potassium 3.8 D Chloride 101 Carbon Dioxide 28 Anion Gap 6.0 BUN 22 H Creatinine 5.28 H* D Est Cr Clr Drug Dosing 13.3 Est GFR ( Amer) 11.3 Est GFR (Non-Af Amer) 9.7 BUN/Creatinine Ratio 4.1 L Glucose 98 POC Glucose 133 H Estimat Average Glucose 120 Hemoglobin A1c 5.8 H Calcium 8.3 L 09/24/19 09/24/19 07:42 16:20 Sodium Potassium Chloride Carbon Dioxide Anion Gap BUN Creatinine Est Cr Clr Drug Dosing Est GFR ( Amer) Est GFR (Non-Af Amer) BUN/Creatinine Ratio Glucose POC Glucose 90 103 H Estimat Average Glucose Hemoglobin A1c Calcium (1) Hypotension Hypotension type: unspecified hypotension type Qualified Code(s): I95.9 - Hypotension, unspecified
[2019-09-24] MEDS ORDERED: COUGH DROP (SUGAR FREE) LOZ 24 LOZ/1 BOX BUCCAL ONE (21:56)
[2019-09-24] MEDS: ATORVASTATIN 40 MG TAB PO SCH (21:59)
[2019-09-24] MEDS: NEPHROCAPS PO SCH (22:00)
[2019-09-25] MEDS: HEPARIN SOD 5,000 UNIT/0.5 ML VIAL SC SCH ×3 (05:41→20:53)
[2019-09-25] MEDS ORDERED: SODIUM CHLORIDE 0.9% 1000ML 1,000 ML IV PRN (07:38)
[2019-09-25] MEDS ORDERED: HEPARIN SOD (PORCINE) 1000 UNIT/ML 10 ML VIAL IV SCH (08:00)
[2019-09-25] MEDS: SEVELAMER HCL 800 MG TABLET PO SCH ×3 (08:58→19:11)
[2019-09-25] MEDS: CHOLECALCIFEROL 1,000 UNITS 25 MCG TAB PO SCH (08:58)
[2019-09-25] MEDS: MIDODRINE HCL 2.5 MG TAB PO SCH ×3 (08:59→19:11)
[2019-09-25] MEDS: ASPIRIN 81 MG ECTAB PO SCH (08:59)
[2019-09-25] MEDS: CLOPIDOGREL BISULFATE 75 MG TAB PO SCH (08:59)
[2019-09-25] MEDS: AMIODARONE 200 MG TAB PO SCH (08:59)
--- NOTE | 2019-09-25 10:04 | Nephrology Progress Note ---
Date of Service September 25, 2019 Assessment & Plan (1) ESRD (end stage renal disease) on dialysis: ESRD on MWF HD; He has chronic hypotension and chronic volume overload. Patient planned for dialysis today, target UF 2 L. -ensure midodrine 10 mg dose 30 min before tx -continue patiromer and sevelamer and nephrocaps as rx'd (2) Hypotension: SBP chronically in 70-80s as outpatient; generally however w/o sx. this in the setting of chronic volume overload. no evidence of change in cardiac status though TTE pending; no evidence of sepsis or decreased tissue perfusion -midodrine 5 mg tid for now and titrate up as tolerated -metoprolol currently on hold; on only daily amiodarone -- per cardiology (3) Weakness: complicated by hypotension, chronic vol OL, and s/p fall at home --concerning that over time it has become harder and harder to maintain sbp in current ranges but still get some fluid off -PT eval; he lives alone w/ family nearby -Rehab being considered. Admission and Anticipated Discharge Date Admission Date: September 21, 2019 Anticipated date of discharge: 09/25/19 Subjective Patient complaining of mild shortness of breath this morning. He feels better overall. Doing PT. Eager to be discharged home. Review of Systems Review of Systems: All systems reviewed & are unremarkable except as noted in HPI & below Physical Exam Physical Exam: General exam: Appears comfortable, no acute distress HEENT: Pupils are equal and reactive to light Neck: No JVD, neck is supple trachea is midline Respiratory system: Clear breath sounds bilaterally. Gastrointestinal: Abdomen is soft, non distended, non tender, bowel sounds are present CVS: Regular rate and rhythm. No murmurs, rubs or gallops Musculoskeletal: No joint or muscle tenderness Extremities: Non tender, 1+ edema, peripheral pulses are present Neuro: Oriented, no tremors, no focal neurological deficits Skin: No rashes Access: Left upper arm AV fistula with good bruit Results & Data ([facility]) Vital Signs (Past 12 Hours) Vital Signs Temp Pulse Pulse Resp BP BP Pulse Ox 09/25/19 07:43 37.3 C 76 18 109/62 95 09/25/19 03:30 37.4 C 69 16 99/62 L 92 09/24/19 23:19 36.9 C 65 18 134/59 L 91 09/24/19 22:20 68 (1) Hypotension Hypotension type: unspecified hypotension type Qualified Code(s): I95.9 - Hypotension, unspecified
[2019-09-25 10:50] LABS: BUN Creatinine Ratio 4.8 (10-20); Calcium 8.6 mg/dl (8.5-10.1); Creatinine Clr Calc Pharmacy 9.7 ml/min; Est GFR (African American) 7.8; Est GFR (Non-African American) 6.7; Potassium 4.2 mmol/L (3.5-5.1)
[2019-09-25] MEDS: PATIROMER CALCIUM SORBITEX 8.4 GM PACK PO SCH (11:55)
--- NOTE | 2019-09-25 12:10 | Cardiology Progress Note ---
Date of Service September 25, 2019 Assessment & Plan (1) Hypotension: (2) CAD (coronary artery disease): (3) Paroxysmal atrial fibrillation: Most recent systolic blood pressure was 110 mmHg, and he had a reading of 134/59 last night! Continue midodrine 5 mg p.o. 3 times daily. Continue chronic dual antiplatelet therapy with aspirin and clopidogrel given history of past left main stenting. Continue amiodarone 200 mg p.o. daily as compared to prior to admission dose of 200 mg twice daily. Prior to hospital treatment metoprolol has been discontinued. Patient stable for discharge from a cardiac perspective once dialysis is successfully achieved as long as blood pressures remained stable (for patient). Subjective Patient feeling discouraged. There was difficulty accessing his left upper extremity AV fistula for dialysis today. His blood pressures have been great. He does note shortness of breath with when he was transferring in bed this morning. Telemetry reveals sinus rhythm in the 60s 70 bpm range with ongoing right bundle branch block morphology. Physical Exam Physical Exam: Temp Pulse Resp BP Pulse Ox 36.8 C 69 16 110/67 96 09/25/19 11:59 09/25/19 11:59 09/25/19 11:59 09/25/19 11:59 09/25/19 11:59 Constitutional: WD/WN, vitals as above Respiratory: normal respiratory effort, lungs clear to auscultation Cardiovascular: Rate/Rhythm: regular rate Heart Sounds: + murmur (1/6 systolic murmur) Vessels: no JVD Extremities: no edema Gastrointestinal (Abdomen): normal bowel sounds, soft, nontender, no hepatosplenomegaly Neurologic: PERRL, EOMI, accommodation nl, no face palsy, no dysarthria Results & Data Vital Signs (Past 12 Hours) Vital Signs Temp Pulse Pulse Resp BP BP Pulse Ox 09/25/19 11:59 36.8 C 69 16 110/67 96 09/25/19 10:00 68 09/25/19 07:43 37.3 C 76 18 109/62 95 09/25/19 03:30 37.4 C 69 16 99/62 L 92 Laboratory Results Comprehensive Metabolic Panel 09/25/19 Range/Units 09:51 Sodium 133 L (136-145) mmol/L Potassium 4.2 (3.5-5.1) mmol/L Chloride 101 (98-107) mmol/L Carbon Dioxide 23 (21-32) mmol/L BUN 34 H D (7-18) mg/dl Creatinine 7.17 H* D (0.6-1.4) mg/dl Glucose 129 H (70-99) mg/dl Calcium 8.6 (8.5-10.1) mg/dl Intake and Output 09/24/19 09/25/19 09/25/19 22:59 06:59 14:59 Intake Total 250 / 625 Balance 250 / 625 Intake: Oral 250 / 625 Other: Weight 93.4 kg (1) Hypotension Hypotension type: unspecified hypotension type Qualified Code(s): I95.9 - Hypotension, unspecified
[2019-09-25] MEDS: NEPHROCAPS PO SCH (21:36)
[2019-09-25] MEDS: ATORVASTATIN 40 MG TAB PO SCH (21:36)
[2019-09-25] MEDS ORDERED: PROMETHAZINE HCL 12.5 MG in SODIUM CHLORIDE 0.9% 50 ML IV PRN (22:21)
--- NOTE | 2019-09-25 22:40 | Hospitalist Progress Note ---
Date of Service September 25, 2019 Assessment & Plan (1) Hypotension: -- Midodrine uptitrated to 5 mg 3 times daily, blood pressure improved No dizziness -- BP systolic 80s after HD, asymptomatic monitor History of atrial fibrillation, history of paroxysmal atrial tachycardia, history of nonsustained ventricular tachycardia, history of wide complex tachycardia in the past thought to be from ventricular tachycardia. History of coronary artery disease status (post coronary artery bypass graft x2 and status post stent to left main and circumflex in the past Dyslipidemia -Per previous attending Dr. Kole Rojas's notes: Initially when he came in the had wide complex rhythm on the EKG. He is not taking amiodarone for last 2 weeks because [facility] has not sent the refill yet. amiodarone was restarted inpatient. metoprolol has been held upon admission for now --Usual amiodarone restarted, reduced to daily dosing remains sinus rhythm Usual metoprolol on hold for now secondary to bradycardia --Appreciate cardiology service recommendations (2) ESRD (end stage renal disease) on dialysis: --HD per nephrology service Type 2 diabetes - not on any medications -A1c 5.8 -BSG's within acceptable range, continue to monitor Deep vein thrombosis prophylaxis: Sequential compression devices for now Full Code Disposition Anticipate discharge to home tomorrow Admission and Anticipated Discharge Date Admission Date: September 21, 2019 Anticipated date of discharge: 09/25/19 Subjective ff up for hypotension, ESRD seen resting in bed, just had HD comfortable, not in distress states he feels fine overall denies dizziness, chest pain, dyspnea, palpitations no other symptoms Review of Systems Review of Systems: All systems reviewed & are unremarkable except as noted in HPI & below Physical Exam Physical Exam: General- oriented x 3, not in distress, speaks in sentences with no effort or accessory muscle use Eyes- anicteric Neck- no JVD Lungs- clear BS BL Heart- normal rate, regular rhythm; no murmurs Abdomen- normal bowel sounds, nondistended, soft, nontender Extremities- mild lower leg edema, no calf tenderness Neuro- alert, oriented x 3; no gross focal neurologic deficits Skin- warm & dry Results & Data ([facility]) Vital Signs (Past 12 Hours) Vital Signs Temp Pulse Pulse Pulse Resp BP BP 09/25/19 19:09 37 C 78 16 09/25/19 18:55 37 C 69 09/25/19 18:20 72 88/48 L 09/25/19 18:00 72 91/42 L 09/25/19 17:40 71 79/41 L 09/25/19 17:20 75 84/44 L 09/25/19 17:16 68 09/25/19 17:00 73 79/38 L 09/25/19 16:40 73 86/46 L 09/25/19 16:20 72 83/41 L 09/25/19 16:00 73 74/42 L 09/25/19 15:40 73 82/33 L 09/25/19 15:20 68 78/46 L 09/25/19 15:08 70 100/30 L 09/25/19 14:59 37.8 C H 71 09/25/19 11:59 36.8 C 69 16 110/67 BP Pulse Ox 09/25/19 19:09 81/46 L 93 09/25/19 18:55 81/41 L 09/25/19 18:20 09/25/19 18:00 09/25/19 17:40 09/25/19 17:20 09/25/19 17:16 09/25/19 17:00 09/25/19 16:40 09/25/19 16:20 09/25/19 16:00 09/25/19 15:40 09/25/19 15:20 09/25/19 15:08 09/25/19 14:59 09/25/19 11:59 96 Laboratory Results Laboratory Results - last 24 hr 09/25/19 09/25/19 09/25/19 00:01 07:21 09:51 Sodium 133 L Potassium 4.2 Chloride 101 Carbon Dioxide 23 Anion Gap 9.0 BUN 34 H D Creatinine 7.17 H* D Est Cr Clr Drug Dosing 9.7 Est GFR ( Amer) 7.8 Est GFR (Non-Af Amer) 6.7 BUN/Creatinine Ratio 4.8 L Glucose 129 H POC Glucose 127 H 99 Calcium 8.6 09/25/19 09/25/19 11:12 20:09 Sodium Potassium Chloride Carbon Dioxide Anion Gap BUN Creatinine Est Cr Clr Drug Dosing Est GFR ( Amer) Est GFR (Non-Af Amer) BUN/Creatinine Ratio Glucose POC Glucose 105 H 89 Calcium (1) Hypotension Hypotension type: unspecified hypotension type Qualified Code(s): I95.9 - Hypotension, unspecified
[2019-09-26] MEDS: HEPARIN SOD 5,000 UNIT/0.5 ML VIAL SC SCH (05:44)
[2019-09-26 06:44] LABS: Hematocrit (blood only) 35.6 % (42-52); Mean Corpuscular Hemoglobin 34.8 pg (25-34); Mean Corpuscular Hgb Conc 33.7 g/dL (32-36); Mean Corpuscular Volume 103.2 fL (80-100); Mean Platelet Volume 9.9 fL (7.4-10.4); Platelet Count 191 K/uL (130-400); RDW Coefficient of Variation 16.7 % (11.5-14.5); RDW Standard Deviation 62.1 fL (36.4-46.3); Red Blood Count 3.45 M/uL (4.7-6.1); White Blood Count 10.56 K/uL (4.8-10.8)
[2019-09-26 07:24] LABS: BUN Creatinine Ratio 3.8 (10-20); Calcium 8.8 mg/dl (8.5-10.1); Creatinine Clr Calc Pharmacy 13.4 ml/min; Est GFR (African American) 11.7; Est GFR (Non-African American) 10.1; Potassium 4.3 mmol/L (3.5-5.1)
[2019-09-26] MEDS: ASPIRIN 81 MG ECTAB PO SCH (08:13)
[2019-09-26] MEDS: CLOPIDOGREL BISULFATE 75 MG TAB PO SCH (08:13)
[2019-09-26] MEDS: MIDODRINE HCL 2.5 MG TAB PO SCH (08:13)
[2019-09-26] MEDS: SEVELAMER HCL 800 MG TABLET PO SCH (08:13)
[2019-09-26] MEDS: AMIODARONE 200 MG TAB PO SCH (08:13)
[2019-09-26] MEDS: PATIROMER CALCIUM SORBITEX 8.4 GM PACK PO SCH (08:14)
[2019-09-26] MEDS: CHOLECALCIFEROL 1,000 UNITS 25 MCG TAB PO SCH (08:14)
--- NOTE | 2019-09-26 09:16 | Hospitalist Progress Note ---
Date of Service September 26, 2019 Assessment & Plan (1) Hypotension: -- Midodrine uptitrated to 5 mg 3 times daily, blood pressure improved Dizziness resolved, no other symptoms -- PT/OT recommend home health services with PT History of atrial fibrillation, history of paroxysmal atrial tachycardia, history of nonsustained ventricular tachycardia, history of wide complex tachycardia in the past thought to be from ventricular tachycardia. History of coronary artery disease status (post coronary artery bypass graft x2 and status post stent to left main and circumflex in the past Dyslipidemia -Per previous attending Dr. Kole Rojas's notes: Initially when he came in the had wide complex rhythm on the EKG. He is not taking amiodarone for last 2 weeks because [facility] has not sent the refill yet. amiodarone was restarted inpatient. metoprolol has been held upon admission for now --Usual amiodarone restarted, reduced to daily dosing remains sinus rhythm Usual metoprolol discontinued secondary to bradycardia --Appreciate cardiology service recommendations (2) ESRD (end stage renal disease) on dialysis: --HD per nephrology service Type 2 diabetes - not on any medications -A1c 5.8 -BSG's within acceptable range, continue to monitor Deep vein thrombosis prophylaxis: Sequential compression devices for now Full Code Disposition d/c home today ff up with PCP as per DC instructions outpatient HD per Nephro ff up with [employer] [facility] in 2-3 weeks Admission and Anticipated Discharge Date Admission Date: September 21, 2019 Anticipated date of discharge: 09/25/19 Subjective ff up for hypotension seen resting in bed, comfortable not in distress sinus rhythm on tele denies dizziness, weakness, chest pain, SOB, palpitations no nausea/vomiting states he feels fine overall states he is ready and would like to be discharged today Review of Systems Review of Systems: All systems reviewed & are unremarkable except as noted in HPI & below Physical Exam Physical Exam: General- oriented x 3, not in distress, speaks in sentences with no effort or accessory muscle use Eyes- anicteric Neck- no JVD Lungs- clear breath sounds bilaterally Heart- normal rate, regular rhythm; no murmurs Abdomen- normal bowel sounds, nondistended, soft, nontender Extremities- mild lower leg edema, no calf tenderness AV fistula left arm- no issues Neuro- alert, oriented x 3; no gross focal neurologic deficits Skin- warm & dry Results & Data ([facility]) Vital Signs (Past 12 Hours) Vital Signs Temp Pulse Pulse Resp BP BP Pulse Ox 09/26/19 07:48 36.6 C 72 20 94/43 L 93 09/26/19 03:37 36.8 C 68 18 95/58 L 93 09/25/19 23:23 37.3 C 76 19 96/60 L 92 09/25/19 22:19 77 Laboratory Results Laboratory Results - last 24 hr 09/25/19 09/25/19 09/25/19 09:51 11:12 20:09 WBC RBC Hgb Hct MCV MCH MCHC RDW Std Deviation RDW Coeff of Suad Plt Count MPV Sodium 133 L Potassium 4.2 Chloride 101 Carbon Dioxide 23 Anion Gap 9.0 BUN 34 H D Creatinine 7.17 H* D Est Cr Clr Drug Dosing 9.7 Est GFR ( Amer) 7.8 Est GFR (Non-Af Amer) 6.7 BUN/Creatinine Ratio 4.8 L Glucose 129 H POC Glucose 105 H 89 Calcium 8.6 09/26/19 09/26/19 09/26/19 06:32 06:32 07:17 WBC 10.56 RBC 3.45 L Hgb 12.0 L Hct 35.6 L MCV 103.2 H MCH 34.8 H MCHC 33.7 RDW Std Deviation 62.1 H RDW Coeff of Suad 16.7 H Plt Count 191 MPV 9.9 Sodium 135 L Potassium 4.3 Chloride 100 Carbon Dioxide 29 Anion Gap 6.0 BUN 20 H Creatinine 5.14 H* D Est Cr Clr Drug Dosing 13.4 Est GFR ( Amer) 11.7 Est GFR (Non-Af Amer) 10.1 BUN/Creatinine Ratio 3.8 L Glucose 103 H POC Glucose 104 H Calcium 8.8 (1) Hypotension Hypotension type: unspecified hypotension type Qualified Code(s): I95.9 - Hypotension, unspecified
--- NOTE | 2019-09-26 09:30 | Discharge Summary ---
Date of Service September 26, 2019 Admission HPI Per Admitting Provider CHIEF COMPLAINT: Severe dizziness and hypotension. HISTORY OF PRESENT ILLNESS: This is a 74-year-old male with past medical history significant for type 2 diabetes, not on any medications, hyperlipidemia, history of hyperkalemia, end-stage renal disease on hemodialysis, history of atrial fibrillation, not on anticoagulation secondary to bleeding complications on aspirin and Plavix, history of diastolic heart failure, history of paroxysmal atrial tachycardia, history of nonsustained ventricular tachycardia, on amiodarone, obesity, history of stage II sacral pressure ulcers, ascites, history of coronary artery disease status post coronary artery bypass graft in 1987 and also in 1997, status post angioplasty with stent placement, bare metal stent to left main and circumflex in January 2009 and also in October 2008. Lives alone at home. On wheelchair. Daughter and son helps him. Lately he is having issues with hypotension. He is on amiodarone and Toprol-XL. He does not take Toprol-XL on dialysis days and whenever he gets dialysis, his blood pressure drops and he feels dizziness. Today during the dialysis, he had some headache then later he started to have severe dizziness, he did not pass out. Has some blurred visions, nausea and he was transferred to the ER where his blood pressure was low and was found his EKG shows some wide complex rhythm with a rate of 95, after fluid bolus, blood pressure improved and repeat EKG shows normal sinus rhythm with prolonged QT. Currently resting comfortably and he says his symptoms are much better, now . Currently, denies any chest pain. He always has some shortness of breath, no cough, no fever, no chills, no headache, no blurred vision. Somewhat hard of hearing. No runny nose, no sore throat. He has some dysphagia and he has to carefully chew for long time and drinks water so he would not aspirate. No abdominal pain, no diarrhea or constipation, no blood in stools or black stools. Has chronic swelling in the lower extremities. ALLERGIES: No known drug allergies. PAST MEDICAL HISTORY: As mentioned above. PAST SURGICAL HISTORY: CABG 2 times, left heart catheterization, status post stents, right internal carotid stent placement, umbilical herniorrhaphy. MEDICATIONS: The patient is on amiodarone 200 mg p.o. b.i.d., metoprolol succinate 25 mg p.o. daily, to hold them on dialysis days, Renvela 800 mg p.o. t.i.d. with meals, Veltassa 8.4 grams 1 daily, lidocaine, apply 1 hour prior to dialysis, B complex vitamins 1 capsule daily at bedtime, nitroglycerin 0.4 mg sublingual p.r.n., Lipitor 40 mg p.o. daily, Plavix 75 mg p.o. daily, vitamin D 1000 units p.o. daily, aspirin 81 mg p.o. daily, MiraLax 17 g p.o. b.i.d. p.r.n. FAMILY HISTORY: Significant for brother had prostate cancer. Father had prostate cancer, pancreatic cancer, at age of 84. Mother has diabetes, heart disorder, stroke, at the age of 73. SOCIAL HISTORY: . No smoking, no alcohol, no drug use. Lives alone. On wheelchair. Daughter and son helps him. REVIEW OF SYMPTOMS: As per HPI. Rest of review of symptoms negative. Admission Exam Per Admitting Provider PHYSICAL EXAMINATION: GENERAL: The patient is of moderate build, currently not in acute distress. VITAL SIGNS: Temperature 36.9, pulse 62, respiratory rate 17, blood pressure 85/50, oxygen 95% room air. HEENT: No pallor, no icterus. Pupils equal, round, and reactive to light. NECK: No JVD, no neck masses, no carotid bruits. CARDIOVASCULAR: S1, S2 heard, regular rate and rhythm, no murmur, no gallop. RESPIRATORY SYSTEM: Normal AP diameter. No accessory muscle use. No wheezing, no crackles. ABDOMEN: Soft, bowel sounds present, nontender. No distention. CENTRAL NERVOUS SYSTEM: Alert and oriented. Obeys commands. Moves extremities. EXTREMITIES: Lower extremity edema present, on stockings. Slight open wound present on the left lower extremity below the knee. No drainage seen. Principal Diagnosis HYPOTENSION Discharge Exam General- oriented x 3, not in distress, speaks in sentences with no effort or accessory muscle use Eyes- anicteric Neck- no JVD Lungs- clear breath sounds bilaterally Heart- normal rate, regular rhythm; no murmurs Abdomen- normal bowel sounds, nondistended, soft, nontender Extremities- mild lower leg edema, no calf tenderness AV fistula left arm- no issues Neuro- alert, oriented x 3; no gross focal neurologic deficits Skin- warm & dry Discharge Data Allergies Allergy/AdvReac Type Severity Reaction Status Date / Time No Known Allergies Allergy Verified 09/21/19 23:33 Consultations 09/21/19 21:56 ED Decision to Admit Stat 09/22/19 00:35 Consult Case Management - Discharge Planning Routine Consult Nephrology Routine 09/22/19 08:00 Consult Cardiology Routine 09/22/19 09:42 Consult Case Management - Discharge Planning Routine Consult County Sheriff Routine XR shoulder RT min 2V routine CLINICAL HISTORY: 74 years-old Male presenting with Right shoulder pain post fall . TECHNIQUE: Internal rotation, external rotation, and transscapular Y views of the right shoulder were obtained. COMPARISON: Correlation made to chest x-ray performed yesterday. FINDINGS: Glenohumeral and acromioclavicular joints congruent. No deformity or subluxation of the humeral head. Moderate hypertrophic degenerative changes of the acromioclavicular joint. No acute fracture or malalignment. Osteophytosis may be present at the inferior aspect of the humeral head. Chondrocalcinosis may also be present at the glenohumeral joint. Median sternotomy wires and mediastinal surgical clips as well as coronary artery bypass graft rings noted. Coronary artery stents in place. IMPRESSION: 1. No acute osseous injury. 2. Degenerative changes of the glenohumeral and acromioclavicular joints. Hospital Course (1) Hypotension: -- admitted to ICU evaluated by Revenue Cycle Analyst Dr. Rodríguez and Church Musician Dr. Black -- Midodrine 2.5mg po TID started, BP improved -- Midodrine uptitrated to 5 mg 3 times daily, blood pressure improved- systolic 90s Dizziness resolved, no other symptoms -- PT/OT recommend home health services with PT History of atrial fibrillation, history of paroxysmal atrial tachycardia, history of nonsustained ventricular tachycardia, history of wide complex tachycardia in the past thought to be from ventricular tachycardia. History of coronary artery disease status (post coronary artery bypass graft x2 and status post stent to left main and circumflex in the past Dyslipidemia -Per previous attending Dr. Kole Rojas's notes: Initially when he came in the had wide complex rhythm on the EKG. He is not taking amiodarone for last 2 weeks because [place] has not sent the refill yet. amiodarone was restarted inpatient. metoprolol has been held upon admission for now -- Revenue Cycle Analyst Dr. Rodríguez consulted --Usual amiodarone 200mg daily restarted, reduced to daily dosing remains sinus rhythm since Usual metoprolol discontinued secondary to bradycardia -- ff up with Revenue Cycle Analyst in 2-3 weeks (2) ESRD (end stage renal disease) on dialysis: -- HD per nephrology service Type 2 diabetes - not on any medications -A1c 5.8 -BSG's within acceptable range, continue to monitor History of Osteomyelitis, Lumbar Spine - continue Clindamcyin Disposition d/c home with home health services ff up with PCP in 1 week, sched off closed, clinic to call patient on Saturday for the appointment outpatient HD per Nephro ff up with Revenue Cycle Analyst in 2-3 weeks Total Time Total Time Spent Total Time Spent (In Minutes): 45 minutes Discharge Plan Discharge Items Patient Disposition: Home - Home Health Services Reason For Visit: DIZZINESS, HYPOTENSION Discharge Diagnosis: HYPOTENSION Activity: As commented below Activity Comment: RESUME ACTIVITY GRADUALLY TOLERATED Lifting: Wait until after follow-up appointment Exercise/Sports: Wait until after follow-up appointment Driving/Machine Use: NO DRIVING Non-emergency contact: Primary Care Provider and Church Musician Call non-emergency contact if: you have any medication questions, your symptoms worsen and you have a fever Follow-up/Referrals: Campos Rodríguez DO [Revenue Cycle Analyst] - Rl Mendoza MD [Primary Care Provider] - Diet: Carb Consistent or DM2, Dialysis Renal and Heart Healthy Addtl Attending Provider Instructions: PLEASE REFER TO YOUR NEW MEDICATION LIST AND FOLLOW INSTRUCTIONS CAREFULLY. YOUR NEW MEDICATION IS MIDODRINE- TO PREVENT LOW BLOOD PRESSURE. AMIODARONE IS BEING REDUCED FROM TWICE A DAY TO ONCE A DAY. METOPROLOL IS NOW DISCONTINUED. CALL PRIMARY CARE PHYSICIAN OR RETURN TO THE ER IMMEDIATELY IF WITH RECURRENCE OF SYMPTOMS, PALPITATIONS, SHORTNESS OF BREATH. FOLLOW WITH DR. MENDOZA IN 1 WEEK. THE CLINIC WILL BE CALLING YOU FOR THE APPOINTMENT. FOLLOW UP WITH DIXONAC OPERATOR DR. RODRÍGUEZ IN 2-3 WEEKS. PLEASE CALL HIS CLINIC TO SET UP AN APPOINTMENT. CONTACT INFORMATION OUTLINED ABOVE. HEMODIALYSIS AND FOLLOW UP WITH ELEMENTARY SCHOOL COUNSELOR SCHEDULED. Pending Studies at Discharge: No Stand-Alone Forms: My [employer], Smoking Cessation Medications and DC Order Prescriptions: New midodrine 2.5 mg Tablet 5 mg PO TID@0800,1200,1700 30 Days Qty: 90 RF: 2 amiodarone 200 mg Tablet 200 mg PO QAM 30 Days Qty: 30 RF: 2 Continued atorvastatin 40 mg Tablet 40 mg PO PM RF: 0 aspirin [Malvin Chewable Aspirin] 81 mg Tablet,Chewable 81 mg PO QAM RF: 0 clindamycin HCl 300 mg capsule 300 mg PO BID RF: 0 clopidogrel 75 mg tablet 75 mg PO QAM RF: 0 lidocaine-prilocaine 2.5-2.5 % cream 1 applic topical .PREDIALYSIS RF: 0 nitroglycerin 0.4 mg tablet, sublingual 0.4 mg sublingual .PRN/UD PRN (Reason: Chest Pain) RF: 0 [place] Caps 1 mg Capsule 1 cap PO QPM RF: 0 sevelamer carbonate 800 mg Tablet 800 mg PO TID RF: 0 Veltassa 8.4 gram Powder In Packet 8.4 g PO DAILY RF: 0 cholecalciferol (vitamin D3) [Vitamin D3] 2,000 unit Tablet 1,000 unit PO QAM RF: 0 Discontinued amiodarone 200 mg Tablet 200 mg PO BID RF: 0 metoprolol tartrate 25 mg tablet 25 mg PO [id number] RF: 0 Discharge Orders: Discharge Order (Routine); Ordered 09/26/19 Ordered By: Chung Pena Admission Data Admit Date/Time: 09/21/19 23:14 Attending Provider: Chung Pena Admit Provider: Zoltan Avilez Primary Care Provider: Rl Mendoza Other Providers: Kole Rojas ; Zoltan Avilez ; Jesenia Iqbal ; Denver Garcia ; Iesha Darden ; Anna Garay ; Rosalind Black ; Anthony Suazo ; Campos Rodríguez ; Dylon Ellington ; Blaise Faulkner ; Yury Blank ; Rl Laird ; Marissa Clayton ; Miranda Jacob ; Bruce Rod ; Jeramie Gilbert ; [facility] ; [facility]
== END 2019-09-26 11:04 | disposition home health service (06) | DRG 312 ==
LOC: ED 20:23 → SUATTDRO 23:14 → 2S 23:14 → 1E 09-22 09:11 → 2S 09-23 16:45